=== PATIENT | male | born 1960 | race Caucasian/White ===

== ENCOUNTER 2017-04-18 09:16 | Inpatient (IN) | payer OTHER ==
[~2017-04-18] VITALS: Ht 193 cm; Wt 140.0 kg
[2017-04-18] MEDS ORDERED: CEFTRIAXONE 1 GM/50 ML (PMX) 50 ML IVPB STA (10:09)
[2017-04-18] MEDS ORDERED: SODIUM CHLORIDE 0.9% 1L BAG IV* STA (10:09)
[2017-04-18] MEDS ORDERED: AZITHROMYCIN 500MG/NS (PMX) 250 ML IV STA (10:09)
[2017-04-18] MEDS ORDERED: SOD CHLORIDE 0.9% 500 ML IV STA (10:16)
[2017-04-18] MEDS ORDERED: ACETAMINOPHEN 325 MG TAB PO ONE (10:30)
[2017-04-18] MEDS ORDERED: ALBUTEROL 0.083% (NEB) 2.5 MG/3 ML AMP NEB STA ×2 (10:52→12:23)
[2017-04-18] MEDS ORDERED: IPRATROPIUM (NEB) 0.5 MG/2.5 ML AMP NEB STA (10:52)
[2017-04-18] MEDS ORDERED: predniSONE 20 MG TAB PO STA (10:52)
[2017-04-18 10:53] LABS: ABNORMAL IP MESSAGE 1; BASOPHILS % 0.2 % (0.0-2.0); EOSINOPHILS % 0.1 % (0.0-7.0); HEMATOCRIT 40.1 % (42.0-52.0); HEMOGLOBIN 12.5 g/dl (14.0-18.0); LYMPHOCYTES # 0.4 10^3/ul (0.8-2.9); LYMPHOCYTES % 2.7 % (15.0-51.0); MEAN CORPUSCULAR HEMOGLOBIN 32.1 pg (29.0-33.0); MEAN CORPUSCULAR HGB CONC 31.2 g/dl (32.0-37.0); MEAN CORPUSCULAR VOLUME 103.1 fl (82.0-101.0); MEAN PLATELET VOLUME 8.9 fl (7.4-10.4); MONOCYTE # 0.6 10^3/ul (0.3-0.9); MONOCYTES % 3.6 % (0.0-11.0); NEUTROPHIL # 14.9 10^3/ul (1.6-7.5); NEUTROPHILS % 92.5 % (39.0-77.0); PLATELET COUNT 223 10^3/UL (140-415); POSITIVE DIFF @See below; RED BLOOD COUNT 3.89 10^6/ul (4.70-6.10); RED CELL DISTRIBUTION WIDTH 16.7 % (11.5-14.5); WHITE BLOOD COUNT 16.1 10^3/ul (4.8-10.8)
[2017-04-18 11:10] LABS: INR 1.1; PROTIME 14.2 Sec (12.2-14.2); PT RATIO 1.1
[2017-04-18 11:11] LABS: PARTIAL THROMBOPLASTIN TIME 33.2 Sec (25.0-35.0)
[2017-04-18 11:13] LABS: ALANINE AMINOTRANSFERASE 35 IU/L (13-69); ALBUMIN 3.9 g/dl (3.3-4.9); ALBUMIN/GLOBULIN RATIO 1.14; ALKALINE PHOSPHATASE 94 IU/L (42-121); ANION GAP 11 (8-16); ASPARTATE AMINO TRANSFERASE 16 IU/L (15-46); BILIRUBIN,INDIRECT 0.7 mg/dl (0-1.1); BILIRUBIN,TOTAL 0.7 mg/dl (0.2-1.3); BLOOD UREA NITROGEN 14 mg/dl (7-20); CARBON DIOXIDE 32 mmol/L (21-31); CHLORIDE 102 mmol/L (97-110); CREATININE 0.87 mg/dl (0.61-1.24); GLUCOSE 154 mg/dl (70-220); POTASSIUM 4.4 mmol/L (3.5-5.1); SODIUM 141 mmol/L (135-144); TOTAL PROTEIN 7.3 g/dl (6.1-8.1)
[2017-04-18 11:38] LABS: TROPONIN-I < 0.012 ng/ml (0.00-0.12)
--- NOTE | 2017-04-18 12:19 | RADRPT ---
PROCEDURE: Chest x-ray CLINICAL INDICATION: Shortness of breath TECHNIQUE: Chest single view COMPARISON: None FINDINGS: There is a moderate cardiomegaly and mild atherosclerotic aortic calcification. Increased bilateral interstitial markings are seen likely reflecting chronic interstitial lung change. Component of supe rimposed interstitial edema or interstitial pneumonia is not excluded. There is mild linear left low er lobe atelectasis. The questionable 7 mm right upper lung nodule. This may be artifactual due to o verlying rib. The costophrenic angles are sharp. There are calcified oval densities in the left axil la which may represent synovial calcification versus lymph nodes. There is moderate degenerative maria l nge left glenohumeral joint. IMPRESSION: 1. Moderate cardiomegaly and mild atherosclerotic aortic calcification. 2. Increased bilateral interstitial lung markings may represent chronic change, interstitial edema, or interstitial pneumonia. 3. Left lower lobe atelectasis. 4. 7 mm nodular density in the right upper lobe. This should be followed. 5. Calcifications in the left shoulder likely represent synovial calcification versus loose bodies. There is moderate degenerate change left shoulder joint RPTAT: HH .Jaylen Blair MD, Date Time Electronically viewed and signed by .Jaylen Blair MD, on 04/18/2017 12:18 .W/
[2017-04-18] MEDS ORDERED: ONDANSETRON 4 MG INJ IV PRN ×2 (13:30→14:30)
[2017-04-18] MEDS ORDERED: VANCOMYCIN 1.5 GM in SOD CHLORIDE 0.9% 250 ML IVPB ONE (13:30)
[2017-04-18] MEDS ORDERED: ACETAMINOPHEN 325 MG TAB PO PRN ×2 (13:30→14:30)
[2017-04-18 13:32] LABS: AADO2 Arterial 72.6 mmHg (7.0-24.0); Arterial Base Excess 2.9 mmol/L (-3.0-3); Arterial COHb 3.1 % (0.0-3.0); Arterial Fraction of Oxyhgb 90.9 % (93.0-99.0); Arterial HCO3 27.6 mmol/L (22.0-26.0); Arterial MetHb 0.2 % (0.0-1.5); MODE NASAL CANNULA
[2017-04-18] MEDS ORDERED: HEPARIN 1000 UNITS/ML 10 ML INJ IV ONE (14:30)
[2017-04-18] MEDS ORDERED: HYDROCODONE/APAP (5/325) TAB PO PRN (14:30)
[2017-04-18] MEDS ORDERED: ALBUTEROL/IPRATROPIUM (NEB) 3 ML AMP HHN PRN (14:30)
[2017-04-18] MEDS ORDERED: NACL 0.9% 3 ML SYG IV SCH (14:30)
[2017-04-18] MEDS ORDERED: HEPARIN 1000 UNITS/ML 10 ML INJ IV PRN ×2 (14:30)
[2017-04-18] MEDS ORDERED: SOD CHLORIDE 0.9% 100 ML ONE (14:35)
[2017-04-18] MEDS ORDERED: IOHEXOL 100 ML ONE (14:35)
--- NOTE | 2017-04-18 14:35 | ERA ---
ER Documentation Chief Complaint Date/Time DATE: 04/18/17 TIME: 14:19 Chief Complaint chest pain with sob x 3 days HPI 57-year-old male with a history of CHF, COPD, cardiac arrest, PE and DVT on Coumadin presenting to the ER with complaints of cough, fever, chills, and shortness of breath. He states that he feels like he has bronchitis. He has had these symptoms for about 3 days and he has progressively been worsening. He has had associated lightheadedness as well. His last hospitalization was about 1 month ago. ROS All systems reviewed and are negative except as per history of present illness. PMhx/Soc History of Surgery: Yes Hx Respiratory Disorders: Yes (Pulmonary embolism, COPD) Hx Cardiac Disorders: Yes (CHF, hypertension) Hx Miscellaneous Medical Probl: Yes (DVT, spinal stenosis) Hx Alcohol Use: No Hx Substance Use: No Hx Tobacco Use: No Smoking Status: Current some day smoker FmHx Family History: No diabetes Physical Exam Vitals Vital Signs Date Time Temp Pulse Resp B/P Pulse Ox O2 Delivery O2 Flow Rate FiO2 04/18/17 13:30 69 18 126/68 98 Nasal Cannula 2.0 04/18/17 12:29 77 18 96 Nasal Cannula 2.0 04/18/17 11:07 2.0 04/18/17 11:07 75 18 96 Nasal Cannula 2.0 04/18/17 10:00 Nasal Cannula 2 04/18/17 09:18 102.4 105 20 178/101 89 Physical Exam Const: Nontoxic, large body habitus, speaking in full sentences but appears short of breath Head: Atraumatic Eyes: Normal Conjunctiva ENT: Normal External Ears, Nose and Mouth. Neck: Full range of motion..~ No meningismus. No JVD Resp: Tachypneic, diminished breath sounds bilaterally with diffuse expiratory wheezing, no rales or rhonchi Cardio: Tachycardic with regular regular rate and rhythm, no murmurs Abd: Soft, non tender, non distended. Normal bowel sounds Skin: No petechiae or rashes Back: No midline or flank tenderness Ext: No cyanosis, mild bilateral lower extremity edema with chronic venous stasis changes. 2+ pedal pulses bilaterally. Neur: Awake and alert, oriented 3, moving all extremities Psych: Normal Mood and Affect Result Diagram: 04/18/17 1023 04/18/17 1023 Results 24 hrs Laboratory Tests Test 04/18/17 10:23 04/18/17 12:25 04/18/17 12:50 White Blood Count 16.110^3/ul Red Blood Count 3.8910^6/ul Hemoglobin 12.5g/dl Hematocrit 40.1% Mean Corpuscular Volume 103.1fl Mean Corpuscular Hemoglobin 32.1pg Mean Corpuscular Hemoglobin Concent 31.2g/dl Red Cell Distribution Width 16.7% Platelet Count 04069^3/UL Mean Platelet Volume 8.9fl Neutrophils % 92.5% Lymphocytes % 2.7% Monocytes % 3.6% Eosinophils % 0.1% Basophils % 0.2% Nucleated Red Blood Cells % 0.0/100WBC Neutrophils # 14.910^3/ul Lymphocytes # 0.410^3/ul Monocytes # 0.610^3/ul Eosinophils # 0.010^3/ul Basophils # 0.010^3/ul Nucleated Red Blood Cells # 0.010^3/ul Prothrombin Time 14.2Sec Prothrombin Time Ratio 1.1 INR International Normalized Ratio 1.10 Activated Partial Thromboplast Time 33.2Sec Sodium Level 141mmol/L Potassium Level 4.4mmol/L Chloride Level 102mmol/L Carbon Dioxide Level 32mmol/L Anion Gap 11 Blood Urea Nitrogen 14mg/dl Creatinine 0.87mg/dl Glucose Level 154mg/dl Lactic Acid Level 1.6mmol/L 1.2mmol/L Calcium Level 9.0mg/dl Total Bilirubin 0.7mg/dl Direct Bilirubin 0.00mg/dl Indirect Bilirubin 0.7mg/dl Aspartate Amino Transf (AST/SGOT) 16IU/L Alanine Aminotransferase (ALT/SGPT) 35IU/L Alkaline Phosphatase 94IU/L Troponin I < 0.012ng/ml Total Protein 7.3g/dl Albumin 3.9g/dl Globulin 3.40g/dl Albumin/Globulin Ratio 1.14 Blood Gas Specimen Source Blood arterial Arterial Blood Date Drawn 04/18/2017 1:26:14 PM Arterial Blood pH (Temp corrected) 7.430 Arterial Blood pCO2 (Temp correct) 42.5mmhg Arterial Blood pO2 (Temp corrected) 69.7mmHG Arterial Blood HCO3 27.6mmol/L Arterial Blood Base Excess 2.9mmol/L Arterial Blood Oxygen Saturation 94.0mmHG Jian Test N/A Arterial Blood Gas Puncture Site LB Arterial Blood Carboxyhemoglobin 3.1% Arterial Blood Methemoglobin 0.2% Blood Gas A-a O2 Differential 72.6mmHg Oxyhemoglobin Percent 90.9% Total Hemoglobin 13.0g/dl Blood Gas Temperature 37.0C Blood Gas Modality NASAL CANNULA FiO2 27.0% Blood Gas Notified Whom MDA Blood Gas Notified Time 04/18/2017 1:31:40 PM Current Medications Medications (Trade) Dose Ordered Sig/Mark Route PRN Reason Start Time Stop Time Status Last Admin Dose Admin Sodium Chloride 4450 ml 4,450 ml BOLUS OVER 2 HOURS STAT IV* 04/18/17 10:09 04/18/17 10:18 DC Ceftriaxone Sodium 50 ml @ 100 mls/hr ONCE STAT IVPB 04/18/17 10:09 04/18/17 10:38 DC 04/18/17 10:56 Azithromycin 250 ml @ 250 mls/hr ONCE STAT IV 04/18/17 10:09 04/18/17 11:08 DC 04/18/17 11:55 Sodium Chloride (NS) 500 ml @ 500 mls/hr Q1H STAT IV 04/18/17 10:16 04/18/17 11:15 DC 04/18/17 10:55 Acetaminophen (Tylenol Tab) 650 mg ONCE ONCE PO 04/18/17 10:30 04/18/17 10:31 DC 04/18/17 10:55 Albuterol (Proventil 0.083% (Neb)) 5 mg ONCE STAT NEB 04/18/17 10:52 04/18/17 10:56 DC 04/18/17 11:07 Ipratropium [place] (Atrovent 0.02% (Neb)) 0.5 mg ONCE STAT NEB 04/18/17 10:52 04/18/17 10:56 DC 04/18/17 11:07 Prednisone (Prednisone) 60 mg ONCE STAT PO 04/18/17 10:52 04/18/17 10:56 DC 04/18/17 12:02 Albuterol 5 mg 5 mg ONCE STAT NEB 04/18/17 12:23 04/18/17 12:24 DC 04/18/17 12:28 Vancomycin HCl/ Sodium Chloride (Vancocin/NS) 250 ml @ 83.333 mls/ hr ONCE ONCE IVPB 04/18/17 13:30 04/18/17 16:29 Ondansetron HCl (Zofran Inj) 4 mg ER BRIDGE PRN IV NAUSEA AND/OR VOMITING 04/18/17 13:30 04/19/17 13:29 Acetaminophen (Tylenol Tab) 650 mg ER BRIDGE PRN PO MILD PAIN/FEVER 04/18/17 13:30 04/19/17 13:29 Procedures/MDM EKG: Rate/Rhythm: Sinus tachycardia at 102 bpm QRS, ST, T-waves: Poor R-wave progression, no changes consistent w/ acute ischemia Impression: No evidence of ischemia or arrhythmia Labs CBC: [place] ptosis CMP: No evidence of electrolyte abnormality, renal failure, hypoglycemia, liver failure, or biliary obstruction Troponin within normal limits Lactate within normal limits Chest x-ray: IMPRESSION: 1. Moderate cardiomegaly and mild atherosclerotic aortic calcification. 2. Increased bilateral interstitial lung markings may represent chronic change , interstitial edema, or interstitial pneumonia. 3. Left lower lobe atelectasis. 4. 7 mm nodular density in the right upper lobe. This should be followed. 5. Calcifications in the left shoulder likely represent synovial calcification versus loose bodies. There is moderate degenerate change left shoulder joint RPTAT: HH .Jaylen Blair MD, MD Date Time Electronically viewed and signed by .Jaylen Blair MD, MD on 04/18/2017 12:18 [facility] Patient is presenting with signs of sepsis and likely bronchitis versus interstitial pneumonia. Vitals were notable for fever with tachycardia and hypoxia on room air, which improved with supplemental oxygen and breathing treatments. However he still remains hypoxic on room air and generally still felt very weak. IV antibiotics were started. I have a lower suspicion for pulmonary embolism, however this still remains on the differential as does acute coronary syndrome and CHF exacerbation, however these are less likely. I will defer any further workup to the inpatient team. Patient's infectious symptoms have not stabilized and the patient is at risk of rapid decompensation. The patient will be admitted for careful hydration, antibiotic therapy, and infectious source control. Severe Sepsis Assessment: Infectious Source: Healthcare associated interstitial pneumonia End organ damage indicated by: Acute Resp Failure (sat < 92% w/o oxygen) Severe Sepsis Managment: Blood Cultures X 2 before broad spectrum antibiotics initiated within 3 hours of recognition. 30 ml/kg NS bolus 500 cc bolus given, full bolus not given the patient has signs of mild fluid overload and a history of heart failure Initial Lactate: normal Repeat Lactate not indicated as initial < 2.0 Critical Care: Time: 45 minutes Treatments/Evaluations: Emergent fluid management, while maintaining close respiratory support. Immediate broad spectrum antibiotic therapy. Simultaneous assessment for possible sources in order to direct therapy. Consideration for invasive and chemical support to prevent respiratory or cardiac collapse. Septic Shock Assessment (1 hour post 30 ml/kg fluid bolus): Hypotension (SBP < 90 or 40 mmHg drop, MAP < 65): No Lactic acid > 4.0 No Accepting Care Team: Current data and ongoing care discussed. Time: Time of admission Primary Provider: Alexey Negron Diagnosis: Primary Impression: Healthcare-associated pneumonia Additional Impressions: Sepsis Qualified Code: A41.9 - Sepsis, due to unspecified organism Acute respiratory failure with hypoxia Condition: Serious YOKASTA HOPKINS MD Apr 18, 2017 14:30
--- NOTE | 2017-04-18 14:56 | RADRPT ---
PROCEDURE: US Lower extremity Venous. CLINICAL INDICATION: Bilateral leg swelling TECHNIQUE: Multiple sonographic images of the bilateral lower extremity deep venous system was obt ained utilizing merino scale, color-flow, compressive sonography and doppler imaging with augmentation . COMPARISON: None. FINDINGS: There is normal compressibility and flow within the bilateral common femoral, femoral and popliteal veins. Visualized portions of the calf veins are patent. IMPRESSION: No sonographic evidence for deep venous thrombosis. RPTAT:AAJJ Physician Genet Date Time Electronically viewed and signed by Physician Genet on 04/18/2017 14:55 /
[2017-04-18] MEDS ORDERED: LABETALOL HCL 20MG INJ IV PRN ×3 (15:00→15:30)
[2017-04-18] MEDS ORDERED: hydrALAzine 20 MG INJ IV PRN (15:00)
--- NOTE | 2017-04-18 15:01 | HP ---
Date/Time of Note Date/Time of Note DATE: 04/18/17 TIME: 14:51 Assessment/Plan VTE Prophylaxis VTE Prophylaxis Intervention: heparin Assessment/Plan Chief Complaint/Hosp Course Patient is a 57-year-old male with a past medical history of CHF, COPD , pulmonary embolism and not compliant on warfarin who presents with fever, mild shortness of breath. Assessment and plan Sepsis, likely secondary to pneumonia Shortness of breath, pneumonia versus PE versus less likely COPD COPD exacerbation, less likely, very mild CO2 retention, however bicarb is elevated on BMP, consistent with someone with COPD Fever Anemia, mild History of PE, medically noncompliant Hypertension Chronic back pain -We will treat for pneumonia and COPD exacerbation, however cannot rule out PE at this time given patient's noncompliance and history of PE with IVC filter. -Stat CT angiogram of the chest ordered to rule out PE, will start patient on heparin as he needs it for a bridge to warfarin regardless of actual diagnosis of new PE. We will also order lower extremity Doppler -Community-acquired pneumonia antibiotics started, oral steroids will also be started, mild COPD exacerbation -CHF exacerbation is also a possibility, however less likely given no pulmonary edema seen on chest x-ray and patient is not showing signs of severe acute respiratory distress at bedside -Breathing treatments as needed -Pain control as needed -Restart home meds as able, currently no home meds at [facility] med rec, however patient can remember some occasions, will need to confirm with . Disposition: Treat patient for pneumonia, rule out PE, bridge to warfarin. Problems: HPI/ROS Admit Date/Time Admit Date/Time Hx of Present Illness Patient is a 57-year-old male with a past medical history significant for CHF, COPD, PE on warfarin who presents to [facility] for approximately 3-4 days of worsening shortness of breath and feeling ill. Patient states that he has had fevers and has been feeling off for the past few days. Patient is currently he is tired, fatigued, feels feverish. Patient states that although he is supposed to be on warfarin, has missed the last couple doses secondary to not being able to pick them up from the pharmacy. Patient also states that his left lower extremity has been more swollen than usual. Patient can remember some of his medication, however he is not the best historian. Patient denies any headache, vomiting, chest pain, abdominal pain, bowel or bladder dysfunction. PMH: CHF, COPD, PE, cardiopulmonary arrest secondary to aspiration, back pain PSH: IVC filter, cardiac cath, right wrist metallic fixation device Social: Occasional smoker, occasional drinker, denies drugs Meds: Warfarin 4 mg daily, losartan 100 mg daily, oxycodone PMH/Family/Social Social History Smoking Status: Current some day smoker Exam/Review of Systems Vital Signs Vitals Vital Signs Date Time Temp Pulse Resp B/P Pulse Ox O2 Delivery O2 Flow Rate FiO2 04/18/17 13:30 69 18 126/68 98 Nasal Cannula 2.0 04/18/17 09:18 102.4 Exam Exam Physical exam General: Patient is laying in bed and answers questions appropriately, obese Mentation: Patient is alert and oriented 4, Head: Normocephalic atraumatic Eyes: EOMI, pupils reactive to light Neck: Supple, nontender, midline Respiratory: coarse to auscultation bilaterally Cardiovascular: regular rate, no obvious murmurs Gastrointestinal: non-tender to palpation, bowel sounds heard. 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: Moves all extremities spontaneously Skin: bilateral mild/mod erythema LE. 2+ edema bilat LE Labs Result Diagram: 04/18/17 1023 04/18/17 1023 Medications Medications Current Medications Vancomycin HCl/ Sodium Chloride (Vancocin/NS) 250 ml @ 83.333 mls/ hr ONCE ONCE IVPB Last administered on 04/18/17t 14:20; Admin Dose 83.333 MLS/HR; Start 04/18/17 at 13:30; Stop 04/18/17 at 16:29 Prednisone 40 mg 40 mg DAILY PO ; Start 04/19/17 at 09:00 Ceftriaxone Sodium 50 ml @ 100 mls/hr Q24H IVPB ; Start 04/19/17 at 09:00 Azithromycin 250 ml @ 250 mls/hr Q24H IVPB ; Start 04/19/17 at 09:00 Sodium Chloride (NS) 1,000 ml @ 70 mls/hr [id number] IV ; Start 04/18/17 at 14:24 Ondansetron HCl (Zofran Inj) 4 mg Q6H PRN IV NAUSEA AND/OR VOMITING; Start at 14:30 Acetaminophen (Tylenol Tab) 650 mg Q6H PRN PO PAIN LEVEL 1-3 OR FEVER; Start 04/18/17 at 14:30 Acetaminophen/ Hydrocodone Bitart ([place] (5/325)) 1 tab Q6H PRN PO PAIN LEVEL 7 -10; Start 04/18/17 at 14:30 Bisacodyl (Dulcolax) 5 mg DAILY PRN PO CONSTIPATION; Start 04/18/17 at 14:30 RONNI PERKINS Apr 18, 2017 15:01
--- NOTE | 2017-04-18 16:02 | RADRPT ---
PROCEDURE: CTA Chest with IV contrast. CLINICAL INDICATION: Chest pain and shortness of breath. TECHNIQUE: The study was performed utilizing a multidetector CT scanner. Direct spiral axial secti ons were obtained from the thoracic inlet through the upper abdomen before and after the injection o f 100 cc Omnipaque 350 intravenous contrast material and reformatted at 1.25 mm. 3D, coronal and sag ittal reformations were obtained. The images were reviewed on a PACS workstation. DLP = 758.0 mGy-c m.CTDiVol = 56.3, 20.0 mGy. One or more of the following post reduction techniques were used: - Automated exposure control. - Adjustment of the mA and/or Kv according to patient's size. - Use of iterative reconstruction technique COMPARISON: No prior studies are available for comparison. FINDINGS: Subtle, thin nonocclusive pulmonary arterial filling defect is identified in the right descending pu lmonary artery (series 3, image 151). No additional filling defects are seen. Heart is borderline large. Coronary artery and aortic annular calcifications are seen. Multiple mil dly prominent paratracheal, subcarinal, prevascular space and bilateral hilar lymph nodes are identi fied. The largest distinct lymph node is seen in the right paratracheal region and measures approxim ately 2.2 x 1.9 cm. The visualized portions of the inferior thyroid appear unremarkable. Scattered mild calcified atherosclerosis is noted in the thoracic aorta. The thoracic esophagus appears normal . Moderate emphysematous changes are identified in both lungs. Mild peripheral nurse station changes w ith potential early fibrosis are seen scattered throughout the bilateral upper lobes. Focal patchy c onsolidation is seen in the bilateral posterior lower lobes. Focal ground-glass opacity is noted in the anterior left upper lobe. Additional scattered ground-glass opacity is seen in the periphery of the right upper lobe and in the lateral left lower lobe. 9 mm subpleural nodule is identified in the posterior right upper lobe (series 4, image 55). The visualized organs of the superior abdomen are unremarkable. Moderate to severe degenerative changes are seen in the spine. Old, healed fractures of the anterior left third through fifth ribs are observed. The subcutaneous and muscular soft tissues surrounding the chest are unremarkable. IMPRESSION: Subtle, pain, nonocclusive, pulmonary arterial filling defect in the right descending pulmonary francisco javier ry. This could reflect a pulmonary arterial web or synechiae and could be the sequelae of old pulmon adams embolus. An atypical small, acute pulmonary embolus cannot definitely be excluded. Patchy consolidations in the bilateral posterior lower lobes with additional scattered areas of grou nd-glass opacity in the bilateral upper lobes. Finding suggest multifocal infection/inflammation. Mediastinal and hilar adenopathy. This could be reactive. Moderate emphysematous changes in both lungs with associated peripheral interstitial changes and ear ly fibrosis in the upper lobes. 9 mm subpleural nodule in the posterior right upper lobe. Degenerative changes in the spine and calcified atherosclerosis in the arterial vasculature. Old, healed left rib fractures. Guidelines for Management of Small Pulmonary Nodules Detected on CT Scans: A statement from the Flei schner [employer] Single Solid Nodule: <6mm(<100mm3): Low risk: No f/u. High risk: Optional CT at 12 months. Certain pts at high risk with suspicious nodule morphology, upper lobe location, or both may warrant 12 mo f/ u. 6-8mm(100-250mm3): Low risk: CT at 6-[address] at 18-24 mos. High risk: CT at 6-[address] at 18-24 mos. >8mm(>250mm3): Consider CT, PET/CT, or tissue sampling at 3 mos. Multiple Solid Nodules: Use most susp nod to guide mgmt. F/u intervals may vary according to size/r isk <6mm(<100mm3): Low risk: No f/u. High risk: Optional CT at 12 months. 6-8mm(100-250mm3): Low risk: CT at 3-[address] at 18-24 mos. High risk: CT at 3-[address] at 18-24 mos. >8mm(>250mm3): Low risk: CT at 3-[address] at 18-24 mos. High risk: CT at 3-[address] at 18-24 mos. Single Subsolid Nodule: Ground Glass: In certain susp nods <6mm, consider 2 and 4 yr f/u. If solid component increases or growth develops, consider resection. Otherwise: <6mm(<100mm3): Low risk: No f/u. High risk: CT at 6-12 mos to confirm persistence, then CT every 2 yrs until 5 yrs. Part Solid: Must be >or=6mm to be part solid. CT at 3-6 mos to confirm persistence. If unchang ed and solid component still <6mm, do annual CT for 5 yrs. If solid component >=6mm, consider highly suspicious. Multiple Subsolid Nodules: <6mm(<100mm3): CT at 3-6 mos. If stable, consider CT at 2 and 4 yrs. Mult <6mm pure ground gla ss nods usually benign but consider f/u in selected high risk pts at 2 and 4 yrs. >=6mm(>100mm3): CT at 3-6 mos. Subseq management based on most susp nodule. Reference: Radiology 2017 Special Report Call report: A call report of the findings was made to Dr. Thompson at 3:56 PM on 04/18/2017 . RPTAT: AA .Yuri Hodge MD, Date Time Electronically viewed and signed by .Yuri Hodge MD, on 04/18/2017 16:02 .P/
[2017-04-18] MEDS: HEPARIN 25000 UNITS/250 ML 250 ML IV SCH (16:19)
[2017-04-18] MEDS: SOD CHLORIDE 0.9% 1,000 ML IV SCH (16:24)
[2017-04-18 17:11] VITALS: TEMP 98.1
[2017-04-18 18:00] VITALS: BP 146/67; RESP 19
[2017-04-18 18:09] VITALS: PULSE 79
[2017-04-18] MEDS: oxyCODONE 5 MG TAB PO PRN ×2 (18:14→23:52)
[2017-04-18 18:19] VITALS: Ht 193 cm; Wt 140.0 kg
[2017-04-18 20:00] VITALS: BP 139/84; RESP 21
[2017-04-18] MEDS: ALBUTEROL/IPRATROPIUM (NEB) 3 ML AMP HHN SCH (20:00)
[2017-04-18 20:26] VITALS: PULSE 79
[2017-04-18] MEDS: WARFARIN 2 MG TAB PO SCH (21:40)
[2017-04-19] VITALS (13 sets, daily range): BP systolic 132–184; BP diastolic 66–93; PULSE 62–77; RESP 20–22
[2017-04-19] MEDS ORDERED: HEPARIN 1000 UNITS/ML 10 ML INJ IV ONE (01:30)
[2017-04-19] MEDS: HEPARIN 25000 UNITS/250 ML 250 ML IV SCH ×5 (01:31→22:35)
[2017-04-19] MEDS: oxyCODONE 5 MG TAB PO PRN ×3 (05:13→19:32)
[2017-04-19] MEDS: SOD CHLORIDE 0.9% 1,000 ML IV SCH ×2 (05:14→20:47)
[2017-04-19] MEDS: ALBUTEROL/IPRATROPIUM (NEB) 3 ML AMP HHN SCH ×3 (08:54→19:54)
[2017-04-19 08:57] LABS: ALBUMIN 3.4 g/dl (3.3-4.9); ALBUMIN/GLOBULIN RATIO 0.94; BILIRUBIN,INDIRECT 0.6 mg/dl (0-1.1); BILIRUBIN,TOTAL 0.6 mg/dl (0.2-1.3); CALCIUM 8.8 mg/dl (8.4-10.2); CREATININE 0.73 mg/dl (0.61-1.24); POTASSIUM 3.9 mmol/L (3.5-5.1)
[2017-04-19] MEDS: AZITHROMYCIN 500MG/NS (PMX) 250 ML IVPB SCH (09:00)
[2017-04-19] MEDS: LOSARTAN 50 MG TAB PO SCH (09:34)
[2017-04-19] MEDS: predniSONE 20 MG TAB PO SCH (09:34)
[2017-04-19] MEDS ORDERED: HEPARIN 1000 UNITS/ML 10 ML INJ IV PRN ×3 (09:42→09:53)
[2017-04-19 10:35] LABS: INR 1.24; PROTIME 15.7 Sec (12.2-14.2); PT RATIO 1.2
[2017-04-19] MEDS: CEFTRIAXONE 1 GM/50 ML (PMX) 50 ML IVPB SCH (11:04)
--- NOTE | 2017-04-19 14:11 | PN ---
Date/Time of Note Date/Time of Note DATE: 04/19/17 TIME: 14:02 Assessment/Plan VTE Prophylaxis VTE Prophylaxis Intervention: heparin Lines/Catheters IV Catheter Type (from Nrs): Peripheral IV Urinary Cath still in place: No Assessment/Plan Assessment/Plan 1. Sepsis, likely secondary to pneumonia - Will continue monitoring WBC. remains afebrile - Currently on Azitho/Ceftriaxone - LA normal 2. Shortness of breath, community acquired pneumonia versus PE versus less likely COPD - CTA shows acute vs chronic PE - On antibiotics and Nebs PRN - Saturating well on NC and will titrate off O2 as tolerated - No wheezing appreciated, no steroids needed at this time - Mucinex to help with expectorant 3. History of PE, medically noncompliant - Currently on Heparin drip but discussed changing patient to Eliquis prior to d /c - Has IVC filter in place and states was dx with DVT in LLE 1.5 months ago but no evidence on duplex of lower extremities 4. Hypertension - stable 5. Chronic back pain 6. 9mm lung nodule - Will need follow up as outpatient 7. Disposition - Continue monitoring on Telemetry Subjective 24 Hr Interval Summary Free Text/Dictation Patient states still not feeling well and c/o difficulty breathing with chest discomfort. C/o burning with urination as well but denies fevers, chills, nausea, vomiting, constipation, or diarrhea. Exam/Review of Systems Vital Signs Vitals Vital Signs Date Time Temp Pulse Resp B/P Pulse Ox O2 Delivery O2 Flow Rate FiO2 04/19/17 12:13 68 04/19/17 11:43 98.8 20 145/82 94 04/19/17 08:59 2.0 04/19/17 08:55 Nasal Cannula Intake and Output 04/18/17 04/18/17 04/19/17 15:00 23:00 07:00 Intake Total 1800 ml Output Total 1100 ml Balance 700 ml Exam General: Patient is laying in bed and answers questions appropriately, obese Head: Normocephalic atraumatic Eyes: EOMI, pupils reactive to light Neck: Supple, nontender, midline Respiratory: coarse to auscultation bilaterally Cardiovascular: regular rate, no obvious murmurs Gastrointestinal: non-tender to palpation, bowel sounds heard. 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: Moves all extremities spontaneously Skin: bilateral mild/mod erythema LE. 2+ edema bilateral LE Results Result Diagram: 04/18/17 1023 04/19/17 0800 Results 24 hrs Laboratory Tests Test 04/18/17 15:25 04/18/17 22:19 04/19/17 08:00 Lactic Acid Level 1.7 Activated Partial Thromboplast Time 44.6 H 57.5 H Prothrombin Time 15.7 H Prothrombin Time Ratio 1.2 INR International Normalized Ratio 1.24 Sodium Level 139 Potassium Level 3.9 Chloride Level 105 Carbon Dioxide Level 28 Anion Gap 10 Blood Urea Nitrogen 11 Creatinine 0.73 Glucose Level 121 Calcium Level 8.8 Total Bilirubin 0.6 Direct Bilirubin 0.00 Indirect Bilirubin 0.6 Aspartate Amino Transf (AST/SGOT) 18 Alanine Aminotransferase (ALT/SGPT) 37 Alkaline Phosphatase 90 Total Protein 7.0 Albumin 3.4 Globulin 3.60 H Albumin/Globulin Ratio 0.94 Medications Medications Current Medications Prednisone 40 mg 40 mg DAILY PO Last administered on 04/19/17 09:34; Admin Dose 40 MG; Start 04/19/17 at 09:00 Ceftriaxone Sodium 50 ml @ 100 mls/hr Q24H IVPB Last administered on 11:04; Admin Dose 100 MLS/HR; Start 04/19/17 at 09:00 Azithromycin 250 ml @ 250 mls/hr Q24H IVPB Last administered on 04/19/17 09: 00; Admin Dose 250 MLS/HR; Start 04/19/17 at 09:00 Sodium Chloride (NS) 1,000 ml @ 70 mls/hr [id number] IV Last administered on 05:14; Admin Dose 70 MLS/HR; Start 04/18/17 at 14:24 Ondansetron HCl (Zofran Inj) 4 mg Q6H PRN IV NAUSEA AND/OR VOMITING; Start at 14:30 Acetaminophen (Tylenol Tab) 650 mg Q6H PRN PO PAIN LEVEL 1-3 OR FEVER; Start 04/18/17 at 14:30 Bisacodyl (Dulcolax) 5 mg DAILY PRN PO CONSTIPATION; Start 04/18/17 at 14:30 Warfarin Sodium (Coumadin) 4 mg DAILY@17 PO Last administered on 04/18/17 21: 40; Admin Dose 4 MG; Start 04/18/17 at 17:00 Losartan Potassium (Cozaar) 100 mg DAILY PO Last administered on 04/19/17 09: 34; Admin Dose 100 MG; Start 04/19/17 at 09:00 Oxycodone HCl (Roxicodone) 5 mg Q4H PRN PO PAIN Last administered on 05:13; Admin Dose 5 MG; Start 04/18/17 at 15:00 Hydralazine HCl (Apresoline) 10 mg Q4H PRN IV SBP>160; Start 04/18/17 at 15:00 Labetalol HCl (Labetalol) 10 mg Q4H PRN IV SBP>160; Start 04/18/17 at 15:30 Phenazopyridine HCl (Pyridium) 200 mg TID PO ; Start 04/19/17 at 14:00; Stop 04/22/17 at 21:00; Status UNV Guaifenesin (Mucinex) 600 mg BID PO ; Start 04/19/17 at 14:00; Status UNV ABHI HARE MD Apr 19, 2017 14:11
[2017-04-19] MEDS: GUAIFENESIN LA 600 MG TABSR PO SCH ×2 (14:45→20:49)
[2017-04-19] MEDS: PHENAZOPYRIDINE 200 MG TAB PO SCH ×2 (14:45→20:49)
[2017-04-19] MEDS: WARFARIN 2 MG TAB PO SCH (16:55)
[2017-04-19 18:25] LABS: ADD UMIC YES; UR ASCORBIC ACID NEGATIVE (NEGATIVE); UR BILIRUBIN (Dip) NEGATIVE (NEGATIVE); UR BLOOD (Dip) 1+ mg/dL (NEGATIVE); UR CLARITY CLEAR (CLEAR); UR COLOR YELLOW (YELLOW); UR GLUCOSE (Dip) NEGATIVE (NEGATIVE); UR KETONES (Dip) NEGATIVE (NEGATIVE); UR LEUKOCYTE ESTERASE (Dip) 1+ Leu/ul (NEGATIVE); UR NITRITE (Dip) NEGATIVE (NEGATIVE); UR RBC 10 /HPF (0-5); UR SPECIFIC GRAVITY (Dip) 1.006 (1.003-1.030); UR TOTAL PROTEIN (Dip) NEGATIVE (NEGATIVE); UR UROBILINOGEN (Dip) 1+ mg/dL (NEGATIVE)
--- NOTE | 2017-04-19 18:29 | RADRPT ---
Echocardiogram Report Patient Name: RAJAN LOPES Gender: Male Date: 1960 Study Date: 19-Apr-2017 Yarn Rewinder: [facility] Location: [address] Ref. Physician: RONNI PERKINS Quality: Technically Difficult Study Procedures: Transthoracic echocardiogram with complete 2D, M-Mode, and doppler examination. Indications: Congestive Heart Failure. 2D/M Mode Doppler Measurement Value Normal Ranges Measurement Value Normal Ranges LVIDd 2D 5.5 3.5 - 5.6 cm AV Peak Jacques 1.7 m/sec LVIDs 2D 3.8 2.1 - 4.1 cm AV Peak PG 12.0 mmHg FS 2D 30.5 % LVOT Peak Jacques 1.3 m/sec LVPWd 2D 1.3 0.6 - 1.1 cm LVOT Peak PG 7.0 mmHg IVSd 2D 1.3 0.6 - 1.1 cm MV E Peak Jacques 1.1 m/sec IVS/LVPW 2D 1.0 MV A Peak Jacques 0.8 m/sec AoR Diam 2D 3.3 2.0 - 3.7 cm MV E/A 1.5 LA/Ao 2D 1 0 - 1 MV Decel Time 254 msec EDV 2D 167.0 cm3 MV E/A 1.5 ESV 2D 56.2 cm3 LA Dimen 2D 4.9 2.3 - 4.0 cm Findings Left Ventricle: Normal left ventricular systolic function. Normal left ventricular cavity size. Mild concentric left ventricular hypertrophy. Ejection fraction is visually estimated at 5560 %. Tissue Doppler/Mitral Doppler indices are consistent with impaired relaxation (Stage I diastolic dysfunction). Right Ventricle: Normal right ventricular size. Normal right ventricular systolic function. Left Atrium: There is moderate enlargement of left atrium. Right Atrium: The right atrium is normal in size. Mitral Valve: Mild mitral leaflet calcification. Mild mitral annular calcification. Trace mitral regurgitation. Aortic Valve: No significant aortic stenosis or insufficiency. Aortic sclerosis without stenosis. Tricuspid Valve: Normal appearance of the tricuspid valve. Unable to obtain RVSP due to minimal presence of tricuspid regurgitation. There is trace tricuspid regurgitation. Pulmonic Valve: Pulmonic valve not well visualized. There is trace pulmonic regurgitation. Pericardium: Normal pericardium with no significant pericardial effusion. Aorta: Normal aortic root. IVC: Dilated IVC without respiratory collapse consistent with elevated right atrial pressure. Conclusions 1.Normal left ventricular systolic function. Normal left ventricular cavity size. Mild concentric left ventricular hypertrophy. Ejection fraction is visually estimated at 55-60 %. Tissue Doppler/Mitral Doppler indices are consistent with impaired relaxation (Stage I diastolic dysfunction). 2.There is moderate enlargement of left atrium. 3.Mild mitral leaflet calcification. Mild mitral annular calcification. Trace mitral regurgitation. 4.Normal appearance of the tricuspid valve. Unable to obtain RVSP due to minimal presence of tricuspid regurgitation. There is trace tricuspid regurgitation. 5.Pulmonic valve not well visualized. There is trace pulmonic regurgitation. Electronically Signed By: Daniel Clarke 19-Apr-2017 18:29:07 -0700 Patient Name: RAJAN LOPES Study Date: 19-Apr-2017 [id number]
[2017-04-20] VITALS (14 sets, daily range): BP systolic 150–179; BP diastolic 86–106; PULSE 78–153; RESP 17–22
[2017-04-20] MEDS: oxyCODONE 5 MG TAB PO PRN ×3 (01:56→17:53)
[2017-04-20] MEDS: HEPARIN 25000 UNITS/250 ML 250 ML IV SCH ×4 (06:09→22:13)
[2017-04-20] MEDS: LOSARTAN 50 MG TAB PO SCH (08:06)
[2017-04-20 08:23] LABS: BASOPHILS % 0.4 % (0.0-2.0); EOSINOPHILS % 0.2 % (0.0-7.0); HEMATOCRIT 35.1 % (42.0-52.0); HEMOGLOBIN 11.1 g/dl (14.0-18.0); LYMPHOCYTES # 0.8 10^3/ul (0.8-2.9); LYMPHOCYTES % 7.9 % (15.0-51.0); MEAN CORPUSCULAR HEMOGLOBIN 32.5 pg (29.0-33.0); MEAN CORPUSCULAR HGB CONC 31.6 g/dl (32.0-37.0); MEAN CORPUSCULAR VOLUME 102.6 fl (82.0-101.0); MEAN PLATELET VOLUME 9.5 fl (7.4-10.4); MONOCYTE # 0.5 10^3/ul (0.3-0.9); MONOCYTES % 4.8 % (0.0-11.0); NEUTROPHIL # 9.1 10^3/ul (1.6-7.5); NEUTROPHILS % 86.2 % (39.0-77.0); PLATELET COUNT 192 10^3/UL (140-415); RED BLOOD COUNT 3.42 10^6/ul (4.70-6.10); WHITE BLOOD COUNT 10.6 10^3/ul (4.8-10.8)
[2017-04-20 08:46] LABS: ALBUMIN 3.6 g/dl (3.3-4.9); CREATININE 0.77 mg/dl (0.61-1.24); MAGNESIUM 1.8 mg/dl (1.7-2.5); PHOSPHORUS 4.2 mg/dl (2.5-4.9); POTASSIUM 3.9 mmol/L (3.5-5.1)
[2017-04-20 09:01] LABS: INR 1.18; PROTIME 15.1 Sec (12.2-14.2); PT RATIO 1.2
[2017-04-20] MEDS: AZITHROMYCIN 500MG/NS (PMX) 250 ML IVPB SCH (09:11)
[2017-04-20] MEDS: GUAIFENESIN LA 600 MG TABSR PO SCH ×2 (09:14→21:55)
[2017-04-20] MEDS: PHENAZOPYRIDINE 200 MG TAB PO SCH ×3 (09:14→21:55)
[2017-04-20] MEDS: predniSONE 20 MG TAB PO SCH (09:14)
--- NOTE | 2017-04-20 10:44 | PN ---
Date/Time of Note Date/Time of Note DATE: 04/20/17 TIME: 10:44 Assessment/Plan VTE Prophylaxis VTE Prophylaxis Intervention: heparin Lines/Catheters IV Catheter Type (from Nrs): Peripheral IV Urinary Cath still in place: No Assessment/Plan Assessment/Plan 1. Sepsis, likely secondary to pneumonia- resolving - WBC normalized and patient remains afebrile - Currently on Azitho/Ceftriaxone - LA normal 2. Shortness of breath, community acquired pneumonia - CTA shows acute vs chronic PE with bilateral infiltrate - On antibiotics and Nebs PRN - Saturating well on RA and will continue to monitor - ECHO shows EF 55-60% with stage 1 diastolic dysfunction - No wheezing appreciated, no steroids needed at this time - Mucinex to help with expectorant - Incentive spirometry 3. Episode of NSVT - In conjunction with elevated BP. Will continue to monitor and consult Cardiology if persists - Started on BB 3. History of PE, medically noncompliant - Currently on Heparin drip but discussed changing patient to Eliquis prior to d /c - Has IVC filter in place and states was dx with DVT in LLE 1.5 months ago but no evidence on duplex of lower extremities 4. Hypertension - elevated this am. Currently on Losartan 100mg and started on BB. will continue monitoring and titrate medication to maintain SBP <160 5. Chronic back pain - PRN pain medications 6. 9mm lung nodule - Will need follow up as outpatient 7. Disposition - Continue monitoring on Telemetry given episode of NSVT Subjective 24 Hr Interval Summary Free Text/Dictation Patient still not feeling well and complaining of shortness of breath with exertion and back pain. Patient states able to produce more sputum since started on Mucinex. Denies any fevers, chest pain, nausea, vomiting, or abdominal issues. Per nursing, had elevated BP this am with 9 beats of Vtach but asymptomatic Exam/Review of Systems Vital Signs Vitals Vital Signs Date Time Temp Pulse Resp B/P Pulse Ox O2 Delivery O2 Flow Rate FiO2 04/20/17 08:00 93 04/20/17 07:51 97.7 22 179/100 91 04/19/17 19:40 21 04/19/17 14:50 Nasal Cannula 2.0 Intake and Output 04/19/17 04/19/17 04/20/17 15:00 23:00 07:00 Intake Total 2100 ml Balance 2100 ml Exam General: Patient is laying in bed and answers questions appropriately, obese Head: Normocephalic atraumatic Eyes: EOMI, pupils reactive to light Neck: Supple, nontender, midline Respiratory: coarse to auscultation bilaterally, no wheezing appreciated Cardiovascular: regular rate and rhythm, no obvious murmurs Gastrointestinal: non-tender to palpation, bowel sounds heard. no distention. no rebound or guarding 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: Moves all extremities spontaneously Skin: bilateral mild/mod erythema LE. 1+ edema bilateral LE Results Result Diagram: 04/20/17 0726 04/20/17 0726 Results 24 hrs Laboratory Tests Test 04/19/17 16:57 04/19/17 16:58 04/20/17 00:45 04/20/17 07:26 Activated Partial Thromboplast Time 63.4 H 70.0 H 62.8 H Urine Color YELLOW Urine Clarity CLEAR Urine pH 7.0 Urine Specific [place] 1.006 Urine Ketones NEGATIVE Urine Nitrite NEGATIVE Urine Bilirubin NEGATIVE Urine Urobilinogen 1+ H Urine Leukocyte Esterase 1+ H Urine Microscopic RBC 10 H Urine Microscopic WBC 6 H Urine Hemoglobin 1+ H Urine Glucose NEGATIVE Urine Total Protein NEGATIVE White Blood Count 10.6 # Red Blood Count 3.42 L Hemoglobin 11.1 L Hematocrit 35.1 L Mean Corpuscular Volume 102.6 H Mean Corpuscular Hemoglobin 32.5 Mean Corpuscular Hemoglobin Concent 31.6 L Red Cell Distribution Width 16.0 H Platelet Count 192 Mean Platelet Volume 9.5 Neutrophils % 86.2 H Lymphocytes % 7.9 L Monocytes % 4.8 Eosinophils % 0.2 Basophils % 0.4 Nucleated Red Blood Cells % 0.0 Neutrophils # 9.1 H Lymphocytes # 0.8 Monocytes # 0.5 Eosinophils # 0.0 Basophils # 0.0 Nucleated Red Blood Cells # 0.0 Prothrombin Time 15.1 H Prothrombin Time Ratio 1.2 INR International Normalized Ratio 1.18 Sodium Level 140 Potassium Level 3.9 Chloride Level 106 Carbon Dioxide Level 27 Anion Gap 11 Blood Urea Nitrogen 11 Creatinine 0.77 Glucose Level 130 Calcium Level 9.0 Phosphorus Level 4.2 Magnesium Level 1.8 Albumin 3.6 Medications Medications Current Medications Prednisone 40 mg 40 mg DAILY PO Last administered on 04/20/17t 09:14; Admin Dose 40 MG; Start 04/19/17 at 09:00 Ceftriaxone Sodium 50 ml @ 100 mls/hr Q24H IVPB Last administered on 11:04; Admin Dose 100 MLS/HR; Start 04/19/17 at 09:00 Azithromycin 250 ml @ 250 mls/hr Q24H IVPB Last administered on 04/20/17 09: 11; Admin Dose 250 MLS/HR; Start 04/19/17 at 09:00 Sodium Chloride (NS) 1,000 ml @ 70 mls/hr [id number] IV Last administered on 05:14; Admin Dose 70 MLS/HR; Start 04/18/17 at 14:24 Ondansetron HCl (Zofran Inj) 4 mg Q6H PRN IV NAUSEA AND/OR VOMITING; Start at 14:30 Acetaminophen (Tylenol Tab) 650 mg Q6H PRN PO PAIN LEVEL 1-3 OR FEVER; Start 04/18/17 at 14:30 Bisacodyl (Dulcolax) 5 mg DAILY PRN PO CONSTIPATION; Start 04/18/17 at 14:30 Warfarin Sodium (Coumadin) 4 mg DAILY@17 PO Last administered on 04/19/17 16: 55; Admin Dose 4 MG; Start 04/18/17 at 17:00 Losartan Potassium (Cozaar) 100 mg DAILY PO Last administered on 04/20/17 08: 06; Admin Dose 100 MG; Start 04/19/17 at 09:00 Oxycodone HCl (Roxicodone) 5 mg Q4H PRN PO PAIN Last administered on 01:56; Admin Dose 5 MG; Start 04/18/17 at 15:00 Hydralazine HCl (Apresoline) 10 mg Q4H PRN IV SBP>160; Start 04/18/17 at 15:00 Labetalol HCl (Labetalol) 10 mg Q4H PRN IV SBP>160; Start 04/18/17 at 15:30 Phenazopyridine HCl (Pyridium) 200 mg TID PO Last administered on 04/20/17 09 :14; Admin Dose 200 MG; Start 04/19/17 at 14:00; Stop 04/22/17 at 21:00 Guaifenesin (Mucinex) 600 mg BID PO Last administered on 04/20/17 09:14; Admin Dose 600 MG; Start 04/19/17 at 14:00 ABHI HARE MD Apr 20, 2017 10:44
[2017-04-20] MEDS: CEFTRIAXONE 1 GM/50 ML (PMX) 50 ML IVPB SCH (12:12)
[2017-04-20] MEDS: ALBUTEROL/IPRATROPIUM (NEB) 3 ML AMP HHN SCH ×2 (13:31→19:39)
[2017-04-20] MEDS: morphine 2 MG INJ IV PRN ×2 (14:16→18:41)
[2017-04-20] MEDS ORDERED: METOPROLOL 5 MG INJ IV PRN (17:00)
[2017-04-20] MEDS ORDERED: POTASSIUM CHLORIDE (SR) 20 MEQ TAB PO STA (17:15)
--- NOTE | 2017-04-20 17:19 | CONS ---
Date/Time of Note Date/Time of Note DATE: 04/20/17 TIME: 17:11 Assessment/Plan Assessment/Plan Additional Assessment/Plan Paroxysmal atrial ablation, currently in atrial fibrillation Pneumonia Preserved ejection fraction History pulmonary emboli Hypertension -Patient was initially in sinus rhythm but currently converted to atrial fibrillation this afternoon. Given the acute onset, will start IV amiodarone to help convert to sinus rhythm, maintain potassium above 4.0 and magnesium of 2.0. Increased dose of Coreg. Patient states he is on Coumadin for anticoagulation but his INR is subtherapeutic. He is currently on IV heparin, if no conscious occasion, could be changed to Lovenox full dose. Consultation Date/Type/Reason Admit Date/Time Type of Consultation: cv Reason for Consultation Atrial fibrillation Hx of Present Illness This is a 57-year-old male with past medical history of pulmonary emboli on anticoagulation, hypertension who presents with worsening shortness of breath over the past 3-4 days associated with productive cough. Patient also with lower extremity edema. He does have a history of known pulmonary emboli and possibly DVT. Also history of paroxysmal atrial fibrillation. Today, patient converted to atrial fibrillation for this reason cardiology consultation was requested. Denies any chest pain, palpitations or dizziness at the current time. Denies any fevers. 12 point review of systems was performed with all pertinent positives and negatives mentioned above and all else is negative Past Medical History Pulmonary emboli Paroxysmal atrial fibrillation Medical History: hypertension Past Surgical History Past Surgical Hx: other (IVC filter) Social History Alcohol Use: occasionally Smoking Status: Current some day smoker Exam/Review of Systems Vital Signs Vitals Vital Signs Date Time Temp Pulse Resp B/P Pulse Ox O2 Delivery O2 Flow Rate FiO2 04/20/17 16:00 98.8 82 18 160/106 91 04/19/17 19:40 21 04/19/17 14:50 Nasal Cannula 2.0 Intake and Output 04/19/17 04/19/17 04/20/17 15:00 23:00 07:00 Intake Total 2100 ml Balance 2100 ml Exam No apparent distress, able to speak in complete sentences Constitutional: alert, oriented Head: normocephalic Respiratory: other (Coarse breath sounds bilaterally with scattered rhonchi) Cardiovascular: irregular rhythm, other (S1-S2 heard) Gastrointestinal: bowel sounds, non-tender, other (No guarding), soft Extremities: edema (Trace) Results Result Diagram: 04/20/17 0726 04/20/17 0726 Results 24 hrs Laboratory Tests Test 04/20/17 00:45 04/20/17 07:26 Activated Partial Thromboplast Time 70.0 H 62.8 H White Blood Count 10.6 # Red Blood Count 3.42 L Hemoglobin 11.1 L Hematocrit 35.1 L Mean Corpuscular Volume 102.6 H Mean Corpuscular Hemoglobin 32.5 Mean Corpuscular Hemoglobin Concent 31.6 L Red Cell Distribution Width 16.0 H Platelet Count 192 Mean Platelet Volume 9.5 Neutrophils % 86.2 H Lymphocytes % 7.9 L Monocytes % 4.8 Eosinophils % 0.2 Basophils % 0.4 Nucleated Red Blood Cells % 0.0 Neutrophils # 9.1 H Lymphocytes # 0.8 Monocytes # 0.5 Eosinophils # 0.0 Basophils # 0.0 Nucleated Red Blood Cells # 0.0 Prothrombin Time 15.1 H Prothrombin Time Ratio 1.2 INR International Normalized Ratio 1.18 Sodium Level 140 Potassium Level 3.9 Chloride Level 106 Carbon Dioxide Level 27 Anion Gap 11 Blood Urea Nitrogen 11 Creatinine 0.77 Glucose Level 130 Calcium Level 9.0 Phosphorus Level 4.2 Magnesium Level 1.8 Albumin 3.6 Medications Medications Current Medications Prednisone 40 mg 40 mg DAILY PO Last administered on 04/20/17 09:14; Admin Dose 40 MG; Start 04/19/17 at 09:00 Ceftriaxone Sodium 50 ml @ 100 mls/hr Q24H IVPB Last administered on 12:12; Admin Dose 100 MLS/HR; Start 04/19/17 at 09:00 Azithromycin 250 ml @ 250 mls/hr Q24H IVPB Last administered on 04/20/17 09: 11; Admin Dose 250 MLS/HR; Start 04/19/17 at 09:00 Sodium Chloride (NS) 1,000 ml @ 70 mls/hr [id number] IV Last administered on 05:14; Admin Dose 70 MLS/HR; Start 04/18/17 at 14:24 Ondansetron HCl (Zofran Inj) 4 mg Q6H PRN IV NAUSEA AND/OR VOMITING; Start at 14:30 Acetaminophen (Tylenol Tab) 650 mg Q6H PRN PO PAIN LEVEL 1-3 OR FEVER; Start 04/18/17 at 14:30 Bisacodyl (Dulcolax) 5 mg DAILY PRN PO CONSTIPATION; Start 04/18/17 at 14:30 Warfarin Sodium (Coumadin) 4 mg DAILY@17 PO Last administered on 04/19/17 16: 55; Admin Dose 4 MG; Start 04/18/17 at 17:00 Losartan Potassium (Cozaar) 100 mg DAILY PO Last administered on 04/20/17 08: 06; Admin Dose 100 MG; Start 04/19/17 at 09:00 Oxycodone HCl (Roxicodone) 5 mg Q4H PRN PO PAIN Last administered on 11:27; Admin Dose 5 MG; Start 04/18/17 at 15:00 Hydralazine HCl (Apresoline) 10 mg Q4H PRN IV SBP>160 Last administered on 12:42; Admin Dose 10 MG; Start 04/18/17 at 15:00 Labetalol HCl (Labetalol) 10 mg Q4H PRN IV SBP>160; Start 04/18/17 at 15:30 Phenazopyridine HCl (Pyridium) 200 mg TID PO Last administered on 04/20/17 14 :00; Admin Dose 200 MG; Start 04/19/17 at 14:00; Stop 04/22/17 at 21:00 Guaifenesin (Mucinex) 600 mg BID PO Last administered on 04/20/17 09:14; Admin Dose 600 MG; Start 04/19/17 at 14:00 Morphine Sulfate (morphine) 2 mg Q4H PRN IV PAIN LEVEL 4-6 Last administered on 04/20/17 14:16; Admin Dose 2 MG; Start 04/20/17 at 14:00 Carvedilol (Coreg) 6.25 mg BID PO Last administered on 04/20/17 14:16; Admin Dose 6.25 MG; Start 04/20/17 at 14:00 Metoprolol Tartrate (Lopressor) 5 mg Q6 PRN IV HR>100; Start 04/20/17 at 17:00 Procedures Procedures ECG done April 18 demonstrates sinus tachycardia 102 bpm, QRS 90 ms, nonspecific ST abnormalities Curly Ojeda DO Apr 20, 2017 17:19
[2017-04-20] MEDS ORDERED: AMIODARONE 150MG/D5W BOLUS 100 ML IV ONE (17:30)
[2017-04-20] MEDS ORDERED: MAGNESIUM SULFATE 2 GM/50 ML 50 ML IVPB ONE (17:30)
[2017-04-20] MEDS: WARFARIN 2 MG TAB PO SCH (17:53)
[2017-04-20] MEDS: SOD CHLORIDE 0.9% 1,000 ML IV SCH ×2 (18:05→23:15)
[2017-04-20] MEDS: AMIODARONE 900 MG in DEXTROSE 5% 482 ML IV SCH (19:23)
[2017-04-20] MEDS ORDERED: CYCLOBENZAPRINE 10 MG TAB PO ONE (20:45)
[2017-04-20] MEDS ORDERED: KETOROLAC 30 MG INJ IV PRN (20:46)
[2017-04-20] MEDS: morphine 4 MG/ML VIAL IV PRN (21:55)
[2017-04-21] VITALS (11 sets, daily range): BP systolic 121–156; BP diastolic 60–92; PULSE 73–94; RESP 18–20
[2017-04-21] MEDS: oxyCODONE 5 MG TAB PO PRN (03:39)
[2017-04-21] MEDS: OXYCODONE/ACETAMINOPHEN (10/325) TAB PO PRN ×3 (03:39→20:34)
[2017-04-21] MEDS: HEPARIN 25000 UNITS/250 ML 250 ML IV SCH (05:04)
[2017-04-21] MEDS: ALBUTEROL/IPRATROPIUM (NEB) 3 ML AMP HHN SCH ×3 (07:24→19:26)
[2017-04-21 08:30] LABS: BASOPHIL # 0.1 10^3/ul (0.0-0.1); BASOPHILS % 0.5 % (0.0-2.0); EOSINOPHILS # 0.1 10^3/ul (0.0-0.5); EOSINOPHILS % 0.5 % (0.0-7.0); HEMATOCRIT 34.9 % (42.0-52.0); LYMPHOCYTES # 1.3 10^3/ul (0.8-2.9); LYMPHOCYTES % 13.5 % (15.0-51.0); MEAN CORPUSCULAR HEMOGLOBIN 31.9 pg (29.0-33.0); MEAN CORPUSCULAR HGB CONC 31.5 g/dl (32.0-37.0); MEAN CORPUSCULAR VOLUME 101.2 fl (82.0-101.0); MONOCYTE # 0.5 10^3/ul (0.3-0.9); MONOCYTES % 5.3 % (0.0-11.0); NEUTROPHIL # 7.6 10^3/ul (1.6-7.5); NEUTROPHILS % 79.9 % (39.0-77.0); PLATELET COUNT 195 10^3/UL (140-415); RED BLOOD COUNT 3.45 10^6/ul (4.70-6.10); WHITE BLOOD COUNT 9.6 10^3/ul (4.8-10.8)
[2017-04-21 08:57] LABS: INR 1.2; PROTIME 15.3 Sec (12.2-14.2); PT RATIO 1.2
[2017-04-21 09:06] LABS: ALBUMIN 3.3 g/dl (3.3-4.9); CALCIUM 8.6 mg/dl (8.4-10.2); CREATININE 0.76 mg/dl (0.61-1.24); MAGNESIUM 1.8 mg/dl (1.7-2.5); PHOSPHORUS 4.2 mg/dl (2.5-4.9); POTASSIUM 3.7 mmol/L (3.5-5.1)
[2017-04-21] MEDS: AZITHROMYCIN 500MG/NS (PMX) 250 ML IVPB SCH (09:30)
[2017-04-21] MEDS ORDERED: ENOXAPARIN 100 MG/ML SYG SC SCH (09:30)
[2017-04-21] MEDS: GUAIFENESIN LA 600 MG TABSR PO SCH ×2 (09:31→20:33)
[2017-04-21] MEDS: predniSONE 20 MG TAB PO SCH (09:31)
[2017-04-21] MEDS: morphine 4 MG/ML VIAL IV PRN ×3 (09:32→21:51)
[2017-04-21] MEDS: PHENAZOPYRIDINE 200 MG TAB PO SCH ×3 (09:32→20:33)
[2017-04-21] MEDS: LOSARTAN 50 MG TAB PO SCH (09:37)
[2017-04-21] MEDS: ENOXAPARIN 100 MG/ML SYG SC SCH ×2 (10:24→21:57)
[2017-04-21] MEDS: ENOXAPARIN 40 MG/0.4 ML SYG SC SCH ×2 (10:25→21:57)
[2017-04-21 10:35] LABS: PARTIAL THROMBOPLASTIN TIME 85.7 Sec (25.0-35.0)
--- NOTE | 2017-04-21 10:47 | PN ---
Date/Time of Note Date/Time of Note DATE: 04/21/17 TIME: 10:47 Assessment/Plan VTE Prophylaxis VTE Prophylaxis Intervention: LMWH Lines/Catheters IV Catheter Type (from Nrsg): Peripheral IV Urinary Cath still in place: No Assessment/Plan Assessment/Plan 1. Sepsis, likely secondary to pneumonia- resolving - WBC normalized and patient remains afebrile - Currently on Azitho/Ceftriaxone, day 2. if continues to improve will change to PO tmrw - LA normal 2. Shortness of breath, community acquired pneumonia - CTA shows acute vs chronic PE with bilateral infiltrate - On antibiotics and Nebs PRN - Saturating well on RA and will continue to monitor - ECHO shows EF 55-60% with stage 1 diastolic dysfunction - No wheezing appreciated, no steroids needed at this time - Mucinex to help with expectorant - Incentive spirometry 3. New onset afib - Cardiology on board and consultation appreciated - Currently on full dose lovenox and started on IV amiodarone. Still in atrial fibrillation but rate controlled. 3. Chronic PE, medically noncompliant - Bridging from Lovenox to Warfarin - Has IVC filter in place and states was dx with DVT in LLE 1.5 months ago but no evidence on duplex of lower extremities 4. Hypertension - Currently on Losartan 100mg and on BB. will continue monitoring and titrate medication to maintain SBP <160 5. Chronic back pain - PRN pain medications - Will need to obtain list of home medications 6. 9mm lung nodule - Will need follow up as outpatient 7. Disposition - Continue monitoring on Telemetry given new onset atrial fibrillation Subjective 24 Hr Interval Summary Free Text/Dictation Patient has not been feeling well with shortness of breath and back pain that is chronic. States is on different pain medications at home and not able to get relief. No acute overnight events. Patient remains in atrial fibrillation but rate controlled. Exam/Review of Systems Vital Signs Vitals Vital Signs Date Time Temp Pulse Resp B/P Pulse Ox O2 Delivery O2 Flow Rate FiO2 04/21/17 08:00 73 04/21/17 07:41 98.7 18 136/87 96 04/21/17 07:24 21 04/21/17 02:21 2.0 04/20/17 20:50 Nasal Cannula Intake and Output 04/20/17 04/20/17 04/21/17 15:00 23:00 07:00 Intake Total 250 ml 250 ml 1270 ml Output Total 1400 ml Balance 250 ml 250 ml -130 ml Exam General: Patient is laying in bed and answers questions appropriately, obese Head: Normocephalic atraumatic Eyes: EOMI, pupils reactive to light Neck: Supple, nontender, midline Respiratory: coarse to auscultation bilaterally, no wheezing appreciated Cardiovascular: regular rate and rhythm, no obvious murmurs Gastrointestinal: non-tender to palpation, bowel sounds heard. no distention. no rebound or guarding 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: Moves all extremities spontaneously Skin: bilateral mild/mod erythema LE. 1+ edema bilateral LE Results Result Diagram: 04/21/17 0756 04/21/17 0756 Results 24 hrs Laboratory Tests Test 04/20/17 20:20 04/21/17 07:56 Activated Partial Thromboplast Time 57.8 H 85.7 *H White Blood Count 9.6 Red Blood Count 3.45 L Hemoglobin 11.0 L Hematocrit 34.9 L Mean Corpuscular Volume 101.2 H Mean Corpuscular Hemoglobin 31.9 Mean Corpuscular Hemoglobin Concent 31.5 L Red Cell Distribution Width 16.0 H Platelet Count 195 Mean Platelet Volume 9.0 Neutrophils % 79.9 H Lymphocytes % 13.5 L Monocytes % 5.3 Eosinophils % 0.5 Basophils % 0.5 Nucleated Red Blood Cells % 0.0 Neutrophils # 7.6 H Lymphocytes # 1.3 Monocytes # 0.5 Eosinophils # 0.1 Basophils # 0.1 Nucleated Red Blood Cells # 0.0 Prothrombin Time 15.3 H Prothrombin Time Ratio 1.2 INR International Normalized Ratio 1.20 Sodium Level 138 Potassium Level 3.7 Chloride Level 104 Carbon Dioxide Level 24 Anion Gap 14 Blood Urea Nitrogen 12 Creatinine 0.76 Glucose Level 196 Calcium Level 8.6 Phosphorus Level 4.2 Magnesium Level 1.8 Albumin 3.3 Medications Medications Current Medications Prednisone 40 mg 40 mg DAILY PO Last administered on 04/21/17 09:31; Admin Dose 40 MG; Start 04/19/17 at 09:00 Ceftriaxone Sodium 50 ml @ 100 mls/hr Q24H IVPB Last administered on 12:12; Admin Dose 100 MLS/HR; Start 04/19/17 at 09:00 Azithromycin 250 ml @ 250 mls/hr Q24H IVPB Last administered on 04/21/17 09: 30; Admin Dose 250 MLS/HR; Start 04/19/17 at 09:00 Sodium Chloride (NS) 1,000 ml @ 70 mls/hr [id number] IV Last administered on 18:05; Admin Dose 70 MLS/HR; Start 04/18/17 at 14:24 Ondansetron HCl (Zofran Inj) 4 mg Q6H PRN IV NAUSEA AND/OR VOMITING; Start at 14:30 Acetaminophen (Tylenol Tab) 650 mg Q6H PRN PO PAIN LEVEL 1-3 OR FEVER; Start 04/18/17 at 14:30 Bisacodyl (Dulcolax) 5 mg DAILY PRN PO CONSTIPATION; Start 04/18/17 at 14:30 Losartan Potassium (Cozaar) 100 mg DAILY PO Last administered on 04/21/17 09: 37; Admin Dose 100 MG; Start 04/19/17 at 09:00 Oxycodone HCl (Roxicodone) 5 mg Q4H PRN PO PAIN Last administered on 03:39; Admin Dose 5 MG; Start 04/18/17 at 15:00 Hydralazine HCl (Apresoline) 10 mg Q4H PRN IV SBP>160 Last administered on 12:42; Admin Dose 10 MG; Start 04/18/17 at 15:00 Labetalol HCl (Labetalol) 10 mg Q4H PRN IV SBP>160; Start 04/18/17 at 15:30 Phenazopyridine HCl (Pyridium) 200 mg TID PO Last administered on 04/21/17 09 :32; Admin Dose 200 MG; Start 04/19/17 at 14:00; Stop 04/22/17 at 21:00 Guaifenesin (Mucinex) 600 mg BID PO Last administered on 04/21/17 09:31; Admin Dose 600 MG; Start 04/19/17 at 14:00 Carvedilol (Coreg) 6.25 mg BID PO Last administered on 04/21/17 09:36; Admin Dose 6.25 MG; Start 04/20/17 at 14:00 Metoprolol Tartrate 5 mg 5 mg Q6 PRN IV HR>100; Start 04/20/17 at 17:00 Amiodarone HCl/ Dextrose (Cordarone Iv/ D5W) 500 ml @ 0 mls/hr Q0M IV Last administered on 04/20/17 19:23; Admin Dose 33.4 MLS/HR; Start 04/20/17 at 17: 30 Morphine Sulfate (morphine) 4 mg Q4H PRN IV PAIN Last administered on 09:32; Admin Dose 4 MG; Start 04/20/17 at 21:30 Oxycodone/ Acetaminophen (Endocet (10/ 325)) 1 tab Q6H PRN PO PAIN Last administered on 04/21/17 03:39; Admin Dose 1 TAB; Start 04/21/17 at 03:30 Warfarin Sodium (Coumadin) 10 mg ONCE@17 ONCE PO ; Start 04/21/17 at 17:00; Stop 04/21/17 at 17:01 Enoxaparin Sodium (Lovenox) 100 mg Q12H SC Last administered on 04/21/17 10: 24; Admin Dose 100 MG; Start 04/21/17 at 10:00 Enoxaparin Sodium (Lovenox) 40 mg Q12H SC Last administered on 04/21/17 10:25 ; Admin Dose 40 MG; Start 04/21/17 at 10:00 ABHI HARE MD Apr 21, 2017 10:47
[2017-04-21] MEDS ORDERED: oxyCODONE 5 MG TAB PO PRN (11:00)
[2017-04-21] MEDS: CEFTRIAXONE 1 GM/50 ML (PMX) 50 ML IVPB SCH (11:09)
[2017-04-21] MEDS: AMIODARONE 900 MG in DEXTROSE 5% 482 ML IV SCH (13:40)
[2017-04-21] MEDS: SOD CHLORIDE 0.9% 1,000 ML IV SCH (14:29)
[2017-04-21] MEDS ORDERED: POTASSIUM CHLORIDE (SR) 20 MEQ TAB PO STA (16:49)
--- NOTE | 2017-04-21 16:49 | CONS ---
Date/Time of Note Date/Time of Note DATE: 04/21/17 TIME: 16:46 Assessment/Plan Assessment/Plan Additional Assessment/Plan Paroxysmal atrial ablation, currently in atrial fibrillation Pneumonia Preserved ejection fraction History pulmonary emboli Hypertension -Heart rate trend improved and at times it appears the patient wants to convert to sinus rhythm. Would continue IV amiodarone at the current time. Coumadin as per INR. Antibiotics as per primary team. Supplement potassium to maintain above 4.0 and magnesium above 2.0. Consultation Date/Type/Reason Admit Date/Time Apr 18, 2017 at 13:19 Initial Consult Date Type of Consultation: cv 24 HR Interval Summary Free Text/Dictation Shortness of breath is better today, less cough and less wheezing. Denies palpitations or dizziness Exam/Review of Systems Vital Signs Vitals Vital Signs Date Time Temp Pulse Resp B/P Pulse Ox O2 Delivery O2 Flow Rate FiO2 04/21/17 16:00 89 04/21/17 15:35 98.7 18 156/92 90 04/21/17 07:24 21 04/21/17 02:21 2.0 04/20/17 20:50 Nasal Cannula Intake and Output 04/20/17 04/20/17 04/21/17 14:59 22:59 06:59 Intake Total 250 ml 250 ml 1270 ml Output Total 1400 ml Balance 250 ml 250 ml -130 ml Exam No apparent distress Constitutional: alert, oriented Head: normocephalic Respiratory: other (Coarse breath sounds bilaterally with scattered rhonchi and mild end expiratory wheezing) Cardiovascular: irregular rhythm, other (S1-S2 heard) Gastrointestinal: bowel sounds, non-tender, soft Extremities: edema Results Result Diagram: 04/21/17 0756 04/21/17 0756 Results 24 hrs Laboratory Tests Test 04/20/17 20:20 04/21/17 07:56 Activated Partial Thromboplast Time 57.8 H 85.7 *H White Blood Count 9.6 Red Blood Count 3.45 L Hemoglobin 11.0 L Hematocrit 34.9 L Mean Corpuscular Volume 101.2 H Mean Corpuscular Hemoglobin 31.9 Mean Corpuscular Hemoglobin Concent 31.5 L Red Cell Distribution Width 16.0 H Platelet Count 195 Mean Platelet Volume 9.0 Neutrophils % 79.9 H Lymphocytes % 13.5 L Monocytes % 5.3 Eosinophils % 0.5 Basophils % 0.5 Nucleated Red Blood Cells % 0.0 Neutrophils # 7.6 H Lymphocytes # 1.3 Monocytes # 0.5 Eosinophils # 0.1 Basophils # 0.1 Nucleated Red Blood Cells # 0.0 Prothrombin Time 15.3 H Prothrombin Time Ratio 1.2 INR International Normalized Ratio 1.20 Sodium Level 138 Potassium Level 3.7 Chloride Level 104 Carbon Dioxide Level 24 Anion Gap 14 Blood Urea Nitrogen 12 Creatinine 0.76 Glucose Level 196 Calcium Level 8.6 Phosphorus Level 4.2 Magnesium Level 1.8 Albumin 3.3 Medications Medications Current Medications Prednisone 40 mg 40 mg DAILY PO Last administered on 04/21/17 09:31; Admin Dose 40 MG; Start 04/19/17 at 09:00 Ceftriaxone Sodium 50 ml @ 100 mls/hr Q24H IVPB Last administered on 11:09; Admin Dose 100 MLS/HR; Start 04/19/17 at 09:00 Azithromycin 250 ml @ 250 mls/hr Q24H IVPB Last administered on 04/21/17 09: 30; Admin Dose 250 MLS/HR; Start 04/19/17 at 09:00 Sodium Chloride (NS) 1,000 ml @ 70 mls/hr [id number] IV Last administered on 14:29; Admin Dose 70 MLS/HR; Start 04/18/17 at 14:24 Ondansetron HCl (Zofran Inj) 4 mg Q6H PRN IV NAUSEA AND/OR VOMITING; Start at 14:30 Acetaminophen (Tylenol Tab) 650 mg Q6H PRN PO PAIN LEVEL 1-3 OR FEVER; Start 04/18/17 at 14:30 Bisacodyl (Dulcolax) 5 mg DAILY PRN PO CONSTIPATION; Start 04/18/17 at 14:30 Losartan Potassium (Cozaar) 100 mg DAILY PO Last administered on 04/21/17 09: 37; Admin Dose 100 MG; Start 04/19/17 at 09:00 Hydralazine HCl (Apresoline) 10 mg Q4H PRN IV SBP>160 Last administered on 12:42; Admin Dose 10 MG; Start 04/18/17 at 15:00 Labetalol HCl (Labetalol) 10 mg Q4H PRN IV SBP>160; Start 04/18/17 at 15:30 Phenazopyridine HCl (Pyridium) 200 mg TID PO Last administered on 04/21/17 13 :28; Admin Dose 200 MG; Start 04/19/17 at 14:00; Stop 04/22/17 at 21:00 Guaifenesin (Mucinex) 600 mg BID PO Last administered on 04/21/17 09:31; Admin Dose 600 MG; Start 04/19/17 at 14:00 Carvedilol (Coreg) 6.25 mg BID PO Last administered on 04/21/17 09:36; Admin Dose 6.25 MG; Start 04/20/17 at 14:00 Metoprolol Tartrate 5 mg 5 mg Q6 PRN IV HR>100; Start 04/20/17 at 17:00 Amiodarone HCl/ Dextrose (Cordarone Iv/ D5W) 500 ml @ 0 mls/hr Q0M IV Last administered on 04/21/17 13:40; Admin Dose 0.5 MLS/HR; Start 04/20/17 at 17: 30 Morphine Sulfate (morphine) 4 mg Q4H PRN IV PAIN Last administered on 09:32; Admin Dose 4 MG; Start 04/20/17 at 21:30 Oxycodone/ Acetaminophen (Endocet (10/ 325)) 1 tab Q6H PRN PO PAIN Last administered on 04/21/17 13:47; Admin Dose 1 TAB; Start 04/21/17 at 03:30 Warfarin Sodium (Coumadin) 10 mg ONCE@17 ONCE PO ; Start 04/21/17 at 17:00; Stop 04/21/17 at 17:01 Enoxaparin Sodium (Lovenox) 100 mg Q12H SC Last administered on 04/21/17 10: 24; Admin Dose 100 MG; Start 04/21/17 at 10:00 Enoxaparin Sodium (Lovenox) 40 mg Q12H SC Last administered on 04/21/17 10:25 ; Admin Dose 40 MG; Start 04/21/17 at 10:00 Oxycodone HCl (Roxicodone) 10 mg Q4H PRN PO PAIN; Start 04/21/17 at 11:00 Curly Ojeda DO Apr 21, 2017 16:49
[2017-04-21] MEDS ORDERED: MAGNESIUM SULFATE 3 GM in SOD CHLORIDE 0.9% 100 ML IVPB ONE (17:00)
[2017-04-21] MEDS ORDERED: WARFARIN 10 MG TAB PO ONE (17:00)
[2017-04-22] VITALS (10 sets, daily range): BP systolic 145–169; BP diastolic 83–101; PULSE 70–82; RESP 18–20
[2017-04-22] MEDS: morphine 4 MG/ML VIAL IV PRN ×3 (02:32→16:04)
[2017-04-22] MEDS: SOD CHLORIDE 0.9% 1,000 ML IV SCH (03:56)
[2017-04-22] MEDS: ALBUTEROL/IPRATROPIUM (NEB) 3 ML AMP HHN SCH ×3 (07:46→19:53)
[2017-04-22 09:05] LABS: BASOPHIL # 0.1 10^3/ul (0.0-0.1); BASOPHILS % 0.6 % (0.0-2.0); EOSINOPHILS # 0.1 10^3/ul (0.0-0.5); EOSINOPHILS % 0.7 % (0.0-7.0); HEMATOCRIT 35.5 % (42.0-52.0); HEMOGLOBIN 11.4 g/dl (14.0-18.0); LYMPHOCYTES # 1.1 10^3/ul (0.8-2.9); LYMPHOCYTES % 13.5 % (15.0-51.0); MEAN CORPUSCULAR HEMOGLOBIN 32.7 pg (29.0-33.0); MEAN CORPUSCULAR HGB CONC 32.1 g/dl (32.0-37.0); MEAN CORPUSCULAR VOLUME 101.7 fl (82.0-101.0); MEAN PLATELET VOLUME 9.3 fl (7.4-10.4); MONOCYTE # 0.7 10^3/ul (0.3-0.9); MONOCYTES % 8.5 % (0.0-11.0); NEUTROPHIL # 6.4 10^3/ul (1.6-7.5); NEUTROPHILS % 76.2 % (39.0-77.0); PLATELET COUNT 228 10^3/UL (140-415); RED BLOOD COUNT 3.49 10^6/ul (4.70-6.10); RED CELL DISTRIBUTION WIDTH 15.8 % (11.5-14.5); WHITE BLOOD COUNT 8.5 10^3/ul (4.8-10.8)
[2017-04-22] MEDS: predniSONE 20 MG TAB PO SCH (09:08)
[2017-04-22] MEDS: LOSARTAN 50 MG TAB PO SCH (09:08)
[2017-04-22] MEDS: GUAIFENESIN LA 600 MG TABSR PO SCH ×2 (09:08→20:43)
[2017-04-22] MEDS: CEFTRIAXONE 1 GM/50 ML (PMX) 50 ML IVPB SCH (09:10)
[2017-04-22] MEDS: ENOXAPARIN 40 MG/0.4 ML SYG SC SCH ×2 (09:11→22:19)
[2017-04-22] MEDS: ENOXAPARIN 100 MG/ML SYG SC SCH (09:12)
[2017-04-22 09:13] LABS: INR 1.3; PROTIME 16.3 Sec (12.2-14.2); PT RATIO 1.3
[2017-04-22] MEDS: OXYCODONE/ACETAMINOPHEN (10/325) TAB PO PRN (09:18)
[2017-04-22 09:20] LABS: ALBUMIN 3.7 g/dl (3.3-4.9); CALCIUM 9.1 mg/dl (8.4-10.2); CREATININE 0.76 mg/dl (0.61-1.24); MAGNESIUM 1.9 mg/dl (1.7-2.5); PHOSPHORUS 4.5 mg/dl (2.5-4.9); POTASSIUM 3.8 mmol/L (3.5-5.1)
--- NOTE | 2017-04-22 09:35 | PN ---
Date/Time of Note Date/Time of Note DATE: 04/22/17 TIME: 09:35 Assessment/Plan VTE Prophylaxis VTE Prophylaxis Intervention: LMWH Lines/Catheters IV Catheter Type (from Nrs): Peripheral IV Urinary Cath still in place: No Assessment/Plan Assessment/Plan 1. Sepsis, likely secondary to pneumonia- resolving - WBC normalized and patient remains afebrile - Currently on Azitho/Ceftriaxone, day 3. Will continue Azithromycin PO 250mg for 2 more days - LA normal 2. Shortness of breath, community acquired pneumonia- resolving - CTA shows acute vs chronic PE with bilateral infiltrate - On antibiotics and Nebs PRN. - Saturating well on RA and will continue to monitor - ECHO shows EF 55-60% with stage 1 diastolic dysfunction - No wheezing appreciated, no steroids needed at this time - Mucinex to help with expectorant - Incentive spirometry 3. New onset afib - Cardiology on board and consultation appreciated - Currently on full dose lovenox and started on IV amiodarone. Converted to sinus rhythm and started on PO amiodarone 3. Chronic PE, medically noncompliant - Bridging from Lovenox to Warfarin - INR 1.3 and will give another Coumadin 10mg tonight - Has IVC filter in place and states was dx with DVT in LLE 1.5 months ago but no evidence on duplex of lower extremities 4. Hypertension - Currently on Losartan 100mg and on BB. will continue monitoring and titrate medication to maintain SBP <160 - elevated BP most likely secondary to pain 5. Chronic back pain - PRN pain medications - Home medications restarted 6. VRE UTI - will change to Linezolid 600mg IV BID - Will ask ID input for length of treatment 7. 9mm lung nodule - Will need follow up as outpatient 8. Disposition - Continue monitoring on Telemetry Subjective 24 Hr Interval Summary Free Text/Dictation Patient still not feeling well but secondary to chronic back pain and burning with urination. Denies worsening of shortness of breath and sputum production has diminished. Home medication list was obtained and resumed Exam/Review of Systems Vital Signs Vitals Vital Signs Date Time Temp Pulse Resp B/P Pulse Ox O2 Delivery O2 Flow Rate FiO2 04/22/17 08:00 75 04/22/17 07:48 20 04/22/17 07:48 2.0 04/22/17 07:41 98.8 155/94 94 04/21/17 20:15 Nasal Cannula 04/21/17 14:46 21 Intake and Output 04/21/17 04/21/17 04/22/17 15:00 23:00 07:00 Intake Total 300 ml 940 ml 1600 ml Output Total 1200 ml Balance 300 ml 940 ml 400 ml Exam General: Patient is laying in bed and answers questions appropriately, obese Head: Normocephalic atraumatic Eyes: EOMI, pupils reactive to light Neck: Supple, nontender, midline Respiratory: diminished breath sounds bilaterally, no wheezing appreciated Cardiovascular: regular rate and rhythm, no obvious murmurs Gastrointestinal: non-tender to palpation, bowel sounds heard. no distention. no rebound or guarding 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: Moves all extremities spontaneously Skin: bilateral mild/mod erythema LE. trace edema bilateral LE with venous stasis changes Results Result Diagram: 04/22/17 0734 04/22/17 0734 Results 24 hrs Laboratory Tests Test 04/22/17 07:34 White Blood Count 8.5 Red Blood Count 3.49 L Hemoglobin 11.4 L Hematocrit 35.5 L Mean Corpuscular Volume 101.7 H Mean Corpuscular Hemoglobin 32.7 Mean Corpuscular Hemoglobin Concent 32.1 Red Cell Distribution Width 15.8 H Platelet Count 228 Mean Platelet Volume 9.3 Neutrophils % 76.2 Lymphocytes % 13.5 L Monocytes % 8.5 Eosinophils % 0.7 Basophils % 0.6 Nucleated Red Blood Cells % 0.0 Neutrophils # 6.4 Lymphocytes # 1.1 Monocytes # 0.7 Eosinophils # 0.1 Basophils # 0.1 Nucleated Red Blood Cells # 0.0 Prothrombin Time 16.3 H Prothrombin Time Ratio 1.3 INR International Normalized Ratio 1.30 Sodium Level 138 Potassium Level 3.8 Chloride Level 101 Carbon Dioxide Level 26 Anion Gap 15 Blood Urea Nitrogen 12 Creatinine 0.76 Glucose Level 140 # Calcium Level 9.1 Phosphorus Level 4.5 Magnesium Level 1.9 Albumin 3.7 Medications Medications Current Medications Prednisone 40 mg 40 mg DAILY PO Last administered on 04/22/17 09:08; Admin Dose 40 MG; Start 04/19/17 at 09:00 Ceftriaxone Sodium 50 ml @ 100 mls/hr Q24H IVPB Last administered on 09:10; Admin Dose 100 MLS/HR; Start 04/19/17 at 09:00 Azithromycin 250 ml @ 250 mls/hr Q24H IVPB Last administered on 04/21/17 09: 30; Admin Dose 250 MLS/HR; Start 04/19/17 at 09:00 Sodium Chloride (NS) 1,000 ml @ 70 mls/hr [id number] IV Last administered on 14:29; Admin Dose 70 MLS/HR; Start 04/18/17 at 14:24 Ondansetron HCl (Zofran Inj) 4 mg Q6H PRN IV NAUSEA AND/OR VOMITING; Start at 14:30 Acetaminophen (Tylenol Tab) 650 mg Q6H PRN PO PAIN LEVEL 1-3 OR FEVER; Start 04/18/17 at 14:30 Bisacodyl (Dulcolax) 5 mg DAILY PRN PO CONSTIPATION; Start 04/18/17 at 14:30 Losartan Potassium (Cozaar) 100 mg DAILY PO Last administered on 04/22/17 09: 08; Admin Dose 100 MG; Start 04/19/17 at 09:00 Hydralazine HCl (Apresoline) 10 mg Q4H PRN IV SBP>160 Last administered on 12:42; Admin Dose 10 MG; Start 04/18/17 at 15:00 Labetalol HCl (Labetalol) 10 mg Q4H PRN IV SBP>160; Start 04/18/17 at 15:30 Phenazopyridine HCl (Pyridium) 200 mg TID PO Last administered on 04/21/17 20 :33; Admin Dose 200 MG; Start 04/19/17 at 14:00; Stop 04/22/17 at 21:00 Guaifenesin (Mucinex) 600 mg BID PO Last administered on 04/22/17 09:08; Admin Dose 600 MG; Start 04/19/17 at 14:00 Carvedilol (Coreg) 6.25 mg BID PO Last administered on 04/22/17 09:08; Admin Dose 6.25 MG; Start 04/20/17 at 14:00 Metoprolol Tartrate 5 mg 5 mg Q6 PRN IV HR>100; Start 04/20/17 at 17:00 Amiodarone HCl/ Dextrose (Cordarone Iv/ D5W) 500 ml @ 0 mls/hr Q0M IV Last administered on 04/21/17 13:40; Admin Dose 0.5 MLS/HR; Start 04/20/17 at 17: 30 Morphine Sulfate (morphine) 4 mg Q4H PRN IV PAIN Last administered on 02:32; Admin Dose 4 MG; Start 04/20/17 at 21:30 Oxycodone/ Acetaminophen (Endocet (10/ 325)) 1 tab Q6H PRN PO PAIN Last administered on 04/22/17 09:18; Admin Dose 1 TAB; Start 04/21/17 at 03:30 Enoxaparin Sodium (Lovenox) 100 mg Q12H SC Last administered on 04/22/17 09: 12; Admin Dose 100 MG; Start 04/21/17 at 10:00 Enoxaparin Sodium (Lovenox) 40 mg Q12H SC Last administered on 04/22/17 09:11 ; Admin Dose 40 MG; Start 04/21/17 at 10:00 Oxycodone HCl (Roxicodone) 10 mg Q4H PRN PO PAIN; Start 04/21/17 at 11:00 ABHI HARE MD Apr 22, 2017 09:35
[2017-04-22] MEDS: PHENAZOPYRIDINE 200 MG TAB PO SCH ×3 (10:03→22:15)
[2017-04-22] MEDS: AZITHROMYCIN 500MG/NS (PMX) 250 ML IVPB SCH (10:03)
[2017-04-22] MEDS: oxyCODONE (CR) 10 MG TAB [oxyCONTIN] PO SCH ×2 (13:08→20:52)
[2017-04-22] MEDS ORDERED: POTASSIUM CHLORIDE (SR) 20 MEQ TAB PO STA (14:11)
--- NOTE | 2017-04-22 14:12 | CONS ---
Date/Time of Note Date/Time of Note DATE: 04/22/17 TIME: 14:09 Assessment/Plan Assessment/Plan Additional Assessment/Plan Paroxysmal atrial fibrillation, currently sinus rhythm Pneumonia Preserved ejection fraction History pulmonary emboli Hypertension -Patient has converted to sinus rhythm, would start p.o. amiodarone and DC IV. Coumadin as per INR. Antibiotics as per primary team. Supplement potassium to maintain above 4.0 and magnesium above 2.0. Consultation Date/Type/Reason Admit Date/Time Apr 18, 2017 at 13:19 Type of Consultation: cv 24 HR Interval Summary Free Text/Dictation Patient feeling better, less shortness of breath and cough, denies palpitations or dizziness Exam/Review of Systems Vital Signs Vitals Vital Signs Date Time Temp Pulse Resp B/P Pulse Ox O2 Delivery O2 Flow Rate FiO2 04/22/17 12:00 70 04/22/17 11:34 97.9 18 149/96 94 04/22/17 07:48 2.0 04/21/17 20:15 Nasal Cannula 04/21/17 14:46 21 Intake and Output 04/21/17 04/21/17 04/22/17 15:00 23:00 07:00 Intake Total 300 ml 940 ml 1600 ml Output Total 1200 ml Balance 300 ml 940 ml 400 ml Exam No apparent distress Constitutional: alert, oriented Head: normocephalic Respiratory: other (Coarse breath sounds bilaterally, mild end especially wheezing) Cardiovascular: other (S1-S2 heard), regular rate and rhythm Gastrointestinal: bowel sounds, non-tender, soft Extremities: edema Results Result Diagram: 04/22/17 0734 04/22/17 0734 Results 24 hrs Laboratory Tests Test 04/22/17 07:34 White Blood Count 8.5 Red Blood Count 3.49 L Hemoglobin 11.4 L Hematocrit 35.5 L Mean Corpuscular Volume 101.7 H Mean Corpuscular Hemoglobin 32.7 Mean Corpuscular Hemoglobin Concent 32.1 Red Cell Distribution Width 15.8 H Platelet Count 228 Mean Platelet Volume 9.3 Neutrophils % 76.2 Lymphocytes % 13.5 L Monocytes % 8.5 Eosinophils % 0.7 Basophils % 0.6 Nucleated Red Blood Cells % 0.0 Neutrophils # 6.4 Lymphocytes # 1.1 Monocytes # 0.7 Eosinophils # 0.1 Basophils # 0.1 Nucleated Red Blood Cells # 0.0 Prothrombin Time 16.3 H Prothrombin Time Ratio 1.3 INR International Normalized Ratio 1.30 Sodium Level 138 Potassium Level 3.8 Chloride Level 101 Carbon Dioxide Level 26 Anion Gap 15 Blood Urea Nitrogen 12 Creatinine 0.76 Glucose Level 140 # Calcium Level 9.1 Phosphorus Level 4.5 Magnesium Level 1.9 Albumin 3.7 Medications Medications Current Medications Prednisone 40 mg 40 mg DAILY PO Last administered on 04/22/17 09:08; Admin Dose 40 MG; Start 04/19/17 at 09:00 Ceftriaxone Sodium 50 ml @ 100 mls/hr Q24H IVPB Last administered on 09:10; Admin Dose 100 MLS/HR; Start 04/19/17 at 09:00 Azithromycin 250 ml @ 250 mls/hr Q24H IVPB Last administered on 04/22/17 10: 03; Admin Dose 250 MLS/HR; Start 04/19/17 at 09:00 Sodium Chloride (NS) 1,000 ml @ 70 mls/hr [id number] IV Last administered on 14:29; Admin Dose 70 MLS/HR; Start 04/18/17 at 14:24 Ondansetron HCl (Zofran Inj) 4 mg Q6H PRN IV NAUSEA AND/OR VOMITING; Start at 14:30 Acetaminophen (Tylenol Tab) 650 mg Q6H PRN PO PAIN LEVEL 1-3 OR FEVER; Start 04/18/17 at 14:30 Bisacodyl (Dulcolax) 5 mg DAILY PRN PO CONSTIPATION; Start 04/18/17 at 14:30 Losartan Potassium (Cozaar) 100 mg DAILY PO Last administered on 04/22/17 09: 08; Admin Dose 100 MG; Start 04/19/17 at 09:00 Hydralazine HCl (Apresoline) 10 mg Q4H PRN IV SBP>160 Last administered on 12:42; Admin Dose 10 MG; Start 04/18/17 at 15:00 Labetalol HCl (Labetalol) 10 mg Q4H PRN IV SBP>160; Start 04/18/17 at 15:30 Phenazopyridine HCl (Pyridium) 200 mg TID PO Last administered on 04/22/17 13 :08; Admin Dose 200 MG; Start 04/19/17 at 14:00; Stop 04/22/17 at 21:00 Guaifenesin (Mucinex) 600 mg BID PO Last administered on 04/22/17 09:08; Admin Dose 600 MG; Start 04/19/17 at 14:00 Carvedilol (Coreg) 6.25 mg BID PO Last administered on 04/22/17 09:08; Admin Dose 6.25 MG; Start 04/20/17 at 14:00 Metoprolol Tartrate 5 mg 5 mg Q6 PRN IV HR>100; Start 04/20/17 at 17:00 Amiodarone HCl/ Dextrose (Cordarone Iv/ D5W) 500 ml @ 0 mls/hr Q0M IV Last administered on 04/21/17 13:40; Admin Dose 0.5 MLS/HR; Start 04/20/17 at 17: 30 Morphine Sulfate (morphine) 4 mg Q4H PRN IV PAIN Last administered on 11:54; Admin Dose 4 MG; Start 04/20/17 at 21:30 Oxycodone/ Acetaminophen (Endocet (10/ 325)) 1 tab Q6H PRN PO PAIN Last administered on 04/22/17 09:18; Admin Dose 1 TAB; Start 04/21/17 at 03:30 Enoxaparin Sodium (Lovenox) 100 mg Q12H SC Last administered on 04/22/17 09: 12; Admin Dose 100 MG; Start 04/21/17 at 10:00 Enoxaparin Sodium (Lovenox) 40 mg Q12H SC Last administered on 04/22/17 09:11 ; Admin Dose 40 MG; Start 04/21/17 at 10:00 Oxycodone HCl (Roxicodone) 15 mg Q4H PRN PO PAIN; Start 04/22/17 at 11:00 Trazodone HCl (Desyrel) 100 mg HS PO ; Start 04/22/17 at 21:00 Baclofen (Lioresal) 10 mg TID PO ; Start 04/22/17 at 13:00 Oxycodone HCl (Oxycontin) 10 mg BID PO Last administered on 04/22/17 13:08; Admin Dose 10 MG; Start 04/22/17 at 12:00 Curly Ojeda DO Apr 22, 2017 14:12
[2017-04-22] MEDS: BACLOFEN 10 MG TAB PO SCH ×2 (14:15→20:51)
[2017-04-22] MEDS: AMIODARONE 200 MG TAB PO SCH ×2 (14:21→20:50)
[2017-04-22] MEDS ORDERED: MAGNESIUM SULFATE 2 GM/50 ML 50 ML IVPB ONE (14:30)
[2017-04-22] MEDS: LINEZOLID 600 MG/D5W (PMX) 300 ML IVPB SCH ×2 (15:57→20:42)
[2017-04-22] MEDS ORDERED: WARFARIN 10 MG TAB PO ONE (17:00)
[2017-04-22] MEDS: traZODone 100 MG TAB PO SCH (22:15)
[2017-04-23] VITALS (11 sets, daily range): BP systolic 124–146; BP diastolic 62–83; PULSE 65–79; RESP 16–20
[2017-04-23] MEDS: ENOXAPARIN 100 MG/ML SYG SC SCH ×3 (00:07→21:58)
[2017-04-23] MEDS: OXYCODONE/ACETAMINOPHEN (10/325) TAB PO PRN (03:26)
[2017-04-23] MEDS: ALBUTEROL/IPRATROPIUM (NEB) 3 ML AMP HHN SCH ×3 (07:47→21:30)
[2017-04-23 08:56] LABS: BASOPHIL # 0.1 10^3/ul (0.0-0.1); BASOPHILS % 0.6 % (0.0-2.0); EOSINOPHILS # 0.1 10^3/ul (0.0-0.5); HEMATOCRIT 36.6 % (42.0-52.0); HEMOGLOBIN 11.5 g/dl (14.0-18.0); LYMPHOCYTES # 1.1 10^3/ul (0.8-2.9); LYMPHOCYTES % 12.6 % (15.0-51.0); MEAN CORPUSCULAR HEMOGLOBIN 31.6 pg (29.0-33.0); MEAN CORPUSCULAR HGB CONC 31.4 g/dl (32.0-37.0); MEAN CORPUSCULAR VOLUME 100.5 fl (82.0-101.0); MEAN PLATELET VOLUME 9.4 fl (7.4-10.4); MONOCYTE # 0.7 10^3/ul (0.3-0.9); MONOCYTES % 8.5 % (0.0-11.0); NEUTROPHIL # 6.4 10^3/ul (1.6-7.5); NEUTROPHILS % 76.7 % (39.0-77.0); PLATELET COUNT 237 10^3/UL (140-415); RED BLOOD COUNT 3.64 10^6/ul (4.70-6.10); RED CELL DISTRIBUTION WIDTH 15.6 % (11.5-14.5); WHITE BLOOD COUNT 8.4 10^3/ul (4.8-10.8)
[2017-04-23] MEDS: BACLOFEN 10 MG TAB PO SCH ×3 (09:07→20:11)
[2017-04-23] MEDS: LOSARTAN 50 MG TAB PO SCH (09:07)
[2017-04-23] MEDS: predniSONE 20 MG TAB PO SCH (09:08)
[2017-04-23] MEDS: GUAIFENESIN LA 600 MG TABSR PO SCH ×2 (09:08→20:11)
[2017-04-23] MEDS: AZITHROMYCIN 250 MG TAB PO SCH (09:08)
[2017-04-23] MEDS: AMIODARONE 200 MG TAB PO SCH ×2 (09:08→20:11)
[2017-04-23] MEDS: oxyCODONE (CR) 10 MG TAB [oxyCONTIN] PO SCH ×2 (09:09→20:12)
[2017-04-23 09:10] LABS: INR 1.69; PT RATIO 1.6
[2017-04-23] MEDS: LINEZOLID 600 MG/D5W (PMX) 300 ML IVPB SCH (09:12)
[2017-04-23 09:15] LABS: ALBUMIN 3.5 g/dl (3.3-4.9); CALCIUM 9.3 mg/dl (8.4-10.2); CREATININE 0.85 mg/dl (0.61-1.24); MAGNESIUM 1.9 mg/dl (1.7-2.5); PHOSPHORUS 4.2 mg/dl (2.5-4.9); POTASSIUM 4.1 mmol/L (3.5-5.1)
[2017-04-23] MEDS: ENOXAPARIN 40 MG/0.4 ML SYG SC SCH ×2 (10:00→21:57)
[2017-04-23] MEDS: morphine 4 MG/ML VIAL IV PRN ×3 (11:34→21:57)
--- NOTE | 2017-04-23 13:40 | PN ---
Date/Time of Note Date/Time of Note DATE: 04/23/17 TIME: 13:34 Assessment/Plan VTE Prophylaxis VTE Prophylaxis Intervention: LMWH Lines/Catheters IV Catheter Type (from Nrs): Peripheral IV Urinary Cath still in place: No Assessment/Plan Assessment/Plan 1. Sepsis, likely secondary to pneumonia- resolving - WBC normalized and patient remains afebrile - Azithromycin PO 250mg for 1 more days - LA normal 2. Shortness of breath, community acquired pneumonia- resolving - CTA shows acute vs chronic PE with bilateral infiltrate - On antibiotics and Nebs PRN. - Saturating well on RA and will continue to monitor - ECHO shows EF 55-60% with stage 1 diastolic dysfunction - No wheezing appreciated, no steroids needed at this time - Mucinex to help with expectorant - Incentive spirometry 3. New onset afib - Cardiology on board and consultation appreciated - Currently on full dose lovenox and still in sinus rhythm - PO amiodarone 3. Chronic PE, medically noncompliant - Bridging from Lovenox to Warfarin - INR 1.69 and will give another Coumadin 10mg tonight. Will go back to home dose of 4mg once INR 2-3 - Has IVC filter in place and states was dx with DVT in LLE 2 months ago but no evidence on duplex of lower extremities 4. Hypertension - Currently on Losartan 100mg and on BB. will continue monitoring and titrate medication to maintain SBP <160 - More controlled on pain medications 5. Chronic back pain - PRN pain medications - Home medications on board 6. VRE UTI - will change to Linezolid 600mg IV BID - ID consulted for assistance with antibiotic management 7. 9mm lung nodule - Will need follow up as outpatient 8. Disposition - Continue monitoring on Telemetry Subjective 24 Hr Interval Summary Free Text/Dictation Patient states feeling better since home pain medications restarted but still c/ o dysuria with minimal relief on pyridium. No acute overnight events. Exam/Review of Systems Vital Signs Vitals Vital Signs Date Time Temp Pulse Resp B/P Pulse Ox O2 Delivery O2 Flow Rate FiO2 04/23/17 12:22 98.0 78 18 146/80 98 04/23/17 07:49 2.0 04/22/17 20:00 Room Air 04/21/17 14:46 21 Intake and Output 04/22/17 04/22/17 04/23/17 15:00 23:00 07:00 Intake Total 900 ml 850 ml Output Total 1300 ml 1150 ml Balance -400 ml -300 ml Exam General: Patient is laying in bed and answers questions appropriately, obese Head: Normocephalic atraumatic Eyes: EOMI, pupils reactive to light Neck: Supple, nontender, midline Respiratory: diminished breath sounds bilaterally, no wheezing appreciated Cardiovascular: regular rate and rhythm, no obvious murmurs Gastrointestinal: non-tender to palpation, bowel sounds heard. no distention. no rebound or guarding 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: Moves all extremities spontaneously Skin: trace edema bilateral LE with venous stasis changes Results Result Diagram: 04/23/1772504/23/17725 Results 24 hrs Laboratory Tests Test 04/23/17 07:26 White Blood Count 8.4 Red Blood Count 3.64 L Hemoglobin 11.5 L Hematocrit 36.6 L Mean Corpuscular Volume 100.5 Mean Corpuscular Hemoglobin 31.6 Mean Corpuscular Hemoglobin Concent 31.4 L Red Cell Distribution Width 15.6 H Platelet Count 237 Mean Platelet Volume 9.4 Neutrophils % 76.7 Lymphocytes % 12.6 L Monocytes % 8.5 Eosinophils % 1.0 Basophils % 0.6 Nucleated Red Blood Cells % 0.0 Neutrophils # 6.4 Lymphocytes # 1.1 Monocytes # 0.7 Eosinophils # 0.1 Basophils # 0.1 Nucleated Red Blood Cells # 0.0 Prothrombin Time 20.0 #H Prothrombin Time Ratio 1.6 INR International Normalized Ratio 1.69 Sodium Level 138 Potassium Level 4.1 Chloride Level 102 Carbon Dioxide Level 29 Anion Gap 11 Blood Urea Nitrogen 14 Creatinine 0.85 Glucose Level 116 Calcium Level 9.3 Phosphorus Level 4.2 Magnesium Level 1.9 Albumin 3.5 Medications Medications Current Medications Prednisone (Prednisone) 40 mg DAILY PO Last administered on 04/23/17t 09:08; Admin Dose 40 MG; Start 04/19/17 at 09:00 Ondansetron HCl (Zofran Inj) 4 mg Q6H PRN IV NAUSEA AND/OR VOMITING; Start at 14:30 Acetaminophen (Tylenol Tab) 650 mg Q6H PRN PO PAIN LEVEL 1-3 OR FEVER; Start 04/18/17 at 14:30 Bisacodyl (Dulcolax) 5 mg DAILY PRN PO CONSTIPATION; Start 04/18/17 at 14:30 Losartan Potassium (Cozaar) 100 mg DAILY PO Last administered on 04/23/17 09: 07; Admin Dose 100 MG; Start 04/19/17 at 09:00 Hydralazine HCl (Apresoline) 10 mg Q4H PRN IV SBP>160 Last administered on 12:42; Admin Dose 10 MG; Start 04/18/17 at 15:00 Labetalol HCl (Labetalol) 10 mg Q4H PRN IV SBP>160; Start 04/18/17 at 15:30 Guaifenesin (Mucinex) 600 mg BID PO Last administered on 04/23/17 09:08; Admin Dose 600 MG; Start 04/19/17 at 14:00 Carvedilol (Coreg) 6.25 mg BID PO Last administered on 04/23/17 09:08; Admin Dose 6.25 MG; Start 04/20/17 at 14:00 Metoprolol Tartrate (Lopressor) 5 mg Q6 PRN IV HR>100; Start 04/20/17 at 17:00 Morphine Sulfate (morphine) 4 mg Q4H PRN IV PAIN Last administered on 11:34; Admin Dose 4 MG; Start 04/20/17 at 21:30 Oxycodone/ Acetaminophen (Endocet (10/ 325)) 1 tab Q6H PRN PO PAIN Last administered on 04/23/17 03:26; Admin Dose 1 TAB; Start 04/21/17 at 03:30 Enoxaparin Sodium (Lovenox) 100 mg Q12H SC Last administered on 04/23/17 11: 37; Admin Dose 100 MG; Start 04/21/17 at 10:00 Enoxaparin Sodium (Lovenox) 40 mg Q12H SC Last administered on 04/23/17 10:00 ; Admin Dose 40 MG; Start 04/21/17 at 10:00 Oxycodone HCl (Roxicodone) 15 mg Q4H PRN PO PAIN; Start 04/22/17 at 11:00 Trazodone HCl (Desyrel) 100 mg HS PO Last administered on 04/22/17 22:15; Admin Dose 100 MG; Start 04/22/17 at 21:00 Baclofen (Lioresal) 10 mg TID PO Last administered on 04/23/17 09:07; Admin Dose 10 MG; Start 04/22/17 at 13:00 Oxycodone HCl (Oxycontin) 10 mg BID PO Last administered on 04/23/17 09:09; Admin Dose 10 MG; Start 04/22/17 at 12:00 Amiodarone HCl (Cordarone) 400 mg BID PO Last administered on 04/23/17 09:08 ; Admin Dose 400 MG; Start 04/22/17 at 14:30 Azithromycin (Zithromax) 250 mg DAILY PO Last administered on 04/23/17 09:08 ; Admin Dose 250 MG; Start 04/23/17 at 09:00; Stop 04/24/17 at 23:00 Linezolid (Zyvox) 600 mg BID PO ; Start 04/23/17 at 21:00 ABHI HARE MD Apr 23, 2017 13:40
--- NOTE | 2017-04-23 14:29 | CONS ---
DATE OF ADMISSION: 04/18/2017 DATE OF CONSULTATION: 04/22/2017 TYPE OF CONSULTATION: Infectious consult. REASON FOR CONSULTATION: Antibiotic management. HISTORY OF PRESENT ILLNESS: Eulogio Gomez is a 57-year-old male who presents with shortness of breat h and is being seen for antibiotic management. His past problems include: 1. Coronary artery disease with CHF. 2. Chronic obstructive pulmonary disease. 3. Pulmonary emboli on warfarin. The patient presents with 3-4 day history of shortness of breath. He has had fevers. He has been o ff for the past few days, is tired, fatigued and feverish. Patient was admitted on 04/18/2017. He stated that he missed a number of doses of warfarin and his left lower extremity has been more swoll en than usual. PAST MEDICAL HISTORY: Includes as noted, CHF, COPD, pulmonary emboli. He had a cardiac arrest seco ndary to aspiration. He has back pain. On admission, his white count was 16.1, H and H of 12.5 and 40.1, platelet count of 223,000. BUN and creatinine 14/0.87. He was started on vancomycin, also o n ceftriaxone and azithromycin. His chest x-ray showed moderate cardiomegaly, mild atherosclerotic aortic calcifications, increased bilateral interstitial markings which may represent chronic change, interstitial edema or interstitial pneumonia. He has left lower lobe atelectasis. A 7 mm nodular density at the right upper lobe which should be followed and calcifications in the left shoulder. A chest CT showed subtle nonocclusive pulmonary artery filling defect in the right descending pulmona ry artery which could reflect a pulmonary artery web, it could be sequelae of an old pulmonary embol us. Atypical small acute pulmonary emboli cannot definitely be excluded. Patchy consolidations in bilateral posterior lower lobes. Findings suggest multifocal infection and inflammation, mediastina l or hilar adenopathy, moderate emphysematous changes in both lungs, 9 mm subpleural nodule in the p osterior right upper lobe. The patient, as noted, was started on antibiotic therapy. A DVT study w as negative. HOSPITAL COURSE: The patient was seen by Dr. Ojeda from cardiology who noted sepsis, likely second adams to pneumonia which is resolving. His white count is normalizing. He has VRE in his urinary tra ct and therefore, infectious disease was called to change his dosage to Linezolid 600 mg IV piggybac k b.i.d., although this could be given orally. He has community-acquired pneumonia which is resolvi ng. An echocardiogram was done which showed 55-60% ejection fraction with stage I diastolic dysfunc tion, no wheezing appreciated. He was in paroxysmal atrial fibrillation and converted to sinus rhyt hm. PAST MEDICAL HISTORY: Essentially is as outlined. PAST SURGICAL HISTORY: He has an IVC filter, had history of cardiac catheterization and right wrist metallic fixation device. FAMILY HISTORY: Noncontributory. SOCIAL HISTORY: He smokes occasionally. He is a social drinker. He denies drugs. MEDICATIONS: Per chart review. REVIEW OF SYSTEMS: Noncontributory. PHYSICAL EXAMINATION: GENERAL: The patient is a well-developed, but obese white male who is alert, responsive, in no acut e distress. VITAL SIGNS: Stable. He is afebrile. SKIN: Without generalized rash. HEENT: Within normal limits. NECK: Supple. LYMPH NODES: None palpable. CHEST: Decreased breath sounds at the bases. HEART: Without murmur or gallop. ABDOMEN: Soft, nontender, without organosplenomegaly or masses. EXTREMITIES: Without cyanosis, clubbing, or edema. RECTAL AND GENITAL: Deferred. NEUROLOGIC: No focal neurological abnormalities. IMPRESSION AND PLAN: The patient is currently on linezolid and azithromycin. We can change the enuice ezolid to oral b.i.d. I will dictate my findings to the hospitalist and Dr. Ojeda. Dictated By: UVALDO OCHOA MD, JD/YOUNG Conf#: [id number] DID#: [id number]
--- NOTE | 2017-04-23 14:54 | CONS ---
Date/Time of Note Date/Time of Note DATE: 04/23/17 TIME: 14:53 Assessment/Plan Assessment/Plan Additional Assessment/Plan Paroxysmal atrial fibrillation, currently sinus rhythm Pneumonia Preserved ejection fraction History pulmonary emboli Hypertension -Patient remains in sinus rhythm, currently on p.o. amiodarone, with slowly decreased dose. Continue beta-olayinka. Coumadin as per INR. Antibiotics as per primary team. Supplement potassium to maintain above 4.0 and magnesium above 2.0. Consultation Date/Type/Reason Admit Date/Time Apr 18, 2017 at 13:19 Type of Consultation: cv 24 HR Interval Summary Free Text/Dictation Shortness of breath continues to improve, denies palpitations or dizziness, overall feeling better. Exam/Review of Systems Vital Signs Vitals Vital Signs Date Time Temp Pulse Resp B/P Pulse Ox O2 Delivery O2 Flow Rate FiO2 04/23/17 12:22 98.0 78 18 146/80 98 04/23/17 07:49 2.0 04/22/17 20:00 Room Air 04/21/17 14:46 21 Intake and Output 04/22/17 04/22/17 04/23/17 15:00 23:00 07:00 Intake Total 900 ml 850 ml Output Total 1300 ml 1150 ml Balance -400 ml -300 ml Exam No apparent distress, eating lunch Constitutional: alert, oriented Head: normocephalic Respiratory: other (Coarse breath sounds bilaterally with scattered rhonchi, minimal wheezing) Cardiovascular: other (S1-S2 heard), regular rate and rhythm Gastrointestinal: bowel sounds, non-tender, soft Extremities: edema Results Result Diagram: 04/23/17 0726 04/23/17 0726 Results 24 hrs Laboratory Tests Test 04/23/17 07:26 White Blood Count 8.4 Red Blood Count 3.64 L Hemoglobin 11.5 L Hematocrit 36.6 L Mean Corpuscular Volume 100.5 Mean Corpuscular Hemoglobin 31.6 Mean Corpuscular Hemoglobin Concent 31.4 L Red Cell Distribution Width 15.6 H Platelet Count 237 Mean Platelet Volume 9.4 Neutrophils % 76.7 Lymphocytes % 12.6 L Monocytes % 8.5 Eosinophils % 1.0 Basophils % 0.6 Nucleated Red Blood Cells % 0.0 Neutrophils # 6.4 Lymphocytes # 1.1 Monocytes # 0.7 Eosinophils # 0.1 Basophils # 0.1 Nucleated Red Blood Cells # 0.0 Prothrombin Time 20.0 #H Prothrombin Time Ratio 1.6 INR International Normalized Ratio 1.69 Sodium Level 138 Potassium Level 4.1 Chloride Level 102 Carbon Dioxide Level 29 Anion Gap 11 Blood Urea Nitrogen 14 Creatinine 0.85 Glucose Level 116 Calcium Level 9.3 Phosphorus Level 4.2 Magnesium Level 1.9 Albumin 3.5 Medications Medications Current Medications Prednisone (Prednisone) 40 mg DAILY PO Last administered on 04/23/17 09:08; Admin Dose 40 MG; Start 04/19/17 at 09:00 Ondansetron HCl (Zofran Inj) 4 mg Q6H PRN IV NAUSEA AND/OR VOMITING; Start at 14:30 Acetaminophen (Tylenol Tab) 650 mg Q6H PRN PO PAIN LEVEL 1-3 OR FEVER; Start 04/18/17 at 14:30 Bisacodyl (Dulcolax) 5 mg DAILY PRN PO CONSTIPATION; Start 04/18/17 at 14:30 Losartan Potassium (Cozaar) 100 mg DAILY PO Last administered on 04/23/17 09: 07; Admin Dose 100 MG; Start 04/19/17 at 09:00 Hydralazine HCl (Apresoline) 10 mg Q4H PRN IV SBP>160 Last administered on 12:42; Admin Dose 10 MG; Start 04/18/17 at 15:00 Labetalol HCl (Labetalol) 10 mg Q4H PRN IV SBP>160; Start 04/18/17 at 15:30 Guaifenesin (Mucinex) 600 mg BID PO Last administered on 04/23/17 09:08; Admin Dose 600 MG; Start 04/19/17 at 14:00 Carvedilol (Coreg) 6.25 mg BID PO Last administered on 04/23/17 09:08; Admin Dose 6.25 MG; Start 04/20/17 at 14:00 Metoprolol Tartrate (Lopressor) 5 mg Q6 PRN IV HR>100; Start 04/20/17 at 17:00 Morphine Sulfate (morphine) 4 mg Q4H PRN IV PAIN Last administered on 11:34; Admin Dose 4 MG; Start 04/20/17 at 21:30 Oxycodone/ Acetaminophen (Endocet (10/ 325)) 1 tab Q6H PRN PO PAIN Last administered on 04/23/17 03:26; Admin Dose 1 TAB; Start 04/21/17 at 03:30 Enoxaparin Sodium (Lovenox) 100 mg Q12H SC Last administered on 04/23/17 11: 37; Admin Dose 100 MG; Start 04/21/17 at 10:00 Enoxaparin Sodium (Lovenox) 40 mg Q12H SC Last administered on 04/23/17 10:00 ; Admin Dose 40 MG; Start 04/21/17 at 10:00 Oxycodone HCl (Roxicodone) 15 mg Q4H PRN PO PAIN; Start 04/22/17 at 11:00 Trazodone HCl (Desyrel) 100 mg HS PO Last administered on 04/22/17 22:15; Admin Dose 100 MG; Start 04/22/17 at 21:00 Baclofen (Lioresal) 10 mg TID PO Last administered on 04/23/17 09:07; Admin Dose 10 MG; Start 04/22/17 at 13:00 Oxycodone HCl (Oxycontin) 10 mg BID PO Last administered on 04/23/17 09:09; Admin Dose 10 MG; Start 04/22/17 at 12:00 Amiodarone HCl (Cordarone) 400 mg BID PO Last administered on 04/23/17 09:08 ; Admin Dose 400 MG; Start 04/22/17 at 14:30 Azithromycin (Zithromax) 250 mg DAILY PO Last administered on 04/23/17 09:08 ; Admin Dose 250 MG; Start 04/23/17 at 09:00; Stop 04/24/17 at 23:00 Linezolid (Zyvox) 600 mg BID PO ; Start 04/23/17 at 21:00 Warfarin Sodium (Coumadin) 10 mg ONCE@17 ONCE GTB ; Start 04/23/17 at 17:00; Stop 04/23/17 at 17:01 Curly Ojeda DO Apr 23, 2017 14:54
[2017-04-23] MEDS: traZODone 100 MG TAB PO SCH ×2 (14:55→20:11)
[2017-04-23] MEDS: oxyCODONE 5 MG TAB PO PRN (15:03)
[2017-04-23] MEDS ORDERED: WARFARIN 10 MG TAB GTB ONE (17:00)
[2017-04-23] MEDS: ZYVOX 600 MG TAB PO SCH (20:11)
[2017-04-24] VITALS (12 sets, daily range): BP systolic 118–179; BP diastolic 66–90; PULSE 59–79; RESP 16–20
[2017-04-24] MEDS: morphine 4 MG/ML VIAL IV PRN ×3 (02:35→15:30)
[2017-04-24] MEDS: oxyCODONE 5 MG TAB PO PRN (06:04)
[2017-04-24] MEDS: ALBUTEROL/IPRATROPIUM (NEB) 3 ML AMP HHN SCH ×3 (07:56→19:27)
[2017-04-24 08:18] LABS: BASOPHIL # 0.1 10^3/ul (0.0-0.1); BASOPHILS % 0.8 % (0.0-2.0); EOSINOPHILS # 0.1 10^3/ul (0.0-0.5); EOSINOPHILS % 1.3 % (0.0-7.0); HEMATOCRIT 38.1 % (42.0-52.0); HEMOGLOBIN 12.3 g/dl (14.0-18.0); LYMPHOCYTES # 1.1 10^3/ul (0.8-2.9); LYMPHOCYTES % 14.2 % (15.0-51.0); MEAN CORPUSCULAR HEMOGLOBIN 32.6 pg (29.0-33.0); MEAN CORPUSCULAR HGB CONC 32.3 g/dl (32.0-37.0); MEAN CORPUSCULAR VOLUME 101.1 fl (82.0-101.0); MEAN PLATELET VOLUME 9.6 fl (7.4-10.4); MONOCYTE # 0.5 10^3/ul (0.3-0.9); MONOCYTES % 6.6 % (0.0-11.0); NEUTROPHIL # 6.1 10^3/ul (1.6-7.5); NEUTROPHILS % 76.1 % (39.0-77.0); PLATELET COUNT 248 10^3/UL (140-415); RED BLOOD COUNT 3.77 10^6/ul (4.70-6.10); RED CELL DISTRIBUTION WIDTH 15.5 % (11.5-14.5)
[2017-04-24] MEDS: GUAIFENESIN LA 600 MG TABSR PO SCH ×2 (08:19→20:06)
[2017-04-24] MEDS: predniSONE 20 MG TAB PO SCH (08:20)
[2017-04-24] MEDS: BACLOFEN 10 MG TAB PO SCH ×3 (08:20→20:09)
[2017-04-24] MEDS: ZYVOX 600 MG TAB PO SCH ×2 (08:20→20:06)
[2017-04-24] MEDS: AZITHROMYCIN 250 MG TAB PO SCH (08:20)
[2017-04-24] MEDS: AMIODARONE 200 MG TAB PO SCH ×2 (08:21→20:07)
[2017-04-24] MEDS: LOSARTAN 50 MG TAB PO SCH (08:21)
[2017-04-24] MEDS: oxyCODONE (CR) 10 MG TAB [oxyCONTIN] PO SCH ×2 (08:21→20:06)
[2017-04-24 08:41] LABS: ALBUMIN 3.8 g/dl (3.3-4.9); CALCIUM 9.1 mg/dl (8.4-10.2); CREATININE 0.87 mg/dl (0.61-1.24); MAGNESIUM 1.9 mg/dl (1.7-2.5); PHOSPHORUS 4.8 mg/dl (2.5-4.9); POTASSIUM 3.9 mmol/L (3.5-5.1)
[2017-04-24 08:46] LABS: INR 2.06; PROTIME 23.4 Sec (12.2-14.2); PT RATIO 1.8
[2017-04-24] MEDS: ENOXAPARIN 100 MG/ML SYG SC SCH ×2 (09:44→21:08)
[2017-04-24] MEDS: ENOXAPARIN 40 MG/0.4 ML SYG SC SCH ×2 (09:45→21:09)
[2017-04-24] MEDS ORDERED: predniSONE 20 MG TAB PO SCH (11:00)
--- NOTE | 2017-04-24 11:22 | PN ---
Date/Time of Note Date/Time of Note DATE: 04/24/17 TIME: 11:22 Assessment/Plan VTE Prophylaxis VTE Prophylaxis Intervention: LMWH Lines/Catheters IV Catheter Type (from Nrs): Saline Lock Urinary Cath still in place: No Assessment/Plan Assessment/Plan 1. Sepsis, likely secondary to pneumonia- resolving - WBC normalized and patient remains afebrile - Completed course of azithromycin - LA normal 2. Shortness of breath, community acquired pneumonia- resolving - CTA shows acute vs chronic PE with bilateral infiltrate - On antibiotics and Nebs PRN. - Saturating well on RA and will continue to monitor - ECHO shows EF 55-60% with stage 1 diastolic dysfunction - No wheezing appreciated, no steroids needed at this time - Mucinex to help with expectorant - Incentive spirometry 3. New onset afib - Cardiology on board and consultation appreciated - Currently on full dose lovenox and bridging to Coumadin. If INR therapeutic tmrw, will d/c lovenox - PO amiodarone 3. Chronic PE, medically noncompliant - Bridging from Lovenox to Warfarin - INR 2.06 and will go back to home dose of 4mg with goal INR 2-3 - Has IVC filter in place and states was dx with DVT in LLE 2 months ago but no evidence on duplex of lower extremities 4. Hypertension - Currently on Losartan 100mg and on BB. will continue monitoring and titrate medication to maintain SBP <160 - More controlled on pain medications 5. Chronic back pain - PRN pain medications - Home medications on board 6. VRE UTI - On PO Linezolid BID - ID consultation appreciated - Having urinary retention and will try Flomax 7. 9mm lung nodule - Will need follow up as outpatient 8. Disposition - Continue monitoring on Telemetry Subjective 24 Hr Interval Summary Free Text/Dictation Patient states he's feeling better but still experiencing extreme pain with urination. Back pain is better on home medication regime. No new complaints and no acute overnight events. Exam/Review of Systems Vital Signs Vitals Vital Signs Date Time Temp Pulse Resp B/P Pulse Ox O2 Delivery O2 Flow Rate FiO2 04/24/17 08:18 59 04/24/17 08:09 2.0 04/24/17 08:07 98.0 18 125/71 90 04/24/17 07:56 21 04/22/17 20:00 Room Air Intake and Output 04/23/17 04/23/17 04/24/17 14:59 22:59 06:59 Intake Total 700 ml 650 ml Output Total 1300 ml 1400 ml Balance -600 ml -750 ml Exam General: Patient is laying in bed and answers questions appropriately, obese Head: Normocephalic atraumatic Eyes: EOMI, pupils reactive to light Neck: Supple, nontender, midline Respiratory: diminished breath sounds bilaterally, no wheezing appreciated Cardiovascular: regular rate and rhythm, no obvious murmurs Gastrointestinal: non-tender to palpation, bowel sounds heard. no distention. no rebound or guarding 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: Moves all extremities spontaneously Skin: trace edema bilateral LE with venous stasis changes Results Result Diagram: 04/24/17 0753 04/24/17 0753 Results 24 hrs Laboratory Tests Test 04/24/17 07:53 White Blood Count 8.0 Red Blood Count 3.77 L Hemoglobin 12.3 L Hematocrit 38.1 L Mean Corpuscular Volume 101.1 H Mean Corpuscular Hemoglobin 32.6 Mean Corpuscular Hemoglobin Concent 32.3 Red Cell Distribution Width 15.5 H Platelet Count 248 Mean Platelet Volume 9.6 Neutrophils % 76.1 Lymphocytes % 14.2 L Monocytes % 6.6 Eosinophils % 1.3 Basophils % 0.8 Nucleated Red Blood Cells % 0.0 Neutrophils # 6.1 Lymphocytes # 1.1 Monocytes # 0.5 Eosinophils # 0.1 Basophils # 0.1 Nucleated Red Blood Cells # 0.0 Prothrombin Time 23.4 H Prothrombin Time Ratio 1.8 INR International Normalized Ratio 2.06 Sodium Level 139 Potassium Level 3.9 Chloride Level 100 Carbon Dioxide Level 29 Anion Gap 14 Blood Urea Nitrogen 16 Creatinine 0.87 Glucose Level 125 Calcium Level 9.1 Phosphorus Level 4.8 Magnesium Level 1.9 Albumin 3.8 Medications Medications Current Medications Prednisone (Prednisone) 40 mg DAILY PO Last administered on 04/24/17t 08:20; Admin Dose 40 MG; Start 04/19/17 at 09:00 Ondansetron HCl (Zofran Inj) 4 mg Q6H PRN IV NAUSEA AND/OR VOMITING; Start at 14:30 Acetaminophen (Tylenol Tab) 650 mg Q6H PRN PO PAIN LEVEL 1-3 OR FEVER; Start 04/18/17 at 14:30 Bisacodyl (Dulcolax) 5 mg DAILY PRN PO CONSTIPATION; Start 04/18/17 at 14:30 Losartan Potassium (Cozaar) 100 mg DAILY PO Last administered on 04/24/17 08: 21; Admin Dose 100 MG; Start 04/19/17 at 09:00 Hydralazine HCl (Apresoline) 10 mg Q4H PRN IV SBP>160 Last administered on 12:42; Admin Dose 10 MG; Start 04/18/17 at 15:00 Labetalol HCl (Labetalol) 10 mg Q4H PRN IV SBP>160; Start 04/18/17 at 15:30 Guaifenesin (Mucinex) 600 mg BID PO Last administered on 04/24/17 08:19; Admin Dose 600 MG; Start 04/19/17 at 14:00 Carvedilol (Coreg) 6.25 mg BID PO Last administered on 04/24/17 08:20; Admin Dose 6.25 MG; Start 04/20/17 at 14:00 Metoprolol Tartrate (Lopressor) 5 mg Q6 PRN IV HR>100; Start 04/20/17 at 17:00 Morphine Sulfate (morphine) 4 mg Q4H PRN IV PAIN Last administered on 09:47; Admin Dose 4 MG; Start 04/20/17 at 21:30 Oxycodone/ Acetaminophen (Endocet (10/ 325)) 1 tab Q6H PRN PO PAIN Last administered on 04/23/17 03:26; Admin Dose 1 TAB; Start 04/21/17 at 03:30 Enoxaparin Sodium (Lovenox) 100 mg Q12H SC Last administered on 04/24/17 09: 44; Admin Dose 100 MG; Start 04/21/17 at 10:00 Enoxaparin Sodium (Lovenox) 40 mg Q12H SC Last administered on 04/24/17 09:45 ; Admin Dose 40 MG; Start 04/21/17 at 10:00 Oxycodone HCl (Roxicodone) 15 mg Q4H PRN PO PAIN Last administered on 06:04; Admin Dose 15 MG; Start 04/22/17 at 11:00 Trazodone HCl (Desyrel) 100 mg HS PO Last administered on 04/23/17 20:11; Admin Dose 100 MG; Start 04/22/17 at 21:00 Baclofen (Lioresal) 10 mg TID PO Last administered on 04/24/17 08:20; Admin Dose 10 MG; Start 04/22/17 at 13:00 Oxycodone HCl (Oxycontin) 10 mg BID PO Last administered on 04/24/17 08:21; Admin Dose 10 MG; Start 04/22/17 at 12:00 Azithromycin (Zithromax) 250 mg DAILY PO Last administered on 04/24/17 08:20 ; Admin Dose 250 MG; Start 04/23/17 at 09:00; Stop 04/24/17 at 23:00 Linezolid (Zyvox) 600 mg BID PO Last administered on 04/24/17 08:20; Admin Dose 600 MG; Start 04/23/17 at 21:00 Amiodarone HCl (Cordarone) 200 mg BID PO Last administered on 04/24/17 08:21 ; Admin Dose 200 MG; Start 04/23/17 at 21:00 Warfarin Sodium (Coumadin) 4 mg DAILY@17 PO ; Start 04/24/17 at 17:00 ABHI HARE MD Apr 24, 2017 11:22
[2017-04-24] MEDS: OXYCODONE/ACETAMINOPHEN (10/325) TAB PO PRN (12:18)
--- NOTE | 2017-04-24 13:20 | PN ---
Date/Time of Note Date/Time of Note DATE: 04/24/17 TIME: 13:20 Assessment/Plan VTE Prophylaxis VTE Prophylaxis Intervention: SCD's Lines/Catheters IV [facility]from [facility] Saline Lock Urinary Cath still in place: No Assessment/Plan Assessment/Plan Paroxysmal atrial fibrillation, currently sinus rhythm Pneumonia Preserved ejection fraction History pulmonary emboli Hypertension -Patient remains in sinus rhythm, currently on p.o. amiodarone, with slowly decreased dose. Continue beta-olayinka. Coumadin as per INR. Antibiotics as per primary team. Supplement potassium to maintain above 4.0 and magnesium above 2.0. Subjective 24 Hr Interval Summary Free Text/Dictation the patient with no cahnge Exam/Review of Systems Vital Signs Vitals Vital Signs Date Time Temp Pulse Resp B/P Pulse Ox O2 Delivery O2 Flow Rate FiO2 04/24/17 12:23 78 04/24/17 11:24 97.9 18 134/81 98 04/24/17 08:09 2.0 04/24/17 07:56 21 04/22/17 20:00 Room Air Intake and Output 04/23/17 04/23/17 04/24/17 15:00 23:00 07:00 Intake Total 700 ml 650 ml Output Total 1300 ml 1400 ml Balance -600 ml -750 ml Results Result Diagram: 04/24/17 0753 04/24/17 0753 Results 24 hrs Laboratory Tests Test 04/24/17 07:53 White Blood Count 8.0 Red Blood Count 3.77 L Hemoglobin 12.3 L Hematocrit 38.1 L Mean Corpuscular Volume 101.1 H Mean Corpuscular Hemoglobin 32.6 Mean Corpuscular Hemoglobin Concent 32.3 Red Cell Distribution Width 15.5 H Platelet Count 248 Mean Platelet Volume 9.6 Neutrophils % 76.1 Lymphocytes % 14.2 L Monocytes % 6.6 Eosinophils % 1.3 Basophils % 0.8 Nucleated Red Blood Cells % 0.0 Neutrophils # 6.1 Lymphocytes # 1.1 Monocytes # 0.5 Eosinophils # 0.1 Basophils # 0.1 Nucleated Red Blood Cells # 0.0 Prothrombin Time 23.4 H Prothrombin Time Ratio 1.8 INR International Normalized Ratio 2.06 Sodium Level 139 Potassium Level 3.9 Chloride Level 100 Carbon Dioxide Level 29 Anion Gap 14 Blood Urea Nitrogen 16 Creatinine 0.87 Glucose Level 125 Calcium Level 9.1 Phosphorus Level 4.8 Magnesium Level 1.9 Albumin 3.8 Medications Medications Current Medications Prednisone (Prednisone) 40 mg DAILY PO Last administered on 04/24/17 08:20; Admin Dose 40 MG; Start 04/19/17 at 09:00 Ondansetron HCl (Zofran Inj) 4 mg Q6H PRN IV NAUSEA AND/OR VOMITING; Start at 14:30 Acetaminophen (Tylenol Tab) 650 mg Q6H PRN PO PAIN LEVEL 1-3 OR FEVER; Start 04/18/17 at 14:30 Bisacodyl (Dulcolax) 5 mg DAILY PRN PO CONSTIPATION; Start 04/18/17 at 14:30 Losartan Potassium (Cozaar) 100 mg DAILY PO Last administered on 04/24/17 08: 21; Admin Dose 100 MG; Start 04/19/17 at 09:00 Hydralazine HCl (Apresoline) 10 mg Q4H PRN IV SBP>160 Last administered on 12:42; Admin Dose 10 MG; Start 04/18/17 at 15:00 Labetalol HCl (Labetalol) 10 mg Q4H PRN IV SBP>160; Start 04/18/17 at 15:30 Guaifenesin (Mucinex) 600 mg BID PO Last administered on 04/24/17 08:19; Admin Dose 600 MG; Start 04/19/17 at 14:00 Carvedilol (Coreg) 6.25 mg BID PO Last administered on 04/24/17 08:20; Admin Dose 6.25 MG; Start 04/20/17 at 14:00 Metoprolol Tartrate (Lopressor) 5 mg Q6 PRN IV HR>100; Start 04/20/17 at 17:00 Morphine Sulfate (morphine) 4 mg Q4H PRN IV PAIN Last administered on 09:47; Admin Dose 4 MG; Start 04/20/17 at 21:30 Oxycodone/ Acetaminophen (Endocet (10/ 325)) 1 tab Q6H PRN PO PAIN Last administered on 04/24/17 12:18; Admin Dose 1 TAB; Start 04/21/17 at 03:30 Enoxaparin Sodium (Lovenox) 100 mg Q12H SC Last administered on 04/24/17 09: 44; Admin Dose 100 MG; Start 04/21/17 at 10:00 Enoxaparin Sodium (Lovenox) 40 mg Q12H SC Last administered on 04/24/17 09:45 ; Admin Dose 40 MG; Start 04/21/17 at 10:00 Oxycodone HCl (Roxicodone) 15 mg Q4H PRN PO PAIN Last administered on 06:04; Admin Dose 15 MG; Start 04/22/17 at 11:00 Trazodone HCl (Desyrel) 100 mg HS PO Last administered on 04/23/17 20:11; Admin Dose 100 MG; Start 04/22/17 at 21:00 Baclofen (Lioresal) 10 mg TID PO Last administered on 04/24/17 12:22; Admin Dose 10 MG; Start 04/22/17 at 13:00 Oxycodone HCl (Oxycontin) 10 mg BID PO Last administered on 04/24/17 08:21; Admin Dose 10 MG; Start 04/22/17 at 12:00 Azithromycin (Zithromax) 250 mg DAILY PO Last administered on 04/24/17 08:20 ; Admin Dose 250 MG; Start 04/23/17 at 09:00; Stop 04/24/17 at 23:00 Linezolid (Zyvox) 600 mg BID PO Last administered on 04/24/17 08:20; Admin Dose 600 MG; Start 04/23/17 at 21:00 Amiodarone HCl (Cordarone) 200 mg BID PO Last administered on 04/24/17 08:21 ; Admin Dose 200 MG; Start 04/23/17 at 21:00 Warfarin Sodium (Coumadin) 4 mg DAILY@17 PO ; Start 04/24/17 at 17:00 NGHIA SMITH MD Apr 24, 2017 13:20
--- NOTE | 2017-04-24 14:10 | CONS ---
Date/Time of Note Date/Time of Note DATE: 04/24/17 TIME: 14:09 Consult Date/Type/Reason Admit Date/Time Apr 18, 2017 at 13:19 Initial Consult Date Type of Consultation: ID Objective Vital Signs Date Time Temp Pulse Resp B/P Pulse Ox O2 Delivery O2 Flow Rate FiO2 04/24/17 12:23 78 04/24/17 11:24 97.9 18 134/81 98 04/24/17 08:09 2.0 04/24/17 07:56 21 04/22/17 20:00 Room Air Intake and Output 04/23/17 04/23/17 04/24/17 15:00 23:00 07:00 Intake Total 700 ml 650 ml Output Total 1300 ml 1400 ml Balance -600 ml -750 ml Results/Medications Result Diagram: 04/24/17 0753 04/24/17 0753 Results 24 hrs Laboratory Tests Test 04/24/17 07:53 White Blood Count 8.0 Red Blood Count 3.77 L Hemoglobin 12.3 L Hematocrit 38.1 L Mean Corpuscular Volume 101.1 H Mean Corpuscular Hemoglobin 32.6 Mean Corpuscular Hemoglobin Concent 32.3 Red Cell Distribution Width 15.5 H Platelet Count 248 Mean Platelet Volume 9.6 Neutrophils % 76.1 Lymphocytes % 14.2 L Monocytes % 6.6 Eosinophils % 1.3 Basophils % 0.8 Nucleated Red Blood Cells % 0.0 Neutrophils # 6.1 Lymphocytes # 1.1 Monocytes # 0.5 Eosinophils # 0.1 Basophils # 0.1 Nucleated Red Blood Cells # 0.0 Prothrombin Time 23.4 H Prothrombin Time Ratio 1.8 INR International Normalized Ratio 2.06 Sodium Level 139 Potassium Level 3.9 Chloride Level 100 Carbon Dioxide Level 29 Anion Gap 14 Blood Urea Nitrogen 16 Creatinine 0.87 Glucose Level 125 Calcium Level 9.1 Phosphorus Level 4.8 Magnesium Level 1.9 Albumin 3.8 Medications Current Medications Prednisone (Prednisone) 40 mg DAILY PO Last administered on 04/24/17t 08:20; Admin Dose 40 MG; Start 04/19/17 at 09:00 Ondansetron HCl (Zofran Inj) 4 mg Q6H PRN IV NAUSEA AND/OR VOMITING; Start at 14:30 Acetaminophen (Tylenol Tab) 650 mg Q6H PRN PO PAIN LEVEL 1-3 OR FEVER; Start 04/18/17 at 14:30 Bisacodyl (Dulcolax) 5 mg DAILY PRN PO CONSTIPATION; Start 04/18/17 at 14:30 Losartan Potassium (Cozaar) 100 mg DAILY PO Last administered on 04/24/17 08: 21; Admin Dose 100 MG; Start 04/19/17 at 09:00 Hydralazine HCl (Apresoline) 10 mg Q4H PRN IV SBP>160 Last administered on 12:42; Admin Dose 10 MG; Start 04/18/17 at 15:00 Labetalol HCl (Labetalol) 10 mg Q4H PRN IV SBP>160; Start 04/18/17 at 15:30 Guaifenesin (Mucinex) 600 mg BID PO Last administered on 04/24/17 08:19; Admin Dose 600 MG; Start 04/19/17 at 14:00 Carvedilol (Coreg) 6.25 mg BID PO Last administered on 04/24/17 08:20; Admin Dose 6.25 MG; Start 04/20/17 at 14:00 Metoprolol Tartrate (Lopressor) 5 mg Q6 PRN IV HR>100; Start 04/20/17 at 17:00 Morphine Sulfate (morphine) 4 mg Q4H PRN IV PAIN Last administered on 09:47; Admin Dose 4 MG; Start 04/20/17 at 21:30 Oxycodone/ Acetaminophen (Endocet (10/ 325)) 1 tab Q6H PRN PO PAIN Last administered on 04/24/17 12:18; Admin Dose 1 TAB; Start 04/21/17 at 03:30 Enoxaparin Sodium (Lovenox) 100 mg Q12H SC Last administered on 04/24/17 09: 44; Admin Dose 100 MG; Start 04/21/17 at 10:00 Enoxaparin Sodium (Lovenox) 40 mg Q12H SC Last administered on 04/24/17 09:45 ; Admin Dose 40 MG; Start 04/21/17 at 10:00 Oxycodone HCl (Roxicodone) 15 mg Q4H PRN PO PAIN Last administered on 06:04; Admin Dose 15 MG; Start 04/22/17 at 11:00 Trazodone HCl (Desyrel) 100 mg HS PO Last administered on 04/23/17 20:11; Admin Dose 100 MG; Start 04/22/17 at 21:00 Baclofen (Lioresal) 10 mg TID PO Last administered on 04/24/17 12:22; Admin Dose 10 MG; Start 04/22/17 at 13:00 Oxycodone HCl (Oxycontin) 10 mg BID PO Last administered on 04/24/17 08:21; Admin Dose 10 MG; Start 04/22/17 at 12:00 Azithromycin (Zithromax) 250 mg DAILY PO Last administered on 04/24/17 08:20 ; Admin Dose 250 MG; Start 04/23/17 at 09:00; Stop 04/24/17 at 23:00 Linezolid (Zyvox) 600 mg BID PO Last administered on 04/24/17 08:20; Admin Dose 600 MG; Start 04/23/17 at 21:00 Amiodarone HCl (Cordarone) 200 mg BID PO Last administered on 04/24/17 08:21 ; Admin Dose 200 MG; Start 04/23/17 at 21:00 Warfarin Sodium (Coumadin) 4 mg DAILY@17 PO ; Start 04/24/17 at 17:00 Assessment/Plan Chief Complaint/Hosp Course Alert, complaining of frequent urinations and urinary retention, no fevers, looks comfortable, eating lunch Microbiology: Urine culture grew VRE Antimicrobials: Zyvox Zithromax Physical examination: Obese, well-developed middle-aged white man who is alert in no distress. Head atraumatic normocephalic sclerae nonicteric. Neck is supple. Chest rise symmetrical breath sounds diminished bases heart S1-S2 abdomen soft bowel sounds present extremities without cyanosis Assessment: 1. VRE UTI 2. PNA 3. Urinary frequency and retention 4. CAD/P Afib 5. HTN 6. Hx PE Pl an: Clinically stable, continue abx, monitor PVR, card rec-s noted, cxr in am DW staff/pt Problems: DIETER BASSETT NP Apr 24, 2017 14:10
[2017-04-24] MEDS ORDERED: WARFARIN 2 MG TAB PO SCH (17:00)
[2017-04-24] MEDS: TAMSULOSIN (SR) 0.4 MG CAP PO SCH (20:06)
[2017-04-24] MEDS: traZODone 100 MG TAB PO SCH (20:07)
[2017-04-25] VITALS (12 sets, daily range): BP systolic 118–140; BP diastolic 78–88; PULSE 65–80; RESP 15–20
[2017-04-25] MEDS: morphine 4 MG/ML VIAL IV PRN ×4 (00:37→16:07)
[2017-04-25] MEDS: oxyCODONE 5 MG TAB PO PRN ×2 (03:01→18:54)
[2017-04-25] MEDS: ALBUTEROL/IPRATROPIUM (NEB) 3 ML AMP HHN SCH ×3 (07:23→22:20)
[2017-04-25] MEDS: BISACODYL (EC) 5 MG TAB PO PRN (07:25)
[2017-04-25] MEDS: ZYVOX 600 MG TAB PO SCH ×2 (07:25→21:54)
[2017-04-25] MEDS: AMIODARONE 200 MG TAB PO SCH ×2 (07:25→21:53)
[2017-04-25] MEDS: BACLOFEN 10 MG TAB PO SCH ×3 (07:25→21:54)
[2017-04-25] MEDS: oxyCODONE (CR) 10 MG TAB [oxyCONTIN] PO SCH ×2 (07:25→21:53)
[2017-04-25] MEDS: GUAIFENESIN LA 600 MG TABSR PO SCH ×2 (07:26→21:54)
[2017-04-25] MEDS: LOSARTAN 50 MG TAB PO SCH (07:26)
[2017-04-25] MEDS: ENOXAPARIN 40 MG/0.4 ML SYG SC SCH ×2 (07:27→22:01)
[2017-04-25] MEDS: ENOXAPARIN 100 MG/ML SYG SC SCH ×2 (07:28→22:00)
[2017-04-25] MEDS: predniSONE 20 MG TAB PO SCH (08:23)
[2017-04-25 08:31] LABS: BASOPHIL # 0.1 10^3/ul (0.0-0.1); BASOPHILS % 0.9 % (0.0-2.0); EOSINOPHILS # 0.1 10^3/ul (0.0-0.5); EOSINOPHILS % 1.8 % (0.0-7.0); HEMATOCRIT 38.3 % (42.0-52.0); HEMOGLOBIN 12.5 g/dl (14.0-18.0); LYMPHOCYTES % 13.1 % (15.0-51.0); MEAN CORPUSCULAR HEMOGLOBIN 32.6 pg (29.0-33.0); MEAN CORPUSCULAR HGB CONC 32.6 g/dl (32.0-37.0); MEAN CORPUSCULAR VOLUME 99.7 fl (82.0-101.0); MEAN PLATELET VOLUME 9.1 fl (7.4-10.4); MONOCYTE # 0.6 10^3/ul (0.3-0.9); MONOCYTES % 7.8 % (0.0-11.0); NEUTROPHILS % 75.3 % (39.0-77.0); PLATELET COUNT 290 10^3/UL (140-415); RED BLOOD COUNT 3.84 10^6/ul (4.70-6.10); RED CELL DISTRIBUTION WIDTH 15.5 % (11.5-14.5); WHITE BLOOD COUNT 7.9 10^3/ul (4.8-10.8)
[2017-04-25 08:47] LABS: INR 1.95; PROTIME 22.4 Sec (12.2-14.2); PT RATIO 1.8
[2017-04-25 09:01] LABS: ALBUMIN 3.6 g/dl (3.3-4.9); CALCIUM 9.3 mg/dl (8.4-10.2); CREATININE 0.94 mg/dl (0.61-1.24); MAGNESIUM 1.8 mg/dl (1.7-2.5); PHOSPHORUS 4.6 mg/dl (2.5-4.9); POTASSIUM 3.9 mmol/L (3.5-5.1)
--- NOTE | 2017-04-25 09:26 | PN ---
Date/Time of Note Date/Time of Note DATE: 04/25/17 TIME: 09:25 Assessment/Plan VTE Prophylaxis VTE Prophylaxis Intervention: LMWH Lines/Catheters IV [facility] Type (from [facility]): Saline Lock Urinary Cath still in place: No Assessment/Plan Assessment/Plan 1. Sepsis, likely secondary to pneumonia- resolving - WBC normalized and patient remains afebrile - Completed course of azithromycin - LA normal 2. Shortness of breath, community acquired pneumonia- resolved - CTA shows acute vs chronic PE with bilateral infiltrate - Completed course of antibiotics - Saturating well on RA and will continue to monitor - ECHO shows EF 55-60% with stage 1 diastolic dysfunction - Incentive spirometry 3. New onset afib - Cardiology on board and consultation appreciated. Currently back in SR and rate controlled - Currently on full dose lovenox and bridging to Coumadin. INR 1.95 today and will give Coumadin 7.5mg. once therapeutic will resume home 4mg - PO amiodarone 4. Chronic PE, medically noncompliant - Bridging from Lovenox to Warfarin. - INR 1.95 and will give 7.5 mg tonight with goal INR 2-3. - Has IVC filter in place and states was dx with DVT in LLE 2 months ago but no evidence on duplex of lower extremities 5. Hypertension - Currently on Losartan 100mg and on BB. will continue monitoring and titrate medication to maintain SBP <160 - More controlled on pain medications 6. Chronic back pain - PRN pain medications - Home medications on board 7. VRE UTI - On PO Linezolid BID - ID consultation appreciated - Having urinary retention and improving on Flomax 8. 9mm lung nodule - Will need follow up as outpatient 8. Disposition - Continue monitoring on Telemetry Subjective 24 Hr Interval Summary Free Text/Dictation Patient states feeling better respiratory munoz but still experiencing discomfort when urinating. Has been emptying his bladder better but pain seems worse. Denies any fevers, chill, chest pain, worsening shortness of breath, wheezing, or abdominal issues. Exam/Review of Systems Vital Signs Vitals Vital Signs Date Time Temp Pulse Resp B/P Pulse Ox O2 Delivery O2 Flow Rate FiO2 04/25/17 08:24 97.8 64 18 123/86 100 04/25/17 07:23 21 04/25/17 04:00 Room Air 04/24/17 19:27 2.0 Intake and Output 04/24/17 04/24/17 04/25/17 15:00 23:00 07:00 Intake Total 940 ml Balance 940 ml Exam General: Patient is laying in bed and answers questions appropriately, obese Head: Normocephalic atraumatic Eyes: EOMI, pupils reactive to light Neck: Supple, nontender Respiratory: diminished breath sounds bilaterally, no wheezing appreciated Cardiovascular: regular rate and rhythm, no obvious murmurs Gastrointestinal: non-tender to palpation, bowel sounds heard. no distention. no rebound or guarding 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: Moves all extremities spontaneously Skin: trace edema bilateral LE with venous stasis changes Results Result Diagram: 04/25/17 0753 04/25/17 0753 Results 24 hrs Laboratory Tests Test 04/25/17 07:53 White Blood Count 7.9 Red Blood Count 3.84 L Hemoglobin 12.5 L Hematocrit 38.3 L Mean Corpuscular Volume 99.7 Mean Corpuscular Hemoglobin 32.6 Mean Corpuscular Hemoglobin Concent 32.6 Red Cell Distribution Width 15.5 H Platelet Count 290 Mean Platelet Volume 9.1 Neutrophils % 75.3 Lymphocytes % 13.1 L Monocytes % 7.8 Eosinophils % 1.8 Basophils % 0.9 Nucleated Red Blood Cells % 0.0 Neutrophils # 6.0 Lymphocytes # 1.0 Monocytes # 0.6 Eosinophils # 0.1 Basophils # 0.1 Nucleated Red Blood Cells # 0.0 Prothrombin Time 22.4 H Prothrombin Time Ratio 1.8 INR International Normalized Ratio 1.95 Sodium Level 138 Potassium Level 3.9 Chloride Level 98 Carbon Dioxide Level 31 Anion Gap 13 Blood Urea Nitrogen 17 Creatinine 0.94 Glucose Level 132 Calcium Level 9.3 Phosphorus Level 4.6 Magnesium Level 1.8 Albumin 3.6 Medications Medications Current Medications Ondansetron HCl (Zofran Inj) 4 mg Q6H PRN IV NAUSEA AND/OR VOMITING; Start at 14:30 Acetaminophen (Tylenol Tab) 650 mg Q6H PRN PO PAIN LEVEL 1-3 OR FEVER; Start 04/18/17 at 14:30 Bisacodyl (Dulcolax) 5 mg DAILY PRN PO CONSTIPATION Last administered on 07:25; Admin Dose 5 MG; Start 04/18/17 at 14:30 Losartan Potassium (Cozaar) 100 mg DAILY PO Last administered on 04/25/17 07: 26; Admin Dose 100 MG; Start 04/19/17 at 09:00 Hydralazine HCl (Apresoline) 10 mg Q4H PRN IV SBP>160 Last administered on 12:42; Admin Dose 10 MG; Start 04/18/17 at 15:00 Labetalol HCl (Labetalol) 10 mg Q4H PRN IV SBP>160; Start 04/18/17 at 15:30 Guaifenesin (Mucinex) 600 mg BID PO Last administered on 04/25/17 07:26; Admin Dose 600 MG; Start 04/19/17 at 14:00 Carvedilol (Coreg) 6.25 mg BID PO Last administered on 04/25/17 07:26; Admin Dose 6.25 MG; Start 04/20/17 at 14:00 Metoprolol Tartrate (Lopressor) 5 mg Q6 PRN IV HR>100; Start 04/20/17 at 17:00 Morphine Sulfate (morphine) 4 mg Q4H PRN IV PAIN Last administered on 07:26; Admin Dose 4 MG; Start 04/20/17 at 21:30 Oxycodone/ Acetaminophen (Endocet (10/ 325)) 1 tab Q6H PRN PO PAIN Last administered on 04/24/17 12:18; Admin Dose 1 TAB; Start 04/21/17 at 03:30 Enoxaparin Sodium (Lovenox) 100 mg Q12H SC Last administered on 04/25/17 07: 28; Admin Dose 100 MG; Start 04/21/17 at 10:00 Enoxaparin Sodium (Lovenox) 40 mg Q12H SC Last administered on 04/25/17 07:27 ; Admin Dose 40 MG; Start 04/21/17 at 10:00 Oxycodone HCl (Roxicodone) 15 mg Q4H PRN PO PAIN Last administered on 03:01; Admin Dose 15 MG; Start 04/22/17 at 11:00 Trazodone HCl (Desyrel) 100 mg HS PO Last administered on 04/24/17 20:07; Admin Dose 100 MG; Start 04/22/17 at 21:00 Baclofen (Lioresal) 10 mg TID PO Last administered on 04/25/17 07:25; Admin Dose 10 MG; Start 04/22/17 at 13:00 Oxycodone HCl (Oxycontin) 10 mg BID PO Last administered on 04/25/17 07:25; Admin Dose 10 MG; Start 04/22/17 at 12:00 Linezolid (Zyvox) 600 mg BID PO Last administered on 04/25/17 07:25; Admin Dose 600 MG; Start 04/23/17 at 21:00 Amiodarone HCl (Cordarone) 200 mg BID PO Last administered on 04/25/17 07:25 ; Admin Dose 200 MG; Start 04/23/17 at 21:00 Warfarin Sodium (Coumadin) 4 mg DAILY@17 PO Last administered on 04/24/17 16: 51; Admin Dose 4 MG; Start 04/24/17 at 17:00 Prednisone (Prednisone) 30 mg DAILY PO Last administered on 04/25/17 08:23; Admin Dose 30 MG; Start 04/25/17 at 09:00 Tamsulosin HCl (Flomax) 0.4 mg HS PO Last administered on 04/24/17 20:06; Admin Dose 0.4 MG; Start 04/24/17 at 21:00 ABHI HARE MD Apr 25, 2017 09:25
[2017-04-25] MEDS: OXYCODONE/ACETAMINOPHEN (10/325) TAB PO PRN (12:48)
--- NOTE | 2017-04-25 16:28 | CONS ---
Date/Time of Note Date/Time of Note DATE: 04/25/17 TIME: 16:19 Assessment/Plan Assessment/Plan Chief Complaint/Hosp Course Assessment/Plan Chief Complaint/Hosp Course Alert. Awake. Complains of Generalized Body Aches last night. Vital Signs: T- 97.9 BP- 118/83 HR- 78 RR-18 BP- 118/95 O2Sat- 97% on 2 Liters of Oxygen by Nasal Canula Microbiology: Urine culture grew VRE Antimicrobials: Zyvox. Zithromax. Physical examination: Obese, well-developed middle-aged white man who is alert in no distress. Head atraumatic normocephalic sclerae nonicteric. Neck is supple. Chest rise symmetrical breath sounds diminished bases heart S1-S2 abdomen soft bowel sounds present extremities without cyanosis Assessment: 1. VRE UTI 2. PNA 3. Urinary frequency and retention 4. CAD/P Afib 5. HTN 6. Hx PE 7. Generalized Body Aches secondary to Infection. Plan: Continue Antibiotics. Monitor Urine Output. Supportive measures. Monitor Labs. Pain Management. GI prophylaxis. DVT prophylaxis. DW patient. Problems: Consultation Date/Type/Reason Admit Date/Time Apr 18, 2017 at 13:19 Initial Consult Date Type of Consultation: ID Exam/Review of Systems Vital Signs Vitals Vital Signs Date Time Temp Pulse Resp B/P Pulse Ox O2 Delivery O2 Flow Rate FiO2 04/25/17 13:55 Nasal Cannula 2.0 04/25/17 12:00 73 04/25/17 11:58 97.9 18 118/83 97 04/25/17 07:23 21 Intake and Output 04/24/17 04/24/17 04/25/17 15:00 23:00 07:00 Intake Total 940 ml Balance 940 ml Results Result Diagram: 04/25/17 0753 04/25/17 0753 Results 24 hrs Laboratory Tests Test 04/25/17 07:53 White Blood Count 7.9 Red Blood Count 3.84 L Hemoglobin 12.5 L Hematocrit 38.3 L Mean Corpuscular Volume 99.7 Mean Corpuscular Hemoglobin 32.6 Mean Corpuscular Hemoglobin Concent 32.6 Red Cell Distribution Width 15.5 H Platelet Count 290 Mean Platelet Volume 9.1 Neutrophils % 75.3 Lymphocytes % 13.1 L Monocytes % 7.8 Eosinophils % 1.8 Basophils % 0.9 Nucleated Red Blood Cells % 0.0 Neutrophils # 6.0 Lymphocytes # 1.0 Monocytes # 0.6 Eosinophils # 0.1 Basophils # 0.1 Nucleated Red Blood Cells # 0.0 Prothrombin Time 22.4 H Prothrombin Time Ratio 1.8 INR International Normalized Ratio 1.95 Sodium Level 138 Potassium Level 3.9 Chloride Level 98 Carbon Dioxide Level 31 Anion Gap 13 Blood Urea Nitrogen 17 Creatinine 0.94 Glucose Level 132 Calcium Level 9.3 Phosphorus Level 4.6 Magnesium Level 1.8 Albumin 3.6 Medications Medications Current Medications Ondansetron HCl (Zofran Inj) 4 mg Q6H PRN IV NAUSEA AND/OR VOMITING; Start at 14:30 Acetaminophen (Tylenol Tab) 650 mg Q6H PRN PO PAIN LEVEL 1-3 OR FEVER; Start 04/18/17 at 14:30 Bisacodyl (Dulcolax) 5 mg DAILY PRN PO CONSTIPATION Last administered on 07:25; Admin Dose 5 MG; Start 04/18/17 at 14:30 Losartan Potassium (Cozaar) 100 mg DAILY PO Last administered on 04/25/17 07: 26; Admin Dose 100 MG; Start 04/19/17 at 09:00 Hydralazine HCl (Apresoline) 10 mg Q4H PRN IV SBP>160 Last administered on 12:42; Admin Dose 10 MG; Start 04/18/17 at 15:00 Labetalol HCl (Labetalol) 10 mg Q4H PRN IV SBP>160; Start 04/18/17 at 15:30 Guaifenesin (Mucinex) 600 mg BID PO Last administered on 04/25/17 07:26; Admin Dose 600 MG; Start 04/19/17 at 14:00 Carvedilol (Coreg) 6.25 mg BID PO Last administered on 04/25/17 07:26; Admin Dose 6.25 MG; Start 04/20/17 at 14:00 Metoprolol Tartrate (Lopressor) 5 mg Q6 PRN IV HR>100; Start 04/20/17 at 17:00 Morphine Sulfate (morphine) 4 mg Q4H PRN IV PAIN Last administered on 16:07; Admin Dose 4 MG; Start 04/20/17 at 21:30 Oxycodone/ Acetaminophen (Endocet (10/ 325)) 1 tab Q6H PRN PO PAIN Last administered on 04/25/17 12:48; Admin Dose 1 TAB; Start 04/21/17 at 03:30 Enoxaparin Sodium (Lovenox) 100 mg Q12H SC Last administered on 04/25/17 07: 28; Admin Dose 100 MG; Start 04/21/17 at 10:00 Enoxaparin Sodium (Lovenox) 40 mg Q12H SC Last administered on 04/25/17 07:27 ; Admin Dose 40 MG; Start 04/21/17 at 10:00 Oxycodone HCl (Roxicodone) 15 mg Q4H PRN PO PAIN Last administered on 03:01; Admin Dose 15 MG; Start 04/22/17 at 11:00 Trazodone HCl (Desyrel) 100 mg HS PO Last administered on 04/24/17 20:07; Admin Dose 100 MG; Start 04/22/17 at 21:00 Baclofen (Lioresal) 10 mg TID PO Last administered on 04/25/17 11:32; Admin Dose 10 MG; Start 04/22/17 at 13:00 Oxycodone HCl (Oxycontin) 10 mg BID PO Last administered on 04/25/17 07:25; Admin Dose 10 MG; Start 04/22/17 at 12:00 Linezolid (Zyvox) 600 mg BID PO Last administered on 04/25/17 07:25; Admin Dose 600 MG; Start 04/23/17 at 21:00 Amiodarone HCl (Cordarone) 200 mg BID PO Last administered on 04/25/17 07:25 ; Admin Dose 200 MG; Start 04/23/17 at 21:00 Prednisone (Prednisone) 30 mg DAILY PO Last administered on 04/25/17 08:23; Admin Dose 30 MG; Start 04/25/17 at 09:00 Tamsulosin HCl (Flomax) 0.4 mg HS PO Last administered on 04/24/17 20:06; Admin Dose 0.4 MG; Start 04/24/17 at 21:00 Warfarin Sodium (Coumadin) 7.5 mg ONCE@17 ONCE PO Last administered on 16:07; Admin Dose 7.5 MG; Start 04/25/17 at 17:00; Stop 04/25/17 at 17:01 ABDON SALMERON NP Apr 25, 2017 16:28
[2017-04-25] MEDS ORDERED: WARFARIN 7.5 MG TAB PO ONE (17:00)
[2017-04-25] MEDS: TAMSULOSIN (SR) 0.4 MG CAP PO SCH (21:53)
[2017-04-25] MEDS: traZODone 100 MG TAB PO SCH (21:54)
[2017-04-26] VITALS (14 sets, daily range): BP systolic 94–137; BP diastolic 54–74; PULSE 59–91; RESP 16–20
[2017-04-26] MEDS: morphine 4 MG/ML VIAL IV PRN (01:11)
[2017-04-26] MEDS: oxyCODONE 5 MG TAB PO PRN (06:38)
[2017-04-26] MEDS: ALBUTEROL/IPRATROPIUM (NEB) 3 ML AMP HHN SCH ×3 (08:32→19:57)
[2017-04-26 08:55] LABS: BASOPHIL # 0.1 10^3/ul (0.0-0.1); BASOPHILS % 0.8 % (0.0-2.0); EOSINOPHILS # 0.2 10^3/ul (0.0-0.5); EOSINOPHILS % 2.2 % (0.0-7.0); HEMATOCRIT 37.8 % (42.0-52.0); HEMOGLOBIN 12.3 g/dl (14.0-18.0); LYMPHOCYTES # 1.2 10^3/ul (0.8-2.9); LYMPHOCYTES % 11.6 % (15.0-51.0); MEAN CORPUSCULAR HEMOGLOBIN 32.4 pg (29.0-33.0); MEAN CORPUSCULAR HGB CONC 32.5 g/dl (32.0-37.0); MEAN CORPUSCULAR VOLUME 99.5 fl (82.0-101.0); MEAN PLATELET VOLUME 9.1 fl (7.4-10.4); MONOCYTE # 0.7 10^3/ul (0.3-0.9); NEUTROPHIL # 7.7 10^3/ul (1.6-7.5); NEUTROPHILS % 77.3 % (39.0-77.0); PLATELET COUNT 299 10^3/UL (140-415); RED CELL DISTRIBUTION WIDTH 15.6 % (11.5-14.5); WHITE BLOOD COUNT 9.9 10^3/ul (4.8-10.8)
[2017-04-26] MEDS: ENOXAPARIN 40 MG/0.4 ML SYG SC SCH ×2 (09:11→22:29)
[2017-04-26] MEDS: ENOXAPARIN 100 MG/ML SYG SC SCH ×2 (09:11→22:28)
[2017-04-26] MEDS: LOSARTAN 50 MG TAB PO SCH (09:12)
[2017-04-26] MEDS: predniSONE 20 MG TAB PO SCH (09:12)
[2017-04-26] MEDS: GUAIFENESIN LA 600 MG TABSR PO SCH ×2 (09:12→22:13)
[2017-04-26] MEDS: AMIODARONE 200 MG TAB PO SCH ×2 (09:13→21:00)
[2017-04-26] MEDS: ZYVOX 600 MG TAB PO SCH ×2 (09:13→22:17)
[2017-04-26] MEDS: oxyCODONE (CR) 10 MG TAB [oxyCONTIN] PO SCH ×2 (09:13→22:12)
[2017-04-26] MEDS: BACLOFEN 10 MG TAB PO SCH ×3 (09:13→22:13)
[2017-04-26 09:15] LABS: ALBUMIN 3.9 g/dl (3.3-4.9); CALCIUM 9.2 mg/dl (8.4-10.2); CREATININE 1.02 mg/dl (0.61-1.24); INR 2.1; MAGNESIUM 1.9 mg/dl (1.7-2.5); PHOSPHORUS 4.3 mg/dl (2.5-4.9); POTASSIUM 4.1 mmol/L (3.5-5.1); PROTIME 23.8 Sec (12.2-14.2); PT RATIO 1.9
--- NOTE | 2017-04-26 12:59 | PN ---
Date/Time of Note Date/Time of Note DATE: 04/26/17 TIME: 12:47 Assessment/Plan VTE Prophylaxis VTE Prophylaxis Intervention: LMWH Lines/Catheters IV Catheter Type (from Nrs): Saline Lock Urinary Cath still in place: No Assessment/Plan Assessment/Plan 1. Pneumonia, was treated with zithromax, now on zyvox for VRE UTI, will add zosyn to cover pseudomonas(greenish sputum) 2. Shortness of breath, community acquired pneumonia and PE related 3. New onset afib on 04/20/2017, converted to sinus on 04/21/2017, on amiodarone , 4. Chronic PE, on lovenox and coumadin, awaiting for INR to reach therapeutic 5. S/p IVC filter 6. Hypertension, controlled 7. Chronic back pain - PRN pain medications - Home medications on board 8. VRE UTI - On PO Linezolid BID 9. 9mm lung nodule - Will need follow up as outpatient Subjective 24 Hr Interval Summary Free Text/Dictation still shortness of breath. cough with greenish sputum Exam/Review of Systems Vital Signs Vitals Vital Signs Date Time Temp Pulse Resp B/P Pulse Ox O2 Delivery O2 Flow Rate FiO2 04/26/17 12:00 77 04/26/17 11:55 98.0 20 112/67 98 04/26/17 08:33 Nasal Cannula 2.0 04/25/17 07:23 21 Intake and Output 04/25/17 04/25/17 04/26/17 15:00 23:00 07:00 Intake Total 960 ml Balance 960 ml Exam Constitutional: alert, obese, oriented Psych: nl mood/affect, no complaints Head: atraumatic, normocephalic Eyes: EOMI, PERRL, nl conjunctiva, nl lids, nl sclera ENMT: mucosa pink and moist, nl external ears & nose, nl lips & teeth, nl nasal mucosa & septum Neck: non-tender, supple Respiratory: clear to auscultation, normal air movement Cardiovascular: nl pulses, regular rate and rhythm, No S3, No S4, No bruits, No diastolic murmur, No edema, No gallop, No irregular rhythm, No jugular venous distention (JVD), No murmurs/extra sounds, No other, No rub, No systolic murmur Gastrointestinal: nl liver, spleen, non-tender, soft Musculoskeletal: nl extremities to inspection Extremities: normal pulses, No calf tenderness, No clubbing, No cyanosis, No edema, No other, No palpable cord, No pitting pedal edema, No tenderness 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: 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 PAINTING LEADER II-XII 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, nl mental status, nl speech, nl strength Lymph: nl lymph nodes Results Result Diagram: 04/26/17 0752 04/26/17 0752 Results 24 hrs Laboratory Tests Test 04/26/17 07:52 White Blood Count 9.9 # Red Blood Count 3.80 L Hemoglobin 12.3 L Hematocrit 37.8 L Mean Corpuscular Volume 99.5 Mean Corpuscular Hemoglobin 32.4 Mean Corpuscular Hemoglobin Concent 32.5 Red Cell Distribution Width 15.6 H Platelet Count 299 Mean Platelet Volume 9.1 Neutrophils % 77.3 H Lymphocytes % 11.6 L Monocytes % 7.0 Eosinophils % 2.2 Basophils % 0.8 Nucleated Red Blood Cells % 0.0 Neutrophils # 7.7 H Lymphocytes # 1.2 Monocytes # 0.7 Eosinophils # 0.2 Basophils # 0.1 Nucleated Red Blood Cells # 0.0 Prothrombin Time 23.8 H Prothrombin Time Ratio 1.9 INR International Normalized Ratio 2.10 Sodium Level 137 Potassium Level 4.1 Chloride Level 95 L Carbon Dioxide Level 30 Anion Gap 16 Blood Urea Nitrogen 20 Creatinine 1.02 Glucose Level 109 Calcium Level 9.2 Phosphorus Level 4.3 Magnesium Level 1.9 Albumin 3.9 Medications Medications Current Medications Ondansetron HCl (Zofran Inj) 4 mg Q6H PRN IV NAUSEA AND/OR VOMITING; Start at 14:30 Acetaminophen (Tylenol Tab) 650 mg Q6H PRN PO PAIN LEVEL 1-3 OR FEVER; Start 04/18/17 at 14:30 Bisacodyl (Dulcolax) 5 mg DAILY PRN PO CONSTIPATION Last administered on 07:25; Admin Dose 5 MG; Start 04/18/17 at 14:30 Losartan Potassium (Cozaar) 100 mg DAILY PO Last administered on 04/26/17 09: 12; Admin Dose 100 MG; Start 04/19/17 at 09:00 Hydralazine HCl (Apresoline) 10 mg Q4H PRN IV SBP>160 Last administered on 12:42; Admin Dose 10 MG; Start 04/18/17 at 15:00 Labetalol HCl (Labetalol) 10 mg Q4H PRN IV SBP>160; Start 04/18/17 at 15:30 Guaifenesin (Mucinex) 600 mg BID PO Last administered on 04/26/17 09:12; Admin Dose 600 MG; Start 04/19/17 at 14:00 Carvedilol (Coreg) 6.25 mg BID PO Last administered on 04/26/17 09:13; Admin Dose 6.25 MG; Start 04/20/17 at 14:00 Metoprolol Tartrate (Lopressor) 5 mg Q6 PRN IV HR>100; Start 04/20/17 at 17:00 Morphine Sulfate (morphine) 4 mg Q4H PRN IV PAIN Last administered on 01:11; Admin Dose 4 MG; Start 04/20/17 at 21:30 Oxycodone/ Acetaminophen (Endocet (10/ 325)) 1 tab Q6H PRN PO PAIN Last administered on 04/25/17 12:48; Admin Dose 1 TAB; Start 04/21/17 at 03:30 Enoxaparin Sodium (Lovenox) 100 mg Q12H SC Last administered on 04/26/17 09: 11; Admin Dose 100 MG; Start 04/21/17 at 10:00 Enoxaparin Sodium (Lovenox) 40 mg Q12H SC Last administered on 04/26/17 09:11 ; Admin Dose 40 MG; Start 04/21/17 at 10:00 Oxycodone HCl (Roxicodone) 15 mg Q4H PRN PO PAIN Last administered on 06:38; Admin Dose 15 MG; Start 04/22/17 at 11:00 Trazodone HCl (Desyrel) 100 mg HS PO Last administered on 04/25/17 21:54; Admin Dose 100 MG; Start 04/22/17 at 21:00 Baclofen (Lioresal) 10 mg TID PO Last administered on 04/26/17 12:37; Admin Dose 10 MG; Start 04/22/17 at 13:00 Oxycodone HCl (Oxycontin) 10 mg BID PO Last administered on 04/26/17 09:13; Admin Dose 10 MG; Start 04/22/17 at 12:00 Linezolid (Zyvox) 600 mg BID PO Last administered on 04/26/17 09:13; Admin Dose 600 MG; Start 04/23/17 at 21:00 Amiodarone HCl (Cordarone) 200 mg BID PO Last administered on 04/26/17 09:13 ; Admin Dose 200 MG; Start 04/23/17 at 21:00 Prednisone (Prednisone) 30 mg DAILY PO Last administered on 04/26/17 09:12; Admin Dose 30 MG; Start 04/25/17 at 09:00 Tamsulosin HCl (Flomax) 0.4 mg HS PO Last administered on 04/25/17 21:53; Admin Dose 0.4 MG; Start 04/24/17 at 21:00 Warfarin Sodium (Coumadin) 7.5 mg ONCE@17 ONCE PO ; Start 04/26/17 at 17:00; Stop 04/26/17 at 17:01; Status ELIANA ESPINAL MD Apr 26, 2017 12:58
[2017-04-26] MEDS: PIPER-TAZO 3.375 GM IV (PMX) 100 ML IVPB SCH ×2 (13:43→22:13)
--- NOTE | 2017-04-26 16:01 | RADRPT ---
PROCEDURE: XR Chest. CLINICAL INDICATION: Shortness of breath. TECHNIQUE: Single frontal view. COMPARISON: 04/18/2017. FINDINGS: There is mild interstitial disease bilaterally consistent with pulmonary edema, improved. The heart is enlarged. There is no pleural effusion. There is no pneumothorax. IMPRESSION: 1. Improved pulmonary edema. 2. Cardiomegaly. RPTAT: QQ .Lencho Arnett MD, MD Date Time Electronically viewed and signed by .Lencho Arnett MD, MD on 04/26/2017 16:01 .R/
[2017-04-26] MEDS ORDERED: WARFARIN 7.5 MG TAB PO SCH (17:00)
--- NOTE | 2017-04-26 18:12 | CONS ---
Date/Time of Note Date/Time of Note DATE: 04/26/17 TIME: 18:10 Assessment/Plan Assessment/Plan Additional Assessment/Plan Paroxysmal atrial fibrillation, currently sinus rhythm Pneumonia Preserved ejection fraction History pulmonary emboli Hypertension -Patient remains in sinus rhythm, currently on p.o. amiodarone, continue beta- olayinka. Coumadin as per INR. Antibiotics as per primary team. Supplement potassium to maintain above 4.0 and magnesium above 2.0. Consultation Date/Type/Reason Admit Date/Time Apr 18, 2017 at 13:19 Type of Consultation: cv 24 HR Interval Summary Free Text/Dictation Patient seen and examined, denies palpitations or chest pain Exam/Review of Systems Vital Signs Vitals Vital Signs Date Time Temp Pulse Resp B/P Pulse Ox O2 Delivery O2 Flow Rate FiO2 04/26/17 16:00 81 04/26/17 15:52 98.0 20 137/65 98 04/26/17 08:33 Nasal Cannula 2.0 04/25/17 07:23 21 Intake and Output 04/25/17 04/25/17 04/26/17 15:00 23:00 07:00 Intake Total 960 ml Balance 960 ml Exam No apparent distress, sleeping but arousable Head: normocephalic Respiratory: other (Coarse breath sounds bilaterally, no wheezing) Cardiovascular: other (S1-S2 heard), regular rate and rhythm Gastrointestinal: bowel sounds, non-tender, soft Extremities: edema Results Result Diagram: 04/26/17 0752 04/26/17 0752 Results 24 hrs Laboratory Tests Test 04/26/17 07:52 White Blood Count 9.9 # Red Blood Count 3.80 L Hemoglobin 12.3 L Hematocrit 37.8 L Mean Corpuscular Volume 99.5 Mean Corpuscular Hemoglobin 32.4 Mean Corpuscular Hemoglobin Concent 32.5 Red Cell Distribution Width 15.6 H Platelet Count 299 Mean Platelet Volume 9.1 Neutrophils % 77.3 H Lymphocytes % 11.6 L Monocytes % 7.0 Eosinophils % 2.2 Basophils % 0.8 Nucleated Red Blood Cells % 0.0 Neutrophils # 7.7 H Lymphocytes # 1.2 Monocytes # 0.7 Eosinophils # 0.2 Basophils # 0.1 Nucleated Red Blood Cells # 0.0 Prothrombin Time 23.8 H Prothrombin Time Ratio 1.9 INR International Normalized Ratio 2.10 Sodium Level 137 Potassium Level 4.1 Chloride Level 95 L Carbon Dioxide Level 30 Anion Gap 16 Blood Urea Nitrogen 20 Creatinine 1.02 Glucose Level 109 Calcium Level 9.2 Phosphorus Level 4.3 Magnesium Level 1.9 Albumin 3.9 Medications Medications Current Medications Ondansetron HCl (Zofran Inj) 4 mg Q6H PRN IV NAUSEA AND/OR VOMITING; Start at 14:30 Acetaminophen (Tylenol Tab) 650 mg Q6H PRN PO PAIN LEVEL 1-3 OR FEVER; Start 04/18/17 at 14:30 Bisacodyl (Dulcolax) 5 mg DAILY PRN PO CONSTIPATION Last administered on 07:25; Admin Dose 5 MG; Start 04/18/17 at 14:30 Losartan Potassium (Cozaar) 100 mg DAILY PO Last administered on 04/26/17 09: 12; Admin Dose 100 MG; Start 04/19/17 at 09:00 Hydralazine HCl (Apresoline) 10 mg Q4H PRN IV SBP>160 Last administered on 12:42; Admin Dose 10 MG; Start 04/18/17 at 15:00 Labetalol HCl (Labetalol) 10 mg Q4H PRN IV SBP>160; Start 04/18/17 at 15:30 Guaifenesin (Mucinex) 600 mg BID PO Last administered on 04/26/17 09:12; Admin Dose 600 MG; Start 04/19/17 at 14:00 Carvedilol (Coreg) 6.25 mg BID PO Last administered on 04/26/17 09:13; Admin Dose 6.25 MG; Start 04/20/17 at 14:00 Metoprolol Tartrate (Lopressor) 5 mg Q6 PRN IV HR>100; Start 04/20/17 at 17:00 Morphine Sulfate (morphine) 4 mg Q4H PRN IV PAIN Last administered on 01:11; Admin Dose 4 MG; Start 04/20/17 at 21:30 Oxycodone/ Acetaminophen (Endocet (10/ 325)) 1 tab Q6H PRN PO PAIN Last administered on 04/25/17 12:48; Admin Dose 1 TAB; Start 04/21/17 at 03:30 Enoxaparin Sodium (Lovenox) 100 mg Q12H SC Last administered on 04/26/17 09: 11; Admin Dose 100 MG; Start 04/21/17 at 10:00 Enoxaparin Sodium (Lovenox) 40 mg Q12H SC Last administered on 04/26/17 09:11 ; Admin Dose 40 MG; Start 04/21/17 at 10:00 Oxycodone HCl (Roxicodone) 15 mg Q4H PRN PO PAIN Last administered on 06:38; Admin Dose 15 MG; Start 04/22/17 at 11:00 Trazodone HCl (Desyrel) 100 mg HS PO Last administered on 04/25/17 21:54; Admin Dose 100 MG; Start 04/22/17 at 21:00 Baclofen (Lioresal) 10 mg TID PO Last administered on 04/26/17 12:37; Admin Dose 10 MG; Start 04/22/17 at 13:00 Oxycodone HCl (Oxycontin) 10 mg BID PO Last administered on 04/26/17 09:13; Admin Dose 10 MG; Start 04/22/17 at 12:00 Linezolid (Zyvox) 600 mg BID PO Last administered on 04/26/17 09:13; Admin Dose 600 MG; Start 04/23/17 at 21:00 Amiodarone HCl (Cordarone) 200 mg BID PO Last administered on 04/26/17 09:13 ; Admin Dose 200 MG; Start 04/23/17 at 21:00 Prednisone (Prednisone) 30 mg DAILY PO Last administered on 04/26/17 09:12; Admin Dose 30 MG; Start 04/25/17 at 09:00 Tamsulosin HCl (Flomax) 0.4 mg HS PO Last administered on 04/25/17 21:53; Admin Dose 0.4 MG; Start 04/24/17 at 21:00 Warfarin Sodium 7.5 mg 7.5 mg ONCE@17 PO Last administered on 04/26/17 17:05 ; Admin Dose 7.5 MG; Start 04/26/17 at 17:00; Stop 04/26/17 at 19:00 Piperacillin Sod/ Tazobactam Sod (Zosyn 3.375gm/ 100 ml (Pmx)) 100 ml @ 200 mls /hr Q8 IVPB Last administered on 04/26/17t 13:43; Admin Dose 200 MLS/HR; Start 04/26/17 at 14:00 Curly Ojeda DO Apr 26, 2017 18:12
[2017-04-26] MEDS ORDERED: MAGNESIUM SULFATE 2 GM/50 ML 50 ML IVPB ONE (18:30)
[2017-04-26] MEDS: TAMSULOSIN (SR) 0.4 MG CAP PO SCH (22:12)
[2017-04-26] MEDS: traZODone 100 MG TAB PO SCH (22:13)
[2017-04-27] VITALS (11 sets, daily range): BP systolic 115–159; BP diastolic 65–89; PULSE 45–82; RESP 18–22
[2017-04-27] MEDS: PIPER-TAZO 3.375 GM IV (PMX) 100 ML IVPB SCH ×3 (06:54→21:08)
[2017-04-27 07:39] LABS: BASOPHILS % 0.3 % (0.0-2.0); EOSINOPHILS # 0.1 10^3/ul (0.0-0.5); EOSINOPHILS % 1.2 % (0.0-7.0); HEMATOCRIT 37.3 % (42.0-52.0); HEMOGLOBIN 11.9 g/dl (14.0-18.0); LYMPHOCYTES # 1.3 10^3/ul (0.8-2.9); LYMPHOCYTES % 15.1 % (15.0-51.0); MEAN CORPUSCULAR HEMOGLOBIN 31.7 pg (29.0-33.0); MEAN CORPUSCULAR HGB CONC 31.9 g/dl (32.0-37.0); MEAN CORPUSCULAR VOLUME 99.5 fl (82.0-101.0); MEAN PLATELET VOLUME 8.9 fl (7.4-10.4); MONOCYTE # 0.6 10^3/ul (0.3-0.9); NEUTROPHIL # 6.6 10^3/ul (1.6-7.5); NEUTROPHILS % 75.2 % (39.0-77.0); PLATELET COUNT 272 10^3/UL (140-415); RED BLOOD COUNT 3.75 10^6/ul (4.70-6.10); RED CELL DISTRIBUTION WIDTH 15.6 % (11.5-14.5); WHITE BLOOD COUNT 8.8 10^3/ul (4.8-10.8)
[2017-04-27 07:57] LABS: INR 2.48; PROTIME 27.1 Sec (12.2-14.2); PT RATIO 2.1
[2017-04-27] MEDS: ALBUTEROL/IPRATROPIUM (NEB) 3 ML AMP HHN SCH ×3 (08:00→20:00)
[2017-04-27 08:06] LABS: ALBUMIN 3.8 g/dl (3.3-4.9); CALCIUM 8.9 mg/dl (8.4-10.2); CREATININE 1.06 mg/dl (0.61-1.24); MAGNESIUM 2.5 mg/dl (1.7-2.5); PHOSPHORUS 4.1 mg/dl (2.5-4.9); POTASSIUM 4.6 mmol/L (3.5-5.1)
[2017-04-27] MEDS: LOSARTAN 50 MG TAB PO SCH (08:33)
[2017-04-27] MEDS: AMIODARONE 200 MG TAB PO SCH ×2 (08:34→21:03)
[2017-04-27] MEDS: GUAIFENESIN LA 600 MG TABSR PO SCH ×2 (08:35→20:57)
[2017-04-27] MEDS: BACLOFEN 10 MG TAB PO SCH ×3 (08:35→20:58)
[2017-04-27] MEDS: ZYVOX 600 MG TAB PO SCH ×2 (08:36→20:59)
[2017-04-27] MEDS: oxyCODONE (CR) 10 MG TAB [oxyCONTIN] PO SCH ×2 (08:36→20:57)
[2017-04-27] MEDS: predniSONE 20 MG TAB PO SCH (08:36)
[2017-04-27] MEDS: ENOXAPARIN 100 MG/ML SYG SC SCH (11:56)
[2017-04-27] MEDS: ENOXAPARIN 40 MG/0.4 ML SYG SC SCH (11:56)
--- NOTE | 2017-04-27 12:15 | PN ---
Date/Time of Note Date/Time of Note DATE: 04/27/17 TIME: 12:11 Assessment/Plan VTE Prophylaxis VTE Prophylaxis Intervention: LMWH Lines/Catheters [facility] (from [facility] Saline Lock Urinary Cath still in place: No Assessment/Plan Assessment/Plan 1. Pneumonia, was treated with zithromax, now on zyvox for VRE UTI, add zosyn to cover pseudomonas(greenish sputum), improving 2. Shortness of breath, community acquired pneumonia and PE related 3. New onset afib on 04/20/2017, converted to sinus on 04/21/2017, on amiodarone , 4. Chronic PE, on coumadin, keep INR 2-3 5. S/p IVC filter 6. Hypertension, controlled 7. Chronic back pain - PRN pain medications - Home medications on board 8. VRE UTI - On PO Linezolid BID 9. 9mm lung nodule - Will need follow up as outpatient Subjective 24 Hr Interval Summary Free Text/Dictation much less shortness of breath today Exam/Review of Systems Vital Signs Vitals Vital Signs Date Time Temp Pulse Resp B/P Pulse Ox O2 Delivery O2 Flow Rate FiO2 04/27/17 11:25 97.3 82 18 130/80 8 04/27/17 01:54 3.0 04/26/17 21:30 Nasal Cannula 04/25/17 07:23 21 Intake and Output 04/26/17 04/26/17 04/27/17 15:00 23:00 07:00 Intake Total 250 ml 200 ml Output Total 300 ml Balance 250 ml -100 ml Exam Constitutional: alert, oriented, well developed Psych: nl mood/affect, no complaints Head: atraumatic, normocephalic Eyes: EOMI, PERRL, nl conjunctiva, nl lids ENMT: nl external ears & nose, nl lips & teeth, nl nasal mucosa & septum Neck: non-tender, supple Respiratory: clear to auscultation, normal air movement, No congested cough, No crackles/rales, No diminished breath sounds, No intercostal retraction, No labored breathing, No other, No respirations, No tactile fremitus, No wheezing Cardiovascular: nl pulses, regular rate and rhythm, No S3, No S4, No bruits, No diastolic murmur, No edema, No gallop, No irregular rhythm, No jugular venous distention (JVD), No murmurs/extra sounds, No other, No rub, No systolic murmur Gastrointestinal: nl liver, spleen, non-tender, soft Musculoskeletal: nl extremities to inspection, No joint tenderness, No muscle tone, No muscle weakness, No nl gait and stance, No other, No range of motion, No spine non-tender, No swelling Extremities: normal pulses, No calf tenderness, No clubbing, No cyanosis, No edema, No other, No palpable cord, No pitting pedal edema, No tenderness 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: GEM CUTTER II-XII intact, nl mental status, nl speech, nl strength Skin: nl turgor Results Result Diagram: 04/27/17 0652 04/27/17 0652 Results 24 hrs Laboratory Tests Test 04/27/17 06:52 White Blood Count 8.8 Red Blood Count 3.75 L Hemoglobin 11.9 L Hematocrit 37.3 L Mean Corpuscular Volume 99.5 Mean Corpuscular Hemoglobin 31.7 Mean Corpuscular Hemoglobin Concent 31.9 L Red Cell Distribution Width 15.6 H Platelet Count 272 Mean Platelet Volume 8.9 Neutrophils % 75.2 Lymphocytes % 15.1 Monocytes % 7.0 Eosinophils % 1.2 Basophils % 0.3 Nucleated Red Blood Cells % 0.0 Neutrophils # 6.6 Lymphocytes # 1.3 Monocytes # 0.6 Eosinophils # 0.1 Basophils # 0.0 Nucleated Red Blood Cells # 0.0 Prothrombin Time 27.1 H Prothrombin Time Ratio 2.1 INR International Normalized Ratio 2.48 Sodium Level 139 Potassium Level 4.6 Chloride Level 101 Carbon Dioxide Level 30 Anion Gap 13 Blood Urea Nitrogen 23 H Creatinine 1.06 Glucose Level 139 Calcium Level 8.9 Phosphorus Level 4.1 Magnesium Level 2.5 Albumin 3.8 Medications Medications Current Medications Ondansetron HCl (Zofran Inj) 4 mg Q6H PRN IV NAUSEA AND/OR VOMITING; Start at 14:30 Acetaminophen (Tylenol Tab) 650 mg Q6H PRN PO PAIN LEVEL 1-3 OR FEVER; Start 04/18/17 at 14:30 Bisacodyl (Dulcolax) 5 mg DAILY PRN PO CONSTIPATION Last administered on t 07:25; Admin Dose 5 MG; Start 04/18/17 at 14:30 Losartan Potassium (Cozaar) 100 mg DAILY PO Last administered on 04/27/17 08: 33; Admin Dose 100 MG; Start 04/19/17 at 09:00 Hydralazine HCl (Apresoline) 10 mg Q4H PRN IV SBP>160 Last administered on 12:42; Admin Dose 10 MG; Start 04/18/17 at 15:00 Labetalol HCl (Labetalol) 10 mg Q4H PRN IV SBP>160; Start 04/18/17 at 15:30 Guaifenesin (Mucinex) 600 mg BID PO Last administered on 04/27/17 08:35; Admin Dose 600 MG; Start 04/19/17 at 14:00 Carvedilol (Coreg) 6.25 mg BID PO Last administered on 04/27/17 08:34; Admin Dose 6.25 MG; Start 04/20/17 at 14:00 Metoprolol Tartrate (Lopressor) 5 mg Q6 PRN IV HR>100; Start 04/20/17 at 17:00 Morphine Sulfate (morphine) 4 mg Q4H PRN IV PAIN Last administered on 01:11; Admin Dose 4 MG; Start 04/20/17 at 21:30 Oxycodone/ Acetaminophen (Endocet (10/ 325)) 1 tab Q6H PRN PO PAIN Last administered on 04/25/17 12:48; Admin Dose 1 TAB; Start 04/21/17 at 03:30 Enoxaparin Sodium (Lovenox) 100 mg Q12H SC Last administered on 04/27/17 11: 56; Admin Dose 100 MG; Start 04/21/17 at 10:00 Enoxaparin Sodium (Lovenox) 40 mg Q12H SC Last administered on 04/27/17 11:56 ; Admin Dose 40 MG; Start 04/21/17 at 10:00 Oxycodone HCl (Roxicodone) 15 mg Q4H PRN PO PAIN Last administered on 06:38; Admin Dose 15 MG; Start 04/22/17 at 11:00 Trazodone HCl (Desyrel) 100 mg HS PO Last administered on 04/26/17 22:13; Admin Dose 100 MG; Start 04/22/17 at 21:00 Baclofen (Lioresal) 10 mg TID PO Last administered on 04/27/17 08:35; Admin Dose 10 MG; Start 04/22/17 at 13:00 Oxycodone HCl (Oxycontin) 10 mg BID PO Last administered on 04/27/17 08:36; Admin Dose 10 MG; Start 04/22/17 at 12:00 Linezolid (Zyvox) 600 mg BID PO Last administered on 04/27/17 08:36; Admin Dose 600 MG; Start 04/23/17 at 21:00 Amiodarone HCl (Cordarone) 200 mg BID PO Last administered on 04/27/17 08:34 ; Admin Dose 200 MG; Start 04/23/17 at 21:00 Prednisone (Prednisone) 30 mg DAILY PO Last administered on 04/27/17 08:36; Admin Dose 30 MG; Start 04/25/17 at 09:00 Tamsulosin HCl 0.4 mg 0.4 mg HS PO Last administered on 04/26/17 22:12; Admin Dose 0.4 MG; Start 04/24/17 at 21:00 Piperacillin Sod/ Tazobactam Sod (Zosyn 3.375gm/ 100 ml (Pmx)) 100 ml @ 200 mls /hr Q8 IVPB Last administered on 04/27/17 06:54; Admin Dose 200 MLS/HR; Start 04/26/17 at 14:00 ELIANA FELIX MD Apr 27, 2017 12:15
--- NOTE | 2017-04-27 13:56 | CONS ---
Date/Time of Note Date/Time of Note DATE: 04/27/17 TIME: 13:55 Consult Date/Type/Reason Admit Date/Time Apr 18, 2017 at 13:19 Type of Consultation: ID Objective Vital Signs Date Time Temp Pulse Resp B/P Pulse Ox O2 Delivery O2 Flow Rate FiO2 04/27/17 12:00 75 04/27/17 11:25 97.3 18 130/80 8 04/27/17 01:54 3.0 04/26/17 21:30 Nasal Cannula 04/25/17 07:23 21 Intake and Output 04/26/17 04/26/17 04/27/17 15:00 23:00 07:00 Intake Total 250 ml 200 ml Output Total 300 ml Balance 250 ml -100 ml Results/Medications Result Diagram: 04/27/1752 04/27/1752 Results 24 hrs Laboratory Tests Test 04/27/17 06:52 White Blood Count 8.8 Red Blood Count 3.75 L Hemoglobin 11.9 L Hematocrit 37.3 L Mean Corpuscular Volume 99.5 Mean Corpuscular Hemoglobin 31.7 Mean Corpuscular Hemoglobin Concent 31.9 L Red Cell Distribution Width 15.6 H Platelet Count 272 Mean Platelet Volume 8.9 Neutrophils % 75.2 Lymphocytes % 15.1 Monocytes % 7.0 Eosinophils % 1.2 Basophils % 0.3 Nucleated Red Blood Cells % 0.0 Neutrophils # 6.6 Lymphocytes # 1.3 Monocytes # 0.6 Eosinophils # 0.1 Basophils # 0.0 Nucleated Red Blood Cells # 0.0 Prothrombin Time 27.1 H Prothrombin Time Ratio 2.1 INR International Normalized Ratio 2.48 Sodium Level 139 Potassium Level 4.6 Chloride Level 101 Carbon Dioxide Level 30 Anion Gap 13 Blood Urea Nitrogen 23 H Creatinine 1.06 Glucose Level 139 Calcium Level 8.9 Phosphorus Level 4.1 Magnesium Level 2.5 Albumin 3.8 Medications Current Medications Ondansetron HCl (Zofran Inj) 4 mg Q6H PRN IV NAUSEA AND/OR VOMITING; Start at 14:30 Acetaminophen (Tylenol Tab) 650 mg Q6H PRN PO PAIN LEVEL 1-3 OR FEVER; Start 04/18/17 at 14:30 Bisacodyl (Dulcolax) 5 mg DAILY PRN PO CONSTIPATION Last administered on t 07:25; Admin Dose 5 MG; Start 04/18/17 at 14:30 Losartan Potassium (Cozaar) 100 mg DAILY PO Last administered on 04/27/17 08: 33; Admin Dose 100 MG; Start 04/19/17 at 09:00 Hydralazine HCl (Apresoline) 10 mg Q4H PRN IV SBP>160 Last administered on 12:42; Admin Dose 10 MG; Start 04/18/17 at 15:00 Labetalol HCl (Labetalol) 10 mg Q4H PRN IV SBP>160; Start 04/18/17 at 15:30 Guaifenesin (Mucinex) 600 mg BID PO Last administered on 04/27/17 08:35; Admin Dose 600 MG; Start 04/19/17 at 14:00 Carvedilol (Coreg) 6.25 mg BID PO Last administered on 04/27/17 08:34; Admin Dose 6.25 MG; Start 04/20/17 at 14:00 Metoprolol Tartrate (Lopressor) 5 mg Q6 PRN IV HR>100; Start 04/20/17 at 17:00 Morphine Sulfate (morphine) 4 mg Q4H PRN IV PAIN Last administered on 01:11; Admin Dose 4 MG; Start 04/20/17 at 21:30 Oxycodone/ Acetaminophen (Endocet (10/ 325)) 1 tab Q6H PRN PO PAIN Last administered on 04/25/17 12:48; Admin Dose 1 TAB; Start 04/21/17 at 03:30 Oxycodone HCl (Roxicodone) 15 mg Q4H PRN PO PAIN Last administered on 06:38; Admin Dose 15 MG; Start 04/22/17 at 11:00 Trazodone HCl (Desyrel) 100 mg HS PO Last administered on 04/26/17 22:13; Admin Dose 100 MG; Start 04/22/17 at 21:00 Baclofen (Lioresal) 10 mg TID PO Last administered on 04/27/17 08:35; Admin Dose 10 MG; Start 04/22/17 at 13:00 Oxycodone HCl (Oxycontin) 10 mg BID PO Last administered on 04/27/17 08:36; Admin Dose 10 MG; Start 04/22/17 at 12:00 Linezolid (Zyvox) 600 mg BID PO Last administered on 04/27/17 08:36; Admin Dose 600 MG; Start 04/23/17 at 21:00 Amiodarone HCl (Cordarone) 200 mg BID PO Last administered on 04/27/17 08:34 ; Admin Dose 200 MG; Start 04/23/17 at 21:00 Prednisone (Prednisone) 30 mg DAILY PO Last administered on 04/27/17 08:36; Admin Dose 30 MG; Start 04/25/17 at 09:00 Tamsulosin HCl 0.4 mg 0.4 mg HS PO Last administered on 04/26/17 22:12; Admin Dose 0.4 MG; Start 04/24/17 at 21:00 Piperacillin Sod/ Tazobactam Sod (Zosyn 3.375gm/ 100 ml (Pmx)) 100 ml @ 200 mls /hr Q8 IVPB Last administered on 04/27/17 06:54; Admin Dose 200 MLS/HR; Start 04/26/17 at 14:00 Warfarin Sodium (Coumadin) 5 mg DAILY@17 PO ; Start 04/27/17 at 17:00 Assessment/Plan Chief Complaint/Hosp Course Alert, feels better, still some frequency but overall better after started on Flomax Microbiology: Urine culture grew VRE Antimicrobials: Zyvox #5 Physical examination: Obese, well-developed middle-aged white man who is alert in no distress. Head atraumatic normocephalic sclerae nonicteric. Neck is supple. Chest rise symmetrical breath sounds diminished bases heart S1-S2 abdomen soft bowel sounds present extremities without cyanosis Assessment: 1. VRE UTI 2. S/p PNA 3. Urinary frequency and retention 4. CAD/P Afib 5. HTN 6. Hx PE Plan: Remains stable, continue present care, continue Flomax, f/u card rec-s, will keep on Zyvox for 5 more days [facility] staff Problems: DIETER BASSETT NP Apr 27, 2017 13:56
--- NOTE | 2017-04-27 15:43 | CONS ---
Date/Time of Note Date/Time of Note DATE: 04/27/17 TIME: 15:42 Assessment/Plan Assessment/Plan Additional Assessment/Plan Paroxysmal atrial fibrillation, currently sinus rhythm Pneumonia Preserved ejection fraction History pulmonary emboli Hypertension -Patient remains in sinus rhythm, currently on p.o. amiodarone, would decrease to daily, continue beta-olayinka. Coumadin as per INR. Antibiotics as per primary team. Supplement potassium to maintain above 4.0 and magnesium above 2.0. DC planning Consultation Date/Type/Reason Admit Date/Time Apr 18, 2017 at 13:19 Type of Consultation: cv 24 HR Interval Summary Free Text/Dictation Shortness of breath continues to improve, denies palpitations or chest pain Exam/Review of Systems Vital Signs Vitals Vital Signs Date Time Temp Pulse Resp B/P Pulse Ox O2 Delivery O2 Flow Rate FiO2 04/27/17 13:59 3.0 04/27/17 12:00 75 04/27/17 11:25 97.3 18 130/80 8 04/26/17 21:30 Nasal Cannula 04/25/17 07:23 21 Intake and Output 04/26/17 04/26/17 04/27/17 15:00 23:00 07:00 Intake Total 250 ml 200 ml Output Total 300 ml Balance 250 ml -100 ml Exam No apparent distress, able to speak in complete sentences Constitutional: alert, obese, oriented Head: normocephalic Respiratory: other (Coarse breath sounds bilaterally, no wheezing) Cardiovascular: other (S1-S2 heard), regular rate and rhythm Gastrointestinal: bowel sounds, non-tender, soft Extremities: edema Results Result Diagram: 04/27/17 0652 04/27/17 0652 Results 24 hrs Laboratory Tests Test 04/27/17 06:52 White Blood Count 8.8 Red Blood Count 3.75 L Hemoglobin 11.9 L Hematocrit 37.3 L Mean Corpuscular Volume 99.5 Mean Corpuscular Hemoglobin 31.7 Mean Corpuscular Hemoglobin Concent 31.9 L Red Cell Distribution Width 15.6 H Platelet Count 272 Mean Platelet Volume 8.9 Neutrophils % 75.2 Lymphocytes % 15.1 Monocytes % 7.0 Eosinophils % 1.2 Basophils % 0.3 Nucleated Red Blood Cells % 0.0 Neutrophils # 6.6 Lymphocytes # 1.3 Monocytes # 0.6 Eosinophils # 0.1 Basophils # 0.0 Nucleated Red Blood Cells # 0.0 Prothrombin Time 27.1 H Prothrombin Time Ratio 2.1 INR International Normalized Ratio 2.48 Sodium Level 139 Potassium Level 4.6 Chloride Level 101 Carbon Dioxide Level 30 Anion Gap 13 Blood Urea Nitrogen 23 H Creatinine 1.06 Glucose Level 139 Calcium Level 8.9 Phosphorus Level 4.1 Magnesium Level 2.5 Albumin 3.8 Medications Medications Current Medications Ondansetron HCl (Zofran Inj) 4 mg Q6H PRN IV NAUSEA AND/OR VOMITING; Start at 14:30 Acetaminophen (Tylenol Tab) 650 mg Q6H PRN PO PAIN LEVEL 1-3 OR FEVER; Start 04/18/17 at 14:30 Bisacodyl (Dulcolax) 5 mg DAILY PRN PO CONSTIPATION Last administered on 07:25; Admin Dose 5 MG; Start 04/18/17 at 14:30 Losartan Potassium (Cozaar) 100 mg DAILY PO Last administered on 04/27/17 08: 33; Admin Dose 100 MG; Start 04/19/17 at 09:00 Hydralazine HCl (Apresoline) 10 mg Q4H PRN IV SBP>160 Last administered on 12:42; Admin Dose 10 MG; Start 04/18/17 at 15:00 Labetalol HCl (Labetalol) 10 mg Q4H PRN IV SBP>160; Start 04/18/17 at 15:30 Guaifenesin (Mucinex) 600 mg BID PO Last administered on 04/27/17 08:35; Admin Dose 600 MG; Start 04/19/17 at 14:00 Carvedilol (Coreg) 6.25 mg BID PO Last administered on 04/27/17 08:34; Admin Dose 6.25 MG; Start 04/20/17 at 14:00 Metoprolol Tartrate (Lopressor) 5 mg Q6 PRN IV HR>100; Start 04/20/17 at 17:00 Morphine Sulfate (morphine) 4 mg Q4H PRN IV PAIN Last administered on 01:11; Admin Dose 4 MG; Start 04/20/17 at 21:30 Oxycodone/ Acetaminophen (Endocet (10/ 325)) 1 tab Q6H PRN PO PAIN Last administered on 04/25/17 12:48; Admin Dose 1 TAB; Start 04/21/17 at 03:30 Oxycodone HCl (Roxicodone) 15 mg Q4H PRN PO PAIN Last administered on 06:38; Admin Dose 15 MG; Start 04/22/17 at 11:00 Trazodone HCl (Desyrel) 100 mg HS PO Last administered on 04/26/17 22:13; Admin Dose 100 MG; Start 04/22/17 at 21:00 Baclofen (Lioresal) 10 mg TID PO Last administered on 04/27/17 14:41; Admin Dose 10 MG; Start 04/22/17 at 13:00 Oxycodone HCl (Oxycontin) 10 mg BID PO Last administered on 04/27/17 08:36; Admin Dose 10 MG; Start 04/22/17 at 12:00 Linezolid (Zyvox) 600 mg BID PO Last administered on 04/27/17 08:36; Admin Dose 600 MG; Start 04/23/17 at 21:00 Amiodarone HCl (Cordarone) 200 mg BID PO Last administered on 04/27/17 08:34 ; Admin Dose 200 MG; Start 04/23/17 at 21:00 Prednisone (Prednisone) 30 mg DAILY PO Last administered on 04/27/17 08:36; Admin Dose 30 MG; Start 04/25/17 at 09:00 Tamsulosin HCl 0.4 mg 0.4 mg HS PO Last administered on 04/26/17 22:12; Admin Dose 0.4 MG; Start 04/24/17 at 21:00 Piperacillin Sod/ Tazobactam Sod (Zosyn 3.375gm/ 100 ml (Pmx)) 100 ml @ 200 mls /hr Q8 IVPB Last administered on 04/27/17 14:41; Admin Dose 200 MLS/HR; Start 04/26/17 at 14:00 Warfarin Sodium (Coumadin) 5 mg DAILY@17 PO ; Start 04/27/17 at 17:00 Curly Ojeda DO Apr 27, 2017 15:43
[2017-04-27] MEDS: WARFARIN 5 MG TAB PO SCH (17:13)
[2017-04-27] MEDS: OXYCODONE/ACETAMINOPHEN (10/325) TAB PO PRN (17:13)
[2017-04-27] MEDS: morphine 4 MG/ML VIAL IV PRN ×2 (18:10→22:58)
[2017-04-27] MEDS: TAMSULOSIN (SR) 0.4 MG CAP PO SCH (20:58)
[2017-04-27] MEDS: traZODone 100 MG TAB PO SCH (20:58)
[2017-04-27] MEDS: BISACODYL (EC) 5 MG TAB PO PRN (22:58)
[2017-04-28] VITALS (11 sets, daily range): BP systolic 100–141; BP diastolic 52–82; PULSE 63–77; RESP 18–22
[2017-04-28] MEDS: OXYCODONE/ACETAMINOPHEN (10/325) TAB PO PRN ×3 (00:22→17:25)
[2017-04-28] MEDS: oxyCODONE 5 MG TAB PO PRN (04:06)
[2017-04-28] MEDS: PIPER-TAZO 3.375 GM IV (PMX) 100 ML IVPB SCH (05:34)
[2017-04-28] MEDS: ALBUTEROL/IPRATROPIUM (NEB) 3 ML AMP HHN SCH ×3 (07:55→20:36)
[2017-04-28 08:30] LABS: BASOPHIL # 0.1 10^3/ul (0.0-0.1); BASOPHILS % 0.9 % (0.0-2.0); EOSINOPHILS # 0.2 10^3/ul (0.0-0.5); HEMATOCRIT 35.5 % (42.0-52.0); HEMOGLOBIN 11.3 g/dl (14.0-18.0); LYMPHOCYTES # 1.5 10^3/ul (0.8-2.9); LYMPHOCYTES % 18.4 % (15.0-51.0); MEAN CORPUSCULAR HEMOGLOBIN 31.6 pg (29.0-33.0); MEAN CORPUSCULAR HGB CONC 31.8 g/dl (32.0-37.0); MEAN CORPUSCULAR VOLUME 99.2 fl (82.0-101.0); MEAN PLATELET VOLUME 8.8 fl (7.4-10.4); MONOCYTE # 0.6 10^3/ul (0.3-0.9); MONOCYTES % 7.7 % (0.0-11.0); NEUTROPHIL # 5.4 10^3/ul (1.6-7.5); NEUTROPHILS % 68.7 % (39.0-77.0); PLATELET COUNT 291 10^3/UL (140-415); RED BLOOD COUNT 3.58 10^6/ul (4.70-6.10); RED CELL DISTRIBUTION WIDTH 15.6 % (11.5-14.5); WHITE BLOOD COUNT 7.9 10^3/ul (4.8-10.8)
[2017-04-28 08:47] LABS: ALBUMIN 3.9 g/dl (3.3-4.9); CALCIUM 8.8 mg/dl (8.4-10.2); CREATININE 0.98 mg/dl (0.61-1.24); PHOSPHORUS 4.3 mg/dl (2.5-4.9); POTASSIUM 4.6 mmol/L (3.5-5.1)
[2017-04-28] MEDS: GUAIFENESIN LA 600 MG TABSR PO SCH ×2 (09:23→20:43)
[2017-04-28] MEDS: ZYVOX 600 MG TAB PO SCH ×2 (09:23→20:42)
[2017-04-28] MEDS: oxyCODONE (CR) 10 MG TAB [oxyCONTIN] PO SCH ×2 (09:23→20:44)
[2017-04-28] MEDS: predniSONE 20 MG TAB PO SCH (09:24)
[2017-04-28] MEDS: BACLOFEN 10 MG TAB PO SCH ×3 (09:24→20:43)
[2017-04-28] MEDS: AMIODARONE 200 MG TAB PO SCH (09:25)
[2017-04-28] MEDS: LOSARTAN 50 MG TAB PO SCH (09:26)
[2017-04-28] MEDS: BISACODYL (EC) 5 MG TAB PO PRN (09:30)
--- NOTE | 2017-04-28 12:14 | PN ---
Date/Time of Note Date/Time of Note DATE: 04/28/17 TIME: 12:01 Assessment/Plan VTE Prophylaxis VTE Prophylaxis Intervention: other Lines/Catheters IV Catheter Type (from Nrs): Saline Lock Urinary Cath still in place: No Assessment/Plan Assessment/Plan 1. Pneumonia, was treated with zithromax, now on zyvox for VRE UTI, add zosyn to cover pseudomonas(greenish sputum), improving, discharge plan for tomorrow 2. Shortness of breath, community acquired pneumonia and PE related 3. New onset afib on 04/20/2017, converted to sinus on 04/21/2017, on amiodarone , 4. Chronic PE, on coumadin, keep INR 2-3 5. S/p IVC filter 6. Hypertension, controlled 7. Chronic back pain - PRN pain medications - Home medications on board 8. VRE UTI - On PO Linezolid BID 9. 9mm lung nodule - Will need follow up as outpatient Subjective 24 Hr Interval Summary Free Text/Dictation shortness of breath with vomiting last night Exam/Review of Systems Vital Signs Vitals Vital Signs Date Time Temp Pulse Resp B/P Pulse Ox O2 Delivery O2 Flow Rate FiO2 04/28/17 11:37 97.8 68 18 112/65 94 04/28/17 07:54 3.0 04/27/17 21:00 Nasal Cannula 04/25/17 07:23 21 Intake and Output 04/27/17 04/27/17 04/28/17 15:00 23:00 07:00 Intake Total 100 ml 3200 ml 1400 ml Output Total 600 ml Balance 100 ml 2600 ml 1400 ml Exam Constitutional: alert, obese, oriented, well developed Psych: nl mood/affect, no complaints Head: atraumatic, normocephalic Eyes: EOMI, PERRL, nl conjunctiva, nl lids, nl sclera ENMT: nl external ears & nose, nl lips & teeth, nl nasal mucosa & septum Neck: non-tender, supple Respiratory: clear to auscultation, normal air movement, No congested cough, No crackles/rales, No diminished breath sounds, No intercostal retraction, No labored breathing, No other, No respirations, No tactile fremitus, No wheezing Cardiovascular: nl pulses, regular rate and rhythm, No S3, No S4, No bruits, No diastolic murmur, No edema, No gallop, No irregular rhythm, No jugular venous distention (JVD), No murmurs/extra sounds, No other, No rub, No systolic murmur Gastrointestinal: nl liver, spleen, non-tender, soft Musculoskeletal: nl extremities to inspection Extremities: edema, normal pulses 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: [employer] II-XII intact, nl mental status, nl speech, nl strength Results Result Diagram: 04/28/1774104/28/17 0742 Results 24 hrs Laboratory Tests Test 04/28/17 07:42 White Blood Count 7.9 Red Blood Count 3.58 L Hemoglobin 11.3 L Hematocrit 35.5 L Mean Corpuscular Volume 99.2 Mean Corpuscular Hemoglobin 31.6 Mean Corpuscular Hemoglobin Concent 31.8 L Red Cell Distribution Width 15.6 H Platelet Count 291 Mean Platelet Volume 8.8 Neutrophils % 68.7 Lymphocytes % 18.4 Monocytes % 7.7 Eosinophils % 3.0 Basophils % 0.9 Nucleated Red Blood Cells % 0.0 Neutrophils # 5.4 Lymphocytes # 1.5 Monocytes # 0.6 Eosinophils # 0.2 Basophils # 0.1 Nucleated Red Blood Cells # 0.0 Sodium Level 138 Potassium Level 4.6 Chloride Level 100 Carbon Dioxide Level 29 Anion Gap 14 Blood Urea Nitrogen 19 Creatinine 0.98 Glucose Level 97 # Calcium Level 8.8 Phosphorus Level 4.3 Magnesium Level 2.0 Albumin 3.9 Medications Medications Current Medications Ondansetron HCl (Zofran Inj) 4 mg Q6H PRN IV NAUSEA AND/OR VOMITING; Start at 14:30 Acetaminophen (Tylenol Tab) 650 mg Q6H PRN PO PAIN LEVEL 1-3 OR FEVER; Start 04/18/17 at 14:30 Bisacodyl (Dulcolax) 5 mg DAILY PRN PO CONSTIPATION Last administered on 09:30; Admin Dose 5 MG; Start 04/18/17 at 14:30 Losartan Potassium (Cozaar) 100 mg DAILY PO Last administered on 04/28/17 09: 26; Admin Dose 100 MG; Start 04/19/17 at 09:00 Hydralazine HCl (Apresoline) 10 mg Q4H PRN IV SBP>160 Last administered on 12:42; Admin Dose 10 MG; Start 04/18/17 at 15:00 Labetalol HCl (Labetalol) 10 mg Q4H PRN IV SBP>160; Start 04/18/17 at 15:30 Guaifenesin (Mucinex) 600 mg BID PO Last administered on 04/28/17 09:23; Admin Dose 600 MG; Start 04/19/17 at 14:00 Carvedilol (Coreg) 6.25 mg BID PO Last administered on 04/28/17 09:27; Admin Dose 6.25 MG; Start 04/20/17 at 14:00 Metoprolol Tartrate (Lopressor) 5 mg Q6 PRN IV HR>100; Start 04/20/17 at 17:00 Morphine Sulfate (morphine) 4 mg Q4H PRN IV PAIN Last administered on 22:58; Admin Dose 4 MG; Start 04/20/17 at 21:30 Oxycodone/ Acetaminophen (Endocet (10/ 325)) 1 tab Q6H PRN PO PAIN Last administered on 04/28/17 06:54; Admin Dose 1 TAB; Start 04/21/17 at 03:30 Oxycodone HCl (Roxicodone) 15 mg Q4H PRN PO PAIN Last administered on 04:06; Admin Dose 15 MG; Start 04/22/17 at 11:00 Trazodone HCl (Desyrel) 100 mg HS PO Last administered on 04/27/17 20:58; Admin Dose 100 MG; Start 04/22/17 at 21:00 Baclofen (Lioresal) 10 mg TID PO Last administered on 04/28/17 09:24; Admin Dose 10 MG; Start 04/22/17 at 13:00 Oxycodone HCl (Oxycontin) 10 mg BID PO Last administered on 04/28/17 09:23; Admin Dose 10 MG; Start 04/22/17 at 12:00 Linezolid (Zyvox) 600 mg BID PO Last administered on 04/28/17 09:23; Admin Dose 600 MG; Start 04/23/17 at 21:00 Amiodarone HCl (Cordarone) 200 mg BID PO Last administered on 04/28/17 09:25 ; Admin Dose 200 MG; Start 04/23/17 at 21:00 Prednisone (Prednisone) 30 mg DAILY PO Last administered on 04/28/17 09:24; Admin Dose 30 MG; Start 04/25/17 at 09:00 Tamsulosin HCl 0.4 mg 0.4 mg HS PO Last administered on 04/27/17 20:58; Admin Dose 0.4 MG; Start 04/24/17 at 21:00 Piperacillin Sod/ Tazobactam Sod (Zosyn 3.375gm/ 100 ml (Pmx)) 100 ml @ 200 mls /hr Q8 IVPB Last administered on 04/28/17 05:34; Admin Dose 200 MLS/HR; Start 04/26/17 at 14:00 Warfarin Sodium (Coumadin) 5 mg DAILY@17 PO Last administered on 04/27/17 17: 13; Admin Dose 5 MG; Start 04/27/17 at 17:00 ELIANA FELIX MD Apr 28, 2017 12:11
[2017-04-28] MEDS: morphine 4 MG/ML VIAL IV PRN (12:18)
--- NOTE | 2017-04-28 13:34 | CONS ---
Date/Time of Note Date/Time of Note DATE: 04/28/17 TIME: 13:33 Assessment/Plan Assessment/Plan Additional Assessment/Plan Paroxysmal atrial fibrillation, currently sinus rhythm Pneumonia Preserved ejection fraction History pulmonary emboli Hypertension -Patient remains in sinus rhythm, currently on p.o. amiodarone, would decrease to daily, continue beta-olayinka. Coumadin as per INR. Antibiotics as per primary team. DC planning Consultation Date/Type/Reason Admit Date/Time Apr 18, 2017 at 13:19 Type of Consultation: cv 24 HR Interval Summary Free Text/Dictation Denies palpitations, chest pain or wheezing Exam/Review of Systems Vital Signs Vitals Vital Signs Date Time Temp Pulse Resp B/P Pulse Ox O2 Delivery O2 Flow Rate FiO2 04/28/17 12:10 75 04/28/17 11:37 97.8 18 112/65 94 04/28/17 07:54 3.0 04/27/17 21:00 Nasal Cannula 04/25/17 07:23 21 Intake and Output 04/27/17 04/27/17 04/28/17 15:00 23:00 07:00 Intake Total 100 ml 3200 ml 1400 ml Output Total 600 ml Balance 100 ml 2600 ml 1400 ml Exam No apparent distress Constitutional: alert, obese, oriented Head: normocephalic Respiratory: other (Coarse breath sounds bilaterally, no wheezing) Cardiovascular: other (S1-S2 heard), regular rate and rhythm Gastrointestinal: bowel sounds, non-tender, soft Extremities: edema Results Result Diagram: 04/28/17 0742 04/28/17 0742 Results 24 hrs Laboratory Tests Test 04/28/17 07:42 White Blood Count 7.9 Red Blood Count 3.58 L Hemoglobin 11.3 L Hematocrit 35.5 L Mean Corpuscular Volume 99.2 Mean Corpuscular Hemoglobin 31.6 Mean Corpuscular Hemoglobin Concent 31.8 L Red Cell Distribution Width 15.6 H Platelet Count 291 Mean Platelet Volume 8.8 Neutrophils % 68.7 Lymphocytes % 18.4 Monocytes % 7.7 Eosinophils % 3.0 Basophils % 0.9 Nucleated Red Blood Cells % 0.0 Neutrophils # 5.4 Lymphocytes # 1.5 Monocytes # 0.6 Eosinophils # 0.2 Basophils # 0.1 Nucleated Red Blood Cells # 0.0 Sodium Level 138 Potassium Level 4.6 Chloride Level 100 Carbon Dioxide Level 29 Anion Gap 14 Blood Urea Nitrogen 19 Creatinine 0.98 Glucose Level 97 # Calcium Level 8.8 Phosphorus Level 4.3 Magnesium Level 2.0 Albumin 3.9 Medications Medications Current Medications Ondansetron HCl (Zofran Inj) 4 mg Q6H PRN IV NAUSEA AND/OR VOMITING; Start at 14:30 Acetaminophen (Tylenol Tab) 650 mg Q6H PRN PO PAIN LEVEL 1-3 OR FEVER; Start 04/18/17 at 14:30 Bisacodyl (Dulcolax) 5 mg DAILY PRN PO CONSTIPATION Last administered on 09:30; Admin Dose 5 MG; Start 04/18/17 at 14:30 Losartan Potassium (Cozaar) 100 mg DAILY PO Last administered on 04/28/17 09: 26; Admin Dose 100 MG; Start 04/19/17 at 09:00 Hydralazine HCl (Apresoline) 10 mg Q4H PRN IV SBP>160 Last administered on 12:42; Admin Dose 10 MG; Start 04/18/17 at 15:00 Labetalol HCl (Labetalol) 10 mg Q4H PRN IV SBP>160; Start 04/18/17 at 15:30 Guaifenesin (Mucinex) 600 mg BID PO Last administered on 04/28/17 09:23; Admin Dose 600 MG; Start 04/19/17 at 14:00 Carvedilol (Coreg) 6.25 mg BID PO Last administered on 04/28/17 09:27; Admin Dose 6.25 MG; Start 04/20/17 at 14:00 Metoprolol Tartrate (Lopressor) 5 mg Q6 PRN IV HR>100; Start 04/20/17 at 17:00 Morphine Sulfate (morphine) 4 mg Q4H PRN IV PAIN Last administered on 12:18; Admin Dose 4 MG; Start 04/20/17 at 21:30 Oxycodone/ Acetaminophen (Endocet (10/ 325)) 1 tab Q6H PRN PO PAIN Last administered on 04/28/17 06:54; Admin Dose 1 TAB; Start 04/21/17 at 03:30 Oxycodone HCl (Roxicodone) 15 mg Q4H PRN PO PAIN Last administered on 04:06; Admin Dose 15 MG; Start 04/22/17 at 11:00 Trazodone HCl (Desyrel) 100 mg HS PO Last administered on 04/27/17 20:58; Admin Dose 100 MG; Start 04/22/17 at 21:00 Baclofen (Lioresal) 10 mg TID PO Last administered on 04/28/17 09:24; Admin Dose 10 MG; Start 04/22/17 at 13:00 Oxycodone HCl (Oxycontin) 10 mg BID PO Last administered on 04/28/17 09:23; Admin Dose 10 MG; Start 04/22/17 at 12:00 Linezolid (Zyvox) 600 mg BID PO Last administered on 04/28/17 09:23; Admin Dose 600 MG; Start 04/23/17 at 21:00 Amiodarone HCl (Cordarone) 200 mg BID PO Last administered on 04/28/17 09:25 ; Admin Dose 200 MG; Start 04/23/17 at 21:00 Prednisone (Prednisone) 30 mg DAILY PO Last administered on 04/28/17 09:24; Admin Dose 30 MG; Start 04/25/17 at 09:00 Tamsulosin HCl 0.4 mg 0.4 mg HS PO Last administered on 04/27/17 20:58; Admin Dose 0.4 MG; Start 04/24/17 at 21:00 Piperacillin Sod/ Tazobactam Sod (Zosyn 3.375gm/ 100 ml (Pmx)) 100 ml @ 200 mls /hr Q8 IVPB Last administered on 04/28/17 05:34; Admin Dose 200 MLS/HR; Start 04/26/17 at 14:00 Warfarin Sodium (Coumadin) 5 mg DAILY@17 PO Last administered on 04/27/17 17: 13; Admin Dose 5 MG; Start 04/27/17 at 17:00 Curly Ojeda DO Apr 28, 2017 13:34
--- NOTE | 2017-04-28 13:53 | CONS ---
Date/Time of Note Date/Time of Note DATE: 04/28/17 TIME: 13:53 Consult Date/Type/Reason Admit Date/Time Apr 18, 2017 at 13:19 Type of Consultation: id Objective Vital Signs Date Time Temp Pulse Resp B/P Pulse Ox O2 Delivery O2 Flow Rate FiO2 04/28/17 12:10 75 04/28/17 11:37 97.8 18 112/65 94 04/28/17 07:54 3.0 04/27/17 21:00 Nasal Cannula 04/25/17 07:23 21 Intake and Output 04/27/17 04/27/17 04/28/17 15:00 23:00 07:00 Intake Total 100 ml 3200 ml 1400 ml Output Total 600 ml Balance 100 ml 2600 ml 1400 ml Results/Medications Result Diagram: 04/28/1742 04/28/17 0742 Results 24 hrs Laboratory Tests Test 04/28/17 07:42 White Blood Count 7.9 Red Blood Count 3.58 L Hemoglobin 11.3 L Hematocrit 35.5 L Mean Corpuscular Volume 99.2 Mean Corpuscular Hemoglobin 31.6 Mean Corpuscular Hemoglobin Concent 31.8 L Red Cell Distribution Width 15.6 H Platelet Count 291 Mean Platelet Volume 8.8 Neutrophils % 68.7 Lymphocytes % 18.4 Monocytes % 7.7 Eosinophils % 3.0 Basophils % 0.9 Nucleated Red Blood Cells % 0.0 Neutrophils # 5.4 Lymphocytes # 1.5 Monocytes # 0.6 Eosinophils # 0.2 Basophils # 0.1 Nucleated Red Blood Cells # 0.0 Sodium Level 138 Potassium Level 4.6 Chloride Level 100 Carbon Dioxide Level 29 Anion Gap 14 Blood Urea Nitrogen 19 Creatinine 0.98 Glucose Level 97 # Calcium Level 8.8 Phosphorus Level 4.3 Magnesium Level 2.0 Albumin 3.9 Medications Current Medications Ondansetron HCl (Zofran Inj) 4 mg Q6H PRN IV NAUSEA AND/OR VOMITING; Start at 14:30 Acetaminophen (Tylenol Tab) 650 mg Q6H PRN PO PAIN LEVEL 1-3 OR FEVER; Start 04/18/17 at 14:30 Bisacodyl (Dulcolax) 5 mg DAILY PRN PO CONSTIPATION Last administered on t 09:30; Admin Dose 5 MG; Start 04/18/17 at 14:30 Losartan Potassium (Cozaar) 100 mg DAILY PO Last administered on 04/28/17 09: 26; Admin Dose 100 MG; Start 04/19/17 at 09:00 Hydralazine HCl (Apresoline) 10 mg Q4H PRN IV SBP>160 Last administered on 12:42; Admin Dose 10 MG; Start 04/18/17 at 15:00 Labetalol HCl (Labetalol) 10 mg Q4H PRN IV SBP>160; Start 04/18/17 at 15:30 Guaifenesin (Mucinex) 600 mg BID PO Last administered on 04/28/17 09:23; Admin Dose 600 MG; Start 04/19/17 at 14:00 Carvedilol (Coreg) 6.25 mg BID PO Last administered on 04/28/17 09:27; Admin Dose 6.25 MG; Start 04/20/17 at 14:00 Metoprolol Tartrate (Lopressor) 5 mg Q6 PRN IV HR>100; Start 04/20/17 at 17:00 Morphine Sulfate (morphine) 4 mg Q4H PRN IV PAIN Last administered on 12:18; Admin Dose 4 MG; Start 04/20/17 at 21:30 Oxycodone/ Acetaminophen (Endocet (10/ 325)) 1 tab Q6H PRN PO PAIN Last administered on 04/28/17 06:54; Admin Dose 1 TAB; Start 04/21/17 at 03:30 Oxycodone HCl (Roxicodone) 15 mg Q4H PRN PO PAIN Last administered on 04:06; Admin Dose 15 MG; Start 04/22/17 at 11:00 Trazodone HCl (Desyrel) 100 mg HS PO Last administered on 04/27/17 20:58; Admin Dose 100 MG; Start 04/22/17 at 21:00 Baclofen (Lioresal) 10 mg TID PO Last administered on 04/28/17 09:24; Admin Dose 10 MG; Start 04/22/17 at 13:00 Oxycodone HCl (Oxycontin) 10 mg BID PO Last administered on 04/28/17 09:23; Admin Dose 10 MG; Start 04/22/17 at 12:00 Linezolid (Zyvox) 600 mg BID PO Last administered on 04/28/17 09:23; Admin Dose 600 MG; Start 04/23/17 at 21:00 Prednisone (Prednisone) 30 mg DAILY PO Last administered on 04/28/17 09:24; Admin Dose 30 MG; Start 04/25/17 at 09:00 Tamsulosin HCl 0.4 mg 0.4 mg HS PO Last administered on 04/27/17 20:58; Admin Dose 0.4 MG; Start 04/24/17 at 21:00 Piperacillin Sod/ Tazobactam Sod (Zosyn 3.375gm/ 100 ml (Pmx)) 100 ml @ 200 mls /hr Q8 IVPB Last administered on 04/28/17 05:34; Admin Dose 200 MLS/HR; Start 04/26/17 at 14:00 Warfarin Sodium (Coumadin) 5 mg DAILY@17 PO Last administered on 04/27/17 17: 13; Admin Dose 5 MG; Start 04/27/17 at 17:00 Amiodarone HCl (Cordarone) 200 mg DAILY PO ; Start 04/29/17 at 09:00 Assessment/Plan Chief Complaint/Hosp Course Alert, feels good Microbiology: Urine culture grew VRE Antimicrobials: Zyvox #6, Zosyn #3 Physical examination: Obese, well-developed middle-aged white man who is alert in no distress. Head atraumatic normocephalic sclerae nonicteric. Neck is supple. Chest rise symmetrical breath sounds diminished bases heart S1-S2 abdomen soft bowel sounds present extremities without cyanosis Assessment: 1. VRE UTI 2. S/p PNA 3. Urinary frequency and retention 4. CAD/P Afib 5. HTN 6. Hx PE Plan: Remains stable, continue present care, continue Flomax, f/u card rec-s, will keep on Zyvox for 4 more days, cel[facility] staff Problems: DIETER BASSETT NP Apr 28, 2017 13:53
[2017-04-28 15:24] LABS: INR 2.51; PROTIME 27.4 Sec (12.2-14.2); PT RATIO 2.1
[2017-04-28] MEDS: WARFARIN 5 MG TAB PO SCH (17:25)
[2017-04-28] MEDS: TAMSULOSIN (SR) 0.4 MG CAP PO SCH (20:43)
[2017-04-28] MEDS: traZODone 100 MG TAB PO SCH (20:43)
[2017-04-29] VITALS (7 sets, daily range): BP systolic 118–147; BP diastolic 65–81; PULSE 48–74; RESP 18–22
[2017-04-29] MEDS: OXYCODONE/ACETAMINOPHEN (10/325) TAB PO PRN (00:22)
[2017-04-29 07:06] LABS: INR 2.48; PROTIME 27.1 Sec (12.2-14.2); PT RATIO 2.1
[2017-04-29] MEDS: ALBUTEROL/IPRATROPIUM (NEB) 3 ML AMP HHN SCH ×2 (08:00→13:34)
[2017-04-29] MEDS ORDERED: AMIODARONE 200 MG TAB PO SCH (09:00)
[2017-04-29] MEDS: ZYVOX 600 MG TAB PO SCH (09:13)
[2017-04-29] MEDS: BACLOFEN 10 MG TAB PO SCH ×2 (09:13→12:48)
[2017-04-29] MEDS: predniSONE 20 MG TAB PO SCH (09:13)
[2017-04-29] MEDS: oxyCODONE (CR) 10 MG TAB [oxyCONTIN] PO SCH (09:13)
[2017-04-29] MEDS: GUAIFENESIN LA 600 MG TABSR PO SCH (09:13)
[2017-04-29] MEDS: LOSARTAN 50 MG TAB PO SCH (09:16)
[2017-04-29] MEDS: oxyCODONE 5 MG TAB PO PRN (11:33)
[2017-04-29] MEDS ORDERED: TAMS-14 PO (13:09)
[2017-04-29] MEDS ORDERED: LOSA50TA2 PO (13:09)
[2017-04-29] MEDS ORDERED: LINE600T6 PO (13:09)
[2017-04-29] MEDS ORDERED: IPRA3AMP HHN (13:09)
[2017-04-29] MEDS ORDERED: CARV6.2579 PO ×2 (13:09→13:16)
[2017-04-29] MEDS ORDERED: AMIO200T2 PO (13:09)
[2017-04-29] MEDS ORDERED: PRED20TA PO (13:09)
[2017-04-29] MEDS ORDERED: COU5 PO (13:09)
--- NOTE | 2017-04-29 13:26 | DS ---
Date/Time of Note Date/Time of Note DATE: 04/29/17 TIME: 13:16 Discharge Summary Admission/Discharge Info Admit Date/Time Apr 18, 2017 at 13:19 Discharge Date/Time Discharge Diagnosis 1. Pneumonia, was treated with zithromax, now on zyvox for VRE UTI, add zosyn to cover pseudomonas(greenish sputum), improved 2. Shortness of breath, community acquired pneumonia and PE related 3. New onset afib on 04/20/2017, converted to sinus on 04/21/2017, on amiodarone and coumadin 4. Chronic PE, on coumadin, keep INR 2-3 5. S/p IVC filter 6. Hypertension, controlled 7. Chronic back pain, home meds 8. VRE UTI, stable, on Zyvox 9. 9mm lung nodule, repeat CT scan chest in 3 months per PCP Patient Condition: Stable Procedures PROCEDURE: CTA Chest with IV contrast. CLINICAL INDICATION: Chest pain and shortness of breath. TECHNIQUE: The study was performed utilizing a multidetector CT scanner. Direct spiral axial sections were obtained from the thoracic inlet through the upper abdomen before and after the injection of 100 cc Omnipaque 350 intravenous contrast material and reformatted at 1.25 mm. 3D, coronal and sagittal reformations were obtained. The images were reviewed on a PACS workstation. DLP = 758.0 mGy-cm.CTDiVol = 56.3, 20.0 mGy. One or more of the following post reduction techniques were used: - Automated exposure control. - Adjustment of the mA and/or Kv according to patient's size. - Use of iterative reconstruction technique COMPARISON: No prior studies are available for comparison. FINDINGS: Subtle, thin nonocclusive pulmonary arterial filling defect is identified in the right descending pulmonary artery (series 3, image 151). No additional filling defects are seen. Heart is borderline large. Coronary artery and aortic annular calcifications are seen. Multiple mildly prominent paratracheal, subcarinal, prevascular space and bilateral hilar lymph nodes are identified. The largest distinct lymph node is seen in the right paratracheal region and measures approximately 2.2 x 1.9 cm. The visualized portions of the inferior thyroid appear unremarkable. Scattered mild calcified atherosclerosis is noted in the thoracic aorta. The thoracic esophagus appears normal. Moderate emphysematous changes are identified in both lungs. Mild peripheral nurse station changes with potential early fibrosis are seen scattered throughout the bilateral upper lobes. Focal patchy consolidation is seen in the bilateral posterior lower lobes. Focal ground-glass opacity is noted in the anterior left upper lobe. Additional scattered ground-glass opacity is seen in the periphery of the right upper lobe and in the lateral left lower lobe. 9 mm subpleural nodule is identified in the posterior right upper lobe (series 4 , image 55). The visualized organs of the superior abdomen are unremarkable. Moderate to severe degenerative changes are seen in the spine. Old, healed fractures of the anterior left third through fifth ribs are observed. The subcutaneous and muscular soft tissues surrounding the chest are unremarkable. IMPRESSION: Subtle, pain, nonocclusive, pulmonary arterial filling defect in the right descending pulmonary artery. This could reflect a pulmonary arterial web or synechiae and could be the sequelae of old pulmonary embolus. An atypical small , acute pulmonary embolus cannot definitely be excluded. Patchy consolidations in the bilateral posterior lower lobes with additional scattered areas of ground-glass opacity in the bilateral upper lobes. Finding suggest multifocal infection/inflammation. Mediastinal and hilar adenopathy. This could be reactive. Moderate emphysematous changes in both lungs with associated peripheral interstitial changes and early fibrosis in the upper lobes. 9 mm subpleural nodule in the posterior right upper lobe. Degenerative changes in the spine and calcified atherosclerosis in the arterial vasculature. Old, healed left rib fractures. Guidelines for Management of Small Pulmonary Nodules Detected on CT Scans: A statement from the Fleischner [employer] Single Solid Nodule: <6mm(<100mm3): Low risk: No f/u. High risk: Optional CT at 12 months. Certain pts at high risk with suspicious nodule morphology, upper lobe location, or both may warrant 12 mo f/u. 6-8mm(100-250mm3): Low risk: CT at 6-[address] at 18-24 mos. High risk: CT at 6-[address] at 18-24 mos. >8mm(>250mm3): Consider CT, PET/CT, or tissue sampling at 3 mos. Multiple Solid Nodules: Use most susp nod to guide mgmt. F/u intervals may vary according to size/risk <6mm(<100mm3): Low risk: No f/u. High risk: Optional CT at 12 months. 6-8mm(100-250mm3): Low risk: CT at 3-[address] at 18-24 mos. High risk: CT at 3-[address] at 18-24 mos. >8mm(>250mm3): Low risk: CT at 3-[address] at 18-24 mos. High risk: CT at 3-[address] at 18-24 mos. Single Subsolid Nodule: Ground Glass: In certain susp nods <6mm, consider 2 and 4 yr f/u. If solid component increases or growth develops, consider resection. Otherwise: <6mm(<100mm3): Low risk: No f/u. High risk: CT at 6-12 mos to confirm persistence, then CT every 2 yrs until 5 yrs. Part Solid: Must be >or=6mm to be part solid. CT at 3-6 mos to confirm persistence. If unchanged and solid component still <6mm, do annual CT for 5 yrs. If solid component >=6mm, consider highly suspicious. Multiple Subsolid Nodules: <6mm(<100mm3): CT at 3-6 mos. If stable, consider CT at 2 and 4 yrs. Mult <6mm pure ground glass nods usually benign but consider f/u in selected high risk pts at 2 and 4 yrs. >=6mm(>100mm3): CT at 3-6 mos. Subseq management based on most susp nodule. Reference: Radiology 2017 Special Report Call report: A call report of the findings was made to Dr. Thompson at 3:56 PM on 04/18/2017 . RPTAT: AA .Yuri Hodge MD, MD Date Time Electronically viewed and signed by .Yuri Hodge MD, MD on 04/18/2017 16:02 .P/ Hx of Present Illness Patient is a 57-year-old male with a past medical history significant for CHF, COPD, PE on warfarin who presents to [facility] for approximately 3-4 days of worsening shortness of breath and feeling ill. Patient states that he has had fevers and has been feeling off for the past few days. Patient is currently he is tired, fatigued, feels feverish. Patient states that although he is supposed to be on warfarin, has missed the last couple doses secondary to not being able to pick them up from the pharmacy. Patient also states that his left lower extremity has been more swollen than usual. Patient can remember some of his medication, however he is not the best historian. Patient denies any headache, vomiting, chest pain, abdominal pain, bowel or bladder dysfunction. Hospital Course CT chest revealed a possible small PE, bilateral pulmonary infiltrates, scars, and emphysema changes. Patient is treated with antibiotics zithromax, tehn zosyn , now on zyvox for VRE in urine. Shortness of breath significantly improved. He is afebrile. Patient has history of PE and possible new small PE. He has an IVC filter. He is on coumadin 5 mg po daily, INR is 2.1. Patient will follow up with PCP to adjsut coumadin dosage to keep INR 2-3. Patient has NYDIA UTI that he started on zyvox on 04/23/2017. He will be on 3 more days of zyvox. Patient had atrial fibrillation that was converted to sinus rhythm spontaneously. He is on amiodarone and coumadin. There is a 9 mm subpleural nodule is identified in the posterior right upper lobe. This needs to be followed with repeat CT chest in 3 months per PCP. Home Meds Active Scripts Carvedilol* (Carvedilol*) 6.25 Mg Tablet, 3.125 MG PO BID for 30 Days, TAB Prov:ELIANA FELIX MD 04/29/17 Prednisone* (Prednisone*) 20 Mg Tab, 20 MG PO DAILY for 20 Days, TAB Prov:ELIANA FELIX MD 04/29/17 Losartan Potassium* (Cozaar*) 50 Mg Tablet, 100 MG PO DAILY for 30 Days, TAB Prov:ELIANA FELIX MD 04/29/17 Amiodarone Hcl* (Amiodarone Hcl*) 200 Mg Tablet, 200 MG PO DAILY for 30 Days, TAB Prov:ELIANA FELIX MD 04/29/17 Warfarin Sod (Coumadin) 5 Mg Tab, 5 MG PO DAILY@17 for 30 Days, TAB Prov:ELIANA FELIX MD 04/29/17 Ipratropium-Albuterol (Ipratropium-Albuterol) 0.5-3 Mg/3 Ml Ampul.neb, 3 ML HHN Q2H RESP THERAPY Y for wheezing for 30 Days Prov:ELIANA FELIX MD 04/29/17 Tamsulosin Hcl* (Flomax*) 0.4 Mg Cap.er.24h, 0.4 MG PO HS for 30 Days, CAP Prov:ELIANA FELIX MD 04/29/17 Linezolid (Linezolid) 600 Mg Tablet, 600 MG PO BID for 3 Days, TAB Prov:ELIANA FELIX MD 04/29/17 Follow-up Plan PCP in one week. Needs CT chest in 3 months cardiology in one week Primary Care Provider Not On Staff Doctor Pending Labs Laboratory Tests Test 04/28/17 14:54 04/29/17 05:37 Prothrombin Time 27.4Sec (12.2-14.2) 27.1Sec (12.2-14.2) Prothrombin Time Ratio 2.1 2.1 INR International Normalized Ratio 2.51 2.48 ELIANA FELIX MD Apr 29, 2017 13:26
--- NOTE | 2017-04-29 13:36 | CONS ---
Date/Time of Note Date/Time of Note DATE: 04/29/17 TIME: 13:35 Consult Date/Type/Reason Admit Date/Time Apr 18, 2017 at 13:19 Type of Consultation: id Objective Vital Signs Date Time Temp Pulse Resp B/P Pulse Ox O2 Delivery O2 Flow Rate FiO2 04/29/17 12:05 71 04/29/17 11:42 97.9 18 118/67 92 04/29/17 01:45 3.0 04/28/17 20:36 Nasal Cannula 04/25/17 07:23 21 Intake and Output 04/28/17 04/28/17 04/29/17 15:00 23:00 07:00 Intake Total 2000 ml Balance 2000 ml Results/Medications Result Diagram: 04/28/1742 04/28/17741 Results 24 hrs Laboratory Tests Test 04/28/17 14:54 04/29/17 05:37 Prothrombin Time 27.4 H 27.1 H Prothrombin Time Ratio 2.1 2.1 INR International Normalized Ratio 2.51 2.48 Medications Current Medications Ondansetron HCl (Zofran Inj) 4 mg Q6H PRN IV NAUSEA AND/OR VOMITING; Start at 14:30 Acetaminophen (Tylenol Tab) 650 mg Q6H PRN PO PAIN LEVEL 1-3 OR FEVER; Start 04/18/17 at 14:30 Bisacodyl (Dulcolax) 5 mg DAILY PRN PO CONSTIPATION Last administered on 09:30; Admin Dose 5 MG; Start 04/18/17 at 14:30 Losartan Potassium (Cozaar) 100 mg DAILY PO Last administered on 04/29/17 09: 16; Admin Dose 100 MG; Start 04/19/17 at 09:00 Hydralazine HCl (Apresoline) 10 mg Q4H PRN IV SBP>160 Last administered on 12:42; Admin Dose 10 MG; Start 04/18/17 at 15:00 Labetalol HCl (Labetalol) 10 mg Q4H PRN IV SBP>160; Start 04/18/17 at 15:30 Guaifenesin (Mucinex) 600 mg BID PO Last administered on 04/29/17 09:13; Admin Dose 600 MG; Start 04/19/17 at 14:00 Metoprolol Tartrate (Lopressor) 5 mg Q6 PRN IV HR>100; Start 04/20/17 at 17:00 Morphine Sulfate (morphine) 4 mg Q4H PRN IV PAIN Last administered on 12:18; Admin Dose 4 MG; Start 04/20/17 at 21:30 Oxycodone/ Acetaminophen (Endocet (10/ 325)) 1 tab Q6H PRN PO PAIN Last administered on 04/29/17 00:22; Admin Dose 1 TAB; Start 04/21/17 at 03:30 Oxycodone HCl (Roxicodone) 15 mg Q4H PRN PO PAIN Last administered on 11:33; Admin Dose 15 MG; Start 04/22/17 at 11:00 Trazodone HCl (Desyrel) 100 mg HS PO Last administered on 04/28/17 20:43; Admin Dose 100 MG; Start 04/22/17 at 21:00 Baclofen (Lioresal) 10 mg TID PO Last administered on 04/29/17 12:48; Admin Dose 10 MG; Start 04/22/17 at 13:00 Oxycodone HCl (Oxycontin) 10 mg BID PO Last administered on 04/29/17 09:13; Admin Dose 10 MG; Start 04/22/17 at 12:00 Linezolid (Zyvox) 600 mg BID PO Last administered on 04/29/17 09:13; Admin Dose 600 MG; Start 04/23/17 at 21:00 Prednisone (Prednisone) 30 mg DAILY PO Last administered on 04/29/17 09:13; Admin Dose 30 MG; Start 04/25/17 at 09:00 Tamsulosin HCl (Flomax) 0.4 mg HS PO Last administered on 04/28/17 20:43; Admin Dose 0.4 MG; Start 04/24/17 at 21:00 Warfarin Sodium (Coumadin) 5 mg DAILY@17 PO Last administered on 04/28/17 17: 25; Admin Dose 5 MG; Start 04/27/17 at 17:00 Amiodarone HCl (Cordarone) 200 mg DAILY PO Last administered on 04/29/17 09: 14; Admin Dose 200 MG; Start 04/29/17 at 09:00 Carvedilol (Coreg) 3.125 mg BID PO ; Start 04/29/17 at 21:00 Assessment/Plan Chief Complaint/Hosp Course Alert, feels good Microbiology: Urine culture grew VRE Antimicrobials: Zyvox #7 Physical examination: Obese, well-developed middle-aged white man who is alert in no distress. Head atraumatic normocephalic sclerae nonicteric. Neck is supple. Chest rise symmetrical breath sounds diminished bases heart S1-S2 abdomen soft bowel sounds present extremities without cyanosis Assessment: 1. VRE UTI 2. S/p PNA 3. Urinary frequency and retention 4. CAD/P Afib 5. HTN 6. Hx PE Plan: Remains stable, continue present care, continue Flomax, complete abx DW staff Problems: DIETER BASSETT NP Apr 29, 2017 13:36
--- NOTE | 2017-04-29 14:06 | CONS ---
Date/Time of Note Date/Time of Note DATE: 04/29/17 TIME: 14:05 Assessment/Plan Assessment/Plan Additional Assessment/Plan Paroxysmal atrial fibrillation, currently sinus rhythm Pneumonia Preserved ejection fraction History pulmonary emboli Hypertension -Patient remains in sinus rhythm, currently on p.o. amiodarone, would titrate p.o. amiodarone down as an outpatient. Continue beta-olayinka. Coumadin as per INR. Antibiotics as per primary team. Consultation Date/Type/Reason Admit Date/Time Apr 18, 2017 at 13:19 Type of Consultation: cv 24 HR Interval Summary Free Text/Dictation Overall feeling better, less shortness of breath, denies palpitations Exam/Review of Systems Vital Signs Vitals Vital Signs Date Time Temp Pulse Resp B/P Pulse Ox O2 Delivery O2 Flow Rate FiO2 04/29/17 12:05 71 04/29/17 11:42 97.9 18 118/67 92 04/29/17 01:45 3.0 04/28/17 20:36 Nasal Cannula 04/25/17 07:23 21 Intake and Output 04/28/17 04/28/17 04/29/17 15:00 23:00 07:00 Intake Total 2000 ml Balance 2000 ml Exam No apparent distress Constitutional: alert, obese, oriented Head: normocephalic Respiratory: other (Coarse breath sounds bilaterally, no wheezing) Cardiovascular: other (S1-S2 heard), regular rate and rhythm Gastrointestinal: bowel sounds, non-tender, soft Extremities: edema Results Result Diagram: 04/28/17 0742 04/28/17 0742 Results 24 hrs Laboratory Tests Test 04/28/17 14:54 04/29/17 05:37 Prothrombin Time 27.4 H 27.1 H Prothrombin Time Ratio 2.1 2.1 INR International Normalized Ratio 2.51 2.48 Medications Medications Current Medications Ondansetron HCl (Zofran Inj) 4 mg Q6H PRN IV NAUSEA AND/OR VOMITING; Start at 14:30 Acetaminophen (Tylenol Tab) 650 mg Q6H PRN PO PAIN LEVEL 1-3 OR FEVER; Start 04/18/17 at 14:30 Bisacodyl (Dulcolax) 5 mg DAILY PRN PO CONSTIPATION Last administered on t 09:30; Admin Dose 5 MG; Start 04/18/17 at 14:30 Losartan Potassium (Cozaar) 100 mg DAILY PO Last administered on 04/29/17 09: 16; Admin Dose 100 MG; Start 04/19/17 at 09:00 Hydralazine HCl (Apresoline) 10 mg Q4H PRN IV SBP>160 Last administered on 12:42; Admin Dose 10 MG; Start 04/18/17 at 15:00 Labetalol HCl (Labetalol) 10 mg Q4H PRN IV SBP>160; Start 04/18/17 at 15:30 Guaifenesin (Mucinex) 600 mg BID PO Last administered on 04/29/17 09:13; Admin Dose 600 MG; Start 04/19/17 at 14:00 Metoprolol Tartrate (Lopressor) 5 mg Q6 PRN IV HR>100; Start 04/20/17 at 17:00 Morphine Sulfate (morphine) 4 mg Q4H PRN IV PAIN Last administered on 12:18; Admin Dose 4 MG; Start 04/20/17 at 21:30 Oxycodone/ Acetaminophen (Endocet (10/ 325)) 1 tab Q6H PRN PO PAIN Last administered on 04/29/17 00:22; Admin Dose 1 TAB; Start 04/21/17 at 03:30 Oxycodone HCl (Roxicodone) 15 mg Q4H PRN PO PAIN Last administered on 11:33; Admin Dose 15 MG; Start 04/22/17 at 11:00 Trazodone HCl (Desyrel) 100 mg HS PO Last administered on 04/28/17 20:43; Admin Dose 100 MG; Start 04/22/17 at 21:00 Baclofen (Lioresal) 10 mg TID PO Last administered on 04/29/17 12:48; Admin Dose 10 MG; Start 04/22/17 at 13:00 Oxycodone HCl (Oxycontin) 10 mg BID PO Last administered on 04/29/17 09:13; Admin Dose 10 MG; Start 04/22/17 at 12:00 Linezolid (Zyvox) 600 mg BID PO Last administered on 04/29/17 09:13; Admin Dose 600 MG; Start 04/23/17 at 21:00 Prednisone (Prednisone) 30 mg DAILY PO Last administered on 04/29/17 09:13; Admin Dose 30 MG; Start 04/25/17 at 09:00 Tamsulosin HCl (Flomax) 0.4 mg HS PO Last administered on 04/28/17 20:43; Admin Dose 0.4 MG; Start 04/24/17 at 21:00 Warfarin Sodium (Coumadin) 5 mg DAILY@17 PO Last administered on 04/28/17 17: 25; Admin Dose 5 MG; Start 04/27/17 at 17:00 Amiodarone HCl (Cordarone) 200 mg DAILY PO Last administered on 04/29/17 09: 14; Admin Dose 200 MG; Start 04/29/17 at 09:00 Carvedilol (Coreg) 3.125 mg BID PO ; Start 04/29/17 at 21:00 Curly Ojeda DO Apr 29, 2017 14:06
== END 2017-04-29 18:20 | disposition home or self-care (01) | DRG 871 ==
LOC: E/R 09:16 → MS4 13:19
PROVIDERS: ADMIT Hospitalist; ATTEND Hospitalist
PROC: 4A033R1 Measurement of Arterial Saturation, Peripheral, Percutaneous Approach (ICD-10-PCS; principal; 2017-04-18)
DX: A41.9 Sepsis, unspecified organism (principal); J18.9 Pneumonia, unspecified organism; I27.82 Chronic pulmonary embolism; J44.1 Chronic obstructive pulmonary disease with (acute) exacerbation; N39.0 Urinary tract infection, site not specified; I48.0 Paroxysmal atrial fibrillation; Y95 Nosocomial condition; B95.2 Enterococcus as the cause of diseases classified elsewhere; Z16.21 Resistance to vancomycin; I10 Essential (primary) hypertension; I25.10 Atherosclerotic heart disease of native coronary artery without angina pectoris; F17.200 Nicotine dependence, unspecified, uncomplicated; R91.1 Solitary pulmonary nodule; E66.9 Obesity, unspecified; Z68.37 Body mass index [BMI] 37.0-37.9, adult; Z91.14 Patient's other noncompliance with medication regimen; Z79.01 Long term (current) use of anticoagulants
CPT/HCPCS: 36415; 36600; 71010; 71275; 80053; 80069; 81001; 82803; 83605; 83735; 84484; 85025; 85610; 85730; 87040; 87086; 93005; 93306; 93970; 94640; 94664; 96374; 96375; J0282; J0360; J0456; J0696; J1644; J1650; J2270; J2543; J3370; J3475; J7030; J7040; J7050; J7060; J7512; Q9967

== ENCOUNTER 2017-05-08 03:36 | Inpatient (IN) | payer OTHER ==
[~2017-05-08] VITALS: Ht 193 cm; Wt 136.0 kg
[2017-05-08] VITALS (10 sets, daily range): BP systolic 135–160; BP diastolic 61–90; PULSE 85–103; RESP 19–20; TEMP 98.7; Ht 193 cm; Wt 136.0 kg
[~2017-05-08 03:36] MED LIST: AMIO200T2 PO; CARV6.2579 PO; COU5 PO; IPRA3AMP HHN; LINE600T6 PO; LOSA50TA2 PO; PRED20TA PO; TAMS-14 PO
--- NOTE | 2017-05-08 03:47 | ERD ---
ER Documentation Chief Complaint Chief Complaint painful urination HPI The patient is a 57-year-old male, presenting to the ER because of painful urination with urination. He was discharged on April 29, 2017 for pneumonia and VRE UTI on Zyvox and Zosyn. He complains of painful urination that caused him short of breath and chest discomfort. He is panicking and very anxious in the emergency department, his chest pain with exertion/vomiting/diaphoresis. He denies abdominal pain, vomiting, constipation. He does not smoke, drinks socially Past medical history: Hypertension, BPH, COPD, history of PE, history of CHF, atrial fibrillation, chronic low back pain Surgical history: IVC ROS All systems reviewed and are negative except as per history of present illness. Medications Home Meds Active Scripts Carvedilol* (Carvedilol*) 6.25 Mg Tablet, 3.125 MG PO BID for 30 Days, TAB Prov:ELIANA FELIX MD 04/29/17 Prednisone* (Prednisone*) 20 Mg Tab, 20 MG PO DAILY for 20 Days, TAB Prov:ELIANA FELIX MD 04/29/17 Losartan Potassium* (Cozaar*) 50 Mg Tablet, 100 MG PO DAILY for 30 Days, TAB Prov:ELIANA FELIX MD 04/29/17 Amiodarone Hcl* (Amiodarone Hcl*) 200 Mg Tablet, 200 MG PO DAILY for 30 Days, TAB Prov:ELIANA FELIX MD 04/29/17 Warfarin Sod (Coumadin) 5 Mg Tab, 5 MG PO DAILY@17 for 30 Days, TAB Prov:ELIANA FELIX MD 04/29/17 Ipratropium-Albuterol (Ipratropium-Albuterol) 0.5-3 Mg/3 Ml Ampul.neb, 3 ML HHN Q2H RESP THERAPY Y for wheezing for 30 Days Prov:ELIANA FELIX MD 04/29/17 Tamsulosin Hcl* (Flomax*) 0.4 Mg Cap.er.24h, 0.4 MG PO HS for 30 Days, CAP Prov:ELIANA FELIX MD 04/29/17 Linezolid (Linezolid) 600 Mg Tablet, 600 MG PO BID for 3 Days, TAB Prov:ELIANA FELIX MD 04/29/17 Allergies Allergies: Coded Allergies: No Known Allergy (Unverified , 04/26/17) PMhx/Soc Anesthesia Reaction: No Hx 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 Disorder: No Hx Respiratory Disorders: Yes (copd, PE) Hx Cardiac Disorders: Yes (htn, chf) Hx Psychiatric Problems: No Hx Miscellaneous Medical Probl: No Hx Alcohol Use: Yes (occasionally ) Hx Substance Use: No Hx Tobacco Use: Yes (use tobacco product sometimes) Physical Exam Vitals Vital Signs Date Time Temp Pulse Resp B/P Pulse Ox O2 Delivery O2 Flow Rate FiO2 05/08/17 03:49 98.7 110 16 166/94 98 05/08/17 03:45 Nasal Cannula 2 05/08/17 03:45 98.7 103 18 166/94 98 Nasal Cannula Physical Exam Const: No acute distress. Anxious Head: Atraumatic. Eyes: Normal Conjunctiva. ENT: Normal External Ears, Nose and Mouth. Neck: Full range of motion. No meningismus. Resp: Basilar crackle Cardio: Regular tachycardic Abd: Soft, non distended, normal bowel sounds, non tender. Skin: No petechiae or rashes. Back: No midline or flank tenderness. Ext: No cyanosis, or edema. Neur: Awake and alert. No focal deficit Psych: Normal Mood and Affect. Result Diagram: 05/08/17 0435 05/08/17 0435 Results 24 hrs Laboratory Tests Test 05/08/17 04:35 05/08/17 04:50 White Blood Count 16.810^3/ul Red Blood Count 4.2410^6/ul Hemoglobin 13.6g/dl Hematocrit 41.7% Mean Corpuscular Volume 98.3fl Mean Corpuscular Hemoglobin 32.1pg Mean Corpuscular Hemoglobin Concent 32.6g/dl Red Cell Distribution Width 16.9% Platelet Count 10939^3/UL Mean Platelet Volume 8.5fl Neutrophils % 86.0% Lymphocytes % 7.5% Monocytes % 4.7% Eosinophils % 0.8% Basophils % 0.5% Nucleated Red Blood Cells % 0.0/100WBC Neutrophils # 14.510^3/ul Lymphocytes # 1.310^3/ul Monocytes # 0.810^3/ul Eosinophils # 0.110^3/ul Basophils # 0.110^3/ul Nucleated Red Blood Cells # 0.010^3/ul Prothrombin Time 19.9Sec Prothrombin Time Ratio 1.6 INR International Normalized Ratio 1.68 Activated Partial Thromboplast Time 33.7Sec Sodium Level 144mmol/L Potassium Level 4.4mmol/L Chloride Level 107mmol/L Carbon Dioxide Level 28mmol/L Anion Gap 13 Blood Urea Nitrogen 16mg/dl Creatinine 0.96mg/dl Glucose Level 128mg/dl Lactic Acid Level 1.9mmol/L Calcium Level 9.6mg/dl Total Bilirubin 0.2mg/dl Direct Bilirubin 0.00mg/dl Indirect Bilirubin 0.2mg/dl Aspartate Amino Transf (AST/SGOT) 25IU/L Alanine Aminotransferase (ALT/SGPT) 43IU/L Alkaline Phosphatase 89IU/L Troponin I < 0.012ng/ml B-Type Natriuretic Peptide 571PG/ML Total Protein 7.8g/dl Albumin 4.1g/dl Globulin 3.70g/dl Albumin/Globulin Ratio 1.10 Urine Color YELLOW Urine Clarity CLOUDY Urine pH 6.0 Urine Specific [place] 1.016 Urine Ketones NEGATIVEmg/dL Urine Nitrite POSITIVEmg/dL Urine Bilirubin NEGATIVEmg/dL Urine Urobilinogen NEGATIVEmg/dL Urine Leukocyte Esterase 3+Johana/ul Urine Microscopic RBC 21/HPF Urine Microscopic WBC 170/HPF Urine Squamous Epithelial Cells FEW/HPF Urine Bacteria FEW/HPF Urine Yeast (Budding) FEW/HPF Urine Hemoglobin 2+mg/dL Urine Glucose NEGATIVEmg/dL Urine Total Protein 1+mg/dl Current Medications Medications (Trade) Dose Ordered Sig/Mark Route PRN Reason Start Time Stop Time Status Last Admin Dose Admin Hydromorphone HCl (Dilaudid) 1 mg ONCE STAT IV 05/08/17 03:56 05/08/17 03:58 DC 05/08/17 04:06 Hydromorphone HCl (Dilaudid) 1 mg ONCE STAT IV 05/08/17 04:54 05/08/17 04:55 DC 05/08/17 04:59 Phenazopyridine HCl (Pyridium) 200 mg ONCE ONCE PO 05/08/17 05:00 05/08/17 05:01 DC 05/08/17 05:34 Lorazepam (Ativan) 1 mg ONCE ONCE IV 05/08/17 05:30 05/08/17 05:31 DC 05/08/17 05:34 Furosemide 40 mg 40 mg ONCE ONCE IV 05/08/17 06:00 05/08/17 06:01 DC 05/08/17 05:55 Ertapenem/Sodium Chloride (Invanz/NS) 100 ml @ 200 mls/hr ONCE ONCE IVPB 05/08/17 06:00 05/08/17 06:29 DC Procedures/MDM [place] [id number] [place] [id number] Radiology Main Line: [phone] DIAGNOSTIC IMAGING REPORT Patient: RAJAN LOPES : 1960 Age: 57 Sex: M MR #: [id number] DOS: 05/08/17 0356 Ordering MD: ALAN BROWN MD Location: E/R Room/Bed: PROCEDURE: XR Chest. CLINICAL INDICATION: Possible Sepsis TECHNIQUE: Single portable view of the chest was obtained COMPARISON: 04/26/2017. FINDINGS: There is stable moderately severe cardiomegaly. Bilateral, left greater than right interstitial disease is again demonstrated with considerations including asymmetric pulmonary edema and infectious/inflammatory changes. There is no consolidation or pleural effusion. IMPRESSION: 1. Left greater than right interstitial disease similar to examination dated . Diagnostic considerations include asymmetric pulmonary edema and infectious/inflammatory changes. 2. Stable moderately severe cardiomegaly. RPTAT: HRSR Physician Brigido Date Time Electronically viewed and signed by Sabi Mendez Physician on 05/08/2017 04 :47 RR/ CC: ALAN BROWN MD EKG: Read by emergency physician Rate/Rhythm: Sinus Tachycardia 103 beats/min QRS, ST, T-waves: No ST elevation, no T inversion, LVH Impression: Abnormal EKG \ MEDICAL MAKING DECISION: The patient is a 57-year-old male, presenting with acute CHF, acute on chronic cystitis. He was treated with dilaudid 1 mg IV 2 for pain Ativan 1 mg IV for anxiety, Pyridium 200 mg po for acute dysuria, Lasix 40 mg IV for acute CHF and Invanz for acute on chronic UTI with good response. The differential diagnoses for acute CHF considered include but are not limited to asthma, COPD, pneumonia, pulmonary embolus, pleural effusion, congestive heart failure. The differential diagnoses for acute UTI considered include but are not limited to cholelithiasis, cholecystitis, cystitis, pancreatitis, hepatitis, gastritis, peptic ulcer disease, gastric ulcer, appendicitis, diverticulitis, cholangitis, choledocholithiasis, partial small bowel obstruction. Departure Diagnosis: Primary Impression: CHF (congestive heart failure) Additional Impression: UTI (urinary tract infection) Condition: Stable Comments I discussed the findings with the patient. I discussed the patient with the hospitalist Dr. Lee at 5:45 AM who was made aware of the lab, the treatment , the patient condition. The patient is admitted to Tel Disclaimer: Inadvertent spelling and grammatical errors are likely due to EHR/ dictation software use and do not reflect on the overall quality of patient care. Also, please note that the electronic time recorded on this note does not necessarily reflect the actual time of the patient encounter. ALAN BROWN MD May 08, 2017 03:47
[2017-05-08] MEDS ORDERED: HYDROmorphONE 1 MG/ML SYG IV STA ×2 (03:56→04:54)
--- NOTE | 2017-05-08 04:47 | RADRPT ---
PROCEDURE: XR Chest. CLINICAL INDICATION: Possible Sepsis TECHNIQUE: Single portable view of the chest was obtained COMPARISON: 04/26/2017. FINDINGS: There is stable moderately severe cardiomegaly. Bilateral, left greater than right interstitial dise ase is again demonstrated with considerations including asymmetric pulmonary edema and infectious/in flammatory changes. There is no consolidation or pleural effusion. IMPRESSION: 1. Left greater than right interstitial disease similar to examination dated 04/26/2017. Diagnostic considerations include asymmetric pulmonary edema and infectious/inflammatory changes. 2. Stable moderately severe cardiomegaly. RPTAT: HRSR Physician Brigido Date Time Electronically viewed and signed by Sabi Mendez Physician on 05/08/2017 04:47 RR/
[2017-05-08] MEDS ORDERED: PHENAZOPYRIDINE 100 MG TAB PO ONE (05:00)
[2017-05-08 05:10] LABS: BASOPHIL # 0.1 10^3/ul (0.0-0.1); BASOPHILS % 0.5 % (0.0-2.0); EOSINOPHILS # 0.1 10^3/ul (0.0-0.5); EOSINOPHILS % 0.8 % (0.0-7.0); HEMATOCRIT 41.7 % (42.0-52.0); HEMOGLOBIN 13.6 g/dl (14.0-18.0); LYMPHOCYTES # 1.3 10^3/ul (0.8-2.9); LYMPHOCYTES % 7.5 % (15.0-51.0); MEAN CORPUSCULAR HEMOGLOBIN 32.1 pg (29.0-33.0); MEAN CORPUSCULAR HGB CONC 32.6 g/dl (32.0-37.0); MEAN CORPUSCULAR VOLUME 98.3 fl (82.0-101.0); MEAN PLATELET VOLUME 8.5 fl (7.4-10.4); MONOCYTE # 0.8 10^3/ul (0.3-0.9); MONOCYTES % 4.7 % (0.0-11.0); NEUTROPHIL # 14.5 10^3/ul (1.6-7.5); PLATELET COUNT 236 10^3/UL (140-415); RED BLOOD COUNT 4.24 10^6/ul (4.70-6.10); RED CELL DISTRIBUTION WIDTH 16.9 % (11.5-14.5); WHITE BLOOD COUNT 16.8 10^3/ul (4.8-10.8)
[2017-05-08 05:25] LABS: ALANINE AMINOTRANSFERASE 43 IU/L (13-69); ALBUMIN 4.1 g/dl (3.3-4.9); ALKALINE PHOSPHATASE 89 IU/L (42-121); ANION GAP 13 (8-16); ASPARTATE AMINO TRANSFERASE 25 IU/L (15-46); BILIRUBIN,INDIRECT 0.2 mg/dl (0-1.1); BILIRUBIN,TOTAL 0.2 mg/dl (0.2-1.3); BLOOD UREA NITROGEN 16 mg/dl (7-20); CALCIUM 9.6 mg/dl (8.4-10.2); CARBON DIOXIDE 28 mmol/L (21-31); CHLORIDE 107 mmol/L (97-110); CREATININE 0.96 mg/dl (0.61-1.24); GLUCOSE 128 mg/dl (70-220); POTASSIUM 4.4 mmol/L (3.5-5.1); SODIUM 144 mmol/L (135-144); TOTAL PROTEIN 7.8 g/dl (6.1-8.1)
[2017-05-08 05:25] LABS: ADD UMIC YES; UR ASCORBIC ACID NEGATIVE (NEGATIVE); UR BACTERIA FEW /HPF (NONE SEEN); UR BILIRUBIN (Dip) NEGATIVE (NEGATIVE); UR BLOOD (Dip) 2+ mg/dL (NEGATIVE); UR BUDDING YEAST FEW /HPF (NONE SEEN); UR CLARITY CLOUDY (CLEAR); UR COLOR YELLOW (YELLOW); UR GLUCOSE (Dip) NEGATIVE (NEGATIVE); UR KETONES (Dip) NEGATIVE (NEGATIVE); UR LEUKOCYTE ESTERASE (Dip) 3+ Leu/ul (NEGATIVE); UR NITRITE (Dip) POSITIVE (NEGATIVE); UR RBC 21 /HPF (0-5); UR SPECIFIC GRAVITY (Dip) 1.016 (1.003-1.030); UR SQUAMOUS EPITHELIAL CELL FEW /HPF (FEW); UR TOTAL PROTEIN (Dip) 1+ mg/dl (NEGATIVE); UR UROBILINOGEN (Dip) NEGATIVE (NEGATIVE)
[2017-05-08] MEDS ORDERED: LORAZEPAM 2 MG INJ IV ONE (05:30)
[2017-05-08 05:31] LABS: INR 1.68; PROTIME 19.9 Sec (12.2-14.2); PT RATIO 1.6
[2017-05-08 05:32] LABS: PARTIAL THROMBOPLASTIN TIME 33.7 Sec (25.0-35.0)
[2017-05-08 05:42] LABS: TROPONIN-I < 0.012 ng/ml (0.00-0.12)
[2017-05-08] MEDS ORDERED: FUROSEMIDE 40 MG INJ IV ONE (06:00)
[2017-05-08] MEDS ORDERED: ERTAPENEM SODIUM 1 GM in SOD CHLORIDE 0.9% 100 ML IVPB ONE (06:00)
[2017-05-08] MEDS ORDERED: ACETAMINOPHEN 325 MG TAB PO PRN (07:30)
[2017-05-08] MEDS ORDERED: ONDANSETRON 4 MG INJ IV PRN ×2 (07:30→08:30)
[2017-05-08] MEDS ORDERED: NACL 0.9% 3 ML SYG IV SCH ×2 (07:30→08:30)
[2017-05-08] MEDS ORDERED: ALBUTEROL/IPRATROPIUM (NEB) 3 ML AMP HHN PRN (08:00)
--- NOTE | 2017-05-08 08:09 | HP ---
Date/Time of Note Date/Time of Note DATE: 05/08/17 TIME: 08:09 Assessment/Plan VTE Prophylaxis VTE Prophylaxis Intervention: LMWH Assessment/Plan Assessment/Plan 1. Urinary tract infection - Patient states dysuria improved after discharge but returned and was worse last night which brought him back to the ED - Found to have VRE during last visit and repeat cultures obtained - ID consultation placed for further recommendations - Will get Urology on board as well - On Linezolid 600mg IV BID - Pyridium for dysuria 2. Pulmonary edema - Lasix dose given in ED and will monitor - Respiratory status stable at this time. If worsening will consider Pulm consult - incentive spirometry ordered 3. Shortness of breath secondary to #1 - improving 4. Acute on chronic diastolic heart failure - CXR shows pulmonary edema but no effusions - lasix IV - monitor I/O and daily weights - BNP 570 5. Cardiomegaly - stable 6. Chronic back pain - Continued on home medications 7. Atrial fibrillation - in sinus rhythm. Continue on amio and BB 8. Chronic PE - INR subtherapeutic - Bridging Lovenox to Coumadin. Will need to see about cost of NOAC since may be a better option given patient seems to always be subtherapeutic 9. HTN - stable 10. 9mm nodule - outpatient monitoring 11. Code Status - Full 12. GI ppx - Pepcid 13. DVT ppx - LMWH 14. Diet - Cardiac 15. Disposition - Admit to telemetry HPI/ROS Admit Date/Time Admit Date/Time May 08, 2017 at 05:39 Hx of Present Illness 57 yo M with PMH Chronic back pain, atrial fibrillation, h/o PE, and HTN presented to ED c/o worsening shortness of breath, palpitations, and dysuria that started last night. Patient was recently discharged from [facility] after being treated from Sepsis secondary to community acquired pneumonia and found to have VRE UTI. Patient states after discharge he was experiencing dyspnea on exertion and still had dysuria but was improving. Patient states the pain with urination is severe, burning in nature, no discharge, or blood in urine. Denies any chest pain, wheezing, nausea, vomiting, fevers, headaches, or abdominal issues. Shortness of breath has improved and no longer experiencing palpitations. ROS All 12 systems reviewed and pertinent positives as per HPI. All others negative. Constitutional: No diaphoresis, No fatigue, No febrile, No nausea Eyes: no complaints ENT: no complaints Respiratory: cough, shortness of breath, No sputum, No wheezing Cardiovascular: palpitations, No chest pain, No edema, No lightheadedness Gastrointestinal: no complaints, No constipation, No diarrhea, No nausea, No vomiting Genitourinary: dysuria, No bleeding, No discharge, No flank pain, No hematuria Musculoskeletal: back pain Skin: No erythema, No laceration, No pruritis Neurologic: no complaints Endocrine: no complaints Lymphatic: no complaints Psychological: no complaints Immunologic: no complaints PMH/Family/Social Past Medical History Medical History: congestive heart failure, coronary artery disease, GERD, high cholesterol, hypertension, urinary tract infection, other (COPD, PE) Past Surgical History IVC filter, cardiac cath, right wrist metallic fixation device Past Surgical Hx: other Family History Significant Family History: no pertinent family hx Social History Alcohol Use: rarely Smoking Status: Former smoker Drug Use: none Exam/Review of Systems Vital Signs Vitals Vital Signs Date Time Temp Pulse Resp B/P Pulse Ox O2 Delivery O2 Flow Rate FiO2 05/08/17 07:33 103 05/08/17 06:45 16 148/88 98 Room Air Nasal Cannula 05/08/17 03:49 98.7 05/08/17 03:45 2 Exam Constitutional: alert, oriented, well developed Psych: no complaints Head: atraumatic, normocephalic Eyes: EOMI, PERRL, nl sclera ENMT: mucosa pink and moist Neck: non-tender, supple Respiratory: clear to auscultation, crackles/rales, No labored breathing, No wheezing Cardiovascular: nl pulses, other (tachycardia, regular rhythm), No edema, No murmurs/extra sounds, No systolic murmur Gastrointestinal: bowel sounds, non-tender, soft, No distended, No rebound or guarding Genitourinary - Male: No CVA tenderness, No discharge Musculoskeletal: nl extremities to inspection Extremities: normal pulses, No cyanosis, No edema 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 CLINICAL INDICATION: Possible Sepsis TECHNIQUE: Single portable view of the chest was obtained COMPARISON: 04/26/2017. FINDINGS: There is stable moderately severe cardiomegaly. Bilateral, left greater than right interstitial disease is again demonstrated with considerations including asymmetric pulmonary edema and infectious/inflammatory changes. There is no consolidation or pleural effusion. IMPRESSION: 1. Left greater than right interstitial disease similar to examination dated . Diagnostic considerations include asymmetric pulmonary edema and infectious/inflammatory changes. 2. Stable moderately severe cardiomegaly. ABHI HARE MD May 08, 2017 08:09
[2017-05-08] MEDS ORDERED: MAGNESIUM HYDROXIDE 30ML CUP PO PRN (08:30)
[2017-05-08] MEDS ORDERED: DOCUSATE SODIUM 100 MG CAP PO PRN (08:30)
[2017-05-08] MEDS: ALBUTEROL/IPRATROPIUM (NEB) 3 ML AMP HHN SCH ×4 (09:00→20:53)
[2017-05-08] MEDS ORDERED: ALBUTEROL 0.083% (NEB) 2.5 MG/3 ML AMP HHN PRN (09:00)
[2017-05-08] MEDS: LINEZOLID 600 MG/D5W (PMX) 300 ML IVPB SCH ×2 (09:42→21:01)
[2017-05-08] MEDS: oxyCODONE (CR) 10 MG TAB [oxyCONTIN] PO SCH ×2 (09:43→20:26)
[2017-05-08] MEDS: LOSARTAN 50 MG TAB PO SCH (09:44)
[2017-05-08] MEDS: FAMOTIDINE 20 MG TAB PO SCH ×2 (09:44→20:26)
[2017-05-08] MEDS: AMIODARONE 200 MG TAB PO SCH (09:44)
[2017-05-08] MEDS: ENOXAPARIN 80 MG/0.8 ML SYG SC SCH ×2 (09:48→20:34)
[2017-05-08] MEDS: BACLOFEN 10 MG TAB PO SCH ×3 (11:26→20:25)
[2017-05-08] MEDS: ERTAPENEM SODIUM 1 GM in SOD CHLORIDE 0.9% 100 ML IVPB SCH (12:42)
[2017-05-08] MEDS: oxyCODONE 5 MG TAB PO PRN ×2 (12:48→17:06)
[2017-05-08] MEDS: ACETAMINOPHEN 325 MG TAB PO PRN (15:36)
--- NOTE | 2017-05-08 15:38 | CONS ---
DATE OF ADMISSION: 05/08/2017 DATE OF CONSULTATION: 05/08/2017 TYPE OF CONSULTATION: Infectious Disease. REASON FOR CONSULTATION: Antibiotic management. HISTORY OF PRESENT ILLNESS: Eulogio Gomez is a 57-year-old male who comes in with numerous problems and is being seen for antibiotic management. His past problems include: 1. Chronic back pain. 2. Atrial fibrillation. 3. History of pulmonary embolus. 4. Hypertension. Acutely he presented with shortness of breath, palpitations and dysuria that started the night prior to admission. He was recently at [facility] treated for sepsis secondary to community-acq uired pneumonia. He had VRE in the urine. He states that after discharge, he was experiencing dysp bentley on exertion and still has dysuria, but that was improving. Dysuria now is severe and burning in nature. He denies any chest pain, wheezing, nausea, vomiting, headaches. His shortness of breath is slightly better and he is no longer experiencing palpitations. On admission, his white count 16. 8, H and H 13.6 and 41.7, platelet count 236,000. BUN and creatinine 16/0.96. His glucose is 128 r andom. PAST SURGICAL HISTORY: He has an IVC filter. He had cardiac catheterization, right wrist metallic fixation device. PAST MEDICAL HISTORY: He has coronary artery disease as noted. He has GERD, hypercholesterolemia, in addition to his hypertension, history of urinary tract infection. He also has COPD and history o f pulmonary emboli. FAMILY HISTORY: Noncontributory. SOCIAL HISTORY: He is a former smoker. He does not drink or abuse drugs. ALLERGIES: NONE TO PENICILLIN, SULFA OR FOODS. MEDICATIONS: Per chart. REVIEW OF SYSTEMS: Noncontributory. PHYSICAL EXAMINATION: GENERAL: The patient is a well-developed, well-nourished male who is alert, responsive, in no acute distress. VITAL SIGNS: Stable. He is afebrile. SKIN: Without generalized rash. HEENT: Within normal limits. NECK: Supple. LYMPH NODES: None palpable. CHEST: Decreased breath sounds at the bases. HEART: Without murmur or gallop. He is tachycardic. ABDOMEN: Soft, nontender, without organosplenomegaly or masses. EXTREMITIES: Without cyanosis, clubbing, or edema. RECTAL/GENITAL: Exam is deferred. NEUROLOGIC: No focal neurological abnormalities. He has chronic stasis changes in his ankles bilat erally. IMAGING: Chest x-ray shows severe cardiomegaly, bilateral left greater than right interstitial dise ase which could be asymmetric pulmonary edema or infectious or inflammatory changes. There is no co nsolidation or pleural effusion. IMPRESSION AND PLAN: The patient was started on linezolid (Zyvox). He also received a dose of erta penem (Invanz). His urine shows positive for nitrite, 3+ leukocyte esterase, 170 white cells per hi gh powered field, so my impression would be that Eulogio Gomez presents with significant urinary trac t infection, as well as some congestive heart failure, possibly pneumonitis, though doubtful. He is on Zyvox. He should be continued on ertapenem (Invanz). I will dictate my findings to the hospita list. Dictated By: UVALDO OCHOA MD, JD/YOUNG Conf#: [id number] DID#: [id number]
[2017-05-08] MEDS ORDERED: WARFARIN 5 MG TAB PO SCH (17:00)
[2017-05-08] MEDS: METHENAMINE 1 GM TAB PO SCH (18:51)
[2017-05-08] MEDS: TAMSULOSIN (SR) 0.4 MG CAP PO SCH (20:24)
[2017-05-08] MEDS: NYSTATIN 30 GM POWDER BTL TOP SCH (20:25)
[2017-05-08] MEDS: traZODone 100 MG TAB PO SCH (20:26)
[2017-05-08] MEDS ORDERED: PHENAZOPYRIDINE 200 MG TAB PO SCH (21:00)
[2017-05-09] VITALS (13 sets, daily range): BP systolic 108–175; BP diastolic 60–100; PULSE 68–88; RESP 16–20
[2017-05-09] MEDS: ALBUTEROL/IPRATROPIUM (NEB) 3 ML AMP HHN SCH ×6 (01:00→20:19)
[2017-05-09] MEDS: oxyCODONE 5 MG TAB PO PRN (01:08)
[2017-05-09] MEDS ORDERED: morphine 2 MG INJ IV ONE (02:00)
[2017-05-09] MEDS ORDERED: HYDROmorphONE 1 MG/ML SYG IV STA (07:29)
[2017-05-09 07:45] LABS: BASOPHIL # 0.1 10^3/ul (0.0-0.1); BASOPHILS % 0.7 % (0.0-2.0); EOSINOPHILS # 0.2 10^3/ul (0.0-0.5); EOSINOPHILS % 2.2 % (0.0-7.0); HEMATOCRIT 39.4 % (42.0-52.0); HEMOGLOBIN 12.4 g/dl (14.0-18.0); LYMPHOCYTES # 1.5 10^3/ul (0.8-2.9); LYMPHOCYTES % 17.8 % (15.0-51.0); MEAN CORPUSCULAR HEMOGLOBIN 31.2 pg (29.0-33.0); MEAN CORPUSCULAR HGB CONC 31.5 g/dl (32.0-37.0); MEAN PLATELET VOLUME 8.6 fl (7.4-10.4); MONOCYTE # 0.5 10^3/ul (0.3-0.9); MONOCYTES % 5.8 % (0.0-11.0); NEUTROPHIL # 6.3 10^3/ul (1.6-7.5); PLATELET COUNT 195 10^3/UL (140-415); RED BLOOD COUNT 3.98 10^6/ul (4.70-6.10); RED CELL DISTRIBUTION WIDTH 17.2 % (11.5-14.5); WHITE BLOOD COUNT 8.7 10^3/ul (4.8-10.8)
[2017-05-09 08:05] LABS: INR 1.58; PARTIAL THROMBOPLASTIN TIME 43.4 Sec (25.0-35.0); PT RATIO 1.5
[2017-05-09 08:14] LABS: ALBUMIN 3.9 g/dl (3.3-4.9); ALBUMIN/GLOBULIN RATIO 1.3; BILIRUBIN,INDIRECT 0.6 mg/dl (0-1.1); BILIRUBIN,TOTAL 0.6 mg/dl (0.2-1.3); CALCIUM 8.8 mg/dl (8.4-10.2); CREATININE 0.85 mg/dl (0.61-1.24); POTASSIUM 4.6 mmol/L (3.5-5.1); TOTAL PROTEIN 6.9 g/dl (6.1-8.1)
[2017-05-09] MEDS: LINEZOLID 600 MG/D5W (PMX) 300 ML IVPB SCH ×2 (09:20→21:13)
[2017-05-09] MEDS: ENOXAPARIN 80 MG/0.8 ML SYG SC SCH ×2 (09:21→21:12)
[2017-05-09] MEDS: METHENAMINE 1 GM TAB PO SCH ×2 (09:21→21:09)
[2017-05-09] MEDS: FAMOTIDINE 20 MG TAB PO SCH ×2 (09:21→21:09)
[2017-05-09] MEDS: oxyCODONE (CR) 10 MG TAB [oxyCONTIN] PO SCH ×2 (09:22→21:10)
[2017-05-09] MEDS: BACLOFEN 10 MG TAB PO SCH ×3 (09:22→21:10)
[2017-05-09] MEDS: AMIODARONE 200 MG TAB PO SCH (09:22)
[2017-05-09] MEDS: LOSARTAN 50 MG TAB PO SCH (09:23)
[2017-05-09] MEDS: NYSTATIN 30 GM POWDER BTL TOP SCH ×2 (09:23→21:14)
[2017-05-09] MEDS: FUROSEMIDE 40 MG INJ IV SCH (09:23)
--- NOTE | 2017-05-09 09:38 | RADRPT ---
PROCEDURE: US Scrotum. CLINICAL INDICATION: Scrotal pain. TECHNIQUE: Multiple sonographic images of the scrotal region were obtained utilizing a linear arra y transducer with grayscale and color-flow and pulsed Doppler imaging. The images were reviewed on a high-resolution PACS workstation. COMPARISON: No prior studies are available for comparison. FINDINGS: The right testis measures 2.9 x 2.5 x 4.7 cm. The left testis measures 3.3 x 2.0 x 4.3 cm. There is no intratesticular mass. The epididymi are normal. There is normal flow to both testes demonstrated with color Doppler and pulsed Doppler sonography. There is no hydrocele. There is no varicocele. The scrotal wall is unremarkable. IMPRESSION: 1. Unremarkable scrotal ultrasound. RPTAT: QQ .Lencho Arnett MD, Date Time Electronically viewed and signed by .Lencho Arnett MD, on 05/09/2017 09:38 .R/
[2017-05-09] MEDS: ERTAPENEM SODIUM 1 GM in SOD CHLORIDE 0.9% 100 ML IVPB SCH (12:07)
--- NOTE | 2017-05-09 13:31 | PN ---
Date/Time of Note Date/Time of Note DATE: 05/09/17 TIME: 13:31 Assessment/Plan VTE Prophylaxis VTE Prophylaxis Intervention: LMWH Lines/Catheters IV C[facility]ter Type ([facility] Saline Lock Urinary Cath still in place: No Assessment/Plan Assessment/Plan 1. Urinary tract infection - Still experiencing dyruria with hesitency to urinary due to pain - Urology, Dr. Mcgregor, consulted for further recommendations - ID on board and recommendations appreciated - Urine cultures pending but grew VRE on last admission. - On Linezolid 600mg IV BID and Ertapenem - Hiprex for dysuria since Pyridium not effective - Dilaudid PRN 2. Pulmonary edema - Lasix dose given in ED and will monitor - Respiratory status stable at this time. - incentive spirometry ordered 3. Shortness of breath secondary to #1 - resolved 4. Acute on chronic diastolic heart failure - CXR shows pulmonary edema but no effusions - lasix IV - monitor I/O and daily weights - BNP 570 5. Cardiomegaly - stable 6. Chronic back pain - Continued on home medications 7. Atrial fibrillation - in sinus rhythm. Continue on amio and BB 8. Chronic PE - INR subtherapeutic - Bridging Lovenox to Coumadin. Will need to see about cost of NOAC since may be a better option given patient seems to always be subtherapeutic - Given Warfarin 10mg tonight and continue dosing daily with goal INR 2-3 9. HTN - stable 10. 9mm nodule - outpatient monitoring 11. Disposition - Continue monitoring on telemetry - Pending Urology consultation Subjective 24 Hr Interval Summary Free Text/Dictation Patient states had a bad night and experiencing extreme pain in bladder area as well as head of penis. States he feels like he has an obstruction and when he tries to urinate he feels like he is urinating into his bladder. Pain relief with Dilaudid. Exam/Review of Systems Vital Signs Vitals Vital Signs Date Time Temp Pulse Resp B/P Pulse Ox O2 Delivery O2 Flow Rate FiO2 05/09/17 12:08 82 05/09/17 12:02 98.0 18 128/85 95 05/09/17 07:48 21 05/09/17 07:40 Nasal Cannula 2.0 Intake and Output 05/08/17 05/08/17 05/09/17 15:00 23:00 07:00 Intake Total 1200 ml 700 ml Output Total 500 ml Balance 1200 ml 200 ml Exam Constitutional: alert, oriented, well developed, distress secondary to pain Neck: non-tender, supple Respiratory: clear to auscultation, crackles/rales, No labored breathing, No wheezing Cardiovascular: nl pulses, regular rate and rhythm, No edema, No murmurs/extra sounds, No systolic murmur Gastrointestinal: bowel sounds, non-tender, soft, No distended, No rebound or guarding Genitourinary - suprapubic discomfort, head of penis dry skin with erythema Musculoskeletal: nl extremities to inspection Extremities: normal pulses, No cyanosis, No edema 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: HEARING EXAMINER II-XII intact, nl mental status, nl speech Skin: chronic stasis changes ankles bilaterally, chronic ulcer left toe Results Result Diagram: 05/09/1710 05/09/1710 Results 24 hrs Laboratory Tests Test 05/09/17 07:10 White Blood Count 8.7 # Red Blood Count 3.98 L Hemoglobin 12.4 L Hematocrit 39.4 L Mean Corpuscular Volume 99.0 Mean Corpuscular Hemoglobin 31.2 Mean Corpuscular Hemoglobin Concent 31.5 L Red Cell Distribution Width 17.2 H Platelet Count 195 Mean Platelet Volume 8.6 Neutrophils % 73.0 Lymphocytes % 17.8 Monocytes % 5.8 Eosinophils % 2.2 Basophils % 0.7 Nucleated Red Blood Cells % 0.0 Neutrophils # 6.3 Lymphocytes # 1.5 Monocytes # 0.5 Eosinophils # 0.2 Basophils # 0.1 Nucleated Red Blood Cells # 0.0 Prothrombin Time 19.0 H Prothrombin Time Ratio 1.5 INR International Normalized Ratio 1.58 Activated Partial Thromboplast Time 43.4 H Sodium Level 138 Potassium Level 4.6 Chloride Level 101 Carbon Dioxide Level 26 Anion Gap 16 Blood Urea Nitrogen 13 Creatinine 0.85 Glucose Level 139 Lactic Acid Level 1.4 Calcium Level 8.8 Magnesium Level 2.0 Total Bilirubin 0.6 Direct Bilirubin 0.00 Indirect Bilirubin 0.6 Aspartate Amino Transf (AST/SGOT) 22 Alanine Aminotransferase (ALT/SGPT) 40 Alkaline Phosphatase 69 Total Protein 6.9 Albumin 3.9 Globulin 3.00 Albumin/Globulin Ratio 1.30 Medications Medications Current Medications Ondansetron HCl (Zofran Inj) 4 mg Q6H PRN IV NAUSEA AND/OR VOMITING; Start 05/08/17 at 07:30 Amiodarone HCl (Cordarone) 200 mg DAILY PO Last administered on 05/09/17 09:22 ; Admin Dose 200 MG; Start 05/08/17 at 09:00 Carvedilol (Coreg) 3.125 mg BID PO Last administered on 05/09/17 09:22; Admin Dose 3.125 MG; Start 05/08/17 at 09:00 Losartan Potassium (Cozaar) 100 mg DAILY PO Last administered on 05/09/17 09: 23; Admin Dose 100 MG; Start 05/08/17 at 09:00 Tamsulosin HCl (Flomax) 0.4 mg HS PO Last administered on 05/08/17 20:24; Admin Dose 0.4 MG; Start 05/08/17 at 21:00 Acetaminophen (Tylenol Tab) 650 mg Q6H PRN PO PAIN LEVEL 1-3 OR FEVER Last administered on 05/08/17 15:36; Admin Dose 650 MG; Start 05/08/17 at 08:30 Docusate Sodium (Colace) 100 mg Q12H PRN PO CONSTIPATION; Start 05/08/17 at 08: 30 Magnesium Hydroxide (Milk Of Mag) 30 ml DAILY PRN PO CONSTIPATION; Start at 08:30 Famotidine 20 mg 20 mg Q12 PO Last administered on 05/09/17 09:21; Admin Dose 20 MG; Start 05/08/17 at 09:00 Linezolid (Zyvox 600mg/D5W (Pmx)) 300 ml @ 300 mls/hr Q12 IVPB Last administered on 05/09/17 09:20; Admin Dose 300 MLS/HR; Start 05/08/17 at 09:00 Enoxaparin Sodium (Lovenox) 140 mg Q12 SC Last administered on 05/09/17 09:21 ; Admin Dose 140 MG; Start 05/08/17 at 09:00 Baclofen (Lioresal) 10 mg TID PO Last administered on 05/09/17 12:07; Admin Dose 10 MG; Start 05/08/17 at 10:00 Oxycodone HCl (Oxycontin) 10 mg BID PO Last administered on 05/09/17 09:22; Admin Dose 10 MG; Start 05/08/17 at 09:00 Trazodone HCl (Desyrel) 100 mg HS PO Last administered on 05/08/17 20:26; Admin Dose 100 MG; Start 05/08/17 at 21:00 Oxycodone HCl (Roxicodone) 15 mg Q4H PRN PO PAIN Last administered on 01:08; Admin Dose 15 MG; Start 05/08/17 at 09:00 Albuterol/ Ipratropium 3 ml 3 ml Q4HWA HHN Last administered on 05/09/17 12:46 ; Admin Dose 3 ML; Start 05/08/17 at 09:00 Ertapenem/Sodium Chloride (Invanz/NS) 100 ml @ 200 mls/hr Q24H IVPB Last administered on 05/09/17 12:07; Admin Dose 200 MLS/HR; Start 05/08/17 at 12:00 Furosemide (Lasix) 40 mg DAILY IV Last administered on 05/09/17 09:23; Admin Dose 40 MG; Start 05/09/17 at 09:00 Nystatin (Nystatin Powder) 1 applic BID TOP Last administered on 05/09/17 09: 23; Admin Dose 1 APPLIC; Start 05/08/17 at 21:00 Methenamine (Hiprex) 1 gm BID PO Last administered on 05/09/17 09:21; Admin Dose 1 GM; Start 05/08/17 at 18:30 ABHI HARE MD May 09, 2017 13:31
[2017-05-09] MEDS: HYDROmorphONE 1 MG/ML SYG IV PRN ×3 (14:08→23:32)
--- NOTE | 2017-05-09 14:42 | CONS ---
Date/Time of Note Date/Time of Note DATE: 05/09/17 TIME: 14:33 Assessment/Plan Assessment/Plan Chief Complaint/Hosp Course ID PROGRESS NOTE CURRENT ABX: Day #2 => Ertapenem 24H INTERVAL SUMMARY * Awake, alert, responsive,obese, feels ill, tells me he had UTI before and was told MDRO....doesn't understand how he gets UTI...tells me he may have to go back to [facility] to figure this out? * I told him GNR UTI pending ID and sensitivities -- will have more information hopefully tomorrow. * MICRO: * BCx (-) * Urine Cx Ernie: 05/08/173100 Source: CATHETER U Microbiology URINE CULTURE Preliminary Organism 1 GRAM NEGATIVE RAJAN COLONY COUNT >100,000 CFU/ml ---- PHYSICAL EXAMINATION: GENERAL: Awake, alert, VSS, NAD HEENT: Unremarkable NECK: Trach midline CHEST: Rise symmetrical, without dyspnea on room air HEART: Pulse RRR ABDOMEN: Soft, benign EXTREMITIES: Warm, moves all extremities ID ASSESSMENT 57 yo obese M admit with: 1. Recurrent SIRS w/leukocytosis, tachycardia, w/ acute SOB 2. Recurrent UTI => GNR Pending * s/p recent VRE UTI -> S/p Zyvox 3. s/p acute respiratory distress due to pulmonary edema 4. Acute on chronic diastolic heart failure w/ BNP 570 5. HTN heart disease w/cardiomegaly 6. Atrial fibrillation 7. Chronic PE 8. Chronic back pain 9. 9mm nodule (-)HIV screen INVASIVES: PIV ABX ALLERGY: KNDA CURRENT ABX: Day #2 => Ertapenem ID RECOMMENDATIONS 1. Continue current ABX & f/u on final ID GNR pending . . Problems: Consultation Date/Type/Reason Admit Date/Time May 08, 2017 at 05:39 Initial Consult Date Exam/Review of Systems Vital Signs Vitals Vital Signs Date Time Temp Pulse Resp B/P Pulse Ox O2 Delivery O2 Flow Rate FiO2 05/09/17 12:08 82 05/09/17 12:02 98.0 18 128/85 95 05/09/17 07:48 21 05/09/17 07:40 Nasal Cannula 2.0 Intake and Output 05/08/17 05/08/17 05/09/17 15:00 23:00 07:00 Intake Total 1200 ml 700 ml Output Total 500 ml Balance 1200 ml 200 ml Results Result Diagram: 05/09/17 0710 05/09/17 0710 Results 24 hrs Laboratory Tests Test 05/09/17 07:10 White Blood Count 8.7 # Red Blood Count 3.98 L Hemoglobin 12.4 L Hematocrit 39.4 L Mean Corpuscular Volume 99.0 Mean Corpuscular Hemoglobin 31.2 Mean Corpuscular Hemoglobin Concent 31.5 L Red Cell Distribution Width 17.2 H Platelet Count 195 Mean Platelet Volume 8.6 Neutrophils % 73.0 Lymphocytes % 17.8 Monocytes % 5.8 Eosinophils % 2.2 Basophils % 0.7 Nucleated Red Blood Cells % 0.0 Neutrophils # 6.3 Lymphocytes # 1.5 Monocytes # 0.5 Eosinophils # 0.2 Basophils # 0.1 Nucleated Red Blood Cells # 0.0 Prothrombin Time 19.0 H Prothrombin Time Ratio 1.5 INR International Normalized Ratio 1.58 Activated Partial Thromboplast Time 43.4 H Sodium Level 138 Potassium Level 4.6 Chloride Level 101 Carbon Dioxide Level 26 Anion Gap 16 Blood Urea Nitrogen 13 Creatinine 0.85 Glucose Level 139 Lactic Acid Level 1.4 Calcium Level 8.8 Magnesium Level 2.0 Total Bilirubin 0.6 Direct Bilirubin 0.00 Indirect Bilirubin 0.6 Aspartate Amino Transf (AST/SGOT) 22 Alanine Aminotransferase (ALT/SGPT) 40 Alkaline Phosphatase 69 Total Protein 6.9 Albumin 3.9 Globulin 3.00 Albumin/Globulin Ratio 1.30 Medications Medications Current Medications Ondansetron HCl (Zofran Inj) 4 mg Q6H PRN IV NAUSEA AND/OR VOMITING; Start 05/08/17 at 07:30 Amiodarone HCl (Cordarone) 200 mg DAILY PO Last administered on 05/09/17 09:22 ; Admin Dose 200 MG; Start 05/08/17 at 09:00 Carvedilol (Coreg) 3.125 mg BID PO Last administered on 05/09/17 09:22; Admin Dose 3.125 MG; Start 05/08/17 at 09:00 Losartan Potassium (Cozaar) 100 mg DAILY PO Last administered on 05/09/17 09: 23; Admin Dose 100 MG; Start 05/08/17 at 09:00 Tamsulosin HCl (Flomax) 0.4 mg HS PO Last administered on 05/08/17 20:24; Admin Dose 0.4 MG; Start 05/08/17 at 21:00 Acetaminophen (Tylenol Tab) 650 mg Q6H PRN PO PAIN LEVEL 1-3 OR FEVER Last administered on 05/08/17 15:36; Admin Dose 650 MG; Start 05/08/17 at 08:30 Docusate Sodium (Colace) 100 mg Q12H PRN PO CONSTIPATION; Start 05/08/17 at 08: 30 Magnesium Hydroxide (Milk Of Mag) 30 ml DAILY PRN PO CONSTIPATION; Start at 08:30 Famotidine 20 mg 20 mg Q12 PO Last administered on 05/09/17 09:21; Admin Dose 20 MG; Start 05/08/17 at 09:00 Linezolid (Zyvox 600mg/D5W (Pmx)) 300 ml @ 300 mls/hr Q12 IVPB Last administered on 05/09/17 09:20; Admin Dose 300 MLS/HR; Start 05/08/17 at 09:00 Enoxaparin Sodium (Lovenox) 140 mg Q12 SC Last administered on 05/09/17 09:21 ; Admin Dose 140 MG; Start 05/08/17 at 09:00 Baclofen (Lioresal) 10 mg TID PO Last administered on 05/09/17 12:07; Admin Dose 10 MG; Start 05/08/17 at 10:00 Oxycodone HCl (Oxycontin) 10 mg BID PO Last administered on 05/09/17 09:22; Admin Dose 10 MG; Start 05/08/17 at 09:00 Trazodone HCl (Desyrel) 100 mg HS PO Last administered on 05/08/17 20:26; Admin Dose 100 MG; Start 05/08/17 at 21:00 Oxycodone HCl (Roxicodone) 15 mg Q4H PRN PO PAIN Last administered on 01:08; Admin Dose 15 MG; Start 05/08/17 at 09:00 Albuterol/ Ipratropium 3 ml 3 ml Q4HWA HHN Last administered on 05/09/17 12:46 ; Admin Dose 3 ML; Start 05/08/17 at 09:00 Ertapenem/Sodium Chloride (Invanz/NS) 100 ml @ 200 mls/hr Q24H IVPB Last administered on 05/09/17 12:07; Admin Dose 200 MLS/HR; Start 05/08/17 at 12:00 Furosemide (Lasix) 40 mg DAILY IV Last administered on 05/09/17 09:23; Admin Dose 40 MG; Start 05/09/17 at 09:00 Nystatin (Nystatin Powder) 1 applic BID TOP Last administered on 05/09/17 09: 23; Admin Dose 1 APPLIC; Start 05/08/17 at 21:00 Methenamine (Hiprex) 1 gm BID PO Last administered on 05/09/17 09:21; Admin Dose 1 GM; Start 05/08/17 at 18:30 Hydromorphone HCl (Dilaudid) 1 mg Q4H PRN IV PAIN Last administered on 14:08; Admin Dose 1 MG; Start 05/09/17 at 14:30 DUY BATISTA NP May 09, 2017 14:42
[2017-05-09] MEDS ORDERED: WARFARIN 10 MG TAB PO ONE (17:00)
--- NOTE | 2017-05-09 20:22 | CONS ---
Date/Time of Note Date/Time of Note DATE: 05/09/17 TIME: 20:00 Assessment/Plan Assessment/Plan Chief Complaint/Hosp Course 57-year-old male with recurrent urinary tract infection and long-standing urological problems secondary to urethral strictures. The patient underwent laser urethrotomy once and internal urethrotomy under direct vision another time. Both procedures did not solve his problem and he was supposed to be doing self catheterization/dilatation. He did do it for a while and he states he stopped it about 3-4 months ago. His urinary stream is very weak and he voids every half hour during the day and 15-20 times at night. He most likely does not empty his bladder well and the glans penis is infected and he has balanitis. He will need the infection treated and I will have to try to do urethral dilatation for him and have any idea how bad the stricture is then he may have to resume doing self dilatation to keep his urethra open. I also did order a CT scan of the abdomen and pelvis to check for other causes for his recurrent infection such as bladder stones distended bladder as it is difficult to check the bladder with a bladder scan because of his obesity. Problems: Consultation Date/Type/Reason Admit Date/Time May 08, 2017 at 05:39 Date of Consultation: May 09, 2017 Type of Consultation: Urology Reason for Consultation Recurrent urinary tract infections Referring Provider: ABHI HARE MD Hx of Present Illness 57-year-old male with PMH of Chronic back pain, atrial fibrillation, PE, and HTN presented to ED c/o worsening shortness of breath, palpitations, and dysuria. Patient was recently hospitalized here and had VRE urinary tract infection which was treated. He did improve however after discharge he started having dysuria again and came back to the hospital. The patient does have a long-standing urological problem for the past 4 years . It appears he has a history of urethral strictures and meatal stenosis. He has undergone 2 surgeries for it in the past 2 years, 1 was laser and 1 internal visual urethrotomy. He was also told and has been doing self catheterization/ dilatation but he stopped it for a month ago. He complains he has to urinate every 10-15 minutes, he urinates 15-20 times at night and during the day every half hour. His urinary stream is very slow and weak. About 10 year and half ago he did have an indwelling Briggs catheter for many months and he was having the catheter changed in the emergency room or in the urologist office and at the end he remove the catheter himself and ended needing it again because he went into urinary retention and could not urinate. Also in his history is very important that he did have history of heart failure respiratory failure did have a tracheostomy and G-tube placement and he states he was in a coma for 9 months. Eventually he was able to be weaned off the respirator the tracheostomy closed and the G-tube was removed Constitutional: no complaints Eyes: no complaints ENT: no complaints Respiratory: cough, shortness of breath, No sputum, No wheezing Cardiovascular: palpitations, No chest pain, No edema, No lightheadedness Gastrointestinal: no complaints, No constipation, No nausea, No vomiting Genitourinary: dysuria, other (Urinary frequency and very slow and weak urinary stream and the tip of the penis is infected) Musculoskeletal: back pain Skin: erythema (Of lower extremities), No laceration, No pruritis Neurologic: no complaints Endocrine: polyuria Lymphatic: no complaints Psychological: no complaints Immunologic: no complaints Past Medical History Medical History: congestive heart failure, coronary artery disease, GERD, high cholesterol, hypertension, urinary tract infection, other (COPD, PE,) Past Surgical History Past Surgical Hx: appendectomy (He stated he had appendicitis last year), other (Tracheostomy, G-tube, internal urethrotomy under direct vision once and laser urethrotomy another time.) Social History Alcohol Use: other (2 glasses of wine daily) Smoking Status: Former smoker (Used to smoke half a pack of cigarettes a day for 30 years did not smoke since his last admission to the hospital here last month) Drug Use: none Exam/Review of Systems Vital Signs Vitals Vital Signs Date Time Temp Pulse Resp B/P Pulse Ox O2 Delivery O2 Flow Rate FiO2 05/09/17 16:08 74 05/09/17 15:53 98.0 18 108/60 92 05/09/17 07:48 21 05/09/17 07:40 Nasal Cannula 2.0 Intake and Output 05/08/17 05/08/17 05/09/17 15:00 23:00 07:00 Intake Total 1200 ml 700 ml Output Total 500 ml Balance 1200 ml 200 ml Exam Constitutional: alert, oriented Psych: no complaints Head: normocephalic Eyes: nl conjunctiva ENMT: other (Scarring from the tracheostomy) Neck: other (Scar from the tracheostomy), supple Respiratory: normal air movement Cardiovascular: No jugular venous distention (JVD) Gastrointestinal: other (Rash from folding of the abdomen over the pubic area and in the groins), soft Genitourinary - Male: other (The glans penis is all infected and the meatus is almost closed, he has also balanitis) Musculoskeletal: swelling Extremities: edema, other (Redness and erythema of both lower extremities) Skin: other (Rash lower abdomen and groins) Results Result Diagram: 05/09/1770905/09/1710 Results 24 hrs Laboratory Tests Test 05/09/17 07:10 White Blood Count 8.7 # Red Blood Count 3.98 L Hemoglobin 12.4 L Hematocrit 39.4 L Mean Corpuscular Volume 99.0 Mean Corpuscular Hemoglobin 31.2 Mean Corpuscular Hemoglobin Concent 31.5 L Red Cell Distribution Width 17.2 H Platelet Count 195 Mean Platelet Volume 8.6 Neutrophils % 73.0 Lymphocytes % 17.8 Monocytes % 5.8 Eosinophils % 2.2 Basophils % 0.7 Nucleated Red Blood Cells % 0.0 Neutrophils # 6.3 Lymphocytes # 1.5 Monocytes # 0.5 Eosinophils # 0.2 Basophils # 0.1 Nucleated Red Blood Cells # 0.0 Prothrombin Time 19.0 H Prothrombin Time Ratio 1.5 INR International Normalized Ratio 1.58 Activated Partial Thromboplast Time 43.4 H Sodium Level 138 Potassium Level 4.6 Chloride Level 101 Carbon Dioxide Level 26 Anion Gap 16 Blood Urea Nitrogen 13 Creatinine 0.85 Glucose Level 139 Lactic Acid Level 1.4 Calcium Level 8.8 Magnesium Level 2.0 Total Bilirubin 0.6 Direct Bilirubin 0.00 Indirect Bilirubin 0.6 Aspartate Amino Transf (AST/SGOT) 22 Alanine Aminotransferase (ALT/SGPT) 40 Alkaline Phosphatase 69 Total Protein 6.9 Albumin 3.9 Globulin 3.00 Albumin/Globulin Ratio 1.30 Imaging Free Text/Dictation Scrotal ultrasound unremarkable Medications Medications Current Medications Ondansetron HCl (Zofran Inj) 4 mg Q6H PRN IV NAUSEA AND/OR VOMITING; Start 05/08/17 at 07:30 Amiodarone HCl (Cordarone) 200 mg DAILY PO Last administered on 05/09/17t 09:22 ; Admin Dose 200 MG; Start 05/08/17 at 09:00 Carvedilol (Coreg) 3.125 mg BID PO Last administered on 05/09/17 09:22; Admin Dose 3.125 MG; Start 05/08/17 at 09:00 Losartan Potassium (Cozaar) 100 mg DAILY PO Last administered on 05/09/17 09: 23; Admin Dose 100 MG; Start 05/08/17 at 09:00 Tamsulosin HCl (Flomax) 0.4 mg HS PO Last administered on 05/08/17 20:24; Admin Dose 0.4 MG; Start 05/08/17 at 21:00 Acetaminophen (Tylenol Tab) 650 mg Q6H PRN PO PAIN LEVEL 1-3 OR FEVER Last administered on 05/08/17 15:36; Admin Dose 650 MG; Start 05/08/17 at 08:30 Docusate Sodium (Colace) 100 mg Q12H PRN PO CONSTIPATION; Start 05/08/17 at 08: 30 Magnesium Hydroxide (Milk Of Mag) 30 ml DAILY PRN PO CONSTIPATION; Start at 08:30 Famotidine 20 mg 20 mg Q12 PO Last administered on 05/09/17 09:21; Admin Dose 20 MG; Start 05/08/17 at 09:00 Linezolid (Zyvox 600mg/D5W (Pmx)) 300 ml @ 300 mls/hr Q12 IVPB Last administered on 05/09/17 09:20; Admin Dose 300 MLS/HR; Start 05/08/17 at 09:00 Enoxaparin Sodium (Lovenox) 140 mg Q12 SC Last administered on 05/09/17 09:21 ; Admin Dose 140 MG; Start 05/08/17 at 09:00 Baclofen (Lioresal) 10 mg TID PO Last administered on 05/09/17 12:07; Admin Dose 10 MG; Start 05/08/17 at 10:00 Oxycodone HCl (Oxycontin) 10 mg BID PO Last administered on 05/09/17 09:22; Admin Dose 10 MG; Start 05/08/17 at 09:00 Trazodone HCl (Desyrel) 100 mg HS PO Last administered on 05/08/17 20:26; Admin Dose 100 MG; Start 05/08/17 at 21:00 Oxycodone HCl (Roxicodone) 15 mg Q4H PRN PO PAIN Last administered on 01:08; Admin Dose 15 MG; Start 05/08/17 at 09:00 Albuterol/ Ipratropium 3 ml 3 ml Q4HWA HHN Last administered on 05/09/17 17:07 ; Admin Dose 3 ML; Start 05/08/17 at 09:00 Ertapenem/Sodium Chloride (Invanz/NS) 100 ml @ 200 mls/hr Q24H IVPB Last administered on 05/09/17 12:07; Admin Dose 200 MLS/HR; Start 05/08/17 at 12:00 Furosemide (Lasix) 40 mg DAILY IV Last administered on 05/09/17 09:23; Admin Dose 40 MG; Start 05/09/17 at 09:00 Nystatin (Nystatin Powder) 1 applic BID TOP Last administered on 05/09/17 09: 23; Admin Dose 1 APPLIC; Start 05/08/17 at 21:00 Methenamine (Hiprex) 1 gm BID PO Last administered on 05/09/17 09:21; Admin Dose 1 GM; Start 05/08/17 at 18:30 Hydromorphone HCl (Dilaudid) 1 mg Q4H PRN IV PAIN Last administered on 18:42; Admin Dose 1 MG; Start 05/09/17 at 14:30 STEPH BOWLES MD May 09, 2017 20:11
[2017-05-09] MEDS: TAMSULOSIN (SR) 0.4 MG CAP PO SCH (21:09)
[2017-05-09] MEDS: traZODone 100 MG TAB PO SCH (21:09)
[2017-05-10] VITALS (10 sets, daily range): BP systolic 113–128; BP diastolic 75–84; PULSE 68–86; RESP 16–18
[2017-05-10] MEDS: ALBUTEROL/IPRATROPIUM (NEB) 3 ML AMP HHN SCH ×7 (01:00→21:00)
[2017-05-10] MEDS: HYDROmorphONE 1 MG/ML SYG IV PRN ×5 (03:18→22:18)
[2017-05-10 07:47] LABS: INR 1.74; PROTIME 20.5 Sec (12.2-14.2); PT RATIO 1.6
[2017-05-10 07:48] LABS: PARTIAL THROMBOPLASTIN TIME 42.5 Sec (25.0-35.0)
[2017-05-10] MEDS: LINEZOLID 600 MG/D5W (PMX) 300 ML IVPB SCH (08:50)
[2017-05-10] MEDS: AMIODARONE 200 MG TAB PO SCH (08:52)
[2017-05-10] MEDS: LOSARTAN 50 MG TAB PO SCH (08:52)
[2017-05-10] MEDS: METHENAMINE 1 GM TAB PO SCH ×2 (08:52→21:00)
[2017-05-10] MEDS: FAMOTIDINE 20 MG TAB PO SCH ×2 (08:52→21:00)
[2017-05-10] MEDS: BACLOFEN 10 MG TAB PO SCH ×3 (08:52→21:00)
[2017-05-10] MEDS: FUROSEMIDE 40 MG INJ IV SCH (08:53)
[2017-05-10] MEDS: oxyCODONE (CR) 10 MG TAB [oxyCONTIN] PO SCH ×2 (08:53→21:00)
[2017-05-10] MEDS: ENOXAPARIN 80 MG/0.8 ML SYG SC SCH ×2 (09:03→21:00)
[2017-05-10] MEDS: NYSTATIN 30 GM POWDER BTL TOP SCH ×2 (09:03→21:00)
[2017-05-10] MEDS: ERTAPENEM SODIUM 1 GM in SOD CHLORIDE 0.9% 100 ML IVPB SCH (12:24)
[2017-05-10] MEDS: CEFTRIAXONE 1 GM/50 ML (PMX) 50 ML IVPB SCH (14:17)
--- NOTE | 2017-05-10 15:28 | PN ---
DATE: 05/10/2017 SUBJECTIVE: No acute changes. Patient is awake, looks comfortable, complaining of dysuria, very pa inful urination, no fevers. MICROBIOLOGY: Urine culture on 05/08/2017 growing grew Klebsiella pneumoniae susceptible to all ant ibiotics. ANTIMICROBIALS: He is on: 1. Invanz 2. Zyvox. PHYSICAL EXAMINATION: GENERAL: Obese, well-developed, middle-aged man who is awake, in no distress. HEENT: Head atraumatic, normocephalic. Sclerae anicteric. Buccal mucosa dry. NECK: Supple. CHEST: Rise symmetrical. Breath sounds clear. HEART: S1, S2. ABDOMEN: Soft, bowel tones present. EXTREMITIES: Without cyanosis or edema. ASSESSMENT: 1. Recurrent urinary tract infection. 2. Urethral stricture status post laser ureterotomy and internal ureterotomy without solving the pr oblem. 3. Obesity. 4. Atrial fibrillation. 5. Hypertension. PLAN: 1. The patient remains stable. He is being followed by Dr. Mcgregor in urology consultation. He is on Invanz and Zyvox. He is not a good time candidate for fluoroquinolones because of his underlyin g arrhythmia and being treated with Cordarone. We will discontinue Zyvox, keep him on Invanz or maria l nge it to Rocephin. Continue supportive care. Follow urology recommendations. Dictated By: DIETER BASSETT SALES REPRESENTATIVE TRAINEE for [employer] Conf#: [id number] DID#: [id number]
--- NOTE | 2017-05-10 15:51 | PN ---
Date/Time of Note Date/Time of Note DATE: 05/10/17 TIME: 15:50 Assessment/Plan VTE Prophylaxis VTE Prophylaxis Intervention: ambulation Lines/Catheters [facility] Saline Lock Urinary Cath still in place: No Assessment/Plan Chief Complaint/Hosp Course Assessment/Plan 1. Urinary tract infection - Still experiencing dyruria with hesitency to urinary due to pain - Urology, Dr. Mcgregor, consulted for further recommendations - ID on board and recommendations appreciated - Urine cultures pending but grew VRE on last admission. - On abx per ID - Hiprex for dysuria since Pyridium not effective - Dilaudid PRN 2. Pulmonary edema - Lasix dose given in ED and will monitor - Respiratory status stable at this time. - incentive spirometry ordered 3. Shortness of breath secondary to #1 - resolved 4. Acute on chronic diastolic heart failure - CXR shows pulmonary edema but no effusions - lasix IV - monitor I/O and daily weights - BNP 570 5. Cardiomegaly - stable 6. Chronic back pain - Continued on home medications 7. Atrial fibrillation - in sinus rhythm. Continue on amio and BB 8. Chronic PE - INR subtherapeutic - Bridging Lovenox to Coumadin. patient's insurance does not cover NOAC. Will need to continue coumadin 9. HTN - stable 10. 9mm nodule - outpatient monitoring 11. Disposition - Continue monitoring on telemetry - Pending Urology intervention Problems: Subjective 24 Hr Interval Summary Free Text/Dictation no changes in urination, able to urinate at this time. Exam/Review of Systems Vital Signs Vitals Vital Signs Date Time Temp Pulse Resp B/P Pulse Ox O2 Delivery O2 Flow Rate FiO2 05/10/17 12:13 81 05/10/17 11:46 98.0 18 113/75 93 05/10/17 08:47 21 05/10/17 07:40 Nasal Cannula 2.0 Intake and Output 05/09/17 05/09/17 05/10/17 15:00 23:00 07:00 Intake Total 1150 ml 240 ml Output Total 732 ml 785 ml Balance 418 ml -545 ml Exam Constitutional: alert, oriented, well developed, distress secondary to pain Neck: non-tender, supple Respiratory: clear to auscultation, crackles/rales, No labored breathing, No wheezing Cardiovascular: nl pulses, regular rate and rhythm, No edema, No murmurs/extra sounds, No systolic murmur Gastrointestinal: bowel sounds, non-tender, soft, No distended, No rebound or guarding Genitourinary - suprapubic discomfort, head of penis dry skin with erythema Musculoskeletal: nl extremities to inspection Extremities: normal pulses, No cyanosis, No edema 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: ESTATE ADMINISTRATOR II-XII 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, nl mental status, nl speech Skin: chronic stasis changes ankles bilaterally, chronic ulcer left toe Results Result Diagram: 05/09/1710 05/09/17709 Results 24 hrs Laboratory Tests Test 05/10/17 06:52 Prothrombin Time 20.5 H Prothrombin Time Ratio 1.6 INR International Normalized Ratio 1.74 Activated Partial Thromboplast Time 42.5 H Medications Medications Current Medications Ondansetron HCl (Zofran Inj) 4 mg Q6H PRN IV NAUSEA AND/OR VOMITING; Start 05/08/17 at 07:30 Amiodarone HCl (Cordarone) 200 mg DAILY PO Last administered on 05/10/17 08:52 ; Admin Dose 200 MG; Start 05/08/17 at 09:00 Carvedilol (Coreg) 3.125 mg BID PO Last administered on 05/10/17 08:52; Admin Dose 3.125 MG; Start 05/08/17 at 09:00 Losartan Potassium (Cozaar) 100 mg DAILY PO Last administered on 05/10/17 08: 52; Admin Dose 100 MG; Start 05/08/17 at 09:00 Tamsulosin HCl (Flomax) 0.4 mg HS PO Last administered on 05/09/17 21:09; Admin Dose 0.4 MG; Start 05/08/17 at 21:00 Acetaminophen (Tylenol Tab) 650 mg Q6H PRN PO PAIN LEVEL 1-3 OR FEVER Last administered on 05/08/17 15:36; Admin Dose 650 MG; Start 05/08/17 at 08:30 Docusate Sodium (Colace) 100 mg Q12H PRN PO CONSTIPATION; Start 05/08/17 at 08: 30 Magnesium Hydroxide (Milk Of Mag) 30 ml DAILY PRN PO CONSTIPATION; Start at 08:30 Famotidine (Pepcid) 20 mg Q12 PO Last administered on 05/10/17 08:52; Admin Dose 20 MG; Start 05/08/17 at 09:00 Enoxaparin Sodium (Lovenox) 140 mg Q12 SC Last administered on 05/10/17 09:03 ; Admin Dose 140 MG; Start 05/08/17 at 09:00 Baclofen (Lioresal) 10 mg TID PO Last administered on 05/10/17 12:24; Admin Dose 10 MG; Start 05/08/17 at 10:00 Oxycodone HCl (Oxycontin) 10 mg BID PO Last administered on 05/10/17 08:53; Admin Dose 10 MG; Start 05/08/17 at 09:00 Trazodone HCl (Desyrel) 100 mg HS PO Last administered on 05/09/17 21:09; Admin Dose 100 MG; Start 05/08/17 at 21:00 Oxycodone HCl (Roxicodone) 15 mg Q4H PRN PO PAIN Last administered on 01:08; Admin Dose 15 MG; Start 05/08/17 at 09:00 Albuterol/ Ipratropium (Duoneb) 3 ml Q4HWA HHN Last administered on 05/09/17 20:19; Admin Dose 3 ML; Start 05/08/17 at 09:00 Furosemide (Lasix) 40 mg DAILY IV Last administered on 05/10/17 08:53; Admin Dose 40 MG; Start 05/09/17 at 09:00 Nystatin (Nystatin Powder) 1 applic BID TOP Last administered on 05/10/17 09: 03; Admin Dose 1 APPLIC; Start 05/08/17 at 21:00 Methenamine (Hiprex) 1 gm BID PO Last administered on 05/10/17 08:52; Admin Dose 1 GM; Start 05/08/17 at 18:30 Hydromorphone HCl (Dilaudid) 1 mg Q4H PRN IV PAIN Last administered on 12:39; Admin Dose 1 MG; Start 05/09/17 at 14:30 Warfarin Sodium 5 mg 5 mg DAILY@17 PO ; Start 05/10/17 at 17:00 Ceftriaxone Sodium (Rocephin) 50 ml @ 100 mls/hr Q24H IVPB Last administered on 11/6/17at 14:17; Admin Dose 100 MLS/HR; Start 05/10/17 at 14:00 RONNI PERKINS May 10, 2017 15:51
[2017-05-10] MEDS: WARFARIN 5 MG TAB PO SCH (16:38)
[2017-05-10] MEDS: traZODone 100 MG TAB PO SCH (21:00)
[2017-05-10] MEDS: TAMSULOSIN (SR) 0.4 MG CAP PO SCH (21:00)
--- NOTE | 2017-05-10 21:58 | RADRPT ---
PROCEDURE: CT Abdomen and Pelvis without contrast. CLINICAL INDICATION: Abdominal and pelvic pain. TECHNIQUE: CT scan of the abdomen and pelvis without contrast was performed. Coronal and sagittal reformatted images were obtained from the axial source images. Images were reviewed on a high-resolu [employer] PACS workstation. Total exam DLP is 1591.37 mGy-cm. CTDIvol is 23.71 mGy. One or more of the following dose reduction techniques were used: Automated exposure control, adjustment of the mA and/ or kV according to patient size, use of iterative reconstruction technique. COMPARISON: None. FINDINGS: There is mild atelectasis at the lung bases posteriorly. The lung bases are otherwise normal. There is no pleural effusion or pericardial effusion. The heart is mildly enlarged. The liver is normal in size and diffusely mildly decreased attenuation consistent with fatty metamor phosis. There is no focal hepatic lesion. The gallbladder and bile ducts are normal. The spleen is normal in size. There is no focal splenic lesion. There is a 1.4 x 1.2 cm low attenuation nodule superiorly in the right adrenal gland and a 1.3 x 1.2 cm low attenuation nodule superiorly in the left adrenal gland. The adrenals are otherwise normal The pancreas is unremarkable with no mass or evidence of pancreatitis. There is no renal mass or hydronephrosis. There is no renal calculus or ureteral calculus. The abdominal aorta is not dilated. There is calcification in the aorta consistent with atherosclero sis. There is an inferior vena cava filter with the superior tip below the level of the renal veins. There is no retroperitoneal lymphadenopathy or mass. There is no pelvic lymphadenopathy or mass. The bladder and distal ureters are normal. The periappendiceal region is unremarkable with no evidence of appendicitis. The bowel and mesentery are normal. There is no free fluid or free gas. There are degenerative changes of the spine. There is no fracture or lytic lesion. IMPRESSION: 1. Mild atelectasis at the lung bases posteriorly. 2. Mild cardiomegaly. 3. Fatty metamorphosis of the liver. 4. Small low attenuation nodule superiorly in both adrenal glands, probably benign. Follow-up in 6 months is advised. 5. Atherosclerosis. 6. IVC filter in satisfactory position. 7. Degenerative changes of the spine. RPTAT: QQ .Lencho Arnett MD, MD Date Time Electronically viewed and signed by .Lencho Arnett MD, on 05/10/2017 20:10 .R/
[2017-05-10] MEDS: oxyCODONE 5 MG TAB PO PRN (22:40)
[2017-05-11] VITALS (12 sets, daily range): BP systolic 102–153; BP diastolic 63–98; PULSE 70–80; RESP 17–21
[2017-05-11] MEDS: ALBUTEROL/IPRATROPIUM (NEB) 3 ML AMP HHN SCH ×6 (01:00→20:10)
[2017-05-11] MEDS: HYDROmorphONE 1 MG/ML SYG IV PRN ×4 (01:41→20:27)
[2017-05-11] MEDS: oxyCODONE 5 MG TAB PO PRN (01:50)
[2017-05-11] MEDS: FUROSEMIDE 40 MG INJ IV SCH (08:23)
[2017-05-11] MEDS: METHENAMINE 1 GM TAB PO SCH ×2 (08:23→20:25)
[2017-05-11] MEDS: FAMOTIDINE 20 MG TAB PO SCH ×2 (08:23→20:26)
[2017-05-11] MEDS: BACLOFEN 10 MG TAB PO SCH ×3 (08:24→20:25)
[2017-05-11] MEDS: AMIODARONE 200 MG TAB PO SCH (08:24)
[2017-05-11] MEDS: oxyCODONE (CR) 10 MG TAB [oxyCONTIN] PO SCH ×2 (08:25→20:27)
[2017-05-11] MEDS: LOSARTAN 50 MG TAB PO SCH (08:25)
[2017-05-11] MEDS: NYSTATIN 30 GM POWDER BTL TOP SCH ×2 (08:27→20:37)
[2017-05-11] MEDS: ENOXAPARIN 80 MG/0.8 ML SYG SC SCH ×2 (08:27→20:36)
[2017-05-11 08:49] LABS: BASOPHILS % 0.7 % (0.0-2.0); EOSINOPHILS # 0.2 10^3/ul (0.0-0.5); EOSINOPHILS % 2.8 % (0.0-7.0); HEMATOCRIT 40.7 % (42.0-52.0); HEMOGLOBIN 12.7 g/dl (14.0-18.0); LYMPHOCYTES # 0.9 10^3/ul (0.8-2.9); LYMPHOCYTES % 15.1 % (15.0-51.0); MEAN CORPUSCULAR HEMOGLOBIN 31.3 pg (29.0-33.0); MEAN CORPUSCULAR HGB CONC 31.2 g/dl (32.0-37.0); MEAN CORPUSCULAR VOLUME 100.2 fl (82.0-101.0); MEAN PLATELET VOLUME 9.1 fl (7.4-10.4); MONOCYTE # 0.4 10^3/ul (0.3-0.9); MONOCYTES % 6.9 % (0.0-11.0); NEUTROPHIL # 4.3 10^3/ul (1.6-7.5); PLATELET COUNT 189 10^3/UL (140-415); RED BLOOD COUNT 4.06 10^6/ul (4.70-6.10); RED CELL DISTRIBUTION WIDTH 16.8 % (11.5-14.5); WHITE BLOOD COUNT 5.8 10^3/ul (4.8-10.8)
[2017-05-11 09:10] LABS: INR 1.96; PROTIME 22.5 Sec (12.2-14.2); PT RATIO 1.8
[2017-05-11 09:11] LABS: PARTIAL THROMBOPLASTIN TIME 47.3 Sec (25.0-35.0)
[2017-05-11 09:15] LABS: CALCIUM 9.1 mg/dl (8.4-10.2); MAGNESIUM 2.2 mg/dl (1.7-2.5); PHOSPHORUS 3.8 mg/dl (2.5-4.9); POTASSIUM 4.9 mmol/L (3.5-5.1)
--- NOTE | 2017-05-11 12:51 | CONS ---
Date/Time of Note Date/Time of Note DATE: 05/11/17 TIME: 12:50 Consult Date/Type/Reason Admit Date/Time May 08, 2017 at 05:39 Initial Consult Date 05/09/17 Type of Consultation: ID Ordering Provider: ABHI HARE MD Objective Vital Signs Date Time Temp Pulse Resp B/P Pulse Ox O2 Delivery O2 Flow Rate FiO2 05/11/17 12:18 71 05/11/17 11:32 98.6 18 102/64 94 05/11/17 08:35 Nasal Cannula 2.0 05/10/17 20:13 21 Results/Medications Result Diagram: 05/11/17 0812 05/11/17 0812 Results 24 hrs Laboratory Tests Test 05/11/17 08:12 White Blood Count 5.8 # Red Blood Count 4.06 L Hemoglobin 12.7 L Hematocrit 40.7 L Mean Corpuscular Volume 100.2 Mean Corpuscular Hemoglobin 31.3 Mean Corpuscular Hemoglobin Concent 31.2 L Red Cell Distribution Width 16.8 H Platelet Count 189 Mean Platelet Volume 9.1 Neutrophils % 74.0 Lymphocytes % 15.1 Monocytes % 6.9 Eosinophils % 2.8 Basophils % 0.7 Nucleated Red Blood Cells % 0.0 Neutrophils # 4.3 Lymphocytes # 0.9 Monocytes # 0.4 Eosinophils # 0.2 Basophils # 0.0 Nucleated Red Blood Cells # 0.0 Prothrombin Time 22.5 H Prothrombin Time Ratio 1.8 INR International Normalized Ratio 1.96 Activated Partial Thromboplast Time 47.3 H Sodium Level 141 Potassium Level 4.9 Chloride Level 103 Carbon Dioxide Level 29 Anion Gap 14 Blood Urea Nitrogen 12 Creatinine 1.00 Glucose Level 131 Calcium Level 9.1 Phosphorus Level 3.8 Magnesium Level 2.2 Medications Current Medications Ondansetron HCl (Zofran Inj) 4 mg Q6H PRN IV NAUSEA AND/OR VOMITING; Start 05/08/17 at 07:30 Amiodarone HCl (Cordarone) 200 mg DAILY PO Last administered on 05/11/17 08:24 ; Admin Dose 200 MG; Start 05/08/17 at 09:00 Carvedilol (Coreg) 3.125 mg BID PO Last administered on 05/11/17 08:24; Admin Dose 3.125 MG; Start 05/08/17 at 09:00 Losartan Potassium (Cozaar) 100 mg DAILY PO Last administered on 05/11/17 08: 25; Admin Dose 100 MG; Start 05/08/17 at 09:00 Tamsulosin HCl (Flomax) 0.4 mg HS PO Last administered on 05/10/17 21:00; Admin Dose 0.4 MG; Start 05/08/17 at 21:00 Acetaminophen (Tylenol Tab) 650 mg Q6H PRN PO PAIN LEVEL 1-3 OR FEVER Last administered on 05/08/17 15:36; Admin Dose 650 MG; Start 05/08/17 at 08:30 Docusate Sodium (Colace) 100 mg Q12H PRN PO CONSTIPATION; Start 05/08/17 at 08: 30 Magnesium Hydroxide (Milk Of Mag) 30 ml DAILY PRN PO CONSTIPATION; Start at 08:30 Famotidine (Pepcid) 20 mg Q12 PO Last administered on 05/11/17 08:23; Admin Dose 20 MG; Start 05/08/17 at 09:00 Enoxaparin Sodium (Lovenox) 140 mg Q12 SC Last administered on 05/11/17 08:27 ; Admin Dose 140 MG; Start 05/08/17 at 09:00 Baclofen (Lioresal) 10 mg TID PO Last administered on 05/11/17 08:24; Admin Dose 10 MG; Start 05/08/17 at 10:00 Oxycodone HCl (Oxycontin) 10 mg BID PO Last administered on 05/11/17 08:25; Admin Dose 10 MG; Start 05/08/17 at 09:00 Trazodone HCl (Desyrel) 100 mg HS PO Last administered on 05/10/17 21:00; Admin Dose 100 MG; Start 05/08/17 at 21:00 Oxycodone HCl (Roxicodone) 15 mg Q4H PRN PO PAIN Last administered on 01:50; Admin Dose 15 MG; Start 05/08/17 at 09:00 Albuterol/ Ipratropium (Duoneb) 3 ml Q4HWA HHN Last administered on 05/09/17 20:19; Admin Dose 3 ML; Start 05/08/17 at 09:00 Furosemide (Lasix) 40 mg DAILY IV Last administered on 05/11/17 08:23; Admin Dose 40 MG; Start 05/09/17 at 09:00 Nystatin (Nystatin Powder) 1 applic BID TOP Last administered on 05/11/17 08: 27; Admin Dose 1 APPLIC; Start 05/08/17 at 21:00 Methenamine (Hiprex) 1 gm BID PO Last administered on 05/11/17 08:23; Admin Dose 1 GM; Start 05/08/17 at 18:30 Hydromorphone HCl (Dilaudid) 1 mg Q4H PRN IV PAIN Last administered on 10:08; Admin Dose 1 MG; Start 05/09/17 at 14:30 Warfarin Sodium 5 mg 5 mg DAILY@17 PO Last administered on 05/10/17 16:38; Admin Dose 5 MG; Start 05/10/17 at 17:00 Ceftriaxone Sodium (Rocephin) 50 ml @ 100 mls/hr Q24H IVPB Last administered on 05/10/17 14:17; Admin Dose 100 MLS/HR; Start 05/10/17 at 14:00 Assessment/Plan Chief Complaint/Hosp Course SUBJECTIVE: No acute changes. Looks comfortable, no fevers. MICROBIOLOGY: Urine culture on 05/08/2017 growing grew Klebsiella pneumoniae susceptible to all antibiotics. ANTIMICROBIALS: Rocephin PHYSICAL EXAMINATION: GENERAL: Obese, well-developed, middle-aged man who is awake, in no distress. HEENT: Head atraumatic, normocephalic. Sclerae anicteric. Buccal mucosa dry. NECK: Supple. CHEST: Rise symmetrical. Breath sounds clear. HEART: S1, S2. ABDOMEN: Soft, bowel tones present. EXTREMITIES: Without cyanosis or edema. ASSESSMENT: 1. Recurrent urinary tract infection. 2. Urethral stricture status post laser ureterotomy and internal ureterotomy without solving the problem. 3. Obesity. 4. Atrial fibrillation. 5. Hypertension. PLAN: Remains stable. He is being followed by Dr. Mcgregor in urology consultation. Continue abx DW staff Problems: DIETER BASSETT NP May 11, 2017 12:51
--- NOTE | 2017-05-11 13:18 | OPR ---
Date/Time of Note Date/Time of Note DATE: 05/11/17 TIME: 13:13 Operative Report Procedure Date: May 11, 2017 Preoperative Diagnosis Urethral strictures and meatal stenosis Postoperative Diagnosis Urethral strictures and meatal stenosis Operation/Procedure Performed Urethral dilatation up to 18 Jordanian Surgeon see signature line Photography And Prints Curator None Anesthesia Type: other (Local) Anesthesiologist: STEPH BOWLES MD Estimated Blood Loss: none Transfusion none Specimen Urine for culture and sensitivity Grafts/Implants none Complications none Pt Condition Post Procedure: stable Disposition: other (Procedure done in patient's room in his bed) Indications Urethral stricture and meatal stenosis plus recurrent urinary tract infection Procedure Description The genital area was prepped and draped in the usual sterile manner. The patient was in supine position in his bed. 2% lidocaine gel was injected into the urethra for local anesthesia. I waited 5 minutes for it to work. The urethral meatus was very tight. I used the short Lia dilators and dilated him from 10 Jordanian to 18 Jordanian. I then passed the 14 Jordanian Briggs catheter through the urethra all the way to the bladder and that went in without any difficulty urine was collected for culture and sensitivity. I tried to pass a 20 Jordanian Montano catheter but since it was soft it was difficult to pass it more than 3-4 cm. He will need to do self dilatation with a metal dilator daily on the size of the metal dilator should be around 18 or 20 Jordanian. I explained that to the patient and he will come to the office later on to dilate him again and try to get him the dilator. STEPH BOWLES MD May 11, 2017 13:18
[2017-05-11] MEDS: CEFTRIAXONE 1 GM/50 ML (PMX) 50 ML IVPB SCH (13:32)
--- NOTE | 2017-05-11 15:09 | PN ---
Date/Time of Note Date/Time of Note DATE: 05/11/17 TIME: 15:08 Assessment/Plan VTE Prophylaxis VTE Prophylaxis Intervention: ambulation Lines/Catheters IV Catheter Type (from Nrs): Saline Lock Urinary Cath still in place: No Assessment/Plan Chief Complaint/Hosp Course Assessment/Plan 1. Urinary tract infection - Still experiencing dyruria with hesitency to urinary due to pain - Urology, Dr. Mcgregor, consulted for further recommendations - ID on board and recommendations appreciated - Urine cultures pending but grew VRE on last admission. - On abx per ID - Hiprex for dysuria since Pyridium not effective - Dilaudid PRN 2. Pulmonary edema - Lasix dose given in ED and will monitor - Respiratory status stable at this time. - incentive spirometry ordered 3. Shortness of breath secondary to #1 - resolved 4. Acute on chronic diastolic heart failure - CXR shows pulmonary edema but no effusions - lasix IV - monitor I/O and daily weights - BNP 570 5. Cardiomegaly - stable 6. Chronic back pain - Continued on home medications 7. Atrial fibrillation - in sinus rhythm. Continue on amio and BB 8. Chronic PE - INR subtherapeutic - Bridging Lovenox to Coumadin. patient's insurance does not cover NOAC. Will need to continue coumadin 9. HTN - stable 10. 9mm nodule - outpatient monitoring 11. Disposition - insurance does not cover NOAC, will need warfarin only - urology dilated stricture in meatus, needs daily meatal dilation at home, which patient was supposed to have continued in the past -will dispo once ID recs for final abx. Problems: Subjective 24 Hr Interval Summary Free Text/Dictation issues with urination still Exam/Review of Systems Vital Signs Vitals Vital Signs Date Time Temp Pulse Resp B/P Pulse Ox O2 Delivery O2 Flow Rate FiO2 05/11/17 12:18 71 05/11/17 11:32 98.6 18 102/64 94 05/11/17 08:35 Nasal Cannula 2.0 05/10/17 20:13 21 Exam Constitutional: alert, oriented, well developed, distress secondary to pain Neck: non-tender, supple Respiratory: clear to auscultation, crackles/rales, No labored breathing, No wheezing Cardiovascular: nl pulses, regular rate and rhythm, No edema, No murmurs/extra sounds, No systolic murmur Gastrointestinal: bowel sounds, non-tender, soft, No distended, No rebound or guarding Genitourinary - suprapubic discomfort, head of penis dry skin with erythema Musculoskeletal: nl extremities to inspection Extremities: normal pulses, No cyanosis, No edema 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: STATEMENT CLERKS SUPERVISOR II-XII intact, nl mental status, nl speech Skin: chronic stasis changes ankles bilaterally, chronic ulcer left toe Results Result Diagram: 05/11/1781105/11/17811 Results 24 hrs Laboratory Tests Test 05/11/17 08:12 White Blood Count 5.8 # Red Blood Count 4.06 L Hemoglobin 12.7 L Hematocrit 40.7 L Mean Corpuscular Volume 100.2 Mean Corpuscular Hemoglobin 31.3 Mean Corpuscular Hemoglobin Concent 31.2 L Red Cell Distribution Width 16.8 H Platelet Count 189 Mean Platelet Volume 9.1 Neutrophils % 74.0 Lymphocytes % 15.1 Monocytes % 6.9 Eosinophils % 2.8 Basophils % 0.7 Nucleated Red Blood Cells % 0.0 Neutrophils # 4.3 Lymphocytes # 0.9 Monocytes # 0.4 Eosinophils # 0.2 Basophils # 0.0 Nucleated Red Blood Cells # 0.0 Prothrombin Time 22.5 H Prothrombin Time Ratio 1.8 INR International Normalized Ratio 1.96 Activated Partial Thromboplast Time 47.3 H Sodium Level 141 Potassium Level 4.9 Chloride Level 103 Carbon Dioxide Level 29 Anion Gap 14 Blood Urea Nitrogen 12 Creatinine 1.00 Glucose Level 131 Calcium Level 9.1 Phosphorus Level 3.8 Magnesium Level 2.2 Medications Medications Current Medications Ondansetron HCl (Zofran Inj) 4 mg Q6H PRN IV NAUSEA AND/OR VOMITING; Start 05/08/17 at 07:30 Amiodarone HCl (Cordarone) 200 mg DAILY PO Last administered on 05/11/17 08:24 ; Admin Dose 200 MG; Start 05/08/17 at 09:00 Carvedilol (Coreg) 3.125 mg BID PO Last administered on 05/11/17 08:24; Admin Dose 3.125 MG; Start 05/08/17 at 09:00 Losartan Potassium (Cozaar) 100 mg DAILY PO Last administered on 05/11/17 08: 25; Admin Dose 100 MG; Start 05/08/17 at 09:00 Tamsulosin HCl (Flomax) 0.4 mg HS PO Last administered on 05/10/17 21:00; Admin Dose 0.4 MG; Start 05/08/17 at 21:00 Acetaminophen (Tylenol Tab) 650 mg Q6H PRN PO PAIN LEVEL 1-3 OR FEVER Last administered on 05/08/17 15:36; Admin Dose 650 MG; Start 05/08/17 at 08:30 Docusate Sodium (Colace) 100 mg Q12H PRN PO CONSTIPATION; Start 05/08/17 at 08: 30 Magnesium Hydroxide (Milk Of Mag) 30 ml DAILY PRN PO CONSTIPATION; Start at 08:30 Famotidine (Pepcid) 20 mg Q12 PO Last administered on 05/11/17 08:23; Admin Dose 20 MG; Start 05/08/17 at 09:00 Enoxaparin Sodium (Lovenox) 140 mg Q12 SC Last administered on 05/11/17 08:27 ; Admin Dose 140 MG; Start 05/08/17 at 09:00 Baclofen (Lioresal) 10 mg TID PO Last administered on 05/11/17 13:31; Admin Dose 10 MG; Start 05/08/17 at 10:00 Oxycodone HCl (Oxycontin) 10 mg BID PO Last administered on 05/11/17 08:25; Admin Dose 10 MG; Start 05/08/17 at 09:00 Trazodone HCl (Desyrel) 100 mg HS PO Last administered on 05/10/17 21:00; Admin Dose 100 MG; Start 05/08/17 at 21:00 Oxycodone HCl (Roxicodone) 15 mg Q4H PRN PO PAIN Last administered on 01:50; Admin Dose 15 MG; Start 05/08/17 at 09:00 Albuterol/ Ipratropium (Duoneb) 3 ml Q4HWA HHN Last administered on 05/09/17 20:19; Admin Dose 3 ML; Start 05/08/17 at 09:00 Furosemide (Lasix) 40 mg DAILY IV Last administered on 05/11/17 08:23; Admin Dose 40 MG; Start 05/09/17 at 09:00 Nystatin (Nystatin Powder) 1 applic BID TOP Last administered on 05/11/17 08: 27; Admin Dose 1 APPLIC; Start 05/08/17 at 21:00 Methenamine (Hiprex) 1 gm BID PO Last administered on 05/11/17 08:23; Admin Dose 1 GM; Start 05/08/17 at 18:30 Hydromorphone HCl (Dilaudid) 1 mg Q4H PRN IV PAIN Last administered on 10:08; Admin Dose 1 MG; Start 05/09/17 at 14:30 Warfarin Sodium 5 mg 5 mg DAILY@17 PO Last administered on 05/10/17 16:38; Admin Dose 5 MG; Start 05/10/17 at 17:00 Ceftriaxone Sodium (Rocephin) 50 ml @ 100 mls/hr Q24H IVPB Last administered on 05/11/17 13:32; Admin Dose 100 MLS/HR; Start 05/10/17 at 14:00 RONNI PERKINS May 11, 2017 15:09
[2017-05-11] MEDS: WARFARIN 5 MG TAB PO SCH (17:53)
[2017-05-11] MEDS: traZODone 100 MG TAB PO SCH (20:26)
[2017-05-11] MEDS: TAMSULOSIN (SR) 0.4 MG CAP PO SCH (20:26)
[2017-05-12] VITALS (12 sets, daily range): BP systolic 108–131; BP diastolic 64–85; PULSE 70–94; RESP 18–21
[2017-05-12] MEDS: oxyCODONE 5 MG TAB PO PRN (00:12)
[2017-05-12] MEDS: ALBUTEROL/IPRATROPIUM (NEB) 3 ML AMP HHN SCH ×6 (01:00→20:00)
[2017-05-12] MEDS: HYDROmorphONE 1 MG/ML SYG IV PRN ×5 (01:16→23:49)
[2017-05-12 08:03] LABS: BASOPHILS % 0.7 % (0.0-2.0); EOSINOPHILS # 0.1 10^3/ul (0.0-0.5); EOSINOPHILS % 2.2 % (0.0-7.0); HEMATOCRIT 40.5 % (42.0-52.0); HEMOGLOBIN 12.8 g/dl (14.0-18.0); LYMPHOCYTES # 0.9 10^3/ul (0.8-2.9); LYMPHOCYTES % 17.5 % (15.0-51.0); MEAN CORPUSCULAR HEMOGLOBIN 31.8 pg (29.0-33.0); MEAN CORPUSCULAR HGB CONC 31.6 g/dl (32.0-37.0); MEAN CORPUSCULAR VOLUME 100.7 fl (82.0-101.0); MEAN PLATELET VOLUME 8.9 fl (7.4-10.4); MONOCYTE # 0.4 10^3/ul (0.3-0.9); MONOCYTES % 8.2 % (0.0-11.0); NEUTROPHIL # 3.8 10^3/ul (1.6-7.5); NEUTROPHILS % 70.8 % (39.0-77.0); PLATELET COUNT 195 10^3/UL (140-415); RED BLOOD COUNT 4.02 10^6/ul (4.70-6.10); RED CELL DISTRIBUTION WIDTH 16.5 % (11.5-14.5); WHITE BLOOD COUNT 5.4 10^3/ul (4.8-10.8)
[2017-05-12 08:04] LABS: INR 2.02; PROTIME 23.1 Sec (12.2-14.2); PT RATIO 1.8
[2017-05-12 08:05] LABS: PARTIAL THROMBOPLASTIN TIME 48.5 Sec (25.0-35.0)
[2017-05-12 08:14] LABS: CREATININE 0.95 mg/dl (0.61-1.24); MAGNESIUM 2.1 mg/dl (1.7-2.5); PHOSPHORUS 3.6 mg/dl (2.5-4.9); POTASSIUM 4.3 mmol/L (3.5-5.1)
[2017-05-12] MEDS: oxyCODONE (CR) 10 MG TAB [oxyCONTIN] PO SCH ×2 (09:49→20:24)
[2017-05-12] MEDS: FAMOTIDINE 20 MG TAB PO SCH ×2 (09:50→20:24)
[2017-05-12] MEDS: METHENAMINE 1 GM TAB PO SCH ×2 (09:50→20:23)
[2017-05-12] MEDS: BACLOFEN 10 MG TAB PO SCH ×3 (09:50→20:23)
[2017-05-12] MEDS: AMIODARONE 200 MG TAB PO SCH (09:51)
[2017-05-12] MEDS: LOSARTAN 50 MG TAB PO SCH (09:51)
[2017-05-12] MEDS: FUROSEMIDE 40 MG INJ IV SCH (09:52)
[2017-05-12] MEDS: NYSTATIN 30 GM POWDER BTL TOP SCH ×2 (09:52→20:26)
--- NOTE | 2017-05-12 13:18 | CONS ---
Date/Time of Note Date/Time of Note DATE: 05/12/17 TIME: :17 Consult Date/Type/Reason Admit Date/Time May 08, 2017 at 05:39 Initial Consult Date 05/09/17 Type of Consultation: ID Ordering Provider: ABHI HARE MD Objective Vital Signs Date Time Temp Pulse Resp B/P Pulse Ox O2 Delivery O2 Flow Rate FiO2 05/12/17 12:09 94 05/12/17 11:45 97.9 18 126/82 96 05/12/17 08:47 Nasal Cannula 2.0 05/10/17 20:13 21 Intake and Output 05/11/17 05/11/17 05/12/17 15:00 23:00 07:00 Intake Total 50 ml 750 ml Output Total 1400 ml Balance 50 ml -650 ml Results/Medications Result Diagram: 05/12/17 0652 05/12/17 0652 Results 24 hrs Laboratory Tests Test 05/12/17 06:52 White Blood Count 5.4 Red Blood Count 4.02 L Hemoglobin 12.8 L Hematocrit 40.5 L Mean Corpuscular Volume 100.7 Mean Corpuscular Hemoglobin 31.8 Mean Corpuscular Hemoglobin Concent 31.6 L Red Cell Distribution Width 16.5 H Platelet Count 195 Mean Platelet Volume 8.9 Neutrophils % 70.8 Lymphocytes % 17.5 Monocytes % 8.2 Eosinophils % 2.2 Basophils % 0.7 Nucleated Red Blood Cells % 0.0 Neutrophils # 3.8 Lymphocytes # 0.9 Monocytes # 0.4 Eosinophils # 0.1 Basophils # 0.0 Nucleated Red Blood Cells # 0.0 Prothrombin Time 23.1 H Prothrombin Time Ratio 1.8 INR International Normalized Ratio 2.02 Activated Partial Thromboplast Time 48.5 H Sodium Level 140 Potassium Level 4.3 Chloride Level 103 Carbon Dioxide Level 28 Anion Gap 13 Blood Urea Nitrogen 13 Creatinine 0.95 Glucose Level 140 Calcium Level 9.0 Phosphorus Level 3.6 Magnesium Level 2.1 Medications Current Medications Ondansetron HCl (Zofran Inj) 4 mg Q6H PRN IV NAUSEA AND/OR VOMITING; Start 05/08/17 at 07:30 Amiodarone HCl (Cordarone) 200 mg DAILY PO Last administered on 05/12/17t 09:51 ; Admin Dose 200 MG; Start 05/08/17 at 09:00 Carvedilol (Coreg) 3.125 mg BID PO Last administered on 05/12/17 09:52; Admin Dose 3.125 MG; Start 05/08/17 at 09:00 Losartan Potassium (Cozaar) 100 mg DAILY PO Last administered on 05/12/17 09: 51; Admin Dose 100 MG; Start 05/08/17 at 09:00 Tamsulosin HCl (Flomax) 0.4 mg HS PO Last administered on 05/11/17 20:26; Admin Dose 0.4 MG; Start 05/08/17 at 21:00 Acetaminophen (Tylenol Tab) 650 mg Q6H PRN PO PAIN LEVEL 1-3 OR FEVER Last administered on 05/08/17 15:36; Admin Dose 650 MG; Start 05/08/17 at 08:30 Docusate Sodium (Colace) 100 mg Q12H PRN PO CONSTIPATION; Start 05/08/17 at 08: 30 Magnesium Hydroxide (Milk Of Mag) 30 ml DAILY PRN PO CONSTIPATION; Start at 08:30 Famotidine (Pepcid) 20 mg Q12 PO Last administered on 05/12/17 09:50; Admin Dose 20 MG; Start 05/08/17 at 09:00 Baclofen (Lioresal) 10 mg TID PO Last administered on 05/12/17 09:50; Admin Dose 10 MG; Start 05/08/17 at 10:00 Oxycodone HCl (Oxycontin) 10 mg BID PO Last administered on 05/12/17 09:49; Admin Dose 10 MG; Start 05/08/17 at 09:00 Trazodone HCl (Desyrel) 100 mg HS PO Last administered on 05/11/17 20:26; Admin Dose 100 MG; Start 05/08/17 at 21:00 Oxycodone HCl (Roxicodone) 15 mg Q4H PRN PO PAIN Last administered on 00:12; Admin Dose 15 MG; Start 05/08/17 at 09:00 Albuterol/ Ipratropium (Duoneb) 3 ml Q4HWA HHN Last administered on 05/09/17 20:19; Admin Dose 3 ML; Start 05/08/17 at 09:00 Furosemide (Lasix) 40 mg DAILY IV Last administered on 05/12/17 09:52; Admin Dose 40 MG; Start 05/09/17 at 09:00 Nystatin (Nystatin Powder) 1 applic BID TOP Last administered on 05/12/17 09: 52; Admin Dose 1 APPLIC; Start 05/08/17 at 21:00 Methenamine (Hiprex) 1 gm BID PO Last administered on 05/12/17 09:50; Admin Dose 1 GM; Start 05/08/17 at 18:30 Hydromorphone HCl (Dilaudid) 1 mg Q4H PRN IV PAIN Last administered on 05:44; Admin Dose 1 MG; Start 05/09/17 at 14:30 Warfarin Sodium 5 mg 5 mg DAILY@17 PO Last administered on 05/11/17 17:53; Admin Dose 5 MG; Start 05/10/17 at 17:00 Ceftriaxone Sodium (Rocephin) 50 ml @ 100 mls/hr Q24H IVPB Last administered on 05/11/17 13:32; Admin Dose 100 MLS/HR; Start 05/10/17 at 14:00 Assessment/Plan Chief Complaint/Hosp Course SUBJECTIVE: No acute changes. Looks comfortable, no fevers. MICROBIOLOGY: Urine culture on 05/08/2017 growing grew Klebsiella pneumoniae susceptible to all antibiotics. ANTIMICROBIALS: Rocephin PHYSICAL EXAMINATION: GENERAL: Obese, well-developed, middle-aged man who is awake, in no distress. HEENT: Head atraumatic, normocephalic. Sclerae anicteric. Buccal mucosa dry. NECK: Supple. CHEST: Rise symmetrical. Breath sounds clear. HEART: S1, S2. ABDOMEN: Soft, bowel tones present. EXTREMITIES: Without cyanosis or edema. ASSESSMENT: 1. Recurrent urinary tract infection. 2. Urethral stricture status post laser ureterotomy and internal ureterotomy without solving the problem. 3. Obesity. 4. Atrial fibrillation. 5. Hypertension. PLAN: Remains stable. Anticipate dc on oral Keflex, f/u urology rec-s [facility] staff/pt Problems: DIETER BASSETT NP May 12, 2017 13:18
[2017-05-12] MEDS: CEFTRIAXONE 1 GM/50 ML (PMX) 50 ML IVPB SCH (13:59)
--- NOTE | 2017-05-12 14:19 | PN ---
Date/Time of Note Date/Time of Note DATE: 05/12/17 TIME: 14:13 Assessment/Plan VTE Prophylaxis VTE Prophylaxis Intervention: SCD's Lines/Catheters IV [facility] Saline Lock Urinary Cath still in place: No Assessment/Plan Chief Complaint/Hosp Course Assessment/Plan 1. Urinary tract infection - On abx per ID, keflex for 7 more days - Hiprex for dysuria since Pyridium not effective - Dilaudid PRN #urinary retention -Urology has seen patient, patient has long history of needing dilation therapy daily of meatus -dilation done per urology -will need daily home dilation -able to urinate now -f/u with Dr. Mcgregor outpatient. 2. Pulmonary edema - off iv lasix, transition to oral - Respiratory status stable at this time. - incentive spirometry ordered 3. Shortness of breath secondary to #1 - resolved 4. Acute on chronic diastolic heart failure - CXR shows pulmonary edema but no effusions - lasix po - monitor I/O and daily weights - BNP 570 5. Cardiomegaly - stable 6. Chronic back pain - Continued on home medications 7. Atrial fibrillation - in sinus rhythm. Continue on amio and BB 8. Chronic PE - INR therapeutic now - on Coumadin. patient's insurance does not cover NOAC. Will need to continue coumadin 9. HTN - stable 10. 9mm nodule - outpatient monitoring 11. Disposition - insurance does not cover NOAC, will need warfarin only - urology dilated stricture in meatus, needs daily meatal dilation at home, which patient was supposed to have continued in the past -patient's family will pick him up tomorrow Problems: Subjective 24 Hr Interval Summary Free Text/Dictation able to urinate after dilation therapy Exam/Review of Systems Vital Signs Vitals Vital Signs Date Time Temp Pulse Resp B/P Pulse Ox O2 Delivery O2 Flow Rate FiO2 05/12/17 12:09 94 05/12/17 11:45 97.9 18 126/82 96 05/12/17 08:47 Nasal Cannula 2.0 05/10/17 20:13 21 Intake and Output 05/11/17 05/11/17 05/12/17 15:00 23:00 07:00 Intake Total 50 ml 750 ml Output Total 1400 ml Balance 50 ml -650 ml Exam Constitutional: alert, oriented, well developed, distress secondary to pain Neck: non-tender, supple Respiratory: clear to auscultation, crackles/rales, No labored breathing, No wheezing Cardiovascular: nl pulses, regular rate and rhythm, No edema, No murmurs/extra sounds, No systolic murmur Gastrointestinal: bowel sounds, non-tender, soft, No distended, No rebound or guarding Genitourinary - minimal suprapubic discomfort, head of penis dry skin with erythema Musculoskeletal: nl extremities to inspection Extremities: normal pulses, No cyanosis, No edema 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, nl mental status, nl speech Skin: chronic stasis changes ankles bilaterally, chronic ulcer left toe Results Result Diagram: 05/12/17 0652 05/12/17 0652 Results 24 hrs Laboratory Tests Test 05/12/17 06:52 White Blood Count 5.4 Red Blood Count 4.02 L Hemoglobin 12.8 L Hematocrit 40.5 L Mean Corpuscular Volume 100.7 Mean Corpuscular Hemoglobin 31.8 Mean Corpuscular Hemoglobin Concent 31.6 L Red Cell Distribution Width 16.5 H Platelet Count 195 Mean Platelet Volume 8.9 Neutrophils % 70.8 Lymphocytes % 17.5 Monocytes % 8.2 Eosinophils % 2.2 Basophils % 0.7 Nucleated Red Blood Cells % 0.0 Neutrophils # 3.8 Lymphocytes # 0.9 Monocytes # 0.4 Eosinophils # 0.1 Basophils # 0.0 Nucleated Red Blood Cells # 0.0 Prothrombin Time 23.1 H Prothrombin Time Ratio 1.8 INR International Normalized Ratio 2.02 Activated Partial Thromboplast Time 48.5 H Sodium Level 140 Potassium Level 4.3 Chloride Level 103 Carbon Dioxide Level 28 Anion Gap 13 Blood Urea Nitrogen 13 Creatinine 0.95 Glucose Level 140 Calcium Level 9.0 Phosphorus Level 3.6 Magnesium Level 2.1 Medications Medications Current Medications Ondansetron HCl (Zofran Inj) 4 mg Q6H PRN IV NAUSEA AND/OR VOMITING; Start 05/08/17 at 07:30 Amiodarone HCl (Cordarone) 200 mg DAILY PO Last administered on 05/12/17 09:51 ; Admin Dose 200 MG; Start 05/08/17 at 09:00 Carvedilol (Coreg) 3.125 mg BID PO Last administered on 05/12/17 09:52; Admin Dose 3.125 MG; Start 05/08/17 at 09:00 Losartan Potassium (Cozaar) 100 mg DAILY PO Last administered on 05/12/17 09: 51; Admin Dose 100 MG; Start 05/08/17 at 09:00 Tamsulosin HCl (Flomax) 0.4 mg HS PO Last administered on 05/11/17 20:26; Admin Dose 0.4 MG; Start 05/08/17 at 21:00 Acetaminophen (Tylenol Tab) 650 mg Q6H PRN PO PAIN LEVEL 1-3 OR FEVER Last administered on 05/08/17 15:36; Admin Dose 650 MG; Start 05/08/17 at 08:30 Docusate Sodium (Colace) 100 mg Q12H PRN PO CONSTIPATION; Start 05/08/17 at 08: 30 Magnesium Hydroxide (Milk Of Mag) 30 ml DAILY PRN PO CONSTIPATION; Start at 08:30 Famotidine (Pepcid) 20 mg Q12 PO Last administered on 05/12/17 09:50; Admin Dose 20 MG; Start 05/08/17 at 09:00 Baclofen (Lioresal) 10 mg TID PO Last administered on 05/12/17 13:59; Admin Dose 10 MG; Start 05/08/17 at 10:00 Oxycodone HCl (Oxycontin) 10 mg BID PO Last administered on 05/12/17 09:49; Admin Dose 10 MG; Start 05/08/17 at 09:00 Trazodone HCl (Desyrel) 100 mg HS PO Last administered on 05/11/17 20:26; Admin Dose 100 MG; Start 05/08/17 at 21:00 Oxycodone HCl (Roxicodone) 15 mg Q4H PRN PO PAIN Last administered on 00:12; Admin Dose 15 MG; Start 05/08/17 at 09:00 Albuterol/ Ipratropium (Duoneb) 3 ml Q4HWA HHN Last administered on 05/09/17 20:19; Admin Dose 3 ML; Start 05/08/17 at 09:00 Furosemide (Lasix) 40 mg DAILY IV Last administered on 05/12/17 09:52; Admin Dose 40 MG; Start 05/09/17 at 09:00 Nystatin (Nystatin Powder) 1 applic BID TOP Last administered on 05/12/17 09: 52; Admin Dose 1 APPLIC; Start 05/08/17 at 21:00 Methenamine (Hiprex) 1 gm BID PO Last administered on 05/12/17 09:50; Admin Dose 1 GM; Start 05/08/17 at 18:30 Hydromorphone HCl (Dilaudid) 1 mg Q4H PRN IV PAIN Last administered on 14:00; Admin Dose 1 MG; Start 05/09/17 at 14:30 Warfarin Sodium 5 mg 5 mg DAILY@17 PO Last administered on 05/11/17 17:53; Admin Dose 5 MG; Start 05/10/17 at 17:00 Ceftriaxone Sodium (Rocephin) 50 ml @ 100 mls/hr Q24H IVPB Last administered on 05/12/17 13:59; Admin Dose 100 MLS/HR; Start 05/10/17 at 14:00 RONNI PERKINS May 12, 2017 14:19
[2017-05-12] MEDS: WARFARIN 5 MG TAB PO SCH (17:35)
[2017-05-12] MEDS: TAMSULOSIN (SR) 0.4 MG CAP PO SCH (20:23)
[2017-05-12] MEDS: traZODone 100 MG TAB PO SCH (20:24)
[2017-05-12] MEDS: CEPHALEXIN 500 MG CAP PO SCH (21:10)
[2017-05-13] VITALS (13 sets, daily range): BP systolic 99–146; BP diastolic 63–81; PULSE 60–85; RESP 16–21
[2017-05-13] MEDS: HYDROmorphONE 1 MG/ML SYG IV PRN ×4 (03:52→21:32)
[2017-05-13] MEDS: CEPHALEXIN 500 MG CAP PO SCH ×3 (05:13→21:31)
[2017-05-13] MEDS: FAMOTIDINE 20 MG TAB PO SCH ×2 (08:06→20:20)
[2017-05-13] MEDS: METHENAMINE 1 GM TAB PO SCH ×2 (08:06→20:20)
[2017-05-13] MEDS: BACLOFEN 10 MG TAB PO SCH ×3 (08:06→20:20)
[2017-05-13] MEDS: oxyCODONE (CR) 10 MG TAB [oxyCONTIN] PO SCH ×2 (08:07→20:21)
[2017-05-13] MEDS: LOSARTAN 50 MG TAB PO SCH (08:09)
[2017-05-13] MEDS: AMIODARONE 200 MG TAB PO SCH (08:09)
[2017-05-13 08:10] LABS: INR 1.98; PARTIAL THROMBOPLASTIN TIME 38.1 Sec (25.0-35.0); PROTIME 22.7 Sec (12.2-14.2); PT RATIO 1.8
[2017-05-13] MEDS: ALBUTEROL/IPRATROPIUM (NEB) 3 ML AMP HHN SCH ×4 (08:47→21:00)
[2017-05-13] MEDS: NYSTATIN 30 GM POWDER BTL TOP SCH ×2 (09:18→20:25)
[2017-05-13] MEDS: FUROSEMIDE 20 MG TAB PO SCH (09:19)
[2017-05-13] MEDS: ACETAMINOPHEN 325 MG TAB PO PRN (13:37)
--- NOTE | 2017-05-13 14:16 | CONS ---
Date/Time of Note Date/Time of Note DATE: 05/13/17 TIME: 14:15 Assessment/Plan Assessment/Plan Chief Complaint/Hosp Course SUBJECTIVE: No acute changes. Alert, feels better, no fevers. MICROBIOLOGY: Urine culture on 05/08/2017 growing grew Klebsiella pneumoniae susceptible to all antibiotics. ANTIMICROBIALS: Rocephin PHYSICAL EXAMINATION: GENERAL: Obese, well-developed, middle-aged man who is awake, in no distress. HEENT: Head atraumatic, normocephalic. Sclerae anicteric. Buccal mucosa dry. NECK: Supple. CHEST: Rise symmetrical. Breath sounds clear. HEART: S1, S2. ABDOMEN: Soft, bowel tones present. EXTREMITIES: Without cyanosis or edema. ASSESSMENT: 1. Recurrent urinary tract infection. 2. Urethral stricture status post laser ureterotomy and internal ureterotomy without solving the problem. 3. Obesity. 4. Atrial fibrillation. 5. Hypertension. PLAN: Remains stable. Anticipate dc on oral Keflex to complete 10 days, f/u urology rec-s [facility] staff/pt Problems: Consultation Date/Type/Reason Admit Date/Time May 08, 2017 at 05:39 Initial Consult Date 05/09/17 Type of Consultation: ID Referring Provider: ABHI HARE MD Exam/Review of Systems Vital Signs Vitals Vital Signs Date Time Temp Pulse Resp B/P Pulse Ox O2 Delivery O2 Flow Rate FiO2 05/13/17 12:03 85 05/13/17 11:54 97.7 18 113/77 94 05/13/17 08:00 Nasal Cannula 2.0 05/12/17 20:00 21 Intake and Output 05/12/17 05/12/17 05/13/17 15:00 23:00 07:00 Intake Total 850 ml 2200 ml 250 ml Output Total 900 ml 1500 ml 800 ml Balance -50 ml 700 ml -550 ml Results Result Diagram: 05/12/17 0652 05/12/17 0652 Results 24 hrs Laboratory Tests Test 05/13/17 07:11 Prothrombin Time 22.7 H Prothrombin Time Ratio 1.8 INR International Normalized Ratio 1.98 Activated Partial Thromboplast Time 38.1 H Medications Medications Current Medications Ondansetron HCl (Zofran Inj) 4 mg Q6H PRN IV NAUSEA AND/OR VOMITING; Start 05/08/17 at 07:30 Amiodarone HCl (Cordarone) 200 mg DAILY PO Last administered on 05/13/17 08:09 ; Admin Dose 200 MG; Start 05/08/17 at 09:00 Carvedilol (Coreg) 3.125 mg BID PO Last administered on 05/13/17 08:09; Admin Dose 3.125 MG; Start 05/08/17 at 09:00 Losartan Potassium (Cozaar) 100 mg DAILY PO Last administered on 05/13/17 08: 09; Admin Dose 100 MG; Start 05/08/17 at 09:00 Tamsulosin HCl (Flomax) 0.4 mg HS PO Last administered on 05/12/17 20:23; Admin Dose 0.4 MG; Start 05/08/17 at 21:00 Acetaminophen (Tylenol Tab) 650 mg Q6H PRN PO PAIN LEVEL 1-3 OR FEVER Last administered on 05/13/17 13:37; Admin Dose 650 MG; Start 05/08/17 at 08:30 Docusate Sodium (Colace) 100 mg Q12H PRN PO CONSTIPATION; Start 05/08/17 at 08: 30 Magnesium Hydroxide (Milk Of Mag) 30 ml DAILY PRN PO CONSTIPATION; Start at 08:30 Famotidine (Pepcid) 20 mg Q12 PO Last administered on 05/13/17 08:06; Admin Dose 20 MG; Start 05/08/17 at 09:00 Baclofen (Lioresal) 10 mg TID PO Last administered on 05/13/17 13:27; Admin Dose 10 MG; Start 05/08/17 at 10:00 Oxycodone HCl (Oxycontin) 10 mg BID PO Last administered on 05/13/17 08:07; Admin Dose 10 MG; Start 05/08/17 at 09:00 Trazodone HCl (Desyrel) 100 mg HS PO Last administered on 05/12/17 20:24; Admin Dose 100 MG; Start 05/08/17 at 21:00 Oxycodone HCl (Roxicodone) 15 mg Q4H PRN PO PAIN Last administered on 00:12; Admin Dose 15 MG; Start 05/08/17 at 09:00 Nystatin (Nystatin Powder) 1 applic BID TOP Last administered on 05/13/17 09: 18; Admin Dose 1 APPLIC; Start 05/08/17 at 21:00 Methenamine (Hiprex) 1 gm BID PO Last administered on 05/13/17 08:06; Admin Dose 1 GM; Start 05/08/17 at 18:30 Hydromorphone HCl (Dilaudid) 1 mg Q4H PRN IV PAIN Last administered on 13:27; Admin Dose 1 MG; Start 05/09/17 at 14:30 Furosemide (Lasix) 20 mg DAILY PO Last administered on 05/13/17 09:19; Admin Dose 20 MG; Start 05/13/17 at 09:00 Cephalexin (Keflex) 500 mg Q8 PO Last administered on 05/13/17 13:27; Admin Dose 500 MG; Start 05/12/17 at 22:00 Warfarin Sodium (Coumadin) 6 mg DAILY@17 PO ; Start 05/13/17 at 17:00 DIETER BASSETT NP May 13, 2017 14:16
--- NOTE | 2017-05-13 14:29 | PN ---
Date/Time of Note Date/Time of Note DATE: 05/13/17 TIME: 14:27 Assessment/Plan VTE Prophylaxis VTE Prophylaxis Intervention: ambulation Lines/Catheters [facility] Saline Lock Urinary Cath still in place: No Assessment/Plan Chief Complaint/Hosp Course Assessment/Plan 1. Urinary tract infection - On abx per ID, keflex for 6 more days - Hiprex for dysuria since Pyridium not effective - Dilaudid PRN #urinary retention -Urology has seen patient, patient has long history of needing dilation therapy daily of meatus -dilation done per urology -will need daily home dilation -able to urinate now -f/u with Dr. Mcgregor outpatient. 2. Pulmonary edema - off iv lasix, transition to oral - Respiratory status stable at this time. - incentive spirometry ordered 3. Shortness of breath secondary to #1 - resolved 4. Acute on chronic diastolic heart failure - CXR shows pulmonary edema but no effusions - lasix po - monitor I/O and daily weights - BNP 570 5. Cardiomegaly - stable 6. Chronic back pain - Continued on home medications 7. Atrial fibrillation - in sinus rhythm. Continue on amio and BB 8. Chronic PE - INR borderline therapeutic - on Coumadin. patient's insurance does not cover NOAC. Will need to continue coumadin 9. HTN - stable 10. 9mm nodule - outpatient monitoring 11. Disposition - insurance does not cover NOAC, will need warfarin only - urology dilated stricture in meatus, needs daily meatal dilation at home, which patient was supposed to have continued in the past -given hx of recent PE, will increase warfarin dose to 6mg and await safe therapeutic values instead of barely therapeutic values. Will be careful as patient has hx of overshooting levels with 10mg daily Problems: Subjective 24 Hr Interval Summary Free Text/Dictation no acute complaints Exam/Review of Systems Vital Signs Vitals Vital Signs Date Time Temp Pulse Resp B/P Pulse Ox O2 Delivery O2 Flow Rate FiO2 05/13/17 12:03 85 05/13/17 11:54 97.7 18 113/77 94 05/13/17 08:00 Nasal Cannula 2.0 05/12/17 20:00 21 Intake and Output 05/12/17 05/12/17 05/13/17 15:00 23:00 07:00 Intake Total 850 ml 2200 ml 250 ml Output Total 900 ml 1500 ml 800 ml Balance -50 ml 700 ml -550 ml Exam Constitutional: alert, oriented, well developed, distress secondary to pain Neck: non-tender, supple Respiratory: clear to auscultation, crackles/rales, No labored breathing, No wheezing Cardiovascular: nl pulses, regular rate and rhythm, No edema, No murmurs/extra sounds, No systolic murmur Gastrointestinal: bowel sounds, non-tender, soft, No distended, No rebound or guarding Genitourinary - minimal suprapubic discomfort, head of penis dry skin with erythema Musculoskeletal: nl extremities to inspection Extremities: normal pulses, No cyanosis, No edema 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, nl mental status, nl speech Skin: chronic stasis changes ankles bilaterally, chronic ulcer left toe Results Result Diagram: 05/12/1752 05/12/17651 Results 24 hrs Laboratory Tests Test 05/13/17 07:11 Prothrombin Time 22.7 H Prothrombin Time Ratio 1.8 INR International Normalized Ratio 1.98 Activated Partial Thromboplast Time 38.1 H Medications Medications Current Medications Ondansetron HCl (Zofran Inj) 4 mg Q6H PRN IV NAUSEA AND/OR VOMITING; Start 05/08/17 at 07:30 Amiodarone HCl (Cordarone) 200 mg DAILY PO Last administered on 05/13/17 08:09 ; Admin Dose 200 MG; Start 05/08/17 at 09:00 Carvedilol (Coreg) 3.125 mg BID PO Last administered on 05/13/17 08:09; Admin Dose 3.125 MG; Start 05/08/17 at 09:00 Losartan Potassium (Cozaar) 100 mg DAILY PO Last administered on 05/13/17 08: 09; Admin Dose 100 MG; Start 05/08/17 at 09:00 Tamsulosin HCl (Flomax) 0.4 mg HS PO Last administered on 05/12/17 20:23; Admin Dose 0.4 MG; Start 05/08/17 at 21:00 Acetaminophen (Tylenol Tab) 650 mg Q6H PRN PO PAIN LEVEL 1-3 OR FEVER Last administered on 05/13/17 13:37; Admin Dose 650 MG; Start 05/08/17 at 08:30 Docusate Sodium (Colace) 100 mg Q12H PRN PO CONSTIPATION; Start 05/08/17 at 08: 30 Magnesium Hydroxide (Milk Of Mag) 30 ml DAILY PRN PO CONSTIPATION; Start at 08:30 Famotidine (Pepcid) 20 mg Q12 PO Last administered on 05/13/17 08:06; Admin Dose 20 MG; Start 05/08/17 at 09:00 Baclofen (Lioresal) 10 mg TID PO Last administered on 05/13/17 13:27; Admin Dose 10 MG; Start 05/08/17 at 10:00 Oxycodone HCl (Oxycontin) 10 mg BID PO Last administered on 05/13/17 08:07; Admin Dose 10 MG; Start 05/08/17 at 09:00 Trazodone HCl (Desyrel) 100 mg HS PO Last administered on 05/12/17 20:24; Admin Dose 100 MG; Start 05/08/17 at 21:00 Oxycodone HCl (Roxicodone) 15 mg Q4H PRN PO PAIN Last administered on 00:12; Admin Dose 15 MG; Start 05/08/17 at 09:00 Nystatin (Nystatin Powder) 1 applic BID TOP Last administered on 05/13/17 09: 18; Admin Dose 1 APPLIC; Start 05/08/17 at 21:00 Methenamine (Hiprex) 1 gm BID PO Last administered on 05/13/17 08:06; Admin Dose 1 GM; Start 05/08/17 at 18:30 Hydromorphone HCl (Dilaudid) 1 mg Q4H PRN IV PAIN Last administered on 13:27; Admin Dose 1 MG; Start 05/09/17 at 14:30 Furosemide (Lasix) 20 mg DAILY PO Last administered on 05/13/17 09:19; Admin Dose 20 MG; Start 05/13/17 at 09:00 Cephalexin (Keflex) 500 mg Q8 PO Last administered on 05/13/17 13:27; Admin Dose 500 MG; Start 05/12/17 at 22:00 Warfarin Sodium (Coumadin) 6 mg DAILY@17 PO ; Start 05/13/17 at 17:00 RONNI PERKINS May 13, 2017 14:29
[2017-05-13] MEDS ORDERED: WARFARIN 5 MG TAB PO SCH (17:00)
[2017-05-13] MEDS: oxyCODONE 5 MG TAB PO PRN (17:29)
[2017-05-13] MEDS ORDERED: WARFARIN 3 MG TAB PO SCH (17:30)
[2017-05-13] MEDS: TAMSULOSIN (SR) 0.4 MG CAP PO SCH (20:21)
[2017-05-13] MEDS: traZODone 100 MG TAB PO SCH (20:21)
[2017-05-14] VITALS (12 sets, daily range): BP systolic 98–124; BP diastolic 56–79; PULSE 62–71; RESP 16–19
[2017-05-14] MEDS: HYDROmorphONE 1 MG/ML SYG IV PRN ×5 (01:35→20:32)
[2017-05-14] MEDS: CEPHALEXIN 500 MG CAP PO SCH ×3 (05:30→21:46)
[2017-05-14] MEDS: ACETAMINOPHEN 325 MG TAB PO PRN ×2 (07:01→18:31)
[2017-05-14 07:26] LABS: BASOPHIL # 0.1 10^3/ul (0.0-0.1); BASOPHILS % 0.8 % (0.0-2.0); EOSINOPHILS # 0.2 10^3/ul (0.0-0.5); EOSINOPHILS % 3.6 % (0.0-7.0); HEMATOCRIT 36.3 % (42.0-52.0); LYMPHOCYTES # 1.4 10^3/ul (0.8-2.9); LYMPHOCYTES % 21.2 % (15.0-51.0); MEAN CORPUSCULAR HEMOGLOBIN 32.3 pg (29.0-33.0); MEAN CORPUSCULAR HGB CONC 33.1 g/dl (32.0-37.0); MEAN CORPUSCULAR VOLUME 97.6 fl (82.0-101.0); MONOCYTE # 0.6 10^3/ul (0.3-0.9); MONOCYTES % 9.1 % (0.0-11.0); NEUTROPHIL # 4.2 10^3/ul (1.6-7.5); NEUTROPHILS % 64.8 % (39.0-77.0); PLATELET COUNT 183 10^3/UL (140-415); RED BLOOD COUNT 3.72 10^6/ul (4.70-6.10); RED CELL DISTRIBUTION WIDTH 16.3 % (11.5-14.5); WHITE BLOOD COUNT 6.5 10^3/ul (4.8-10.8)
[2017-05-14 07:45] LABS: PROTIME 22.9 Sec (12.2-14.2); PT RATIO 1.8
[2017-05-14 07:57] LABS: CALCIUM 9.1 mg/dl (8.4-10.2); CREATININE 0.97 mg/dl (0.61-1.24); POTASSIUM 4.2 mmol/L (3.5-5.1)
[2017-05-14] MEDS: ALBUTEROL/IPRATROPIUM (NEB) 3 ML AMP HHN SCH ×3 (08:45→19:33)
[2017-05-14] MEDS: NYSTATIN 30 GM POWDER BTL TOP SCH ×2 (08:47→20:22)
[2017-05-14] MEDS: LOSARTAN 50 MG TAB PO SCH (08:48)
[2017-05-14] MEDS: BACLOFEN 10 MG TAB PO SCH ×3 (08:49→20:21)
[2017-05-14] MEDS: METHENAMINE 1 GM TAB PO SCH ×2 (08:49→20:20)
[2017-05-14] MEDS: oxyCODONE (CR) 10 MG TAB [oxyCONTIN] PO SCH ×2 (08:49→20:21)
[2017-05-14] MEDS: AMIODARONE 200 MG TAB PO SCH (08:49)
[2017-05-14] MEDS: FUROSEMIDE 20 MG TAB PO SCH (08:49)
[2017-05-14] MEDS: FAMOTIDINE 20 MG TAB PO SCH ×2 (08:50→20:21)
[2017-05-14] MEDS ORDERED: HYDROmorphONE 1 MG/ML SYG IV STA (11:10)
--- NOTE | 2017-05-14 11:53 | PN ---
Date/Time of Note Date/Time of Note DATE: 05/14/17 TIME: 11:48 Assessment/Plan VTE Prophylaxis VTE Prophylaxis Intervention: ambulation Lines/Catheters IV Catheter Type (from Nrs): Saline Lock Urinary Cath still in place: No Assessment/Plan Chief Complaint/Hosp Course Assessment/Plan #. Urinary tract infection - On abx per ID, keflex for 5 more days - Hiprex for dysuria since Pyridium not effective - Dilaudid PRN #urinary retention -Urology has seen patient, patient has long history of needing dilation therapy daily of meatus -dilation done per urology, but once again stenosed, urology will come back today to perform meatal dilation. -will need daily home dilation -f/u with Dr. Mcgregor outpatient. #. Pulmonary edema - off iv lasix, transition to oral - Respiratory status stable at this time. - incentive spirometry ordered #. Shortness of breath secondary to #1 - resolved #. Acute on chronic diastolic heart failure - CXR shows pulmonary edema but no effusions - lasix po - monitor I/O and daily weights - BNP 570 #. Cardiomegaly - stable #. Chronic back pain - Continued on home medications #. Atrial fibrillation - in sinus rhythm. Continue on amio and BB #. Chronic PE - INR borderline therapeutic - on Coumadin. patient's insurance does not cover NOAC. Will need to continue coumadin #. HTN - stable #. 9mm nodule - outpatient monitoring #. Disposition - insurance does not cover NOAC, will need warfarin only - urology to dilated stricture in meatus again today, needs daily meatal dilation at home, which patient was supposed to have continued in the past -given hx of recent PE, important to be therapeutic, 6mg increased to 7mg, recommend stable well therapeutic INR before DC -careful DC as patient at very high risk of bounceback due to stricture in meatus (2x this week) -agreed to just [place] for pain medication upon DC until he can follow up with his pain management. Problems: Subjective 24 Hr Interval Summary Free Text/Dictation unable to urinate again Exam/Review of Systems Vital Signs Vitals Vital Signs Date Time Temp Pulse Resp B/P Pulse Ox O2 Delivery O2 Flow Rate FiO2 05/14/17 08:00 62 05/14/17 07:52 98.4 18 101/68 94 05/13/17 20:00 Nasal Cannula 2.0 05/12/17 20:00 21 Intake and Output 05/13/17 05/13/17 05/14/17 15:00 23:00 07:00 Intake Total 1100 ml 850 ml Output Total 1700 ml 700 ml Balance -600 ml 150 ml Exam Constitutional: alert, oriented, well developed, distress secondary to pain Neck: non-tender, supple Respiratory: clear to auscultation, crackles/rales, No labored breathing, No wheezing Cardiovascular: nl pulses, regular rate and rhythm, No edema, No murmurs/extra sounds, No systolic murmur Gastrointestinal: bowel sounds, non-tender, soft, No distended, No rebound or guarding Genitourinary - minimal suprapubic discomfort, head of penis dry skin with erythema Musculoskeletal: nl extremities to inspection Extremities: normal pulses, No cyanosis, No edema 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, nl mental status, nl speech Skin: chronic stasis changes ankles bilaterally, chronic ulcer left toe Results Result Diagram: 05/14/17 0650 05/14/17 0650 Results 24 hrs Laboratory Tests Test 05/14/17 06:50 White Blood Count 6.5 # Red Blood Count 3.72 L Hemoglobin 12.0 L Hematocrit 36.3 L Mean Corpuscular Volume 97.6 Mean Corpuscular Hemoglobin 32.3 Mean Corpuscular Hemoglobin Concent 33.1 Red Cell Distribution Width 16.3 H Platelet Count 183 Mean Platelet Volume 9.0 Neutrophils % 64.8 Lymphocytes % 21.2 Monocytes % 9.1 Eosinophils % 3.6 Basophils % 0.8 Nucleated Red Blood Cells % 0.0 Neutrophils # 4.2 Lymphocytes # 1.4 Monocytes # 0.6 Eosinophils # 0.2 Basophils # 0.1 Nucleated Red Blood Cells # 0.0 Prothrombin Time 22.9 H Prothrombin Time Ratio 1.8 INR International Normalized Ratio 2.00 Sodium Level 139 Potassium Level 4.2 Chloride Level 105 Carbon Dioxide Level 25 Anion Gap 13 Blood Urea Nitrogen 19 Creatinine 0.97 Glucose Level 133 Calcium Level 9.1 Phosphorus Level 4.0 Magnesium Level 2.0 Medications Medications Current Medications Ondansetron HCl (Zofran Inj) 4 mg Q6H PRN IV NAUSEA AND/OR VOMITING; Start 05/08/17 at 07:30 Amiodarone HCl (Cordarone) 200 mg DAILY PO Last administered on 05/14/17 08: 49; Admin Dose 200 MG; Start 05/08/17 at 09:00 Carvedilol (Coreg) 3.125 mg BID PO Last administered on 05/14/17 08:48; Admin Dose 3.125 MG; Start 05/08/17 at 09:00 Losartan Potassium (Cozaar) 100 mg DAILY PO Last administered on 05/14/17 08: 48; Admin Dose 100 MG; Start 05/08/17 at 09:00 Tamsulosin HCl (Flomax) 0.4 mg HS PO Last administered on 05/13/17 20:21; Admin Dose 0.4 MG; Start 05/08/17 at 21:00 Acetaminophen (Tylenol Tab) 650 mg Q6H PRN PO PAIN LEVEL 1-3 OR FEVER Last administered on 05/14/17 07:01; Admin Dose 650 MG; Start 05/08/17 at 08:30 Docusate Sodium (Colace) 100 mg Q12H PRN PO CONSTIPATION; Start 05/08/17 at 08: 30 Magnesium Hydroxide (Milk Of Mag) 30 ml DAILY PRN PO CONSTIPATION; Start at 08:30 Famotidine (Pepcid) 20 mg Q12 PO Last administered on 05/14/17 08:50; Admin Dose 20 MG; Start 05/08/17 at 09:00 Baclofen (Lioresal) 10 mg TID PO Last administered on 05/14/17 08:49; Admin Dose 10 MG; Start 05/08/17 at 10:00 Oxycodone HCl (Oxycontin) 10 mg BID PO Last administered on 05/14/17 08:49; Admin Dose 10 MG; Start 05/08/17 at 09:00 Trazodone HCl (Desyrel) 100 mg HS PO Last administered on 05/13/17 20:21; Admin Dose 100 MG; Start 05/08/17 at 21:00 Oxycodone HCl (Roxicodone) 15 mg Q4H PRN PO PAIN Last administered on 17:29; Admin Dose 15 MG; Start 05/08/17 at 09:00 Nystatin (Nystatin Powder) 1 applic BID TOP Last administered on 05/14/17 08: 47; Admin Dose 1 APPLIC; Start 05/08/17 at 21:00 Methenamine (Hiprex) 1 gm BID PO Last administered on 05/14/17 08:49; Admin Dose 1 GM; Start 05/08/17 at 18:30 Hydromorphone HCl (Dilaudid) 1 mg Q4H PRN IV PAIN Last administered on 09:34; Admin Dose 1 MG; Start 05/09/17 at 14:30 Furosemide (Lasix) 20 mg DAILY PO Last administered on 05/14/17 08:49; Admin Dose 20 MG; Start 05/13/17 at 09:00 Cephalexin (Keflex) 500 mg Q8 PO Last administered on 05/14/17 05:30; Admin Dose 500 MG; Start 05/12/17 at 22:00 Warfarin Sodium (Coumadin) 3 mg DAILY@17 PO ; Start 05/14/17 at 17:00 Warfarin Sodium (Coumadin) 4 mg DAILY@17 PO ; Start 05/14/17 at 17:00 RONNI PERKINS May 14, 2017 11:53
--- NOTE | 2017-05-14 13:09 | CONS ---
Date/Time of Note Date/Time of Note DATE: 05/14/17 TIME: 13:08 Assessment/Plan Assessment/Plan Chief Complaint/Hosp Course SUBJECTIVE: No acute changes. Alert, feels better, no fevers. MICROBIOLOGY: Urine culture on 05/08/2017 growing grew Klebsiella pneumoniae susceptible to all antibiotics. ANTIMICROBIALS: Keflex PHYSICAL EXAMINATION: GENERAL: Obese, well-developed, middle-aged man who is awake, in no distress. HEENT: Head atraumatic, normocephalic. Sclerae anicteric. Buccal mucosa dry. NECK: Supple. CHEST: Rise symmetrical. Breath sounds clear. HEART: S1, S2. ABDOMEN: Soft, bowel tones present. EXTREMITIES: Without cyanosis or edema. ASSESSMENT: 1. Recurrent urinary tract infection. 2. Urethral stricture status post laser ureterotomy and internal ureterotomy without solving the problem. 3. Obesity. 4. Atrial fibrillation. 5. Hypertension. PLAN: Remains stable. Anticipate dc on oral Keflex to complete 10 days, f/u with urology [facility] staff/pt Problems: Consultation Date/Type/Reason Admit Date/Time May 08, 2017 at 05:39 Initial Consult Date 05/09/17 Type of Consultation: ID Referring Provider: ABHI HARE MD Exam/Review of Systems Vital Signs Vitals Vital Signs Date Time Temp Pulse Resp B/P Pulse Ox O2 Delivery O2 Flow Rate FiO2 05/14/17 12:51 21 05/14/17 12:04 98.0 76 18 124/79 93 05/13/17 20:00 Nasal Cannula 2.0 Intake and Output 05/13/17 05/13/17 05/14/17 15:00 23:00 07:00 Intake Total 1100 ml 850 ml Output Total 1700 ml 700 ml Balance -600 ml 150 ml Results Result Diagram: 05/14/17 0650 05/14/17 0650 Results 24 hrs Laboratory Tests Test 05/14/17 06:50 White Blood Count 6.5 # Red Blood Count 3.72 L Hemoglobin 12.0 L Hematocrit 36.3 L Mean Corpuscular Volume 97.6 Mean Corpuscular Hemoglobin 32.3 Mean Corpuscular Hemoglobin Concent 33.1 Red Cell Distribution Width 16.3 H Platelet Count 183 Mean Platelet Volume 9.0 Neutrophils % 64.8 Lymphocytes % 21.2 Monocytes % 9.1 Eosinophils % 3.6 Basophils % 0.8 Nucleated Red Blood Cells % 0.0 Neutrophils # 4.2 Lymphocytes # 1.4 Monocytes # 0.6 Eosinophils # 0.2 Basophils # 0.1 Nucleated Red Blood Cells # 0.0 Prothrombin Time 22.9 H Prothrombin Time Ratio 1.8 INR International Normalized Ratio 2.00 Sodium Level 139 Potassium Level 4.2 Chloride Level 105 Carbon Dioxide Level 25 Anion Gap 13 Blood Urea Nitrogen 19 Creatinine 0.97 Glucose Level 133 Calcium Level 9.1 Phosphorus Level 4.0 Magnesium Level 2.0 Medications Medications Current Medications Ondansetron HCl (Zofran Inj) 4 mg Q6H PRN IV NAUSEA AND/OR VOMITING; Start 05/08/17 at 07:30 Amiodarone HCl (Cordarone) 200 mg DAILY PO Last administered on 05/14/17 08: 49; Admin Dose 200 MG; Start 05/08/17 at 09:00 Carvedilol (Coreg) 3.125 mg BID PO Last administered on 05/14/17 08:48; Admin Dose 3.125 MG; Start 05/08/17 at 09:00 Losartan Potassium (Cozaar) 100 mg DAILY PO Last administered on 05/14/17 08: 48; Admin Dose 100 MG; Start 05/08/17 at 09:00 Tamsulosin HCl (Flomax) 0.4 mg HS PO Last administered on 05/13/17 20:21; Admin Dose 0.4 MG; Start 05/08/17 at 21:00 Acetaminophen (Tylenol Tab) 650 mg Q6H PRN PO PAIN LEVEL 1-3 OR FEVER Last administered on 05/14/17 07:01; Admin Dose 650 MG; Start 05/08/17 at 08:30 Docusate Sodium (Colace) 100 mg Q12H PRN PO CONSTIPATION; Start 05/08/17 at 08: 30 Magnesium Hydroxide (Milk Of Mag) 30 ml DAILY PRN PO CONSTIPATION; Start at 08:30 Famotidine (Pepcid) 20 mg Q12 PO Last administered on 05/14/17 08:50; Admin Dose 20 MG; Start 05/08/17 at 09:00 Baclofen (Lioresal) 10 mg TID PO Last administered on 05/14/17 08:49; Admin Dose 10 MG; Start 05/08/17 at 10:00 Oxycodone HCl (Oxycontin) 10 mg BID PO Last administered on 05/14/17 08:49; Admin Dose 10 MG; Start 05/08/17 at 09:00 Trazodone HCl (Desyrel) 100 mg HS PO Last administered on 05/13/17 20:21; Admin Dose 100 MG; Start 05/08/17 at 21:00 Oxycodone HCl (Roxicodone) 15 mg Q4H PRN PO PAIN Last administered on 17:29; Admin Dose 15 MG; Start 05/08/17 at 09:00 Nystatin (Nystatin Powder) 1 applic BID TOP Last administered on 05/14/17 08: 47; Admin Dose 1 APPLIC; Start 05/08/17 at 21:00 Methenamine (Hiprex) 1 gm BID PO Last administered on 05/14/17 08:49; Admin Dose 1 GM; Start 05/08/17 at 18:30 Hydromorphone HCl (Dilaudid) 1 mg Q4H PRN IV PAIN Last administered on 09:34; Admin Dose 1 MG; Start 05/09/17 at 14:30 Furosemide (Lasix) 20 mg DAILY PO Last administered on 05/14/17 08:49; Admin Dose 20 MG; Start 05/13/17 at 09:00 Cephalexin (Keflex) 500 mg Q8 PO Last administered on 05/14/17 05:30; Admin Dose 500 MG; Start 05/12/17 at 22:00 Warfarin Sodium (Coumadin) 3 mg DAILY@17 PO ; Start 05/14/17 at 17:00 Warfarin Sodium (Coumadin) 4 mg DAILY@17 PO ; Start 05/14/17 at 17:00 DIETER BASSETT NP May 14, 2017 13:09
[2017-05-14] MEDS ORDERED: OXYCODONE/ACETAMINOPHEN (5/325) TAB PO PRN (16:30)
[2017-05-14] MEDS: oxyCODONE 5 MG TAB PO PRN (16:31)
[2017-05-14] MEDS: WARFARIN 2 MG TAB PO SCH (17:26)
[2017-05-14] MEDS: WARFARIN 3 MG TAB PO SCH (17:27)
[2017-05-14] MEDS: TAMSULOSIN (SR) 0.4 MG CAP PO SCH (20:20)
[2017-05-14] MEDS: traZODone 100 MG TAB PO SCH (20:21)
--- NOTE | 2017-05-14 22:23 | CONS ---
Date/Time of Note Date/Time of Note DATE: 05/14/17 TIME: 22:16 Consult Date/Type/Reason Admit Date/Time May 08, 2017 at 05:39 Initial Consult Date 05/09/17 Type of Consultation: Urology Reason for Consultation Meatal stenosis,urethral stricture and urinary retention Ordering Provider: ABHI HARE MD Subjective patient was not able to urinate,he was trying to strain and has pain Objective Vital Signs Date Time Temp Pulse Resp B/P Pulse Ox O2 Delivery O2 Flow Rate FiO2 05/14/17 20:19 68 05/14/17 19:49 98.1 19 118/71 96 05/14/17 12:51 21 05/13/17 20:00 Nasal Cannula 2.0 Intake and Output 05/13/17 05/13/17 05/14/17 15:00 23:00 07:00 Intake Total 1100 ml 850 ml Output Total 1700 ml 700 ml Balance -600 ml 150 ml Exam urethral meatus closed from edema making it difficult for him to urinate Results/Medications Result Diagram: 05/14/17 0650 05/14/17 0650 Results 24 hrs Laboratory Tests Test 05/14/17 06:50 White Blood Count 6.5 # Red Blood Count 3.72 L Hemoglobin 12.0 L Hematocrit 36.3 L Mean Corpuscular Volume 97.6 Mean Corpuscular Hemoglobin 32.3 Mean Corpuscular Hemoglobin Concent 33.1 Red Cell Distribution Width 16.3 H Platelet Count 183 Mean Platelet Volume 9.0 Neutrophils % 64.8 Lymphocytes % 21.2 Monocytes % 9.1 Eosinophils % 3.6 Basophils % 0.8 Nucleated Red Blood Cells % 0.0 Neutrophils # 4.2 Lymphocytes # 1.4 Monocytes # 0.6 Eosinophils # 0.2 Basophils # 0.1 Nucleated Red Blood Cells # 0.0 Prothrombin Time 22.9 H Prothrombin Time Ratio 1.8 INR International Normalized Ratio 2.00 Sodium Level 139 Potassium Level 4.2 Chloride Level 105 Carbon Dioxide Level 25 Anion Gap 13 Blood Urea Nitrogen 19 Creatinine 0.97 Glucose Level 133 Calcium Level 9.1 Phosphorus Level 4.0 Magnesium Level 2.0 Medications Current Medications Ondansetron HCl (Zofran Inj) 4 mg Q6H PRN IV NAUSEA AND/OR VOMITING; Start 05/08/17 at 07:30 Amiodarone HCl (Cordarone) 200 mg DAILY PO Last administered on 05/14/17 08: 49; Admin Dose 200 MG; Start 05/08/17 at 09:00 Carvedilol (Coreg) 3.125 mg BID PO Last administered on 05/14/17 20:22; Admin Dose 3.125 MG; Start 05/08/17 at 09:00 Losartan Potassium (Cozaar) 100 mg DAILY PO Last administered on 05/14/17 08: 48; Admin Dose 100 MG; Start 05/08/17 at 09:00 Tamsulosin HCl (Flomax) 0.4 mg HS PO Last administered on 05/14/17 20:20; Admin Dose 0.4 MG; Start 05/08/17 at 21:00 Acetaminophen (Tylenol Tab) 650 mg Q6H PRN PO PAIN LEVEL 1-3 OR FEVER Last administered on 05/14/17 18:31; Admin Dose 650 MG; Start 05/08/17 at 08:30 Docusate Sodium (Colace) 100 mg Q12H PRN PO CONSTIPATION; Start 05/08/17 at 08: 30 Magnesium Hydroxide (Milk Of Mag) 30 ml DAILY PRN PO CONSTIPATION; Start at 08:30 Famotidine (Pepcid) 20 mg Q12 PO Last administered on 05/14/17 20:21; Admin Dose 20 MG; Start 05/08/17 at 09:00 Baclofen (Lioresal) 10 mg TID PO Last administered on 05/14/17 20:21; Admin Dose 10 MG; Start 05/08/17 at 10:00 Oxycodone HCl (Oxycontin) 10 mg BID PO Last administered on 05/14/17 20:21; Admin Dose 10 MG; Start 05/08/17 at 09:00 Trazodone HCl (Desyrel) 100 mg HS PO Last administered on 05/14/17 20:21; Admin Dose 100 MG; Start 05/08/17 at 21:00 Oxycodone HCl (Roxicodone) 15 mg Q4H PRN PO PAIN Last administered on 16:31; Admin Dose 15 MG; Start 05/08/17 at 09:00 Nystatin (Nystatin Powder) 1 applic BID TOP Last administered on 05/14/17 20: 22; Admin Dose 1 APPLIC; Start 05/08/17 at 21:00 Methenamine (Hiprex) 1 gm BID PO Last administered on 05/14/17 20:20; Admin Dose 1 GM; Start 05/08/17 at 18:30 Hydromorphone HCl (Dilaudid) 1 mg Q4H PRN IV PAIN Last administered on 20:32; Admin Dose 1 MG; Start 05/09/17 at 14:30 Furosemide (Lasix) 20 mg DAILY PO Last administered on 05/14/17 08:49; Admin Dose 20 MG; Start 05/13/17 at 09:00 Cephalexin (Keflex) 500 mg Q8 PO Last administered on 05/14/17 21:46; Admin Dose 500 MG; Start 05/12/17 at 22:00 Warfarin Sodium (Coumadin) 3 mg DAILY@17 PO Last administered on 05/14/17 17: 27; Admin Dose 3 MG; Start 05/14/17 at 17:00 Warfarin Sodium (Coumadin) 4 mg DAILY@17 PO Last administered on 05/14/17 17: 26; Admin Dose 4 MG; Start 05/14/17 at 17:00 Oxycodone/ Acetaminophen (Percocet (5/ 325)) 1 tab Q4H PRN PO PAIN; Start 04/20 at 16:30 Assessment/Plan Chief Complaint/Hosp Course 57-year-old male with recurrent urinary tract infection and long-standing urological problems secondary to urethral strictures. The patient underwent laser urethrotomy once and internal urethrotomy under direct vision another time. Both procedures did not solve his problem and he was supposed to be doing self catheterization/dilatation. He did do it for a while and he states he stopped it about 3-4 months ago. I did dilate his meatal stenosis with a 22Fr dilator today and he has been able to void after.Again I told him he needs to continue to do self dilatation daily to prevent the meatus from closing up again Problems: STEPH BOWLES MD May 14, 2017 22:23
[2017-05-15] VITALS (10 sets, daily range): BP systolic 97–122; BP diastolic 60–84; PULSE 63–74; RESP 18–20
[2017-05-15] MEDS: HYDROmorphONE 1 MG/ML SYG IV PRN ×4 (00:46→13:25)
[2017-05-15] MEDS: ACETAMINOPHEN 325 MG TAB PO PRN (03:10)
[2017-05-15] MEDS: CEPHALEXIN 500 MG CAP PO SCH ×2 (05:06→13:22)
[2017-05-15] MEDS: ALBUTEROL/IPRATROPIUM (NEB) 3 ML AMP HHN SCH (08:04)
[2017-05-15 08:40] LABS: BASOPHILS % 0.7 % (0.0-2.0); EOSINOPHILS # 0.2 10^3/ul (0.0-0.5); EOSINOPHILS % 3.8 % (0.0-7.0); HEMATOCRIT 38.6 % (42.0-52.0); HEMOGLOBIN 12.7 g/dl (14.0-18.0); LYMPHOCYTES # 1.3 10^3/ul (0.8-2.9); LYMPHOCYTES % 23.2 % (15.0-51.0); MEAN CORPUSCULAR HEMOGLOBIN 32.6 pg (29.0-33.0); MEAN CORPUSCULAR HGB CONC 32.9 g/dl (32.0-37.0); MEAN CORPUSCULAR VOLUME 99.2 fl (82.0-101.0); MEAN PLATELET VOLUME 9.2 fl (7.4-10.4); MONOCYTE # 0.5 10^3/ul (0.3-0.9); MONOCYTES % 9.8 % (0.0-11.0); NEUTROPHIL # 3.4 10^3/ul (1.6-7.5); PLATELET COUNT 177 10^3/UL (140-415); RED BLOOD COUNT 3.89 10^6/ul (4.70-6.10); RED CELL DISTRIBUTION WIDTH 16.2 % (11.5-14.5); WHITE BLOOD COUNT 5.5 10^3/ul (4.8-10.8)
[2017-05-15 08:55] LABS: INR 1.94; PROTIME 22.3 Sec (12.2-14.2); PT RATIO 1.7
[2017-05-15 09:00] LABS: CALCIUM 9.4 mg/dl (8.4-10.2); CREATININE 0.95 mg/dl (0.61-1.24); POTASSIUM 4.5 mmol/L (3.5-5.1)
[2017-05-15] MEDS: METHENAMINE 1 GM TAB PO SCH (09:01)
[2017-05-15] MEDS: LOSARTAN 50 MG TAB PO SCH (09:01)
[2017-05-15] MEDS: FUROSEMIDE 20 MG TAB PO SCH (09:01)
[2017-05-15] MEDS: BACLOFEN 10 MG TAB PO SCH ×2 (09:01→13:22)
[2017-05-15] MEDS: oxyCODONE (CR) 10 MG TAB [oxyCONTIN] PO SCH (09:01)
[2017-05-15] MEDS: FAMOTIDINE 20 MG TAB PO SCH (09:01)
[2017-05-15] MEDS: AMIODARONE 200 MG TAB PO SCH (09:02)
[2017-05-15] MEDS: NYSTATIN 30 GM POWDER BTL TOP SCH (09:03)
--- NOTE | 2017-05-15 11:44 | PN ---
Date/Time of Note Date/Time of Note DATE: 05/15/17 TIME: 11:44 Assessment/Plan VTE Prophylaxis VTE Prophylaxis Intervention: other Lines/Catheters IV [facility] Saline Lock Urinary Cath still in place: No Assessment/Plan Assessment/Plan 1. Urinary tract infection - Improving. Will continue on Keflex for total of 10 day course. On day 4/10 - Dilaudid PRN 2. urinary retention secondary to strictures - Urology has seen patient, patient has long history of needing dilation therapy daily of meatus - Dilation done per urology yesterday and improvement in urination. Stressed to patient that he will need to continue with home dilation to prevent this from reoccurring. - Follow up with Dr. Mcgregor as outpatient 3. Pulmonary edema - off iv lasix, transition to oral - Respiratory status stable at this time. - incentive spirometry ordered 4. Shortness of breath secondary to #1 - resolved 5. Acute on chronic diastolic heart failure - CXR shows pulmonary edema but no effusions - lasix po - monitor I/O and daily weights - BNP 570 6. Cardiomegaly - stable 7. Chronic back pain - Continued on home medications 8. Atrial fibrillation - in sinus rhythm. Continue on amio and BB 9. Chronic PE - INR borderline therapeutic - on Coumadin. patient's insurance does not cover NOAC. Will need to continue coumadin 10. HTN - stable 11. 9mm nodule - outpatient monitoring 12. Disposition - medically stable for discharge - Will dose Coumadin 7mg for next 2 days and follow up INR Wednesday with PCP for dosing - Needs 6 more days of antibiotics Subjective 24 Hr Interval Summary Free Text/Dictation Patient states hes feeling better and still having some issues with urinating but can handle discomfort now. Denies any new complaints and no acute overnight events. Exam/Review of Systems Vital Signs Vitals Vital Signs Date Time Temp Pulse Resp B/P Pulse Ox O2 Delivery O2 Flow Rate FiO2 05/15/17 11:42 98.1 76 20 101/70 97 05/14/17 20:45 Nasal Cannula 2.0 05/14/17 12:51 21 Intake and Output 05/14/17 05/14/17 05/15/17 15:00 23:00 07:00 Intake Total 900 ml 500 ml Output Total 600 ml 700 ml Balance 300 ml -200 ml Exam Constitutional: alert, oriented, well developed, no acute distress Neck: non-tender, supple Respiratory: clear to auscultation, crackles/rales, No labored breathing, No wheezing Cardiovascular: nl pulses, regular rate and rhythm, No edema, No murmurs/extra sounds, No systolic murmur Gastrointestinal: bowel sounds, non-tender, soft, No distended, No rebound or guarding Genitourinary - minimal suprapubic discomfort, head of penis dry skin with erythema Musculoskeletal: nl extremities to inspection Extremities: normal pulses, No cyanosis, No edema 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: 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 CRITIC II-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, nl mental status, nl speech Skin: chronic stasis changes ankles bilaterally, chronic ulcer left toe Results Result Diagram: 05/15/1734 05/15/17 0734 Results 24 hrs Laboratory Tests Test 05/15/17 07:34 White Blood Count 5.5 Red Blood Count 3.89 L Hemoglobin 12.7 L Hematocrit 38.6 L Mean Corpuscular Volume 99.2 Mean Corpuscular Hemoglobin 32.6 Mean Corpuscular Hemoglobin Concent 32.9 Red Cell Distribution Width 16.2 H Platelet Count 177 Mean Platelet Volume 9.2 Neutrophils % 62.0 Lymphocytes % 23.2 Monocytes % 9.8 Eosinophils % 3.8 Basophils % 0.7 Nucleated Red Blood Cells % 0.0 Neutrophils # 3.4 Lymphocytes # 1.3 Monocytes # 0.5 Eosinophils # 0.2 Basophils # 0.0 Nucleated Red Blood Cells # 0.0 Prothrombin Time 22.3 H Prothrombin Time Ratio 1.7 INR International Normalized Ratio 1.94 Sodium Level 140 Potassium Level 4.5 Chloride Level 104 Carbon Dioxide Level 27 Anion Gap 14 Blood Urea Nitrogen 22 H Creatinine 0.95 Glucose Level 105 Calcium Level 9.4 Phosphorus Level 4.0 Magnesium Level 2.0 Medications Medications Current Medications Ondansetron HCl (Zofran Inj) 4 mg Q6H PRN IV NAUSEA AND/OR VOMITING; Start 05/08/17 at 07:30 Amiodarone HCl (Cordarone) 200 mg DAILY PO Last administered on 05/15/17 09: 02; Admin Dose 200 MG; Start 05/08/17 at 09:00 Carvedilol (Coreg) 3.125 mg BID PO Last administered on 05/15/17 09:02; Admin Dose 3.125 MG; Start 05/08/17 at 09:00 Losartan Potassium (Cozaar) 100 mg DAILY PO Last administered on 05/15/17 09: 01; Admin Dose 100 MG; Start 05/08/17 at 09:00 Tamsulosin HCl (Flomax) 0.4 mg HS PO Last administered on 05/14/17 20:20; Admin Dose 0.4 MG; Start 05/08/17 at 21:00 Acetaminophen (Tylenol Tab) 650 mg Q6H PRN PO PAIN LEVEL 1-3 OR FEVER Last administered on 05/15/17 03:10; Admin Dose 650 MG; Start 05/08/17 at 08:30 Docusate Sodium (Colace) 100 mg Q12H PRN PO CONSTIPATION; Start 05/08/17 at 08: 30 Magnesium Hydroxide (Milk Of Mag) 30 ml DAILY PRN PO CONSTIPATION; Start at 08:30 Famotidine (Pepcid) 20 mg Q12 PO Last administered on 05/15/17 09:01; Admin Dose 20 MG; Start 05/08/17 at 09:00 Baclofen (Lioresal) 10 mg TID PO Last administered on 05/15/17 09:01; Admin Dose 10 MG; Start 05/08/17 at 10:00 Oxycodone HCl (Oxycontin) 10 mg BID PO Last administered on 05/15/17 09:01; Admin Dose 10 MG; Start 05/08/17 at 09:00 Trazodone HCl (Desyrel) 100 mg HS PO Last administered on 05/14/17 20:21; Admin Dose 100 MG; Start 05/08/17 at 21:00 Oxycodone HCl (Roxicodone) 15 mg Q4H PRN PO PAIN Last administered on 16:31; Admin Dose 15 MG; Start 05/08/17 at 09:00 Nystatin (Nystatin Powder) 1 applic BID TOP Last administered on 05/15/17 09: 03; Admin Dose 1 APPLIC; Start 05/08/17 at 21:00 Methenamine (Hiprex) 1 gm BID PO Last administered on 05/15/17 09:01; Admin Dose 1 GM; Start 05/08/17 at 18:30 Hydromorphone HCl (Dilaudid) 1 mg Q4H PRN IV PAIN Last administered on 09:10; Admin Dose 1 MG; Start 05/09/17 at 14:30 Furosemide (Lasix) 20 mg DAILY PO Last administered on 05/15/17 09:01; Admin Dose 20 MG; Start 05/13/17 at 09:00 Cephalexin (Keflex) 500 mg Q8 PO Last administered on 05/15/17 05:06; Admin Dose 500 MG; Start 05/12/17 at 22:00 Warfarin Sodium (Coumadin) 3 mg DAILY@17 PO Last administered on 05/14/17 17: 27; Admin Dose 3 MG; Start 05/14/17 at 17:00 Warfarin Sodium (Coumadin) 4 mg DAILY@17 PO Last administered on 05/14/17 17: 26; Admin Dose 4 MG; Start 05/14/17 at 17:00 Oxycodone/ Acetaminophen (Percocet (5/ 325)) 1 tab Q4H PRN PO PAIN; Start 04/20 at 16:30 ABHI HARE MD May 15, 2017 11:44
--- NOTE | 2017-05-15 13:10 | CONS ---
Date/Time of Note Date/Time of Note DATE: 05/15/17 TIME: 13:08 Consult Date/Type/Reason Admit Date/Time May 08, 2017 at 05:39 Initial Consult Date 05/09/17 Type of Consultation: Urology Reason for Consultation Difficulty urinating Ordering Provider: ABHI HARE MD Subjective Patient stated that he is feeling better and urinating easier since the dilatation. He still however voiding frequently but he is comfortable Objective Vital Signs Date Time Temp Pulse Resp B/P Pulse Ox O2 Delivery O2 Flow Rate FiO2 05/15/17 12:25 73 05/15/17 11:42 98.1 20 101/70 97 05/14/17 20:45 Nasal Cannula 2.0 05/14/17 12:51 21 Intake and Output 05/14/17 05/14/17 05/15/17 15:00 23:00 07:00 Intake Total 900 ml 500 ml Output Total 600 ml 700 ml Balance 300 ml -200 ml Results/Medications Result Diagram: 05/15/17 0734 05/15/17 0734 Results 24 hrs Laboratory Tests Test 05/15/17 07:34 White Blood Count 5.5 Red Blood Count 3.89 L Hemoglobin 12.7 L Hematocrit 38.6 L Mean Corpuscular Volume 99.2 Mean Corpuscular Hemoglobin 32.6 Mean Corpuscular Hemoglobin Concent 32.9 Red Cell Distribution Width 16.2 H Platelet Count 177 Mean Platelet Volume 9.2 Neutrophils % 62.0 Lymphocytes % 23.2 Monocytes % 9.8 Eosinophils % 3.8 Basophils % 0.7 Nucleated Red Blood Cells % 0.0 Neutrophils # 3.4 Lymphocytes # 1.3 Monocytes # 0.5 Eosinophils # 0.2 Basophils # 0.0 Nucleated Red Blood Cells # 0.0 Prothrombin Time 22.3 H Prothrombin Time Ratio 1.7 INR International Normalized Ratio 1.94 Sodium Level 140 Potassium Level 4.5 Chloride Level 104 Carbon Dioxide Level 27 Anion Gap 14 Blood Urea Nitrogen 22 H Creatinine 0.95 Glucose Level 105 Calcium Level 9.4 Phosphorus Level 4.0 Magnesium Level 2.0 Medications Current Medications Ondansetron HCl (Zofran Inj) 4 mg Q6H PRN IV NAUSEA AND/OR VOMITING; Start 05/08/17 at 07:30 Amiodarone HCl (Cordarone) 200 mg DAILY PO Last administered on 05/15/17t 09: 02; Admin Dose 200 MG; Start 05/08/17 at 09:00 Carvedilol (Coreg) 3.125 mg BID PO Last administered on 05/15/17 09:02; Admin Dose 3.125 MG; Start 05/08/17 at 09:00 Losartan Potassium (Cozaar) 100 mg DAILY PO Last administered on 05/15/17 09: 01; Admin Dose 100 MG; Start 05/08/17 at 09:00 Tamsulosin HCl (Flomax) 0.4 mg HS PO Last administered on 05/14/17 20:20; Admin Dose 0.4 MG; Start 05/08/17 at 21:00 Acetaminophen (Tylenol Tab) 650 mg Q6H PRN PO PAIN LEVEL 1-3 OR FEVER Last administered on 05/15/17 03:10; Admin Dose 650 MG; Start 05/08/17 at 08:30 Docusate Sodium (Colace) 100 mg Q12H PRN PO CONSTIPATION; Start 05/08/17 at 08: 30 Magnesium Hydroxide (Milk Of Mag) 30 ml DAILY PRN PO CONSTIPATION; Start at 08:30 Famotidine (Pepcid) 20 mg Q12 PO Last administered on 05/15/17 09:01; Admin Dose 20 MG; Start 05/08/17 at 09:00 Baclofen (Lioresal) 10 mg TID PO Last administered on 05/15/17 09:01; Admin Dose 10 MG; Start 05/08/17 at 10:00 Oxycodone HCl (Oxycontin) 10 mg BID PO Last administered on 05/15/17 09:01; Admin Dose 10 MG; Start 05/08/17 at 09:00 Trazodone HCl (Desyrel) 100 mg HS PO Last administered on 05/14/17 20:21; Admin Dose 100 MG; Start 05/08/17 at 21:00 Oxycodone HCl (Roxicodone) 15 mg Q4H PRN PO PAIN Last administered on 16:31; Admin Dose 15 MG; Start 05/08/17 at 09:00 Nystatin (Nystatin Powder) 1 applic BID TOP Last administered on 05/15/17 09: 03; Admin Dose 1 APPLIC; Start 05/08/17 at 21:00 Methenamine (Hiprex) 1 gm BID PO Last administered on 05/15/17 09:01; Admin Dose 1 GM; Start 05/08/17 at 18:30 Hydromorphone HCl (Dilaudid) 1 mg Q4H PRN IV PAIN Last administered on 09:10; Admin Dose 1 MG; Start 05/09/17 at 14:30 Furosemide (Lasix) 20 mg DAILY PO Last administered on 05/15/17 09:01; Admin Dose 20 MG; Start 05/13/17 at 09:00 Cephalexin (Keflex) 500 mg Q8 PO Last administered on 05/15/17 05:06; Admin Dose 500 MG; Start 05/12/17 at 22:00 Warfarin Sodium (Coumadin) 3 mg DAILY@17 PO Last administered on 05/14/17 17: 27; Admin Dose 3 MG; Start 05/14/17 at 17:00 Warfarin Sodium (Coumadin) 4 mg DAILY@17 PO Last administered on 05/14/17 17: 26; Admin Dose 4 MG; Start 05/14/17 at 17:00 Oxycodone/ Acetaminophen (Percocet (5/ 325)) 1 tab Q4H PRN PO PAIN Last administered on 05/15/17 13:06; Admin Dose 1 TAB; Start 05/14/17 at 16:30 Assessment/Plan Chief Complaint/Hosp Course 57-year-old male with recurrent urinary tract infection and long-standing urological problems secondary to urethral strictures. The patient underwent laser urethrotomy once and internal urethrotomy under direct vision another time. Both procedures did not solve his problem and he was supposed to be doing self catheterization/dilatation. He did do it for a while and he states he stopped it about 3-4 months ago. I did dilate his meatal stenosis with a 22Fr dilator yesterday and he has been able to void after.Again I told him he needs to continue to do self dilatation daily to prevent the meatus from closing up again Problems: STEPH BOWLES MD May 15, 2017 13:10
[2017-05-15] MEDS ORDERED: CEPH500C PO (14:28)
[2017-05-15] MEDS ORDERED: LAS20 PO (14:28)
[2017-05-15] MEDS ORDERED: TRAZ100T15 PO (14:28)
[2017-05-15] MEDS ORDERED: NYST15PO4 TOP (14:28)
[2017-05-15] MEDS ORDERED: OXYC-438 PO (14:28)
--- NOTE | 2017-05-15 14:35 | PDOCDIS ---
Discharge Instructions DIAGNOSIS Discharge Diagnosis 1. Urinary tract infection 2. urinary retention secondary to strictures 3. Pulmonary edema- improved 4. Shortness of breath secondary to #1- resolved 5. Acute on chronic diastolic heart failure- resolved 6. Cardiomegaly 7. Chronic back pain 8. Atrial fibrillation 9. Chronic PE 10. HTN 11. 9mm nodule CONDITION Patient Condition: Good HOME CARE INSTRUCTIONS: Diet Instructions: Low Fat /CholesterolSpecial Diet: CARDIAC DIET. ACTIVITY: Activity Restrictions: No Restrictions FOLLOW UP/APPOINTMENTS Follow-up Plan 1. You will need to take 6 more days of antibiotics, Keflex 2. Take 7mg of Coumadin tonight and tomorrow. Follow up your INR on Wednesday with PCP 3. Follow up with your PCP in 1 week 4. Follow up with Urologist. Continue self dilation at home to prevent issues with urination 5. You will need to have your PCP follow up the 9mm lung nodule to monitor for increase in growth REFERRALS Other Referrals Hamzah Mcgregor MD Specialty: Urology Office Address [id number] [place] [address] [address] [place] [address] Office ABHI HARE MD May 15, 2017 14:35
--- NOTE | 2017-05-15 14:45 | DS ---
Date/Time of Note Date/Time of Note DATE: 05/15/17 TIME: 14:44 Discharge Summary Admission/Discharge Info Admit Date/Time May 08, 2017 at 05:39 Discharge Date/Time Discharge Diagnosis 1. Urinary tract infection 2. urinary retention secondary to strictures 3. Pulmonary edema- improved 4. Shortness of breath secondary to #1- resolved 5. Acute on chronic diastolic heart failure- resolved 6. Cardiomegaly 7. Chronic back pain 8. Atrial fibrillation 9. Chronic PE 10. HTN 11. 9mm nodule Patient Condition: Good Consults Infectious Disease- Dr. Hines Urology- Dr. Mcgregor Procedures PROCEDURE: CT Abdomen and Pelvis without contrast. CLINICAL INDICATION: Abdominal and pelvic pain. TECHNIQUE: CT scan of the abdomen and pelvis without contrast was performed. Coronal and sagittal reformatted images were obtained from the axial source images. Images were reviewed on a high-resolution PACS workstation. Total exam DLP is 1591.37 mGy-cm. CTDIvol is 23.71 mGy. One or more of the following dose reduction techniques were used: Automated exposure control, adjustment of the mA and/or kV according to patient size, use of iterative reconstruction technique. COMPARISON: None. FINDINGS: There is mild atelectasis at the lung bases posteriorly. The lung bases are otherwise normal. There is no pleural effusion or pericardial effusion. The heart is mildly enlarged. The liver is normal in size and diffusely mildly decreased attenuation consistent with fatty metamorphosis. There is no focal hepatic lesion. The gallbladder and bile ducts are normal. The spleen is normal in size. There is no focal splenic lesion. There is a 1.4 x 1.2 cm low attenuation nodule superiorly in the right adrenal gland and a 1.3 x 1.2 cm low attenuation nodule superiorly in the left adrenal gland. The adrenals are otherwise normal The pancreas is unremarkable with no mass or evidence of pancreatitis. There is no renal mass or hydronephrosis. There is no renal calculus or ureteral calculus. The abdominal aorta is not dilated. There is calcification in the aorta consistent with atherosclerosis. There is an inferior vena cava filter with the superior tip below the level of the renal veins. There is no retroperitoneal lymphadenopathy or mass. There is no pelvic lymphadenopathy or mass. The bladder and distal ureters are normal. The periappendiceal region is unremarkable with no evidence of appendicitis. The bowel and mesentery are normal. There is no free fluid or free gas. There are degenerative changes of the spine. There is no fracture or lytic lesion. IMPRESSION: 1. Mild atelectasis at the lung bases posteriorly. 2. Mild cardiomegaly. 3. Fatty metamorphosis of the liver. 4. Small low attenuation nodule superiorly in both adrenal glands, probably benign. Follow-up in 6 months is advised. 5. Atherosclerosis. 6. IVC filter in satisfactory position. 7. Degenerative changes of the spine. PROCEDURE: CT Abdomen and Pelvis without contrast. CLINICAL INDICATION: Abdominal and pelvic pain. TECHNIQUE: CT scan of the abdomen and pelvis without contrast was performed. Coronal and sagittal reformatted images were obtained from the axial source images. Images were reviewed on a high-resolution PACS workstation. Total exam DLP is 1591.37 mGy-cm. CTDIvol is 23.71 mGy. One or more of the following dose reduction techniques were used: Automated exposure control, adjustment of the mA and/or kV according to patient size, use of iterative reconstruction technique. COMPARISON: None. FINDINGS: There is mild atelectasis at the lung bases posteriorly. The lung bases are otherwise normal. There is no pleural effusion or pericardial effusion. The heart is mildly enlarged. The liver is normal in size and diffusely mildly decreased attenuation consistent with fatty metamorphosis. There is no focal hepatic lesion. The gallbladder and bile ducts are normal. The spleen is normal in size. There is no focal splenic lesion. There is a 1.4 x 1.2 cm low attenuation nodule superiorly in the right adrenal gland and a 1.3 x 1.2 cm low attenuation nodule superiorly in the left adrenal gland. The adrenals are otherwise normal The pancreas is unremarkable with no mass or evidence of pancreatitis. There is no renal mass or hydronephrosis. There is no renal calculus or ureteral calculus. The abdominal aorta is not dilated. There is calcification in the aorta consistent with atherosclerosis. There is an inferior vena cava filter with the superior tip below the level of the renal veins. There is no retroperitoneal lymphadenopathy or mass. There is no pelvic lymphadenopathy or mass. The bladder and distal ureters are normal. The periappendiceal region is unremarkable with no evidence of appendicitis. The bowel and mesentery are normal. There is no free fluid or free gas. There are degenerative changes of the spine. There is no fracture or lytic lesion. IMPRESSION: 1. Mild atelectasis at the lung bases posteriorly. 2. Mild cardiomegaly. 3. Fatty metamorphosis of the liver. 4. Small low attenuation nodule superiorly in both adrenal glands, probably benign. Follow-up in 6 months is advised. 5. Atherosclerosis. 6. IVC filter in satisfactory position. 7. Degenerative changes of the spine. Hx of Present Illness 57 yo M with PMH Chronic back pain, atrial fibrillation, h/o PE, and HTN presented to ED c/o worsening shortness of breath, palpitations, and dysuria that started last night. Patient was recently discharged from [facility] after being treated from Sepsis secondary to community acquired pneumonia and found to have VRE UTI. Patient states after discharge he was experiencing dyspnea on exertion and still had dysuria but was improving. Patient states the pain with urination is severe, burning in nature, no discharge, or blood in urine. Denies any chest pain, wheezing, nausea, vomiting, fevers, headaches, or abdominal issues. Shortness of breath has improved and no longer experiencing palpitations. Hospital Course Patient was admitted and urine cultures were sent. ID was consulted and patient started on Ertapenem in addition to Linezolid. Patient was still experiencing dysuria and was hesitant to urinate secondary to extreme pain. There was also swelling and discoloration of the head of his penis. Urology was consulted for further recommendations and patient had a history of long standing urological problems secondary to urethral strictures. Patient underwent laser urethrotomy in the past as well as internal urethotomy under direct vision another time. Patient was supposed to do self catheterization as well as dilation but stopped 3-4 months ago. Patient urinates often throughout the day as well as multiple times at night. He was found to have balanitis as well. Patient underwent urethral dilation during hospital stay which helped improve his urinary stream but was still experiencing pain with urination. Patient was switched to Keflex with plans to continue for total of 10 day course. Patient also found to have subtherapeutic INR and continued on Coumadin. Patient instructed to follow up with PCP once returned back to [place] to continue to dose Coumadin and monitor INR. Patient was also treated for acute on chronic CHF and discharged on Lasix. Patient was discharged home in good condition with instruction to follow up with Urology and continue home dilations. Home Meds Active Scripts Nystatin* (Nystop*) 15 Gm Powder, 1 APPLIC TOP BID for 30 Days, #1 BOT Prov:ABHI HARE MD 05/15/17 Furosemide (Lasix) 20 Mg Tab, 20 MG PO DAILY for 30 Days, #30 TAB Prov:ABHI HARE MD 05/15/17 Trazodone Hcl* (Desyrel*) 100 Mg Tab, 100 MG PO HS for 30 Days, #30 TAB Prov:ABHI HARE MD 05/15/17 Oxycodone HCl/Acetaminophen (Oxycodone-Acetaminophen 5-325) 1 Each Tablet, 1 TAB PO Q4H Y for PAIN for 10 Days, #20 TAB Prov:ABHI HARE MD 05/15/17 Cephalexin* (Cephalexin*) 500 Mg Capsule, 500 MG PO Q8 for 6 Days, #18 CAP Prov:ABHI HARE MD 05/15/17 Carvedilol* (Carvedilol*) 6.25 Mg Tablet, 3.125 MG PO BID for 30 Days, TAB Prov:ELIANA FELIX MD 04/29/17 Losartan Potassium* (Cozaar*) 50 Mg Tablet, 100 MG PO DAILY for 30 Days, TAB Prov:ELIANA FELIX MD 04/29/17 Amiodarone Hcl* (Amiodarone Hcl*) 200 Mg Tablet, 200 MG PO DAILY for 30 Days, TAB Prov:ELIANA FELIX MD 04/29/17 Warfarin Sod (Coumadin) 5 Mg Tab, 5 MG PO DAILY@17 for 30 Days, TAB Prov:ELIANA FELIX MD 04/29/17 Ipratropium-Albuterol (Ipratropium-Albuterol) 0.5-3 Mg/3 Ml Ampul.neb, 3 ML HHN Q2H RESP THERAPY Y for wheezing for 30 Days Prov:ELIANA FELIX MD 04/29/17 Discontinued Scripts Prednisone* (Prednisone*) 20 Mg Tab, 20 MG PO DAILY for 20 Days, TAB Prov:ELIANA FELIX MD 04/29/17 Tamsulosin Hcl* (Flomax*) 0.4 Mg Cap.er.24h, 0.4 MG PO HS for 30 Days, CAP Prov:ELIANA FELIX MD 04/29/17 Linezolid (Linezolid) 600 Mg Tablet, 600 MG PO BID for 3 Days, TAB Prov:ELIANA FELIX MD 04/29/17 Follow-up Plan 1. You will need to take 6 more days of antibiotics, Keflex 2. Take 7mg of Coumadin tonight and tomorrow. Follow up your INR on Wednesday with PCP 3. Follow up with your PCP in 1 week 4. Follow up with Urologist. Continue self dilation at home to prevent issues with urination 5. You will need to have your PCP follow up the 9mm lung nodule to monitor for increase in growth Primary Care Provider Not On Staff Doctor Time spent on discharge: > 30 minutes Pending Labs Laboratory Tests Test 05/15/17 07:34 White Blood Count 5.510^3/ul (4.8-10.8) Red Blood Count 3.8910^6/ul (4.70-6.10) Hemoglobin 12.7g/dl (14.0-18.0) Hematocrit 38.6% (42.0-52.0) Mean Corpuscular Volume 99.2fl (82.0-101.0) Mean Corpuscular Hemoglobin 32.6pg (29.0-33.0) Mean Corpuscular Hemoglobin Concent 32.9g/dl (32.0-37.0) Red Cell Distribution Width 16.2% (11.5-14.5) Platelet Count 65174^3/UL (140-415) Mean Platelet Volume 9.2fl (7.4-10.4) Neutrophils % 62.0% (39.0-77.0) Lymphocytes % 23.2% (15.0-51.0) Monocytes % 9.8% (0.0-11.0) Eosinophils % 3.8% (0.0-7.0) Basophils % 0.7% (0.0-2.0) Nucleated Red Blood Cells % 0.0/100WBC (0.0-0.0) Neutrophils # 3.410^3/ul (1.6-7.5) Lymphocytes # 1.310^3/ul (0.8-2.9) Monocytes # 0.510^3/ul (0.3-0.9) Eosinophils # 0.210^3/ul (0.0-0.5) Basophils # 0.010^3/ul (0.0-0.1) Nucleated Red Blood Cells # 0.010^3/ul (0.0-0.0) Prothrombin Time 22.3Sec (12.2-14.2) Prothrombin Time Ratio 1.7 INR International Normalized Ratio 1.94 Sodium Level 140mmol/L (135-144) Potassium Level 4.5mmol/L (3.5-5.1) Chloride Level 104mmol/L (97-110) Carbon Dioxide Level 27mmol/L (21-31) Anion Gap 14 (8-16) Blood Urea Nitrogen 22mg/dl (7-20) Creatinine 0.95mg/dl (0.61-1.24) Glucose Level 105mg/dl (70-220) Calcium Level 9.4mg/dl (8.4-10.2) Phosphorus Level 4.0mg/dl (2.5-4.9) Magnesium Level 2.0mg/dl (1.7-2.5) ABHI HARE MD May 15, 2017 14:45
[2017-05-15] MEDS: WARFARIN 3 MG TAB PO SCH (15:50)
[2017-05-15] MEDS: WARFARIN 2 MG TAB PO SCH (15:51)
== END 2017-05-15 16:09 | disposition home or self-care (01) | DRG 671 ==
LOC: E/R 03:36 → MS4 05:39
PROVIDERS: ADMIT Family Medicine; ATTEND Family Medicine
PROC: 0T7D3ZZ Dilation of Urethra, Percutaneous Approach (ICD-10-PCS; principal; 2017-05-11)
DX: N39.0 Urinary tract infection, site not specified (principal); I50.33 Acute on chronic diastolic (congestive) heart failure; I11.0 Hypertensive heart disease with heart failure; I27.82 Chronic pulmonary embolism; N35.9 Urethral stricture, unspecified; B96.89 Other specified bacterial agents as the cause of diseases classified elsewhere; B96.1 Klebsiella pneumoniae [K. pneumoniae] as the cause of diseases classified elsewhere; Z16.22 Resistance to vancomycin related antibiotics; G89.29 Other chronic pain; M54.9 Dorsalgia, unspecified; I48.91 Unspecified atrial fibrillation; Z79.02 Long term (current) use of antithrombotics/antiplatelets; R33.9 Retention of urine, unspecified
CPT/HCPCS: 36415; 71010; 74176; 76870; 80048; 80053; 81001; 83605; 83735; 83880; 84100; 84484; 85025; 85610; 85730; 87040; 87081; 87086; 93005; 94640; 94664; 96374; 96375; 96376; J0696; J1170; J1335; J1940; J2060; J2270